=== PATIENT | female | born 1935 | race Caucasian/White ===

== ENCOUNTER → 2023-10-14 07:02 | Outpatient (REF) | payer MEDICARE, SELFPAY ==
[2023-10-14 07:36] LABS: % Basophils 1.1 % (0-2); % Eosinophils 3.2 % (0-6); % Immature Granulocytes 0.2 % (0-0.5); % Lymphocytes 24.6 % (20.5-51.1); % Monocytes 10.1 % (1.7-9.3); % Neutrophils 60.8 % (42.2-75.2); Absolute Basophils 0.1 10^3/uL (0-0.2); Absolute Eosinophils 0.2 10^3/uL (0-0.7); Absolute Lymphocytes 1.4 10^3/uL (1.2-3.4); Absolute Monocytes 0.6 10^3/uL (0.1-0.6); Absolute Neutrophils 3.4 10^3/uL (1.4-6.5); Hematocrit 35.2 % (37.0-47.0); Hemoglobin 11.2 g/dL (12.0-16.0); Mean Corp Hgb Conc. 31.8 g/dL (33.0-37.0); Mean Corpuscular Volume 97.5 fL (81.0-99.0); Mean Platelet Volume 10.6 fL (7.4-10.4); Nucleated Red Blood Cells % 0 %; Platelet Count 142 10^3/uL (130-400); Red Blood Cell Count 3.61 10^6/uL (4.20-5.40); Red Cell Dist. Width 13.6 % (11.5-14.5); White Blood Cell Count 5.6 10^3/uL (4.8-10.8)
[2023-10-14 08:47] LABS: ALT (SGPT) 17 U/L (0-35); AST (SGOT) 29 U/L (14-36); Albumin 3.7 g/dl (3.5-5.0); Alkaline Phosphatase 196 U/L (38-126); Blood Urea Nitrogen 24 mg/dl (7-17); Calcium 9.5 mg/dl (8.4-10.2); Carbon Dioxide 27 mmol/L (22-30); Chloride 101 mmol/L (98-107); Glucose 94 mg/dl (70-99); HDL Cholesterol 30 mg/dl; Iron 63 ug/dl (37-170); LDL Cholesterol, Calculated 56 mg/dl; Sodium 139 mmol/L (135-145); Total Bilirubin 0.8 mg/dl (0.2-1.3); Total Cholesterol 100 mg/dl (50-199); Total Protein 6.2 g/dl (6.3-8.2); Triglyceride 73 mg/dl (10-149); Very Low Density Lipoprotein 14 mg/dl (0-30); eGFR > 60.00
[2023-10-14 08:56] LABS: Percent Saturation 21 % (20-50); Total Iron Binding Capacity 297 ug/dl (265-497)
[2023-10-14 10:20] LABS: Glycohemoglobin (HgbA1c) 5.6 % (4.0-5.6)
== END ==
LOC: REG 07:02
PROVIDERS: ATTENDING PHYSICIAN Nurse Practitioner Adult Health; FAMILY PHYSICIAN Family Medicine; REFERRING PHYSICIAN Internal Medicine Cardiovascular Disease
DX: D50.8 Other iron deficiency anemias (principal); R73.02 Impaired glucose tolerance (oral); E78.5 Hyperlipidemia, unspecified; E61.1 Iron deficiency
CPT/HCPCS: 36415; 80053; 80061; 82728; 83036; 83540; 83550; 85025

== ENCOUNTER → 2023-10-21 11:06 | Outpatient (REF) | payer MEDICARE, SELFPAY ==
[2023-10-21 13:42] LABS: % Basophils 0.9 % (0-2); % Immature Granulocytes 0.3 % (0-0.5); % Monocytes 8.8 % (1.7-9.3); Absolute Basophils 0.1 10^3/uL (0-0.2); Absolute Eosinophils 0.1 10^3/uL (0-0.7); Absolute Lymphocytes 1.2 10^3/uL (1.2-3.4); Absolute Monocytes 0.6 10^3/uL (0.1-0.6); Absolute Neutrophils 4.4 10^3/uL (1.4-6.5); Hematocrit 36.9 % (37.0-47.0); Hemoglobin 12.1 g/dL (12.0-16.0); Mean Corp Hgb Conc. 32.8 g/dL (33.0-37.0); Mean Corpuscular Hgb 31.5 pg (27.0-31.0); Mean Corpuscular Volume 96.1 fL (81.0-99.0); Mean Platelet Volume 10.9 fL (7.4-10.4); Nucleated Red Blood Cells % 0 %; Platelet Count 177 10^3/uL (130-400); Red Blood Cell Count 3.84 10^6/uL (4.20-5.40); Red Cell Dist. Width 13.9 % (11.5-14.5); White Blood Cell Count 6.4 10^3/uL (4.8-10.8)
[2023-10-21 14:24] LABS: Glycohemoglobin (HgbA1c) 5.7 % (4.0-5.6)
[2023-10-21 20:40] LABS: ALT (SGPT) 15 U/L (0-35); AST (SGOT) 28 U/L (14-36); Alkaline Phosphatase 202 U/L (38-126); Blood Urea Nitrogen 23 mg/dl (7-17); Carbon Dioxide 31 mmol/L (22-30); Chloride 97 mmol/L (98-107); Glucose 93 mg/dl (70-99); HDL Cholesterol 33 mg/dl; Iron 75 ug/dl (37-170); LDL Cholesterol, Calculated 62 mg/dl; Potassium 4.3 mmol/L (3.5-5.1); Sodium 138 mmol/L (135-145); Total Bilirubin 0.9 mg/dl (0.2-1.3); Total Cholesterol 115 mg/dl (50-199); Total Protein 6.7 g/dl (6.3-8.2); Triglyceride 103 mg/dl (10-149); Very Low Density Lipoprotein 20 mg/dl (0-30); eGFR > 60.00
[2023-10-21 20:49] LABS: Percent Saturation 24 % (20-50); Total Iron Binding Capacity 310 ug/dl (265-497)
== END ==
LOC: REG 11:06
PROVIDERS: ATTENDING PHYSICIAN Internal Medicine Cardiovascular Disease; FAMILY PHYSICIAN Family Medicine
DX: R73.01 Impaired fasting glucose (principal); N18.30 Chronic kidney disease, stage 3 unspecified; E78.5 Hyperlipidemia, unspecified; D50.0 Iron deficiency anemia secondary to blood loss (chronic)
CPT/HCPCS: 36415; 80053; 80061; 82728; 83036; 83540; 83550; 85025

== ENCOUNTER → 2023-11-03 13:24 | Outpatient (REF) | payer MEDICARE, SELFPAY ==
[2023-11-03 14:30] LABS: NT-proBNP 3000 pg/ml
== END ==
LOC: REG 13:24
PROVIDERS: ATTENDING PHYSICIAN Internal Medicine Cardiovascular Disease; FAMILY PHYSICIAN Family Medicine
DX: I50.32 Chronic diastolic (congestive) heart failure (principal)
CPT/HCPCS: 36415; 83880

== ENCOUNTER → 2023-11-18 10:42 | Outpatient (REF) | payer MEDICARE, SELFPAY ==
[2023-11-18 12:34] LABS: Blood Urea Nitrogen 37 mg/dl (7-17); Calcium 9.5 mg/dl (8.4-10.2); Carbon Dioxide 29 mmol/L (22-30); Chloride 100 mmol/L (98-107); Glucose 95 mg/dl (70-99); Sodium 139 mmol/L (135-145); eGFR > 60.00
== END ==
LOC: REG 10:42
PROVIDERS: ATTENDING PHYSICIAN Internal Medicine Cardiovascular Disease; FAMILY PHYSICIAN Family Medicine
DX: I50.30 Unspecified diastolic (congestive) heart failure (principal); I10 Essential (primary) hypertension; I27.20 Pulmonary hypertension, unspecified
CPT/HCPCS: 36415; 80048

== ENCOUNTER → 2023-11-25 13:19 | Outpatient (REF) | payer MEDICARE, SELFPAY ==
[2023-11-25 14:32] LABS: NT-proBNP 3070 pg/ml
== END ==
LOC: REG 13:19
PROVIDERS: ATTENDING PHYSICIAN Internal Medicine Cardiovascular Disease; FAMILY PHYSICIAN Family Medicine
DX: I10 Essential (primary) hypertension (principal); I07.1 Rheumatic tricuspid insufficiency; I50.30 Unspecified diastolic (congestive) heart failure; I27.20 Pulmonary hypertension, unspecified
CPT/HCPCS: 36415; 83880

== ENCOUNTER → 2024-01-29 13:02 | Outpatient (REF) | payer MEDICARE, SELFPAY ==
[2024-01-29 14:09] LABS: % Basophils 0.8 % (0-2); % Eosinophils 2.3 % (0-6); % Immature Granulocytes 0.3 % (0-0.5); % Lymphocytes 17.6 % (20.5-51.1); % Monocytes 7.6 % (1.7-9.3); % Neutrophils 71.4 % (42.2-75.2); Absolute Basophils 0.1 10^3/uL (0-0.2); Absolute Eosinophils 0.1 10^3/uL (0-0.7); Absolute Lymphocytes 1.1 10^3/uL (1.2-3.4); Absolute Monocytes 0.5 10^3/uL (0.1-0.6); Absolute Neutrophils 4.3 10^3/uL (1.4-6.5); Hematocrit 34.1 % (37.0-47.0); Hemoglobin 11.1 g/dL (12.0-16.0); Mean Corp Hgb Conc. 32.6 g/dL (33.0-37.0); Mean Corpuscular Hgb 31.1 pg (27.0-31.0); Mean Corpuscular Volume 95.5 fL (81.0-99.0); Mean Platelet Volume 10.6 fL (7.4-10.4); Nucleated Red Blood Cells % 0 %; Platelet Count 162 10^3/uL (130-400); Red Blood Cell Count 3.57 10^6/uL (4.20-5.40); Red Cell Dist. Width 14.8 % (11.5-14.5)
[2024-01-29 15:27] LABS: Iron 76 ug/dl (37-170)
[2024-01-29 15:37] LABS: Percent Saturation 23 % (20-50); Total Iron Binding Capacity 323 ug/dl (265-497)
== END ==
LOC: REG 13:02
PROVIDERS: ATTENDING PHYSICIAN Nurse Practitioner Adult Health; FAMILY PHYSICIAN Family Medicine
DX: D50.8 Other iron deficiency anemias (principal)
CPT/HCPCS: 36415; 82728; 83540; 83550; 85025

== ENCOUNTER → 2024-03-31 14:54 | Outpatient (REF) | payer MEDICARE, SELFPAY | LOC: RCS 14:54 | PROVIDERS: ATTENDING PHYSICIAN Physician Assistant; FAMILY PHYSICIAN Family Medicine; REFERRING PHYSICIAN Internal Medicine Cardiovascular Disease | DX: I50.30 Unspecified diastolic (congestive) heart failure (principal); I27.20 Pulmonary hypertension, unspecified | CPT/HCPCS: 93306 ==

== ENCOUNTER → 2024-04-01 08:35 | Outpatient (REF) | payer MEDICARE, SELFPAY ==
[2024-04-01 10:35] LABS: % Basophils 1.2 % (0-2); % Eosinophils 3.6 % (0-6); % Immature Granulocytes 0.2 % (0-0.5); % Lymphocytes 20.7 % (20.5-51.1); % Monocytes 9.5 % (1.7-9.3); % Neutrophils 64.8 % (42.2-75.2); Absolute Basophils 0.1 10^3/uL (0-0.2); Absolute Eosinophils 0.2 10^3/uL (0-0.7); Absolute Monocytes 0.5 10^3/uL (0.1-0.6); Absolute Neutrophils 3.2 10^3/uL (1.4-6.5); Hematocrit 35.2 % (37.0-47.0); Hemoglobin 11.6 g/dL (12.0-16.0); Mean Corpuscular Volume 97.2 fL (81.0-99.0); Nucleated Red Blood Cells % 0 %; Platelet Count 188 10^3/uL (130-400); Red Blood Cell Count 3.62 10^6/uL (4.20-5.40); Red Cell Dist. Width 14.1 % (11.5-14.5)
[2024-04-01 11:17] LABS: ALT (SGPT) 15 U/L (0-35); AST (SGOT) 27 U/L (14-36); Albumin 4.4 g/dl (3.5-5.0); Alkaline Phosphatase 172 U/L (38-126); Blood Urea Nitrogen 33 mg/dl (7-17); Calcium 9.7 mg/dl (8.4-10.2); Carbon Dioxide 29 mmol/L (22-30); Chloride 102 mmol/L (98-107); Glucose 86 mg/dl (70-99); HDL Cholesterol 36 mg/dl; LDL Cholesterol, Calculated 65 mg/dl; Potassium 4.4 mmol/L (3.5-5.1); Sodium 142 mmol/L (135-145); Total Bilirubin 0.7 mg/dl (0.2-1.3); Total Cholesterol 117 mg/dl (50-199); Total Protein 6.9 g/dl (6.3-8.2); Triglyceride 83 mg/dl (10-149); Very Low Density Lipoprotein 16 mg/dl (0-30); eGFR 54.53
[2024-04-01 11:52] LABS: TSH Reflex To Free T4 3.12 uIU/ml (0.47-4.68)
== END ==
LOC: REG 08:35
PROVIDERS: ATTENDING PHYSICIAN Family Medicine; FAMILY PHYSICIAN Internal Medicine Cardiovascular Disease
DX: Z12.31 Encounter for screening mammogram for malignant neoplasm of breast (principal); E78.5 Hyperlipidemia, unspecified; I10 Essential (primary) hypertension; R73.01 Impaired fasting glucose; D50.0 Iron deficiency anemia secondary to blood loss (chronic); Z00.00 Encounter for general adult medical examination without abnormal findings; Z79.899 Other long term (current) drug therapy
CPT/HCPCS: 36415; 80053; 80061; 84443; 85025

== ENCOUNTER → 2024-07-13 10:56 | Outpatient (REF) | payer MEDICARE, SELFPAY | LOC: WDC 10:56 | PROVIDERS: ATTENDING PHYSICIAN Family Medicine | DX: Z12.31 Encounter for screening mammogram for malignant neoplasm of breast (principal) | CPT/HCPCS: 77063; 77067 ==

== ENCOUNTER → 2024-07-30 12:20 | Outpatient (REF) | payer MEDICARE, SELFPAY ==
[2024-07-30 13:54] LABS: % Basophils 0.8 % (0-2); % Eosinophils 3.2 % (0-6); % Immature Granulocytes 0.2 % (0-0.5); % Lymphocytes 18.8 % (20.5-51.1); % Monocytes 10.3 % (1.7-9.3); % Neutrophils 66.7 % (42.2-75.2); Absolute Eosinophils 0.2 10^3/uL (0-0.7); Absolute Monocytes 0.6 10^3/uL (0.1-0.6); Absolute Neutrophils 3.6 10^3/uL (1.4-6.5); Hematocrit 31.7 % (37.0-47.0); Hemoglobin 10.3 g/dL (12.0-16.0); Mean Corp Hgb Conc. 32.5 g/dL (33.0-37.0); Mean Corpuscular Hgb 30.9 pg (27.0-31.0); Mean Corpuscular Volume 95.2 fL (81.0-99.0); Mean Platelet Volume 10.5 fL (7.4-10.4); Nucleated Red Blood Cells % 0 %; Platelet Count 163 10^3/uL (130-400); Red Blood Cell Count 3.33 10^6/uL (4.20-5.40); Red Cell Dist. Width 15.2 % (11.5-14.5); White Blood Cell Count 5.3 10^3/uL (4.8-10.8)
[2024-07-30 15:12] LABS: ALT (SGPT) 16 U/L (0-35); AST (SGOT) 28 U/L (14-36); Albumin 4.2 g/dl (3.5-5.0); Alkaline Phosphatase 152 U/L (38-126); Blood Urea Nitrogen 35 mg/dl (7-17); Calcium 9.5 mg/dl (8.4-10.2); Carbon Dioxide 28 mmol/L (22-30); Chloride 99 mmol/L (98-107); Glucose 96 mg/dl (70-99); Iron 57 ug/dl (37-170); Sodium 142 mmol/L (135-145); Total Bilirubin 0.7 mg/dl (0.2-1.3); Total Protein 6.7 g/dl (6.3-8.2); eGFR 43.81
[2024-07-30 15:21] LABS: Percent Saturation 17 % (20-50); Total Iron Binding Capacity 326 ug/dl (265-497)
[2024-07-30 15:46] LABS: Ferritin 60.8 ng/ml (11.1-264.0)
== END ==
LOC: REG 12:20
PROVIDERS: ATTENDING PHYSICIAN Registered Nurse Ambulatory Care
DX: E61.1 Iron deficiency (principal); D50.0 Iron deficiency anemia secondary to blood loss (chronic)
CPT/HCPCS: 36415; 80053; 82728; 83540; 83550; 85025

== ENCOUNTER → 2024-09-30 07:06 | Outpatient (REF) | payer MEDICARE, SELFPAY ==
[2024-09-30 08:15] LABS: % Basophils 1.1 % (0-2); % Immature Granulocytes 0.5 % (0-0.5); % Lymphocytes 19.5 % (20.5-51.1); % Monocytes 10.1 % (1.7-9.3); % Neutrophils 65.8 % (42.2-75.2); Absolute Basophils 0.1 10^3/uL (0-0.2); Absolute Eosinophils 0.2 10^3/uL (0-0.7); Absolute Lymphocytes 1.2 10^3/uL (1.2-3.4); Absolute Monocytes 0.6 10^3/uL (0.1-0.6); Absolute Neutrophils 4.2 10^3/uL (1.4-6.5); Hematocrit 35.1 % (37.0-47.0); Hemoglobin 11.6 g/dL (12.0-16.0); Mean Corpuscular Hgb 30.7 pg (27.0-31.0); Mean Corpuscular Volume 92.9 fL (81.0-99.0); Mean Platelet Volume 10.2 fL (7.4-10.4); Nucleated Red Blood Cells % 0 %; Platelet Count 147 10^3/uL (130-400); Red Blood Cell Count 3.78 10^6/uL (4.20-5.40); Red Cell Dist. Width 15.1 % (11.5-14.5); White Blood Cell Count 6.4 10^3/uL (4.8-10.8)
[2024-09-30 08:28] LABS: NT-proBNP 2240 pg/ml
[2024-09-30 08:51] LABS: Glycohemoglobin (HgbA1c) 5.6 % (4.0-5.6)
[2024-09-30 09:19] LABS: ALT (SGPT) 17 U/L (0-35); AST (SGOT) 28 U/L (14-36); Albumin 4.3 g/dl (3.5-5.0); Alkaline Phosphatase 153 U/L (38-126); Blood Urea Nitrogen 20 mg/dl (7-17); Calcium 9.5 mg/dl (8.4-10.2); Carbon Dioxide 29 mmol/L (22-30); Chloride 100 mmol/L (98-107); Glucose 95 mg/dl (70-99); HDL Cholesterol 34 mg/dl; Iron 81 ug/dl (37-170); LDL Cholesterol, Calculated 59 mg/dl; Potassium 3.9 mmol/L (3.5-5.1); Sodium 142 mmol/L (135-145); Total Cholesterol 110 mg/dl (50-199); Total Protein 6.7 g/dl (6.3-8.2); Triglyceride 87 mg/dl (10-149); Very Low Density Lipoprotein 17 mg/dl (0-30); eGFR > 60.00
[2024-09-30 09:28] LABS: Percent Saturation 24 % (20-50); Total Iron Binding Capacity 325 ug/dl (265-497)
[2024-09-30 11:06] LABS: Ferritin 66.1 ng/ml (11.1-264.0)
== END ==
LOC: REG 07:06
PROVIDERS: ATTENDING PHYSICIAN Internal Medicine Cardiovascular Disease; FAMILY PHYSICIAN Family Medicine
DX: I50.30 Unspecified diastolic (congestive) heart failure (principal); R73.02 Impaired glucose tolerance (oral); E78.5 Hyperlipidemia, unspecified; E61.1 Iron deficiency
CPT/HCPCS: 36415; 80053; 80061; 82728; 83036; 83540; 83550; 83880; 85025

== ENCOUNTER 2025-03-19 20:42 | Inpatient (IN) | payer MEDICARE, SELFPAY ==
[2025-03-19] VITALS (7 sets, daily range): BP systolic 108–144; BP diastolic 48–74; BMI 27.0; BMI 27.1
[2025-03-19 17:02] LABS: Hematocrit 33.9 % (37.0-47.0); Hemoglobin 11.0 g/dL (12.0-16.0); Mean Corp Hgb Conc. 32.4 g/dL (33.0-37.0); Mean Corpuscular Volume 95.8 fL (81.0-99.0); Nucleated Red Blood Cells % 0 %; Platelet Count 120 10^3/uL (130-400); Red Cell Dist. Width 14.3 % (11.5-14.5)
--- NOTE | 2025-03-19 17:19 | ED.GENMED ---
History of Present Illness
General
Chief Complaint: Breathing Problem
Source: patient and family (Daughter)
Time Seen by Provider: 03/19/25 16:22
History of Present Illness
History of Present Illness:
89-year-old female complaining of increased shortness of breath over the last 3 to 4 days. Fever to 101. Some cough and congestion. No chest pain no pleuritic pain. Progressive symptoms over 3 to 4 days.
Past History
Past History
ED Past Medical History: Arrthythmia, CAD, CHF, Other (Pulmonary hypertension) and Other
ED Past Surgical History: Appendectomy, Cardiac, Orthopedic, Tonsilectomy and Other
Social History
Tobacco: Former smoker
Alcohol: None
Drug: None
Personal:
Living: alone
Employment: Retired
Family History
Family History: Other (Noncontributory)
Review of Systems
Review of Systems
All Other Systems: Not applicable
Constitutional: Reports fever
Respiratory: Reports cough; Denies hemoptysis
Cardiac: Denies chest pain or syncope
Phy Exam
Physical Exam
Physical Exam:
GENERAL: Alert and oriented in no apparent distress. Oxygen in place. Hypoxic on room air
EYE: Orbits normal.
NECK: Supple, no significant adenopathy.
ENT: Pharynx without erythema
CARDIAC: Minimally irregular. Rate normal. No significant murmur
LUNGS: Occasional coarse rhonchi with mild diffuse expiratory wheezing.
ABDOMEN: Soft, without focal tenderness or distention
NEUROLOGICAL: Alert and oriented , grossly non-focal
SKIN: Warm and dry, no rash or lesion, no discoloration, skin intact.
MUSCULOSKELETAL: No edema,no deformity.Good color
PSYCH: Normal and appropriate interaction.
Scores
Heart Failure Risk
Heart Failure Risk Score: Yes
History of Stroke or TIA: No
History of intubation for respiratory distress: No
Heart rate on ED arrival >/= 110: No
SaO2 <90% on arrival on room air: Yes
HR >/=110 during 3min walk test (or too ill to perform test): Yes
ECG has acute ischemic changes: No
Urea >/=12mmol/L (BUN 33.6mg/dL): Yes
Serum CO2>/=35mmol/L: No
Troponin I or T elevated to FL Level (0.4mg/dL): No
NT-proBNP >/=5,000ng/L (5,000pg/ml): Yes
HF Risk Score: 5
Admission Status: VERY HIGH RISK 39.8% Consider admission to hospital
Course
Orders/Labs/Results
Orders:
Orders
03/19/25 Breakfast
Cholesterol Lowering
Fluid Restriction: 1440 mL/day (48 oz)
Cholesterol Lowering: Sodium, 2 Gram
03/19/25 16:49
COVID-19 Antigen Urgent
Source: Nasal Swab
Complete Blood Count/With Diff Urgent
NT-proBNP Urgent
Comment: ADD ON
Troponin I Urgent
Influenza A+B Rapid Molecular Urgent
ELEONORA Source: Nasal Swab
Specimen Description:
03/19/25 17:02
Add On- LAB Urgent
Tests Added?: probnp
Ipratropium/Albuterol Sulfate [Duoneb] 3 ml INH R NOW ONE
03/19/25 17:03
CXR2 [CR Chest - 2 Views ] Urgent
Comment:
Reason For Exam: sob
03/19/25 17:39
EKG [Electrocardiogram (*1)] Urgent
Reason for Study: Shortness of Breath
EKG- Treatment ONCE
Comprehensive Metabolic Panel Urgent
Magnesium Urgent
03/19/25 18:58
Furosemide [Lasix] 40 mg IV NOW STA
03/19/25 19:34
Urinalysis Reflex To Culture Urgent
Date Specimen was Collected: 03/19/25
Time Specimen was Collected: 17:40
Urine Microscopic Reflex Cult Urgent
Urine Culture Urgent
ELEONORA Source: U
Specimen Description:
Date Specimen was Collected: 03/19/25
Time Specimen was Collected: 17:40
03/19/25 20:07
Apixaban [Eliquis] 5 mg PO NOW STA
Doxycycline [Vibramycin] 100 mg PO NOW STA
03/19/25 20:10
Procalcitonin Routine
If negative, will antibiotics be d/c'd or not started: Yes
Does the patient have renal or hepatic impairment?: No
Any recent (w/in 48 hrs) physiologic stress (CPR, rhabdo): No
03/19/25 20:15
Admit/Transfer Patient As Directed
Co-Sign Provider:
Level of Care: Inpatient admission
Assign to:: Telemetry
Physician / Group: Darya Hernandez
Diagnosis: acute heart failure
Reason for Telemetry: Pulmonary Edema
Date to Stop Telemetry: 03/22/25
Time to Stop Telemetry: 11:00
Reason for Hospitalization: acute heart failure
Expected length of stay greater than two midnights?: Yes
ELOS- Estimated Length of Stay in days: 3
I certify the patient meets the requirements for IP care: Yes
PRN Pain Medication Management As Directed
May give lesser potent ordered pain med per pt: Yes
preference::
Protocol:: Medication orders for pain may be administered in a
manner that supports deferring to patient preference
when the pt is:
- Requesting an ordered lesser potent pain medication.
Least to most potent pain medications are defined
as: acetaminophen < NSAID < tramadol < opioids
(morphine, oxycodone, hydromorphone).
- Requesting a lesser dose of the same medication IF
ORDERED.
- Requesting a less intrusive route of administration
if both routes are prescribed by the provider (PO <
IV).
03/19/25 20:16
Code Status As Directed
Resuscitation Status: Full Code
03/19/25 20:22
Add On- LAB Routine
Tests Added?: magnesium
03/19/25 21:44
Guaifenesin Solution [Robitussin] 100 mg PO Q4HPRN PRN
Guaifenesin Solution [Robitussin] 200 mg PO BID
Ipratropium/Albuterol Sulfate [Duoneb] 3 ml INH R Q4HPRN PRN
03/19/25 21:44
Echo 2D MMode Color/Doppler Routine
Reason for Study: acute heart failure
HF DIETARY CONSULT Routine
HF EDUCATOR CONSULT Routine
Comment:
Sputum Culture [Respiratory Culture/Gram Stain] Routine
ELEONORA Source: Sputum
Specimen Description:
Activity As Directed
Activity Level: As Tolerated
Intake/ Output As Directed
Frequency: Per unit guidelines
Patient Education As Directed
Type: CHF folder
Comment: give on admission. Document in Interdisciplinary Education record
Sleep Apnea Assessment by RN As Directed
Comment:
Physician Instructions:
Vital Signs As Directed
Frequency: Other
Additional Instructions:: Q12 or per unit guidelines if more frequent.
Weight As Directed
Frequency: Daily
Type of Scale: Standing Scale
Comment: Daily morning weight. If unable to stand, use balanced bed scale.
Acapella [Rx Pep / Acapela] [RESP] Routine
Pulse Ox/cont/shift [RESP] Routine
Quantity: 1
Special Instructions: Daily pulse oximetry at rest. If greater than 92% at rest also obtain pulse oximetry
while ambulating as tolerated.
03/19/25 22:00
Atenolol [Tenormin] 50 mg PO HS
Atorvastatin [Lipitor] 40 mg PO HS
Doxazosin Mesylate [Cardura] 4 mg PO HS
03/20/25 06:00
Basic Metabolic Panel IN AM
Complete Blood Count/No Diff IN AM
Magnesium IN AM
03/20/25 08:00
Apixaban [Eliquis] 5 mg PO BID
Aspirin Low Dose EC [Aspir Low (Enteric Coated)] 81 mg PO DAILY
Doxycycline [Vibramycin] 100 mg PO Q12
FOLic ACID [Folvite] 1 mg PO DAILY
Furosemide [Lasix] 40 mg IV BID AT 0800,1600
Ipratropium/Albuterol Sulfate [Duoneb] 3 ml INH R QID
Losartan [Cozaar] 100 mg PO DAILY
Potassium Chloride [KCl] 10 meq PO DAILY
03/21/25 06:00
Basic Metabolic Panel IN AM
03/22/25 06:00
Basic Metabolic Panel IN AM
03/22/25 11:00
DC Protocol for Telemetry ONCE
Abnormal Lab Results
03/19/25 03/19/25 03/19/25
16:49 17:39 19:34
WBC 11.4 H 10^3/uL
(4.8-10.8)
RBC 3.54 L 10^6/uL
(4.20-5.40)
Hgb 11.0 L g/dL
(12.0-16.0)
Hct 33.9 L %
(37.0-47.0)
MCH 31.1 H pg
(27.0-31.0)
MCHC 32.4 L g/dL
(33.0-37.0)
Plt Count 120 L 10^3/uL
(130-400)
MPV 10.8 H fL
(7.4-10.4)
Abs Immat Gran (auto) 0.1 H 10^3/uL
(0-0.05)
Absolute Neuts (auto) 9.4 H 10^3/uL
(1.4-6.5)
Absolute Lymphs (auto) 0.7 L 10^3/uL
(1.2-3.4)
Absolute Monos (auto) 1.1 H 10^3/uL
(0.1-0.6)
Immature Gran % 0.6 H %
(0-0.5)
Neutrophils % 83.0 H %
(42.2-75.2)
Lymphocytes % 6.3 L %
(20.5-51.1)
Monocytes % 9.6 H %
(1.7-9.3)
BUN 34 H mg/dl
(7-17)
Creatinine 1.1 H mg/dL
(0.6-1.0)
Glucose 106 H mg/dl
(70-99)
Total Bilirubin 1.4 H mg/dl
(0.2-1.3)
Alkaline Phosphatase 155 H U/L
(38-126)
Leukocyte Esterase Rfl 2+ A
(Negative)
Urine RBC 3-6 A /HPF
(0-2)
Urine WBC (Reflex) 16-20 A /HPF
(0-5)
Urine Bacteria (Reflex) Few A
(Negative)
Urine Albumin (Reflex) 2+ A
(Neg - Trace)
03/19/25 16:49
03/19/25 17:39
Vital Signs
Initial and Last Documented VS:
Initial Vital Signs
Temp Pulse Resp BP Pulse Ox
99.3 F 100 18 130/73 80
03/19/25 16:12 03/19/25 16:12 03/19/25 16:12 03/19/25 16:12 03/19/25 16:12
Last Documented Vital Signs
Temp Pulse Resp BP Pulse Ox
100.8 F H 98 18 138/74 94
03/19/25 22:08 03/19/25 22:08 03/19/25 22:08 03/19/25 22:08 03/19/25 22:08
MDM/Problems Addressed
Differential Diagnosis Includes:
Patient complaining of some respiratory symptoms hypoxia dyspnea dyspnea with exertion progressive over 3 to 4 days. Low-grade fever. Has expiratory wheezing I suspect this more pulmonary related than cardiac. However workup for both in progress
*Radiology
Radiology exam reviewed: preliminary read by ED provider (Mild cephalization) and radiology read reviewed (Mild cephalization)
*Pulse Oximetry
SaO2: 94
Oxygen Mode of Delivery: Midflow Nasal Cannula (Low-flow)
Patient hypoxic: yes
*EKG
Interpreted by ED Provider?: Yes
Interpretation: abnormal
Comparison EKG: no changes
Heart Rate: 92
Rate: normal
Rhythm: a-fib
[place]: normal axis
Interval: normal interval
QRS Pattern: normal QRS
Ischemia: no ischemia
*Screen Operator Interpretation
Rate: normal
Interpretation: abnormal
Heart Rate: 90
Rhythm: a-fib
*Critical Care Note
Total Time (30-74mins, 75-104mins- exclusive of procedures): Not Applicable
Data Reviewed
Review of Other/Old Records Reveals: Labs, Records, Radiology Studies and Testing
Update Note
Update Note:
proBNP elevated. Component of CHF with bronchitis. Hypoxic at home. Warrants inpatient management
ED Attending Note
-
Portions of this chart may have been created with voice recognition software.� Occasional wrong word or��sound alike� substitutions may have occurred due to the inherent limitations of voice recognition software.
Discharge Plan
Departure
Patient Disposition: Admit
Date of Disposition: 03/19/25
Time of Disposition: 18:59
Presentation/result/management discussed w/ accepting MD/DO: Hospitalist
Discharge Problem:
Hypoxia/CHF, Bronchitis/history of pulmonary hyperten
Interventions
Interventions:
*Risk Screen - Suicide Last Done: 03/19/25 16:12
*General Assessment Last Done: 03/19/25 16:12
*Neglect/Abuse Screening Last Done: 03/19/25 17:30
*ED- Fall Risk Assessment Last Done: 03/19/25 17:30
*ED COVID-19 Vaccine History Last Done: 03/19/25 17:30
*Nursing Disposition Last Done: 03/19/25 21:43
ED- Cardiac Assessment Last Done: 03/19/25 17:30
ED- Pulmonary Assessment Last Done: 03/19/25 17:30
Discharge Date and Time
Discharge Date/Time: 03/19/25 21:43
[2025-03-19 17:27] LABS: COVID-19 Antigen Negative (Negative)
[2025-03-19] MEDS: DUONEB 3 ML INH (17:28)
[2025-03-19 17:37] LABS: Troponin I 0.032 ng/ml
[2025-03-19 18:13] LABS: ALT (SGPT) 12 U/L (0-35); AST (SGOT) 23 U/L (14-36); Albumin 3.9 g/dl (3.5-5.0); Alkaline Phosphatase 155 U/L (38-126); Blood Urea Nitrogen 34 mg/dl (7-17); Calcium 9.3 mg/dl (8.4-10.2); Carbon Dioxide 27 mmol/L (22-30); Chloride 101 mmol/L (98-107); Estimated Creatinine Clearance 30 ml/min; Glucose 106 mg/dl (70-99); Potassium 4.2 mmol/L (3.5-5.1); Sodium 135 mmol/L (135-145); Total Protein 6.5 g/dl (6.3-8.2); eGFR 48.33
[2025-03-19] MEDS: LASIX 40 MG IV (19:14)
[2025-03-19 19:40] LABS: Urine Character Clear (Clear)
--- NOTE | 2025-03-19 19:44 | HPS.HSE ---
Family Physician
-
Family Physician: Ze Bhardwaj Jr.
Chief Complaint
-
shortness of breath
History of Present Illness
Ms. Nelsy Farr is a 89 yo woman with hx CAD, pulmonary HTN, HFpEF, HLD, permanent atrial fibrillation on Eliquis presents to the ER with fever up to 101 and increasing shortness of breath over past 3-4 days.
Patient states that is very congested. Congestion started upper respiratory, now feels in chest. She is asking for antibiotics. She cannot cough up mucus, feels nauseated when coughing. No vomiting. No headache. She had a fever to 101 a couple
of days ago. She is short of breath with exertion. Her pulse Ox was low at home < 85% and daughter brought patient to the ER.
She denies chest pain. No abdominal pain. She had diarrhea x 1. No LE swelling. She has not gained weight but has also been eating less per daughter. She saw her grandson on Friday who had a GI infection, not respiratory.
Medical History
Past Medical History
Past Medical History: Reports Other (CAD, pulmonary HTN, HFpEF, HLD, permanent atrial fibrillation on Eliquis )
Past Surgical History: Reports Other
Social History
Tobacco: Former Smoker
Alcohol: None
Drug: None
Family History
Family History: Not pertinent
Allergies / Home Medications
Allergies reflects when Allergies were last updated in [facility].
Home Medications with original date entered in [facility]
Allergy/Medication List:
Allergies
Allergy/AdvReac Type Severity Reaction Status Date / Time
No Known Allergies Allergy Verified 03/19/25 16:12
Home Medications
atorvastatin 40 mg tablet 40 mg PO HS High cholesterol 11/27/18
folic acid 1 mg tablet 1 mg PO DAILY Supplement 11/27/18
doxylamine succinate 25 mg tablet (Unisom (doxylamine)) 12.5 mg PO HS Sleep 09/19/20
atenolol 50 mg tablet 50 mg PO HS 02/01/21
losartan 100 mg tablet (Cozaar) 100 mg PO DAILY #30 tabs 02/01/21
apixaban 5 mg tablet (Eliquis) 5 mg PO BID Blood clot prevention/tx 03/12/21
acetaminophen 500 mg tablet (Tylenol Extra Strength) 1,000 mg PO HS Pain 11/27/22
aspirin 81 mg tablet,delayed release 81 mg PO DAILY Anti-inflammatory 11/27/22
cholecalciferol (vitamin D3) 25 mcg (1,000 unit) tablet (Vitamin D3) 25 mcg PO DAILY Supplement 11/27/22
cyanocobalamin (vitamin B-12) 1,000 mcg tablet 1,000 mcg PO DAILY Supplement 11/27/22
doxazosin 4 mg tablet 4 mg PO HS Urinary issue 11/27/22
niacin 400 mg (inositol niacinate 500 mg) capsule (Niacin Flush Free) 1 cap PO DAILY Supplement 11/27/22
potassium chloride 10 mEq tablet,extended release(part/cryst) 10 meq PO BID Electrolyte Repletion 11/27/22
therapeutic multivitamin 1 tab PO DAILY Supplement 11/27/22
zinc 100 mg tablet 100 mg PO DAILY Supplement 11/27/22
sodium chloride 0.65 % nasal spray aerosol (Saline Nasal) 2 spray intranasal QIDPRN #88 mL 12/01/22
furosemide 20 mg tablet 40 mg PO DAILY Heart Failure 03/19/25
Review of Systems
-
History Source: Patient
A 12 point ROS was completed and negative except as noted: Yes
Physical Exam
Vital Signs
Vital Signs
Temp Pulse Resp BP Pulse Ox
99.3 F 87 22 135/66 98
03/19/25 16:12 03/19/25 19:14 03/19/25 17:30 03/19/25 19:14 03/19/25 17:30
Physical Exam
General: No Apparent Distress
HEENT: PERRLA
Respiratory: Decreased Breath Sounds; No Wheezes
Cardiac: S1/S2, Regular Rhythm, Murmur and JVD
GI: Soft and Non Tender
Musculoskeletal: No Edema
Skin: Warm and Dry; No Rash
Neuro: AO x 3
Psych: Calm
Laboratory Results
-
03/19/25 16:49
03/19/25 17:39
Laboratory Results
Total Bilirubin 1.4 mg/dl (0.2-1.3) H 03/19/25 17:39
AST 23 U/L (14-36) 03/19/25 17:39
ALT 12 U/L (0-35) 03/19/25 17:39
Alkaline Phosphatase 155 U/L (38-126) H 03/19/25 17:39
Troponin I 0.032 ng/ml 03/19/25 16:49
Data Reviewed
-
Diagnostic Radiology: Report Reviewed by me
Lab Data: Labs Reviewed by me
Impression/Plan
-
Ms. Nelsy Farr is a 89 yo woman with hx CAD, pulmonary HTN, HFpEF, HLD, permanent atrial fibrillation on Eliquis presents to the ER with fever up to 101 and increasing shortness of breath over past 3-4 days.
Triage VS: T 99.3, P 100, RR 18, BP 130/73, SpO2 80%
LABS: WBC 11.4, Hg 11, PLT 120, Na 135, K+ 4.2, CO2 27, BUN 34, Cr 1.1, Glucose 106, T. Bili 1.4, AST 23, ALT 12, Alk Phos 155
Covid and Flu negative
CXR
IMPRESSION:
Small bilateral pleural effusions.
Significant cardiomegaly with cephalized vascular flow. No evidence for significant interstitial edema radiographically.
MAR: IV Lasix, Duonebs
Hypoxic Respiratory Insufficiency
Heart Failure preserved EF, Acute Exacerbation
-TTE 03/31/24 EF 62%, moderate TR
-exacerbation related to bronchitis
-admit to telemetry
-O2 support as needed
-continue IV Lasix 40mg IV BID
-daily weights, strict I/O
-monitor K/Mag (patient takes K 10mEq QD at home)
-repeat echo, (last one, one year ago)
Acute Bronchitis
-CXR without PNA
-I will start oral Doxycycline
-follow up procalcitonin, if elevated will add on IV Ceftriaxone
-standing duonebs
-Robitussin standing (prefers over oral) and PRN
-acapella
-sputum culture
Permanent Atrial Fibrillation
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
Esssential HTN
-[employer] [place] [employer] Doxazosin, Losartan, Metoprolol
Hyperlipidemia
-[employer] [place] [employer] Statin
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
DVT PPx - [employer]AL [place] [employer] Eliquis
FULL CODE
76 minutes spent on patient care
[2025-03-19 19:49] LABS: Urine Squamous Cell >30 /LPF (Few)
[2025-03-19 19:52] LABS: Urine White Cell 16-20 /HPF (0-5)
[2025-03-19] MEDS: VIBRAMYCIN 100 MG PO (20:24)
[2025-03-19] MEDS: ELIQUIS 5 MG PO (20:24)
[2025-03-19 21:09] LABS: Magnesium 2.2 mg/dl (1.6-2.3)
--- NOTE | 2025-03-19 22:30 | PTCARENOTE ---
Received patient from ED. Patient pivoted to the bedside with minimal assistance. Patient assessed. AAOx3, denies pain, on 4 Liters oxygen. Moist non productive occasional harsh cough. VSS. Afib on the monitor. Patient verbalized an understanding to
ring for all transfers. Patient aware a bed alarm was placed on bed for safety. Patient demonstrated how to use call bullock. Teaching provided for CHF, fluid restriction, sodium restriction. Patient oriented to the unit. All questions answered.
[2025-03-19] MEDS: ROBITUSSIN 200 MG PO (23:03)
[2025-03-19] MEDS: TENORMIN 50 MG PO (23:03)
[2025-03-19] MEDS: LIPITOR 40 MG PO (23:04)
[2025-03-19] MEDS: CARDURA 4 MG PO (23:04)
[2025-03-19] MEDS: TYLENOL 650 MG PO (23:05)
[2025-03-20 03:20] VITALS: BP 104/45
[2025-03-20 05:14] LABS: Hematocrit 33.0 % (37.0-47.0); Hemoglobin 10.5 g/dL (12.0-16.0); Mean Corp Hgb Conc. 31.8 g/dL (33.0-37.0); Mean Corpuscular Volume 96.8 fL (81.0-99.0); Platelet Count 115 10^3/uL (130-400); Red Cell Dist. Width 14.5 % (11.5-14.5)
[2025-03-20 05:35] LABS: Blood Urea Nitrogen 40 mg/dl (7-17); Calcium 8.8 mg/dl (8.4-10.2); Carbon Dioxide 30 mmol/L (22-30); Chloride 104 mmol/L (98-107); Estimated Creatinine Clearance 26 ml/min; Glucose 116 mg/dl (70-99); Magnesium 2.1 mg/dl (1.6-2.3); Potassium 4.4 mmol/L (3.5-5.1); Sodium 138 mmol/L (135-145); eGFR 39.55
[2025-03-20 05:37] VITALS: BMI 27.1
[2025-03-20 05:37] LABS: Procalcitonin 0.28 ng/ml (0.0-0.25)
[2025-03-20] MEDS: DUONEB 3 ML INH ×4 (07:02→20:52)
[2025-03-20 07:40] VITALS: BP 108/73
[2025-03-20] MEDS: VIBRAMYCIN 100 MG PO ×2 (08:41→20:26)
[2025-03-20] MEDS: ELIQUIS 5 MG PO ×2 (08:41→20:26)
[2025-03-20] MEDS: LASIX 40 MG IV (08:41)
[2025-03-20] MEDS: ROBITUSSIN 200 MG PO ×2 (08:41→20:26)
[2025-03-20] MEDS: FOLVITE 1 MG PO (08:41)
[2025-03-20] MEDS: KCL 10 MEQ PO (08:41)
[2025-03-20] MEDS: ASPIR LOW (ENTERIC COATED) 81 MG PO (08:41)
[2025-03-20] MEDS: COZAAR 100 MG PO (08:45)
--- NOTE | 2025-03-20 09:38 | W.PN.HOSP.TC ---
Today's Communication/Plan
-
continue doxy
add Rocephin for possible UTI
hold further IV Lasix - reassess in AM (Cr 1.3)
wean O2
PT/OT
d/w Daughter
Assessment / Plan
Assessment / Plan
Assessment:
Hypoxic Respiratory Insufficiency on 2L NC
Heart Failure preserved EF, Acute Exacerbation (mild)
-TTE 03/31/24 EF 62%, moderate TR
-exacerbation related to bronchitis
-monitor telemetry
-O2 support as needed; currently on 2L NC
-s/p IV Lasix - Cr increased to 1.3 - will hold Lasix and observe labs tomorrow
-daily weights, strict I/O
-monitor K/Mag (patient takes K 10mEq QD at home)
-repeat echo, (last one, one year ago)
Possible UTI
- start IV Rocephin pending culture
Acute Bronchitis
-CXR without PNA
-continue Doxycycline
-standing duonebs
-Robitussin standing (prefers over oral) and PRN
-acapella/IS
-sputum culture
Permanent Atrial Fibrillation
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
Essential HTN
-PEST CONTROL TECHNICIAN Doxazosin, Losartan, Metoprolol
Hyperlipidemia
-PEST CONTROL TECHNICIAN Statin
CAD - PEST CONTROL TECHNICIAN Aspirin, Statin
Mild thrombocytopenia
- monitor for bleeding
DVT PPx - PEST CONTROL TECHNICIAN Eliquis
FULL CODE
Anticipated Discharge: 24 - 48 hours
Subjective/Interval History
-
Date of Service: March 20, 2025
reports improving cough
less SOB
no cp
on 2L NC
Objective Data
-
Labs:
Laboratory Results
03/20/25
04:53
WBC 10.7
Hgb 10.5 L
Hct 33.0 L
Plt Count 115 L
Sodium 138
Potassium 4.4
Chloride 104
Carbon Dioxide 30
BUN 40 H
Creatinine 1.3 H
Glucose 116 H
Calcium 8.8
Vital Signs:
Vital Signs
Temp Pulse Resp BP Pulse Ox
98.4 F 80 20 108/73 94
03/20/25 07:40 03/20/25 07:40 03/20/25 07:40 03/20/25 07:40 03/20/25 07:51
I&O
03/19/25 03/20/25 03/21/25
06:59 06:59 06:59
Intake Total 480 / 480
Output Total 200 / 200
Balance 280 / 280
Physical Exam
-
General: No Apparent Distress
Respiratory: Decreased Breath Sounds; Negative Wheezes
Cardiac: Regular Rhythm and S1/S2
GI: Soft
Musculoskeletal: No Edema
Neuro: AO x 3
Psych: Calm
Data Reviewed
-
Total Time Spent with Patient (in minutes): 42
Labs: Labs Reviewed by me
--- NOTE | 2025-03-20 12:38 | CM ---
Reviewed the chart notes and spoke with the patient and her two daughters at the bedside. The patient resides alone in a two story home with two steps to enter. The patient reports on DME or SNF, but has had [facility] in the past. Patient confirmed
pharmacy of choice is [facility]. Patient currently on supplemental O2. CM continues to be available to patient/family and is monitoring medical plan for needs at discharge.
Plan: Discharge plans will depend on the patient's progress.
[2025-03-20 12:41] VITALS: BP 133/66; PULSE 95; O2SAT 90
[2025-03-20 15:57] VITALS: BP 96/71
[2025-03-20] MEDS: ROBITUSSIN 100 MG PO (17:31)
[2025-03-20 19:24] VITALS: BP 113/60
[2025-03-20] MEDS: LIPITOR 40 MG PO (22:30)
[2025-03-20] MEDS: CARDURA 4 MG PO (22:32)
[2025-03-20] MEDS: TENORMIN 50 MG PO (22:33)
[2025-03-20 23:21] VITALS: BP 106/54
[2025-03-21 04:00] VITALS: BP 109/40
[2025-03-21] MEDS: ROBITUSSIN 100 MG PO ×2 (04:55→18:38)
[2025-03-21 05:00] VITALS: BMI 27.4
[2025-03-21] MEDS: DUONEB 3 ML INH ×3 (07:10→19:21)
[2025-03-21 07:49] VITALS: BP 128/43
[2025-03-21 07:55] LABS: Hematocrit 30.6 % (37.0-47.0); Hemoglobin 9.7 g/dL (12.0-16.0); Mean Corp Hgb Conc. 31.7 g/dL (33.0-37.0); Mean Corpuscular Volume 95.9 fL (81.0-99.0); Platelet Count 124 10^3/uL (130-400); Red Cell Dist. Width 14.4 % (11.5-14.5)
[2025-03-21 08:33] LABS: Blood Urea Nitrogen 48 mg/dl (7-17); Calcium 9.0 mg/dl (8.4-10.2); Carbon Dioxide 27 mmol/L (22-30); Chloride 103 mmol/L (98-107); Estimated Creatinine Clearance 28 ml/min; Glucose 114 mg/dl (70-99); Magnesium 2.2 mg/dl (1.6-2.3); Potassium 4.0 mmol/L (3.5-5.1); Sodium 135 mmol/L (135-145); eGFR 43.54
[2025-03-21] MEDS: VIBRAMYCIN 100 MG PO ×2 (08:43→20:50)
[2025-03-21] MEDS: COZAAR 100 MG PO (08:43)
[2025-03-21] MEDS: ELIQUIS 5 MG PO ×2 (08:43→20:49)
[2025-03-21] MEDS: KCL 10 MEQ PO (08:44)
[2025-03-21] MEDS: ROBITUSSIN 200 MG PO ×2 (08:44→20:49)
[2025-03-21] MEDS: ASPIR LOW (ENTERIC COATED) 81 MG PO (08:44)
[2025-03-21] MEDS: FOLVITE 1 MG PO (08:44)
--- NOTE | 2025-03-21 09:33 | W.PN.HOSP.TC ---
Today's Communication/Plan
-
see AP
Assessment / Plan
Assessment / Plan
A/P:
# Acute Hypoxic Respiratory Insufficiency
# Heart Failure preserved EF, Acute Exacerbation (mild)
Placed on 2-3L NC, wean O2 as tolerated, pt not on home O2
TTE 03/31/24 EF 62%, moderate TR
Check follow up echo
CHF exacerbation related to bronchitis
monitor telemetry
s/p IV Lasix - Cr increased to 1.3, then down to 1.2 today, cont to hold Lasix and observe labs
daily weights, strict I/O
monitor K/Mag (patient takes K 10mEq QD at home)
# Possible UTI
Start IV Rocephin pending culture
# Acute Bronchitis
COVID/Flu negative
CXR: Small bilateral pleural effusions. Significant cardiomegaly with cephalized vascular flow. No evidence for significant interstitial edema radiographically.
Procal 0.28
continue Doxycycline, add ceftriaxone (also covers for UTI)
Duonebs ATC and PRN
Robitussin ATC and PRN
acapella/IS
Chest percussion
sputum culture
# Permanent Atrial Fibrillation
continue ARTIFICIAL TEETH INSPECTOR Eliquis, Metoprolol
# Essential HTN
ARTIFICIAL TEETH INSPECTOR Doxazosin, Losartan, Metoprolol
# Hyperlipidemia
ARTIFICIAL TEETH INSPECTOR Statin
# CAD - ARTIFICIAL TEETH INSPECTOR Aspirin, Statin
# Mild thrombocytopenia
monitor for bleeding
DVT PPx - ARTIFICIAL TEETH INSPECTOR Eliquis
FULL CODE
Dispo: HH vs no need
updated daughter Jojo Rodas'Brien on TT
Anticipated Discharge: 24 - 48 hours
Subjective/Interval History
-
Date of Service: March 21, 2025
Objective Data
-
Labs:
Laboratory Results
03/21/25
07:29
WBC 10.9 H
Hgb 9.7 L
Hct 30.6 L
Plt Count 124 L
Sodium 135
Potassium 4.0
Chloride 103
Carbon Dioxide 27
BUN 48 H
Creatinine 1.2 H
Glucose 114 H
Calcium 9.0
Vital Signs:
Vital Signs
Temp Pulse Resp BP Pulse Ox
37.3 C 88 18 128/43 94
03/21/25 07:49 03/21/25 07:49 03/21/25 07:49 03/21/25 07:49 03/21/25 07:49
I&O
03/20/25 03/21/25 03/22/25
06:59 06:59 06:59
Intake Total 480 / 480 1000 / 1000
Output Total 200 / 200 250 / 250
Balance 280 / 280 750 / 750
Review of Systems
-
Respiratory: Reports Cough
Physical Exam
-
General: Well Developed, Well Nourished, Comfortable, Respiratory Distress (mild) and Conversant
HEENT: Oxygen (2-3L NC )
Respiratory: Crackles (BL bases, mild) and Non Labored Respirations; Negative Wheezes or Accessory Resp Muscle Use
Cardiac: Regular Rhythm and S1/S2
GI: Soft, Nontender, Nondistended and Normal Bowel Sounds
Musculoskeletal: No Edema
Neuro: Awake, Alert, Oriented and AO x 3
Psych: Calm and Intact Judgement/Insight
Data Reviewed
-
Diagnostic Radiology: Report Reviewed by me
Labs: Labs Reviewed by me
[2025-03-21] MEDS: STERILE WATER FOR INJECTION 10 ML IV (10:06)
[2025-03-21] MEDS: ROCEPHIN 1000 MG IV (10:06)
[2025-03-21] MEDS: OCEAN, SALINE MIST 2 SPRAYS NASAL (10:40)
[2025-03-21] MEDS: DUONEB INH (11:43)
[2025-03-21 12:18] VITALS: BP 115/51
--- NOTE | 2025-03-21 12:32 | CON.CAR ---
Addendum entered and electronically signed by Figueroa Gardner MD 03/21/25 14:45:
I saw and examined the patient.
The TITLE SPECIALIST or PA's note was reviewed and I agree with the note.
Comment: General: Well developed, well nourished in NAD.
Neck: Supple, no JVD, HJR, carotids +2 B/L, no bruits bilaterally.
Heart: Non displaced PMI, RRR, no murmurs, No S3, S4, no rubs.
Lungs: Scattered rhonchi
Extremities: No clubbing, cyanosis or edema bilaterally.
Neuro: Grossly nonfocal, awake, alert and oriented x3.
Nelsy has a history of chronic diastolic CHF, pulm hypertension, permanent A-fib on chronic Eliquis, CAD with LAD PCI in 2003, hypertension, COPD, PAD with prior iliac stent. She presents with shortness of breath cough found to have acute
diastolic CHF. Creatinine increased to 1.3 and Lasix on hold. Consider resuming oral Lasix in a.m. She appears to be at dry weight at the current time and is not requiring oxygen.
Original Note:
Consultation
Consultation Request
Date/Time Consultation Requested: 03/21/2025
Date/Time Consultation Performed: 03/21/2025
Requesting Provider: Dr. Hackett
Performing Provider: Jeane Subramanian PA-C for Dr. Gardner
Reason for Consultation: CHF
Medical History
-
History of Present Illness:
HPI: Nelsy is an 89 year old female with PMH of chronic HFpEF, pulmonary hypertension, permanent atrial fibrillation on chronic Eliquis, CAD w/ prior LAD stent in 2003, HTN, HLD, COPD, and PAD. Presented to [facility] ER for evaluation of SOB,
congestion, and cough. She states about 1 week prior to arrival, she started with URI type symptoms after going to the [facility]. She was trying to manage supportively at home, but continued to have fatigue and SOB with fever. He was admitted with
bronchitis and acute heart failure exacerbation. She has been following her weights at home and denies any weight gain or LE edema. She notes symptoms feel different from prior heart failure exacerbations and she notes more of her symptoms are
related to nasal/chest congestion. While admitted she has been getting nebulizer treatments and antibiotics and breathing has been improving. She received brief course of IV lasix, but then this was held due to creat jumping to 1.3. She feels she is
close to her baseline currently, but remains on supplemental O2.
PMH:
Chronic HFpEF
Pulmonary HTN
Permanent atrial fibrillation
Chronic Eliquis AC
CAD
LAD PCI in 2003
HTN
HLD
COPD
PAD w/ prior iliac stent
h/o tobacco abuse
Past Medical History
Past Medical History: Other (In HPI)
Past Surgical History: Cardiac (LAD and diagonal PCI 2003) and Other (MARGARITA stent, Iliac stenting, hysterectomy, cataract surgery, ureter stenting, R TKA, R shoulder replacement)
Social History
Tobacco: Former Smoker
Alcohol: None
Drug: None
Personal:
Employment: Retired
Family History
Family History: CAD and Hypertension
Allergies / Home Medications
Allergy/AdvReac Type Severity Reaction Status Date / Time
No Known Allergies Allergy Verified 03/19/25 16:12
�Medication �Instructions �Recorded �Confirmed �Type
atorvastatin 40 mg tablet 40 mg PO HS High cholesterol 11/27/18 03/19/25 History
folic acid 1 mg tablet 1 mg PO DAILY Supplement 11/27/18 03/19/25 History
doxylamine succinate 25 mg tablet 12.5 mg PO HS PRN Sleep 09/19/20 03/21/25 History
(Unisom (doxylamine))
atenolol 50 mg tablet 50 mg PO HS 02/01/21 03/19/25 Rx
losartan 100 mg tablet (Cozaar) 100 mg PO DAILY #30 tabs 02/01/21 03/19/25 Rx
apixaban 5 mg tablet (Eliquis) 5 mg PO BID Blood clot 03/12/21 03/19/25 History
prevention/tx
acetaminophen 500 mg tablet 1,000 mg PO HS Pain 11/27/22 03/21/25 History
(Tylenol Extra Strength)
aspirin 81 mg tablet,delayed 81 mg PO DAILY Anti-inflammatory 11/27/22 03/19/25 History
release
cholecalciferol (vitamin D3) 25 25 mcg PO DAILY Supplement 11/27/22 03/21/25 History
mcg (1,000 unit) tablet (Vitamin
D3)
cyanocobalamin (vitamin B-12) 1,000 mcg PO DAILY Supplement 11/27/22 03/21/25 History
1,000 mcg tablet
doxazosin 4 mg tablet 4 mg PO HS Urinary issue 11/27/22 03/19/25 History
potassium chloride 10 mEq 10 meq PO BID Electrolyte Repletion 11/27/22 03/21/25 History
tablet,extended release(part/cryst)
therapeutic multivitamin 1 tab PO DAILY Supplement 11/27/22 03/21/25 History
furosemide 20 mg tablet 40 mg PO DAILY Heart Failure 03/19/25 03/19/25 History
sodium chloride 0.65 % nasal spray 2 spray intranasal QIDPRN 03/20/25 03/21/25 History
aerosol (Saline Nasal) Congestion
Review of Systems
-
History Source: Patient
All other systems: Negative unless noted
Physical Exam
Vital Signs
Temp Pulse Resp BP Pulse Ox
98.5 F 85 18 115/51 96
03/21/25 12:18 03/21/25 12:18 03/21/25 12:18 03/21/25 12:18 03/21/25 12:18
Lab Results
03/21/25 07:29
03/21/25 07:29
Troponin I 0.032 ng/ml 03/19/25 16:49
Vsn-[id number] Pept 8780 pg/ml 03/19/25 16:49
Physical Exam
General: Well Developed, Well Nourished and No Apparent Distress
HEENT: Normocephalic and Moist Mucous Membranes
Respiratory: Clear and Non Labored Respirations
Cardiac: S1/S2, Irregular Rhythm and Murmur
Musculoskeletal: No Clubbing, No Cyanosis and No Edema
Skin: Warm and Dry
Neuro: AO x 3 and Nonfocal/Grossly Intact
Psych: Calm
Impression / Plan
-
PCP: Dr. Peterson
Fruit Express Agent: Dr. Nandini Churchill
Impression:
Presented with congestion, SOB
Acute bronchitis
Acute on chronic HFpEF
Pulmonary HTN
Permanent atrial fibrillation
Chronic Eliquis AC
CAD
LAD PCI in 2003
HTN
HLD
COPD
PAD w/ prior iliac stent
h/o tobacco abuse
Echo 03/19/2023: EF 59%, mild MR, moderate to severe TR, estimated PAP 84 mmHg
Echo 03/31/2024: EF 62%, moderate TR, estimated PAP 51 mmHg, small pericardial effusion
Echo 03/21/2025: EF 55/60%, mild MR, severe TR, estimated PAP 83 mmHg consistent with severe pulmonary HTN
Plan:
-Presented with congestion, SOB. Admitted with bronchitis and acute heart failure exacerbation. ProBNP 8780. Chest xray with small b/l pleural effusions.
-Briefly diuresed with IV lasix, however now on hold as creat bumped to 1.3
-Weight is at baseline of 145 lbs. Creat improved overnight, down to 1.2.
-Would resume usual PO lasix 40mg AM, 20mg PM if creat stable in AM 8.
-Echo 03/21 with preserved EF and severe pulmonary HTN as noted above.
-EKG reviewed, rate controlled atrial fibrillation. No acute changes noted.
-Continue Eliquis 5mg BID, aspirin 81mg daily.
-Continue atenolol. HR stable.
-BP stable, continue losartan, Cardura.
-Continue abx and nebs per primary service.
-Still on supplemental O2, wean as able.
HPI: Nelsy is an 89 year old female with PMH of chronic HFpEF, pulmonary hypertension, permanent atrial fibrillation on chronic Eliquis, CAD w/ prior LAD stent in 2003, HTN, HLD, COPD, and PAD. Presented to [facility] ER for evaluation of SOB,
congestion, and cough. She states about 1 week prior to arrival, she started with URI type symptoms after going to the [facility]. She was trying to manage supportively at home, but continued to have fatigue and SOB with fever. He was admitted with
bronchitis and acute heart failure exacerbation. She has been following her weights at home and denies any weight gain or LE edema. She notes symptoms feel different from prior heart failure exacerbations and she notes more of her symptoms are
related to nasal/chest congestion. While admitted she has been getting nebulizer treatments and antibiotics and breathing has been improving. She received brief course of IV lasix, but then this was held due to creat jumping to 1.3. She feels she is
close to her baseline currently, but remains on supplemental O2.
Data Reviewed
-
EKG: Tracing Personally Visualized and interpreted
Radiology: Report Reviewed by me
Labs: Labs Reviewed by me
Old Records: Reviewed
[2025-03-21 15:14] LABS: Urine Character Clear (Clear)
[2025-03-21 15:20] LABS: Urine Squamous Cell 16-20 /LPF (Few)
[2025-03-21 15:21] LABS: Urine Red Blood Cell 0-2 /HPF (0-2); Urine White Cell 0-2 /HPF (0-5)
[2025-03-21 15:31] VITALS: BP 123/56
[2025-03-21 19:47] VITALS: BP 109/89
[2025-03-21] MEDS: CARDURA 4 MG PO (22:32)
[2025-03-21] MEDS: LIPITOR 40 MG PO (22:33)
[2025-03-21] MEDS: TENORMIN 50 MG PO (22:33)
[2025-03-21] MEDS: TYLENOL 650 MG PO (22:33)
[2025-03-21 23:05] VITALS: BP 117/59
[2025-03-22] VITALS (8 sets, daily range): BP systolic 88–152; BP diastolic 49–86; PULSE 93; O2SAT 87; BMI 27.5
[2025-03-22 06:38] LABS: Hematocrit 29.8 % (37.0-47.0); Hemoglobin 9.6 g/dL (12.0-16.0); Mean Corp Hgb Conc. 32.2 g/dL (33.0-37.0); Mean Corpuscular Volume 94.9 fL (81.0-99.0); Platelet Count 133 10^3/uL (130-400); Red Cell Dist. Width 14.6 % (11.5-14.5)
[2025-03-22 07:04] LABS: Blood Urea Nitrogen 54 mg/dl (7-17); Calcium 9.0 mg/dl (8.4-10.2); Carbon Dioxide 25 mmol/L (22-30); Chloride 103 mmol/L (98-107); Estimated Creatinine Clearance 26 ml/min; Glucose 120 mg/dl (70-99); Magnesium 2.4 mg/dl (1.6-2.3); Potassium 4.1 mmol/L (3.5-5.1); Sodium 135 mmol/L (135-145); eGFR 39.55
[2025-03-22] MEDS: DUONEB 3 ML INH ×4 (07:13→19:26)
[2025-03-22] MEDS: KCL 10 MEQ PO (09:23)
[2025-03-22] MEDS: ELIQUIS 5 MG PO ×2 (09:24→20:34)
[2025-03-22] MEDS: VIBRAMYCIN 100 MG PO ×2 (09:24→20:34)
[2025-03-22] MEDS: COZAAR 100 MG PO (09:24)
[2025-03-22] MEDS: FOLVITE 1 MG PO (09:24)
[2025-03-22] MEDS: ROBITUSSIN 200 MG PO ×2 (09:24→20:34)
[2025-03-22] MEDS: ASPIR LOW (ENTERIC COATED) 81 MG PO (09:24)
[2025-03-22] MEDS: ROCEPHIN 1000 MG IV (09:25)
[2025-03-22] MEDS: STERILE WATER FOR INJECTION 10 ML IV (09:25)
--- NOTE | 2025-03-22 10:13 | W.PN.CARDCBS ---
Addendum entered and electronically signed by Figueroa Gardner MD 03/22/25 10:44:
I saw and examined the patient.
The OPERATORS TEACHER or PA's note was reviewed and I agree with the note.
Comment: General: Well developed, well nourished in NAD.
Neck: Supple, no JVD, HJR, carotids +2 B/L, no bruits bilaterally.
Heart: Non displaced PMI, RRR, no murmurs, No S3, S4, no rubs.
Lungs: Scattered rhonchi and wheezes throughout
Extremities: No clubbing, cyanosis or edema bilaterally.
Neuro: Grossly nonfocal, awake, alert and oriented x3.
She is currently on 4 L. She is coughing and wheezing. Discussed with patient's daughter Jojo. Would like to get a dose of IV Lasix and assess response based on elevated proBNP and CHF on chest x-ray on admission. Will follow renal function
closely. Continue treatment of bronchitis per primary service. Consider pulmonary evaluation. Will treat worsening TR and pulmonary hypertension with diuretics. Discussed with primary service and nursing
Original Note:
Today's Communication / Plan
-
IV lasix 40mg today
wean supp O2
treatment of bronchitis per primary service
Impression / Plan
-
PCP: Dr. Peterson
Construction Technician: Dr. Nandini Churchill
Impression:
Presented with congestion, SOB
Acute bronchitis
Acute on chronic HFpEF
Pulmonary HTN, severe by echo 03/21/25
Permanent atrial fibrillation
Chronic Eliquis AC
CAD
LAD PCI in 2003
HTN
HLD
COPD
PAD w/ prior iliac stent
h/o tobacco abuse
Echo 03/19/2023: EF 59%, mild MR, moderate to severe TR, estimated PAP 84 mmHg
Echo 03/31/2024: EF 62%, moderate TR, estimated PAP 51 mmHg, small pericardial effusion
Echo 03/21/2025: EF 55-60%, mild MR, severe TR, estimated PAP 83 mmHg consistent with severe pulmonary HTN
Plan:
-presented with cough/congestion/SOB
-likely multifactorial due to bronchitis and CHF exacerbation. procal was elevated at 0.28.
-ProBNP 8780. Chest xray with small b/l pleural effusions. Patient takes p.o. Lasix 40 mg QAM and 20mg QPM as outpatient. She received dose of IV Lasix and creatinine bumped slightly to 1.3, stable today. She is presently on 4 L nasal cannula,
normally does not require supplemental oxygen at home, wean as able. Would give dose of IV Lasix 40 mg again today and assess response and wean oxygen as able
-Echo 03/21 with preserved EF and severe pulmonary HTN as noted above.
-Remains in rate controlled atrial fibrillation on review of telemetry overnight. Continue atenolol, Eliquis
-continue asa, lipitor, losartan, cardura.
-Continue abx and nebs per primary service
-PT/OT
HPI: Nelsy is an 89 year old female with PMH of chronic HFpEF, pulmonary hypertension, permanent atrial fibrillation on chronic Eliquis, CAD w/ prior LAD stent in 2003, HTN, HLD, COPD, and PAD. Presented to [facility] ER for evaluation of SOB,
congestion, and cough. She states about 1 week prior to arrival, she started with URI type symptoms after going to the [facility]. She was trying to manage supportively at home, but continued to have fatigue and SOB with fever. He was admitted with
bronchitis and acute heart failure exacerbation. She has been following her weights at home and denies any weight gain or LE edema. She notes symptoms feel different from prior heart failure exacerbations and she notes more of her symptoms are
related to nasal/chest congestion. While admitted she has been getting nebulizer treatments and antibiotics and breathing has been improving. She received brief course of IV lasix, but then this was held due to creat jumping to 1.3. She feels she is
close to her baseline currently, but remains on supplemental O2.
Progress Note - Construction Technician
Subjective
Date of Service: March 22, 2025
reports cough and low grade temps
Objective
Labs:
03/22/25 06:23
03/22/25 06:23
Labs
Hgb 9.6 g/dL (12.0-16.0) L 03/22/25 06:23
Hct 29.8 % (37.0-47.0) L 03/22/25 06:23
Plt Count 133 10^3/uL (130-400) 03/22/25 06:23
Sodium 135 mmol/L (135-145) 03/22/25 06:23
Potassium 4.1 mmol/L (3.5-5.1) 03/22/25 06:23
BUN 54 mg/dl (7-17) H 03/22/25 06:23
Creatinine 1.3 mg/dL (0.6-1.0) H 03/22/25 06:23
Glucose 120 mg/dl (70-99) H 03/22/25 06:23
Troponins
03/19/25
16:49
Troponin I 0.032
Vital Signs and I&O:
Vital Signs
Temp Pulse Resp BP Pulse Ox
98.1 F 84 18 117/52 97
03/22/25 07:55 03/22/25 09:24 03/22/25 07:55 03/22/25 09:24 03/22/25 07:55
Vital Signs
Temp Pulse Resp BP Pulse Ox
98.1 F 84 18 117/52 97
03/22/25 07:55 03/22/25 09:24 03/22/25 07:55 03/22/25 09:24 03/22/25 07:55
Intake & Output
03/20/25 03/21/25 03/22/25 03/23/25
07:59 07:59 07:59 07:59
Intake Total 480 / 480 1000 / 1000 900 / 900
Output Total 200 / 200 250 / 250 850 / 850
Balance 280 / 280 750 / 750 50 / 50
Physical Exam
Physical Exam
GEN: No distress, awake, alert, oriented x3. on supp O2
HEENT: supple, anicteric, mmm, eomi
LUNGS: Crackles B/L bases, mild exp wheezes
CV: Irreg, S1/S2, 1/6 murmur
ABD: soft, BS+, NT/ND
EXT: No cyanosis, clubbing, edema
NEURO: Gross non-focal
SKIN: Warm, pink, dry. No rash
[2025-03-22] MEDS: LASIX 40 MG IV (10:33)
--- NOTE | 2025-03-22 10:57 | W.PN.HOSP.TC ---
Addendum entered and electronically signed by Comfort Hackett MD 03/22/25 14:32:
# Confirmed Acute hypoxic respiratory insufficiency
Addendum entered and electronically signed by Comfort Hackett MD 03/22/25 14:31:
# NOEMY
Original Note:
Today's Communication/Plan
-
see A/P
Assessment / Plan
Assessment / Plan
A/P:
# Acute Hypoxic Respiratory Insufficiency
# Heart Failure preserved EF, Acute Exacerbation (mild)
Now on 4L NC, wean O2 as tolerated, pt not on home O2
TTE 03/31/24 EF 62%, moderate TR
Follow up echo this admission: EF 55-60%. Indeterminate diastolic function. Mild mitral regurgitation. When compared to echo from 03/31/2024, the estimated pulmonary artery systolic pressures have increased from 51 to 83 mmHg and the severity of
tricuspid regurgitation is increased from moderate to severe.
Card on board, IV Lasix 40 mg x1 ordered
daily weights, strict I/O
monitor K/Mag (patient takes K 10mEq QD at home)
# UTI ruled out
pt denies to urinary symptoms
urine culture 40,000 CFU/ML Mixed luz present: Probable contamination
# Acute Bronchitis, possible CAP
COVID/Flu negative
CXR: Small bilateral pleural effusions. Significant cardiomegaly with cephalized vascular flow. No evidence for significant interstitial edema radiographically.
Procal 0.28
continue Doxycycline, ceftriaxone
Start Decadron 4 mg BID for wheezing
DuoNeb ATC and PRN , Robitussin ATC and PRN, acapella/IS, Chest percussion
sputum culture if able to obtain
Pulm CS per daughter request
# Permanent Atrial Fibrillation
continue REHAB DEPARTMENT MANAGER Eliquis, Metoprolol
# Essential HTN
REHAB DEPARTMENT MANAGER Doxazosin, Losartan, Metoprolol
# Hyperlipidemia
REHAB DEPARTMENT MANAGER Statin
# CAD - REHAB DEPARTMENT MANAGER Aspirin, Statin
# Mild thrombocytopenia
monitor for bleeding
DVT PPx - REHAB DEPARTMENT MANAGER Eliquis
FULL CODE
Dispo: HH vs no need
DW Card
updated daughter on the phone
total time spent 51 min
Anticipated Discharge: > 48 hours
Subjective/Interval History
-
Date of Service: March 22, 2025
Objective Data
-
Labs:
Laboratory Results
03/22/25
06:23
WBC 10.8
Hgb 9.6 L
Hct 29.8 L
Plt Count 133
Sodium 135
Potassium 4.1
Chloride 103
Carbon Dioxide 25
BUN 54 H
Creatinine 1.3 H
Glucose 120 H
Calcium 9.0
Vital Signs:
Vital Signs
Temp Pulse Resp BP Pulse Ox
36.8 C 75 16 114/57 95
03/22/25 10:50 03/22/25 10:50 03/22/25 10:50 03/22/25 10:50 03/22/25 10:50
I&O
03/21/25 03/22/25 03/23/25
06:59 06:59 06:59
Intake Total 1000 / 1000 900 / 900
Output Total 250 / 250 850 / 850
Balance 750 / 750 50 / 50
Review of Systems
-
Respiratory: Reports Cough and Wheezing
Physical Exam
-
General: Well Developed, Well Nourished, Comfortable, Respiratory Distress (mild) and Conversant
HEENT: Oxygen (4L NC )
Respiratory: Wheezes, Crackles (BL bases, mild) and Non Labored Respirations; Negative Accessory Resp Muscle Use
Cardiac: Regular Rhythm and S1/S2
GI: Soft, Nontender, Nondistended and Normal Bowel Sounds
Musculoskeletal: No Edema
Neuro: Awake, Alert, Oriented and AO x 3
Psych: Calm and Intact Judgement/Insight
Data Reviewed
-
Diagnostic Radiology: Report Reviewed by me
Labs: Labs Reviewed by me
[2025-03-22] MEDS: DECADRON 4 MG IV ×2 (11:31→23:35)
--- NOTE | 2025-03-22 12:27 | CON.PUL ---
Consultation
Consultation Request
Date/Time Consultation Requested: 03/22/2025 - 1107
Date/Time Consultation Performed: 03/22/2025 - 1209
Requesting Provider: Dr. Hackett
Performing Provider: Dr. Kirk
Reason for Consultation: SOB/hypoxia
Medical History
-
Chief Complaint: SOB
History of Present Illness:
89-year-old female for tobacco smoker with a past medical history of pulmonary hypertension, severe TR, COPD, permanent A-fib on Eliquis, interstitial lung abnormalities, bronchiectasis, CAD s/p LEELEE to LAD + diagonal branch, carotid artery stenosis
s/p BMS to right ICA, PVD s/p iliac stent, hypertension, hyperlipidemia, history of pericardial effusion s/p pericardiocentesis requiring colchicine, kidney stones, diverticulitis, chronic HFpEF, history of sinusitis and history of COVID-19
(07/2022) who presents with SOB. She started to have a sore throat on Friday which worsened to runny nose with postnasal drip and sore throat on Friday/Friday last week. Her grandson had diarrhea and the patient developed diarrhea on Friday.
As the week went on, patient developed increasing weakness and she developed a fever with cold chills on /Friday. Her lips then became blue and she became increasingly weak until she came to the ER. She was found to have a low pulse ox at
85% at home. Initially in the ER she was afebrile to 99.3 �F, pulse rate 100, respiratory rate 18, BP 130/73, and she was saturating 80% on room air which improved to 95% on mid flow nasal cannula at 4 L/min. Initial labs pertinent for mild
leukocytosis to 11.4, Hb 11, platelet count 120, creatinine 1.1, glucose 106, T. bili 1.4, troponin negative at 0.032, proBNP elevated at 8720, urinalysis showed +2 leukocyte esterase with 16�20 urine WBC, and COVID-19 antigen negative. Flu swab is
negative. Urine culture collected. CXR showed small bilateral pleural effusions. In the ER she was given doxycycline, DuoNebs + Lasix and admitted to the hospitalist service. She has continued to require supplemental oxygen and now Pulmonary
service consulted for additional management/recommendations.
When I saw the patient today, she was resting in bed in no acute distress. Currently on 3 L. Nasal cannula and breathing comfortably. She denies SOB. Still coughing up phlegm. She feels much better overall. Currently denies chest pain, PARR,
nausea, fevers or chills.
PMHx: Pulmonary hypertension, severe TR, A-fib on Eliquis, former tobacco smoker, bronchiectasis, interstitial lung abnormalities seen on imaging, family history of lung cancer, CAD s/p LEELEE to LAD + diagonal, carotid artery stenosis s/p bare-metal
stent to right ICA, PAD s/p iliac stent, hyperlipidemia, hypertension, history of pericardial effusion s/p pericardiocentesis requiring colchicine, history of kidney stones, history of diverticulitis (12/2019), left hip OA s/p steroid injection,
COPD, chronic HFpEF, history of COVID-19 (07/2022), history of sinusitis
PSHx: Hysterectomy, nasal polyp removal, cataract surgery, ureteral stent, right TKA, right shoulder replacement
Past Medical History
Past Medical History: Other (Above as per HPI)
Past Surgical History: Other (Above as per HPI)
Social History
Tobacco: Former Smoker (Former tobacco smoker with 90-aada-bnmb history, quit smoking in her late 40s)
Alcohol: None
Drug: None
Family History
Family History: CAD (Paternal grandfather + maternal grandfather; mother from heart attack at age 53), Cancer (Brother: Lung cancer), Hypertension (Mother) and Other (Father: Stroke, from heart failure at age 73; mother: Cardiac embolus)
Allergies / Home Medications
Allergies
Allergy/AdvReac Type Severity Reaction Status Date / Time
No Known Allergies Allergy Verified 03/19/25 16:12
Home Medications
�Medication �Instructions �Recorded �Confirmed �Last Taken �Type
atorvastatin 40 mg tablet 40 mg PO HS High cholesterol 11/27/18 03/19/2523 22:00 History
folic acid 1 mg tablet 1 mg PO DAILY Supplement 11/27/18 03/19/25 04/13/23 History
doxylamine succinate 25 mg tablet 12.5 mg PO HS PRN Sleep 09/19/20 03/21/25 11/26/22 History
(Unisom (doxylamine))
atenolol 50 mg tablet 50 mg PO HS 02/01/21 03/19/25 04/13/23 22:00 Rx
losartan 100 mg tablet (Cozaar) 100 mg PO DAILY #30 tabs 02/01/21 03/19/25 04/14/23 07:00 Rx
apixaban 5 mg tablet (Eliquis) 5 mg PO BID Blood clot 03/12/21 03/19/25 04/11/23 22:00 History
prevention/tx
acetaminophen 500 mg tablet 1,000 mg PO HS Pain 11/27/22 03/21/25 11/26/22 History
(Tylenol Extra Strength)
aspirin 81 mg tablet,delayed 81 mg PO DAILY Anti-inflammatory 11/27/22 03/19/25 04/14/23 07:00 History
release
cholecalciferol (vitamin D3) 25 25 mcg PO DAILY Supplement 11/27/22 03/21/25 04/13/23 History
mcg (1,000 unit) tablet (Vitamin
D3)
cyanocobalamin (vitamin B-12) 1,000 mcg PO DAILY Supplement 11/27/22 03/21/25 04/13/23 History
1,000 mcg tablet
doxazosin 4 mg tablet 4 mg PO HS Urinary issue 11/27/22 03/19/25 04/13/23 22:00 History
potassium chloride 10 mEq 10 meq PO BID Electrolyte Repletion 11/27/22 03/21/25 04/13/23 14:30 History
tablet,extended release(part/cryst)
therapeutic multivitamin 1 tab PO DAILY Supplement 11/27/22 03/21/25 04/13/23 History
furosemide 20 mg tablet 40 mg PO DAILY Heart Failure 03/19/25 03/19/25 Unknown History
sodium chloride 0.65 % nasal spray 2 spray intranasal QIDPRN 03/20/25 03/21/25 Unknown History
aerosol (Saline Nasal) Congestion
Review of Systems
-
History Source: Patient
All other systems: Negative unless noted
Vitals / Labs / Diagnostic Testing
Vital Signs
Temp Pulse Resp BP Pulse Ox
98.2 F 75 16 114/57 98
03/22/25 10:50 03/22/25 11:00 03/22/25 11:00 03/22/25 10:50 03/22/25 11:00
Lab Data
03/22/25 06:23
03/22/25 06:23
Microbiology
03/19/25 19:34 Urine Urine Culture - Final
03/19/25 16:49 Nasal Swab Influenza Types A & B (PEACE) - Final
Negative for Influenza A & B, NAAT
Negative results must be combined with clinical observations
and patient history.
Nucleic Acid Amplification test (NAAT)performed on the
[employer] platform.
Diagnostic Testing:
Physical Exam
-
HEENT: Normocephalic and Anicteric
Cardiovascular: Irregular Rhythm and Peripheral Edema (Trace left lower extremity edema)
Respiratory: Wheeze (negative), Rales (Bilateral), Rhonchi (negative) and Non-Labored Respirations
GI: Soft, Non Distended, Non Tender and Normal Bowel Sounds
Neurology: AO x 3 and Tremors (negative)
Skin: Warm and Dry
General: Respiratory Distress (negative), Comfortable, Fever (negative) and Chills (negative)
Assessment
-
Assessment: 89-year-old female for tobacco smoker with a past medical history of pulmonary hypertension, severe TR, COPD, permanent A-fib on Eliquis, interstitial lung abnormalities, bronchiectasis, CAD s/p LEELEE to LAD + diagonal branch, carotid
artery stenosis s/p BMS to right ICA, PVD s/p iliac stent, hypertension, hyperlipidemia, history of pericardial effusion s/p pericardiocentesis requiring colchicine, kidney stones, diverticulitis, chronic HFpEF, history of sinusitis and history of
COVID-19 (07/2022) who presents with SOB. She started to have a sore throat on Friday which worsened to runny nose with postnasal drip and sore throat on Friday/Friday last week. Her grandson had diarrhea and the patient developed diarrhea on
Friday. As the week went on, patient developed increasing weakness and she developed a fever with cold chills on /Friday. Her lips then became blue and she became increasingly weak until she came to the ER. She was found to have a low
pulse ox at 85% at home. Initially in the ER she was afebrile to 99.3 �F, pulse rate 100, respiratory rate 18, BP 130/73, and she was saturating 80% on room air which improved to 95% on mid flow nasal cannula at 4 L/min. Initial labs pertinent for
mild leukocytosis to 11.4, Hb 11, platelet count 120, creatinine 1.1, glucose 106, T. bili 1.4, troponin negative at 0.032, proBNP elevated at 8720, urinalysis showed +2 leukocyte esterase with 16�20 urine WBC, and COVID-19 antigen negative. Flu
swab is negative. Urine culture collected. CXR showed small bilateral pleural effusions. In the ER she was given doxycycline, DuoNebs + Lasix and admitted to the hospitalist service. She has continued to require supplemental oxygen and now
Pulmonary service consulted for additional management/recommendations.
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
stenosis s/p bare-metal stent to right ICA, PAD s/p iliac stent, hyperlipidemia, hypertension, history of pericardial effusion s/p pericardiocentesis requiring colchicine, history of kidney stones, history of diverticulitis (12/2019), left hip OA s/p
steroid injection, COPD, chronic HFpEF, history of COVID-19 (07/2022), history of sinusitis
Impression:
#Acute COPD exacerbation (spirometry from 01/02/2023 showed moderate persistent obstructive lung defect with post-BD FEV1: 1.1 L / 70% predicted with a borderline significant bronchodilator response, although postbronchodilator spirometry efforts
were not repeatable)
#Acute respiratory failure with hypoxia due to above
#NOEMY (baseline creatinine 0.9)
#Acute on chronic HFpEF with elevated proBNP on admission with small bilateral pleural effusions
#Chronic anemia
#Thrombocytopenia with history of low platelet count with viridiana 97k on 11/28/2022
#Recent diarrhea
#Centrilobular emphysema
#Pulmonary hypertension (prior RHC on 04/15/2023 showed PAP: 62/27 with PCWP 30 and TP with PVR 3.3 Dumont units, consistent with left-sided heart failure)
#Valvular heart disease with severe TR
#Interstitial lung abnormalities seen on imaging/bronchiectasis
Plan:
- Patient started to have URI symptoms earlier in the week which then increasingly worsened, leading to severe generalized weakness with hypoxia, productive cough and fevers
- Admission CXR showed no evidence of pneumonia although there were small bilateral pleural effusions with mild interstitial edema, and she was treated with 40 mg IV Lasix in the ER --> suspect she had a mild component of acute decompensated heart
failure initially
- Procalcitonin checked on 03/20/2025 was 0.28, although patient has an NOEMY hence unable to truly rely on this value
- Given her productive cough, agree with empiric treatment with antibiotics, and would change rocephin to Unasyn given she initially had URI/sinus infection symptoms; would continue Doxy for atypical coverage given her Hx of COPD
- Continue with supplemental oxygen to maintain SpO2 88-95% (of note, patient is not on oxygen therapy as per last pulmonary office note with Dr. Haines on 02/01/2025)
- She will need a home O2 assessment prior to discharge
- Recommend obtaining full PFTs as an outpatient
- She has Class II COPD with most recent spirometry performed on 01/06/2023 showing post-BD FEV1 1.1L / 70% predicted with a borderline BD response with her FVC.
- She is not on maintenance inhalers, however now with her current flare, it would not be unreasonable to start a LAMA/LABA given her current exacerbation. No ICS indicated given her eosinophils have been <300, per most recent GOLD guidelines
- Continue scheduled DuoNebs for now, and would DC home on stiolto vs Anoro
- prn nebulized bronchodilators - not currently bronchospastic
- She has significant pulmonary HTN with most recent echo from 03/21/2025 showing PASP 83 mmHg, which is worsened from 51 mmHg from on prior echo on 03/31/2024
- Given that she is clinically improving, believe that we can repeat echo as an outpatient to assess for improvement in PA pressures as opposed to doing an inpatient workup
- Would recommend repeating echo in 4-6 weeks to assess for improvement in her PASP, otherwise would strongly consider repeating RHC to obtain accurate assessment of her PH
- If her PH has worsened, then would recommend obtaining VQ scan to evaluate for CTEPH, and consider pulmonary vasodilators depending on predominant PH etiology
- Incentive spirometer encouraged q1hr while awake
- Replete electrolytes with K>4, Mg>2
- Trend H/H and transfuse if needed to keep Hb>7g/dL; keep plt>20k, unless there is concern for bleeding then keep plt>50k
- Maintain euglycemia with goal BG >100 and <180
- DVT ppx: Eliquis
Pulmonary service will continue to follow along. Recommend close outpatient pulmonary office follow-up with Dr. Haines -last visit 02/01/2025
Data:
CXR 03/19/2025:
Small bilateral pleural effusions.
Significant cardiomegaly with cephalized vascular flow. No evidence for significant interstitial edema radiographically.
Transthoracic echocardiogram 03/21/2025:
1. Left ventricle: Normal size and function with an estimated ejection
fraction of 55-60% by visual estimation. Indeterminate diastolic function.
2. Right ventricle: Normal
3. Atria: Severe left atrial dilation and severe right atrial dilation
4. Mitral valve: Mildly thickened with mild mitral regurgitation
5. Aortic valve: Trileaflet. No aortic stenosis or aortic insufficiency
6. Tricuspid valve: Severe tricuspid regurgitation with estimated pulmonary
artery systolic pressures of 83 mmHg consistent with severe pulmonary
hypertension
7. When compared to the most recent echocardiogram from 03/31/2024, the
estimated pulmonary artery systolic pressures have increased from 51 to 83 mmHg
and the severity of tricuspid regurgitation is increased from moderate to
severe.
Total time spent today was 58 minutes for this encounter. Time includes reviewing laboratory test/imaging results, reviewing pertinent medical records, obtaining and reviewing medical history, performing an appropriate exam, ordering medications,
tests and procedures. Time also includes documentation of this encounter, coordinating patient care and communicating with other healthcare professionals. Total time does not include separately billed tests performed on this date of service.
Patient was seen and evaluated on 03/22/2025
--- NOTE | 2025-03-22 14:01 | CM ---
Reviewed the chart notes and spoke with the patient at the bedside. CM continues to be available to patient/family and is monitoring medical plan for needs at discharge.
Plan: Discharge plans will depend on the patient's progress.
--- NOTE | 2025-03-22 14:20 | PN.CDI ---
CDI
- -
CDI:
Physician Documentation Request
Admit Date: 03/19/25 20:42
Dear Doctor Lew,
Please review the following and provide your response in the progress notes.
Clinical Indicators:
- Patient admit for acute CHF
- per H&P, no history of renal disease
- 03/21 PN 's/p IV Lasix - Cr increased to 1.3, then down to 1.2 today, cont to hold Lasix and observe labs'
- IV Lasix given x 3
- Labs as follows:
Laboratory Tests
03/19/25 03/21/25 03/22/25
17:39 07:29 06:23
Creatinine 1.1 H 1.2 H 1.3 H
eGFR 48.33 43.54 39.55
Please clarify which of the following accurately represents the patient's renal status:
NOEYM
CKD 3
Other (please specify)
Criteria for NOEMY*
1 Increase in serum creatinine by > or = to 0.3 mg/dL (> or = to 26.5 micromol/L) within 48 hours, OR
2 Increase in serum creatinine to > or = to 1.5 times baseline, which is known or presumed to have occurred within 7 days, OR
3 Urine volume < 0.5 nL/kg/hour for six hours
Stages of Chronic Kidney Disease*
Level Description GFR
G1 Normal or High >90
G2 Mildly decreased 60-89
G3a Mildly to moderately decreased 45-59
G3b Moderately to severely decreased 30-44
G4 Severely decreased 15-29
G5 Kidney failure <15
Use of terms such as suspected, likely, concern for, or probable (associated with a specific diagnosis that is being evaluated, monitored, or treated as if it exists) are acceptable and can be coded in the inpatient setting, when documented at the
time of discharge.
Thank you,
Toño Sweeney RN
CDI Specialist
Please use your independent medical judgment in providing your response.
*Source: Kidney Disease: Improving Global Outcomes (KDIGO) 2012
--- NOTE | 2025-03-22 14:27 | PN.CDI ---
CDI
- -
CDI:
Physician Documentation Request
Admit Date: 03/19/25 20:42
Dear Doctor Lew,
Please review the following and provide your response in the progress notes.
Clinical Indicators:
- 03/19 ER Physician 'increased shortness of breath over the last 3 to 4 days'
- On admission - SpO2 80% on room air, placed on 4L O2, SpO2 94-98%
- 03/22 PN 'Acute Hypoxic Respiratory Insufficiency'
- 'Now on 4L NC, wean O2 as tolerated'
Please clarify which of the following accurately represents the patient's respiratory status:
Acute hypoxic respiratory failure
Hypoxia
Other (please specify)
Additional information for Respiratory Failure:
Recognized criteria for Respiratory Failure (Source: Ginette Henderson 2019 August 04.
Documentation tips: Acute Respiratory Failure, The Hospitalist.)
ABGs: (1 or more) Symptoms Please indicate type if known
1. p)2 <60 or RA SPO2 <91% on RA 1. Tachypnea, SOB, dyspnea Hypoxic
2. pCO2 >45 and pH <7.35 2. Use of accessory muscles Hypercapnic
3. pO2 decrease of pCO2 increase by 3. Pallor or cyanosis Hypoxic and Hypercapnic
10 mmHg from baseline if known 4. Anxiety or restlessness Unable to determine
4. P/F Ratio (pO2/FiO2)nless than 300 5. Unable to speak in full sentences
Use of terms such as suspected, likely, concern for, or probable (associated with a specific diagnosis that is being evaluated, monitored, or treated as if it exists) are acceptable and can be coded in the inpatient setting, when documented at the
time of discharge.
Thank you,
Toño Sweeney RN
CDI Specialist
Please use your independent medical judgment in providing your response.
[2025-03-22] MEDS: UNASYN IV (18:01)
[2025-03-22] MEDS: ROBITUSSIN 100 MG PO ×2 (18:23→23:39)
[2025-03-22] MEDS: TENORMIN 50 MG PO (21:23)
[2025-03-22] MEDS: CARDURA 4 MG PO (21:23)
[2025-03-22] MEDS: LIPITOR 40 MG PO (21:23)
[2025-03-22] MEDS: TYLENOL 1000 MG PO (23:35)
[2025-03-23] VITALS (9 sets, daily range): BP systolic 125–172; BP diastolic 58–92; BMI 27.4
[2025-03-23] MEDS: UNASYN IV ×2 (05:24→17:15)
[2025-03-23 06:54] LABS: Hematocrit 30.9 % (37.0-47.0); Hemoglobin 9.9 g/dL (12.0-16.0); Mean Corp Hgb Conc. 32.0 g/dL (33.0-37.0); Mean Corpuscular Volume 94.2 fL (81.0-99.0); Platelet Count 153 10^3/uL (130-400); Red Cell Dist. Width 14.2 % (11.5-14.5)
[2025-03-23 07:33] LABS: Blood Urea Nitrogen 54 mg/dl (7-17); Calcium 9.4 mg/dl (8.4-10.2); Carbon Dioxide 26 mmol/L (22-30); Chloride 104 mmol/L (98-107); Estimated Creatinine Clearance 31 ml/min; Glucose 142 mg/dl (70-99); Potassium 4.5 mmol/L (3.5-5.1); Sodium 138 mmol/L (135-145); eGFR 48.33
[2025-03-23] MEDS: DUONEB 3 ML INH ×4 (07:34→20:34)
[2025-03-23] MEDS: ELIQUIS 5 MG PO ×2 (08:05→20:35)
[2025-03-23] MEDS: ROBITUSSIN 200 MG PO ×2 (08:05→20:35)
[2025-03-23] MEDS: COZAAR 100 MG PO (08:05)
[2025-03-23] MEDS: VIBRAMYCIN 100 MG PO ×2 (08:05→20:35)
[2025-03-23] MEDS: ASPIR LOW (ENTERIC COATED) 81 MG PO (08:05)
[2025-03-23] MEDS: KCL 10 MEQ PO (08:05)
[2025-03-23] MEDS: FOLVITE 1 MG PO (08:05)
--- NOTE | 2025-03-23 08:45 | W.PN.HOSP.TC ---
Today's Communication/Plan
-
see A/P
Assessment / Plan
Assessment / Plan
A/P:
# Acute Hypoxic Respiratory Insufficiency
# Heart Failure preserved EF, Acute Exacerbation (mild)
on 4L NC, wean O2 as tolerated, pt not on home O2
TTE 03/31/24 EF 62%, moderate TR
Follow up echo this admission: EF 55-60%. Indeterminate diastolic function. Mild mitral regurgitation. When compared to echo from 03/31/2024, the estimated pulmonary artery systolic pressures have increased from 51 to 83 mmHg and the severity of
tricuspid regurgitation is increased from moderate to severe.
Card on board, s/p IV Lasix 40 mg
daily weights, strict I/O
monitor K/Mag (patient takes K 10mEq QD at home- hold further starting 03/23)
# UTI ruled out
pt denies to urinary symptoms
urine culture 40,000 CFU/ML Mixed luz present: Probable contamination
# Acute Bronchitis, possible CAP
COVID/Flu negative
CXR: Small bilateral pleural effusions. Significant cardiomegaly with cephalized vascular flow. No evidence for significant interstitial edema radiographically.
Procal 0.28
continue Doxycycline,
ceftriaxone changed to Unasyn
decrease Decadron to 2 mg BID as wheezing has improved
DuoNeb ATC and PRN , Robitussin ATC and PRN, acapella/IS, Chest percussion
Follow sputum culture
Pulm on board
# Permanent Atrial Fibrillation
continue DIE BAKER Eliquis, Atenolol
# Essential HTN
DIE BAKER Doxazosin, Losartan, Atenolol
IV hydralazine PRN
# Hyperlipidemia
DIE BAKER Statin
# CAD - DIE BAKER Aspirin, Statin
# Mild thrombocytopenia
monitor for bleeding
DVT PPx - DIE BAKER Eliquis
FULL CODE
Dispo: HH vs no need
updated daughter on TT
Anticipated Discharge: > 48 hours
Subjective/Interval History
-
Date of Service: March 23, 2025
Objective Data
-
Labs:
Laboratory Results
03/23/25
06:32
WBC 8.8
Hgb 9.9 L
Hct 30.9 L
Plt Count 153
Sodium 138
Potassium 4.5
Chloride 104
Carbon Dioxide 26
BUN 54 H
Creatinine 1.1 H
Glucose 142 H
Calcium 9.4
Vital Signs:
Vital Signs
Temp Pulse Resp BP Pulse Ox
36.8 C 76 18 164/77 94
03/23/25 08:09 03/23/25 08:09 03/23/25 08:09 03/23/25 08:09 03/23/25 08:09
I&O
03/22/25 03/23/25 03/24/25
06:59 06:59 06:59
Intake Total 900 / 900 940 / 940
Output Total 850 / 850 1450 / 1450
Balance 50 / 50 -510 / -510
Review of Systems
-
Respiratory: Reports Cough (improved ); Denies Wheezing (resolved )
Physical Exam
-
General: Well Developed, Well Nourished, Comfortable, Respiratory Distress (mild) and Conversant
HEENT: Oxygen (4L NC )
Respiratory: Crackles (BL bases, mild) and Non Labored Respirations; Negative Wheezes or Accessory Resp Muscle Use
Cardiac: Regular Rhythm and S1/S2
GI: Soft, Nontender, Nondistended and Normal Bowel Sounds
Musculoskeletal: No Edema
Neuro: Awake, Alert, Oriented and AO x 3
Psych: Calm and Intact Judgement/Insight
Data Reviewed
-
Diagnostic Radiology: Report Reviewed by me
Labs: Labs Reviewed by me
[2025-03-23] MEDS: DECADRON 2 MG IV ×2 (10:54→20:36)
--- NOTE | 2025-03-23 10:55 | W.PN.PUL3 ---
Today's Communication / Plan
-
Continue systemic steroids, currently on Decadron 2 mg IV q12hr
Up OOB as tolerated
PT/OT
Aspiration precautions
Antibiotics with Unasyn + doxycycline, and will complete a 7-day course assuming she continues to clinically improve and remains afebrile for the 48 hours prior to stopping antibiotic
Continue scheduled DuoNebs
With discharge home on Stiolto versus Anoro, holding off on an inhaled corticosteroid as her eosinophils are <300
Outpatient pulmonary office follow-up be arranged
Pulmonary service will continue to follow along
Assessment
-
Assessment: 89-year-old female for tobacco smoker with a past medical history of pulmonary hypertension, severe TR, COPD, permanent A-fib on Eliquis, interstitial lung abnormalities, bronchiectasis, CAD s/p LEELEE to LAD + diagonal branch, carotid
artery stenosis s/p BMS to right ICA, PVD s/p iliac stent, hypertension, hyperlipidemia, history of pericardial effusion s/p pericardiocentesis requiring colchicine, kidney stones, diverticulitis, chronic HFpEF, history of sinusitis and history of
COVID-19 (07/2022) who presents with SOB. She started to have a sore throat on Friday which worsened to runny nose with postnasal drip and sore throat on Friday/Friday last week. Her grandson had diarrhea and the patient developed diarrhea on
Friday. As the week went on, patient developed increasing weakness and she developed a fever with cold chills on /Friday. Her lips then became blue and she became increasingly weak until she came to the ER. She was found to have a low
pulse ox at 85% at home. Initially in the ER she was afebrile to 99.3 �F, pulse rate 100, respiratory rate 18, BP 130/73, and she was saturating 80% on room air which improved to 95% on mid flow nasal cannula at 4 L/min. Initial labs pertinent for
mild leukocytosis to 11.4, Hb 11, platelet count 120, creatinine 1.1, glucose 106, T. bili 1.4, troponin negative at 0.032, proBNP elevated at 8720, urinalysis showed +2 leukocyte esterase with 16�20 urine WBC, and COVID-19 antigen negative. Flu
swab is negative. Urine culture collected. CXR showed small bilateral pleural effusions. In the ER she was given doxycycline, DuoNebs + Lasix and admitted to the hospitalist service. She has continued to require supplemental oxygen and now
Pulmonary service consulted for additional management/recommendations.
Chronic conditions BILLING SPEC: Pulmonary hypertension, severe TR, A-fib on Eliquis, former tobacco smoker, bronchiectasis, interstitial lung abnormalities seen on imaging, family history of lung cancer, CAD s/p LEELEE to LAD + diagonal, carotid artery
stenosis s/p bare-metal stent to right ICA, PAD s/p iliac stent, hyperlipidemia, hypertension, history of pericardial effusion s/p pericardiocentesis requiring colchicine, history of kidney stones, history of diverticulitis (12/2019), left hip OA s/p
steroid injection, COPD, chronic HFpEF, history of COVID-19 (07/2022), history of sinusitis
Impression:
#Acute COPD exacerbation (spirometry from 01/02/2023 showed moderate persistent obstructive lung defect with post-BD FEV1: 1.1 L / 70% predicted with a borderline significant bronchodilator response, although postbronchodilator spirometry efforts
were not repeatable)
#Acute respiratory failure with hypoxia due to above
#NOEMY (baseline creatinine 0.9)
#Acute on chronic HFpEF with elevated proBNP on admission with small bilateral pleural effusions
#Chronic anemia
#Thrombocytopenia with history of low platelet count with viridiana 97k on 11/28/2022
#Recent diarrhea
#Centrilobular emphysema
#Pulmonary hypertension (prior RHC on 04/15/2023 showed PAP: 62/27 with PCWP 30 and TP with PVR 3.3 Dumont units, consistent with left-sided heart failure)
#Valvular heart disease with severe TR
#Interstitial lung abnormalities seen on imaging/bronchiectasis
Plan:
- Patient started to have URI symptoms earlier in the week which then increasingly worsened, leading to severe generalized weakness with hypoxia, productive cough and fevers
- Admission CXR showed no evidence of pneumonia although there were small bilateral pleural effusions with mild interstitial edema, and she was treated with 40 mg IV Lasix in the ER --> suspect she had a mild component of acute decompensated heart
failure initially
- Procalcitonin checked on 03/20/2025 was 0.28, although patient has an NOEMY hence unable to truly rely on this value
- Given her productive cough, agree with empiric treatment with antibiotics, and would change rocephin to Unasyn given she initially had URI/sinus infection symptoms; would continue Doxy for atypical coverage given her Hx of COPD
- Continue with supplemental oxygen to maintain SpO2 88-95% (of note, patient is not on oxygen therapy as per last pulmonary office note with Dr. Haines on 02/01/2025)
- She will need a home O2 assessment prior to discharge
- Recommend obtaining full PFTs as an outpatient
- She has Class II COPD with most recent spirometry performed on 01/06/2023 showing post-BD FEV1 1.1L / 70% predicted with a borderline BD response with her FVC.
- She is not on maintenance inhalers, however now with her current flare, it would not be unreasonable to start a LAMA/LABA given her current exacerbation. No ICS indicated given her eosinophils have been <300, per most recent GOLD guidelines
- Continue with systemic steroids, weaning down as she clinically improves to currently on Decadron 2 mg IV q12hr
- Continue scheduled DuoNebs for now, and would DC home on stiolto vs Anoro
- prn nebulized bronchodilators - not currently bronchospastic
- She has significant pulmonary HTN with most recent echo from 03/21/2025 showing PASP 83 mmHg, which is worsened from 51 mmHg from on prior echo on 03/31/2024
- Given that she is clinically improving, believe that we can repeat echo as an outpatient to assess for improvement in PA pressures as opposed to doing an inpatient workup
- Would recommend repeating echo in 4-6 weeks to assess for improvement in her PASP, otherwise would strongly consider repeating RHC to obtain accurate assessment of her PH
- If her PH has worsened, then would recommend obtaining VQ scan to evaluate for CTEPH, and consider pulmonary vasodilators depending on predominant PH etiology
- Incentive spirometer encouraged q1hr while awake
- Replete electrolytes with K>4, Mg>2
- Trend H/H and transfuse if needed to keep Hb>7g/dL; keep plt>20k, unless there is concern for bleeding then keep plt>50k
- Maintain euglycemia with goal BG >100 and <180
- DVT ppx: Eliquis
Pulmonary service will continue to follow along. Recommend close outpatient pulmonary office follow-up with Dr. Haines -last visit 02/01/2025
Data:
CXR 03/19/2025:
Small bilateral pleural effusions.
Significant cardiomegaly with cephalized vascular flow. No evidence for significant interstitial edema radiographically.
Transthoracic echocardiogram 03/21/2025:
1. Left ventricle: Normal size and function with an estimated ejection
fraction of 55-60% by visual estimation. Indeterminate diastolic function.
2. Right ventricle: Normal
3. Atria: Severe left atrial dilation and severe right atrial dilation
4. Mitral valve: Mildly thickened with mild mitral regurgitation
5. Aortic valve: Trileaflet. No aortic stenosis or aortic insufficiency
6. Tricuspid valve: Severe tricuspid regurgitation with estimated pulmonary
artery systolic pressures of 83 mmHg consistent with severe pulmonary
hypertension
7. When compared to the most recent echocardiogram from 03/31/2024, the
estimated pulmonary artery systolic pressures have increased from 51 to 83 mmHg
and the severity of tricuspid regurgitation is increased from moderate to
severe.
Total time spent today was 38 minutes for this encounter. Time includes reviewing laboratory test/imaging results, reviewing pertinent medical records, obtaining and reviewing medical history, performing an appropriate exam, ordering medications,
tests and procedures. Time also includes documentation of this encounter, coordinating patient care and communicating with other healthcare professionals. Total time does not include separately billed tests performed on this date of service.
Subjective Data
-
Date of Service:
Date of Service: March 23, 2025
Chief Complaint: Pulmonary Follow Up
Subjective:
Patient was seen and evaluated this morning. Currently on 3 L/min nasal cannula. She feels well, denying chest pain, abdominal pain, nausea, fevers chills. She would like to get off the oxygen completely before going home.
Review of Systems
General: Other (Negative unless mentioned above)
Objective Data
Data Reviewed
Vital Signs / I&O / Oxygen:
Vital Signs
Temp Pulse Resp BP Pulse Ox
98.2 F 76 18 164/77 94
03/23/25 08:09 03/23/25 08:09 03/23/25 08:09 03/23/25 08:09 03/23/25 08:09
Intake and Output
03/22/25 03/23/25 03/24/25
06:59 06:59 06:59
Intake Total 900 / 900 940 / 940
Output Total 850 / 850 1450 / 1450
Balance 50 / 50 -510 / -510
SaO2 94
Nasal Cannula flow liters per 4
minute
Physical Exam
General: Respiratory Distress (negative), Comfortable, Chills (negative) and Sweats (negative)
HEENT: Normocephalic and Anicteric
Cardiovascular: S1-S2, Rub (negative) and Peripheral Edema (Trace left lower extremity edema)
Respiratory: Wheeze (negative), Crackles (Bilateral), Rhonchi (negative) and Non-Labored Respirations
GI: Soft, Non Distended, Non Tender and Normal Bowel Sounds
Neurology: Awake, Alert and Tremors (negative)
Skin: Warm, Dry, Cyanosis (negative) and Jaundice (negative)
Labs/Micro/Reports
Lab Data
03/23/25 06:32
03/23/25 06:32
Microbiology
03/22/25 12:02 Sputum Gram Stain - Preliminary
03/19/25 19:34 Urine Urine Culture - Final
[2025-03-23] MEDS: LASIX 40 MG IV (11:14)
--- NOTE | 2025-03-23 14:22 | W.PN.CARDCBS ---
Addendum entered and electronically signed by Figueroa Gardner MD 03/23/25 14:34:
I saw and examined the patient.
The PLAYER DEVELOPMENT MANAGER or PA's note was reviewed and I agree with the note.
Comment: General: Well developed, well nourished in NAD.
Neck: Supple, no JVD, HJR, carotids +2 B/L, no bruits bilaterally.
Heart: Non displaced PMI, RRR, no murmurs, No S3, S4, no rubs.
Lungs: Scattered rhonchi at the bases
Extremities: No clubbing, cyanosis or edema bilaterally.
Neuro: Grossly nonfocal, awake, alert and oriented x3.
She remains hypoxic requiring 4 L of oxygen. Will continue IV Lasix. Renal function improved with creatinine of 1.1. Continue treatment of bronchitis as well. Updated patient's daughter Jojo Rodas'Brien in infection control.
Original Note:
Today's Communication / Plan
-
IV Lasix
Wean supplemental O2
Treatment of bronchitis per primary service
Impression / Plan
-
PCP: Dr. Peterson
[employer] Certified Internetwork Expert: Dr. Nandini Churchill
Impression:
Presented with congestion, SOB
Acute bronchitis
Acute on chronic HFpEF
Pulmonary HTN, severe by echo 03/21/25
Permanent atrial fibrillation
Chronic Eliquis AC
CAD
LAD PCI in 2003
HTN
HLD
COPD
PAD w/ prior iliac stent
h/o tobacco abuse
Echo 03/19/2023: EF 59%, mild MR, moderate to severe TR, estimated PAP 84 mmHg
Echo 03/31/2024: EF 62%, moderate TR, estimated PAP 51 mmHg, small pericardial effusion
Echo 03/21/2025: EF 55-60%, mild MR, severe TR, estimated PAP 83 mmHg consistent with severe pulmonary HTN
Plan:
-presented with cough/congestion/SOB
-likely multifactorial due to bronchitis and CHF exacerbation.
-Breathing appears significantly improved today. She has been weaned down to 2 L, continue to wean off as able. Was not on supplemental O2 prior to admission
- She reports good urine output with IV Lasix overnight. Creatinine improved today to 1.1. For additional dose of IV Lasix today. Prior to admission was on p.o. Lasix 40 mg every morning and 20 mg every afternoon
-Echo 03/21 with preserved EF and severe pulmonary HTN as noted above.
-Remains in rate controlled atrial fibrillation on review of telemetry overnight. Continue atenolol, Eliquis
-continue asa, lipitor, losartan, cardura.
-could consider addition of SGLT2 inhibitor
-Continue abx and nebs per primary service
-PT/OT
-OP cardiac follow up arranged. she is hopeful for DC in AM
HPI: Nelsy is an 89 year old female with PMH of chronic HFpEF, pulmonary hypertension, permanent atrial fibrillation on chronic Eliquis, CAD w/ prior LAD stent in 2003, HTN, HLD, COPD, and PAD. Presented to [facility] ER for evaluation of SOB,
congestion, and cough. She states about 1 week prior to arrival, she started with URI type symptoms [facility]. She was trying to manage supportively at home, but continued to have fatigue and SOB with fever. He was admitted with
bronchitis and acute heart failure exacerbation. She has been following her weights at home and denies any weight gain or LE edema. She notes symptoms feel different from prior heart failure exacerbations and she notes more of her symptoms are
related to nasal/chest congestion. While admitted she has been getting nebulizer treatments and antibiotics and breathing has been improving. She received brief course of IV lasix, but then this was held due to creat jumping to 1.3. She feels she is
close to her baseline currently, but remains on supplemental O2.
Progress Note - [employer] Certified Internetwork Expert
Subjective
Date of Service: March 23, 2025
Reports breathing is better today
Objective
Labs:
03/23/25 06:32
03/23/25 06:32
Labs
Hgb 9.9 g/dL (12.0-16.0) L 03/23/25 06:32
Hct 30.9 % (37.0-47.0) L 03/23/25 06:32
Plt Count 153 10^3/uL (130-400) 03/23/25 06:32
Sodium 138 mmol/L (135-145) 03/23/25 06:32
Potassium 4.5 mmol/L (3.5-5.1) 03/23/25 06:32
BUN 54 mg/dl (7-17) H 03/23/25 06:32
Creatinine 1.1 mg/dL (0.6-1.0) H 03/23/25 06:32
Glucose 142 mg/dl (70-99) H 03/23/25 06:32
Vital Signs and I&O:
Vital Signs
Temp Pulse Resp BP Pulse Ox
98.2 F 82 16 156/87 94
03/23/25 10:59 03/23/25 11:23 03/23/25 11:23 03/23/25 11:14 03/23/25 10:59
Vital Signs
Temp Pulse Resp BP Pulse Ox
98.2 F 82 16 156/87 94
03/23/25 10:59 03/23/25 11:23 03/23/25 11:23 03/23/25 11:14 03/23/25 10:59
Intake & Output
03/21/25 03/22/25 03/23/25 03/24/25
07:59 07:59 07:59 07:59
Intake Total 1000 / 1000 900 / 900 940 / 940 480 / 480
Output Total 250 / 250 850 / 850 1450 / 1450 250 / 250
Balance 750 / 750 50 / 50 -510 / -510 230 / 230
Physical Exam
Physical Exam
GEN: No distress, awake, alert, oriented x3. on supp O2. sitting in chair
HEENT: supple, anicteric, mmm, eomi
LUNGS: Few scattered crackles at bases, no wheezes
CV: Irreg, S1/S2, 1/6 murmur
ABD: soft, BS+, NT/ND
EXT: No cyanosis, clubbing, edema
NEURO: Gross non-focal
SKIN: Warm, pink, dry. No rash
[2025-03-23] MEDS: APRESOLINE 10 MG IV (14:53)
--- NOTE | 2025-03-23 15:35 | CM ---
Reviewed the chart notes and spoke with the patient's daughter at the bedside. Patient using O2 @ 2.5L/min. CM continues to be available to patient/family and is monitoring medical plan for needs at discharge.
Plan: Discharge plans will depend on progress. If unable to wean then would need home O2.
--- NOTE | 2025-03-23 16:19 | W.PN.UPDATE ---
Update Note
Progress Note Update
CTSP due to chest pressure which started approx 30 minutes after receiving dose of IV hydralazine for 172/80. repeat BP at time of discomfort was 125/58. review of tele without changes. chest pressure resolved on its own after several minutes. she
has asked for tums, ordered. will follow. d/w nursing
--- NOTE | 2025-03-23 16:29 | PTCARENOTE ---
Patient administered PRN 10mg IV hydralazine for BP of 172/80 LUE HR 82 taken by this RN, patient ringing approx 30 minutes after administration stating she feels chest pressure, states unsure if it is 'indigestion' after eating grilled cheese for
lunch, states feeling of needing to pass gas. Vitals taken by this RN 125/58 BP LUE HR 93, POX 90% on 2.5L, patient c/o mild SOB after ambulating in room, O2 increased to 3L. Patient assisted into laying position in bed, says feeling already started
to subside but is requesting a MD Jada and cardio aware, cardio at bedside, Tums ordered per cardio. Patient states feeling of pressure in chest has completely subsided by time of cardio assessment at bedside.
[2025-03-23] MEDS: TUMS EX (EXTRA STRENGTH) CHEWABLE TABLET 600 MG PO (16:37)
[2025-03-23] MEDS: TENORMIN 50 MG PO (22:54)
[2025-03-23] MEDS: CARDURA 4 MG PO (22:55)
[2025-03-23] MEDS: LIPITOR 40 MG PO (22:55)
[2025-03-24] MEDS: ROBITUSSIN 100 MG PO ×2 (03:26→13:44)
[2025-03-24 03:35] VITALS: BP 152/81
[2025-03-24 05:47] VITALS: BMI 27.2
[2025-03-24] MEDS: UNASYN IV ×2 (06:28→17:48)
[2025-03-24] MEDS: DUONEB 3 ML INH ×3 (07:19→21:43)
[2025-03-24 07:59] LABS: Hematocrit 31.3 % (37.0-47.0); Hemoglobin 10.3 g/dL (12.0-16.0); Mean Corp Hgb Conc. 32.9 g/dL (33.0-37.0); Mean Corpuscular Volume 92.3 fL (81.0-99.0); Platelet Count 195 10^3/uL (130-400); Red Cell Dist. Width 14.4 % (11.5-14.5)
[2025-03-24] MEDS: ASPIR LOW (ENTERIC COATED) 81 MG PO (08:12)
[2025-03-24] MEDS: COZAAR 100 MG PO (08:12)
[2025-03-24] MEDS: VIBRAMYCIN 100 MG PO ×2 (08:13→20:52)
[2025-03-24] MEDS: ELIQUIS 5 MG PO ×2 (08:13→20:46)
[2025-03-24] MEDS: FOLVITE 1 MG PO (08:13)
[2025-03-24] MEDS: ROBITUSSIN 200 MG PO ×2 (08:13→20:55)
[2025-03-24] MEDS: DECADRON 2 MG IV (08:13)
[2025-03-24 08:16] LABS: Blood Urea Nitrogen 51 mg/dl (7-17); Calcium 10.0 mg/dl (8.4-10.2); Carbon Dioxide 30 mmol/L (22-30); Chloride 104 mmol/L (98-107); Estimated Creatinine Clearance 42 ml/min; Glucose 123 mg/dl (70-99); Potassium 4.6 mmol/L (3.5-5.1); Sodium 140 mmol/L (135-145); eGFR > 60.00
[2025-03-24 08:47] VITALS: BP 137/66
--- NOTE | 2025-03-24 09:23 | W.PN.PUL3 ---
Today's Communication / Plan
-
Check home O2 assessment tomorrow
Continue systemic steroids, currently on Decadron 2 mg IV q12hr --> transition to prednisone 40 mg daily, reducing by 10 mg every fifth day until off
Up OOB as tolerated
PT/OT - OT rec'd home health
Aspiration precautions
Antibiotics with Unasyn + doxycycline, and will complete a 5-7-day course assuming she continues to clinically improve and remains afebrile for the 48 hours prior to stopping antibiotics
Considering she is close to discharge, I will start her on Spiriva + Striverdi, and she should be discharged home on Anoro vs Stiolto
Change scheduled DuoNebs to prn nebulized albuterol
No indication for discharging home on an inhaled corticosteroid as her eosinophils are <300
Recommend close outpatient pulmonary office follow-up with Dr. Haines - last visit 02/01/2025
Pulmonary service will continue to follow along - believe she will be ready for discharge by tomorrow
Assessment
-
Assessment: 89-year-old female for tobacco smoker with a past medical history of pulmonary hypertension, severe TR, COPD, permanent A-fib on Eliquis, interstitial lung abnormalities, bronchiectasis, CAD s/p LEELEE to LAD + diagonal branch, carotid
artery stenosis s/p BMS to right ICA, PVD s/p iliac stent, hypertension, hyperlipidemia, history of pericardial effusion s/p pericardiocentesis requiring colchicine, kidney stones, diverticulitis, chronic HFpEF, history of sinusitis and history of
COVID-19 (07/2022) who presents with SOB. She started to have a sore throat on Friday which worsened to runny nose with postnasal drip and sore throat on Friday/Friday last week. Her grandson had diarrhea and the patient developed diarrhea on
Friday. As the week went on, patient developed increasing weakness and she developed a fever with cold chills on /Friday. Her lips then became blue and she became increasingly weak until she came to the ER. She was found to have a low
pulse ox at 85% at home. Initially in the ER she was afebrile to 99.3 �F, pulse rate 100, respiratory rate 18, BP 130/73, and she was saturating 80% on room air which improved to 95% on mid flow nasal cannula at 4 L/min. Initial labs pertinent for
mild leukocytosis to 11.4, Hb 11, platelet count 120, creatinine 1.1, glucose 106, T. bili 1.4, troponin negative at 0.032, proBNP elevated at 8720, urinalysis showed +2 leukocyte esterase with 16�20 urine WBC, and COVID-19 antigen negative. Flu
swab is negative. Urine culture collected. CXR showed small bilateral pleural effusions. In the ER she was given doxycycline, DuoNebs + Lasix and admitted to the hospitalist service. She has continued to require supplemental oxygen and now
Pulmonary service consulted for additional management/recommendations.
Chronic conditions WRAPPER SELECTOR: Pulmonary hypertension, severe TR, A-fib on Eliquis, former tobacco smoker, bronchiectasis, interstitial lung abnormalities seen on imaging, family history of lung cancer, CAD s/p LEELEE to LAD + diagonal, carotid artery
stenosis s/p bare-metal stent to right ICA, PAD s/p iliac stent, hyperlipidemia, hypertension, history of pericardial effusion s/p pericardiocentesis requiring colchicine, history of kidney stones, history of diverticulitis (12/2019), left hip OA s/p
steroid injection, COPD, chronic HFpEF, history of COVID-19 (07/2022), history of sinusitis
Impression:
#Acute COPD exacerbation (spirometry from 01/02/2023 showed moderate persistent obstructive lung defect with post-BD FEV1: 1.1 L / 70% predicted with a borderline significant bronchodilator response, although postbronchodilator spirometry efforts
were not repeatable)
#Acute respiratory failure with hypoxia due to above
#NOEMY (baseline creatinine 0.9) - Cr back to baseline as of 03/24
#Acute on chronic HFpEF with elevated proBNP on admission with small bilateral pleural effusions
#Chronic anemia
#Thrombocytopenia with history of low platelet count with viridiana 97k on 11/28/2022
#Recent diarrhea
#Centrilobular emphysema
#Pulmonary hypertension (prior RHC on 04/15/2023 showed PAP: 62/27 with PCWP 30 and TP with PVR 3.3 Dumont units, consistent with left-sided heart failure)
#Valvular heart disease with severe TR
#Interstitial lung abnormalities seen on imaging/bronchiectasis
Plan:
- Patient started to have URI symptoms earlier in the week WRAPPER SELECTOR which increasingly worsened, leading to severe generalized weakness with hypoxia, central cyanosis, productive cough and fevers
- Admission CXR showed no evidence of pneumonia although there were small bilateral pleural effusions with mild interstitial edema, and she was treated with 40 mg IV Lasix in the ER --> suspect she had a mild component of acute decompensated heart
failure initially
- Procalcitonin checked on 03/20/2025 was 0.28, although patient has an NOEMY hence unable to truly rely on this value
- Given her productive cough, agree with empiric treatment with antibiotics - changed rocephin to Unasyn given she initially had URI/sinus infection symptoms; would continue Doxy for atypical coverage given her Hx of COPD
- Would complete a 5 to 7-day course of antibiotics assuming she continues to clinically improve and remains afebrile x 48 hrs prior to stopping antibiotics
- Continue with supplemental oxygen to maintain SpO2 88-95% (of note, patient is not on oxygen therapy as per last pulmonary office note with Dr. Haines on 02/01/2025)
- Check home O2 assessment prior to discharge
- Recommend obtaining full PFTs as an outpatient
- She has Class II COPD with most recent spirometry performed on 01/06/2023 showing post-BD FEV1 1.1L / 70% predicted with a borderline BD response with her FVC.
- She is not on maintenance inhalers, however now with her current flare, it would not be unreasonable to start a LAMA/LABA given her current exacerbation. No ICS indicated given her eosinophils have been <300, per most recent GOLD guidelines
- Considering she is close to discharge, I will start her on Spiriva + Striverdi, and she should be discharged home on Anoro vs Stiolto
- Continue with systemic steroids, weaning down as she clinically improves - currently on Decadron 2 mg IV q12hr --> ok to transition to prednisone 40mg daily with taper
- Would reduce by 10mg every 5th day until off
- Change scheduled DuoNebs to prn nebulized albuterol - not currently bronchospastic
- She has significant pulmonary HTN with most recent echo from 03/21/2025 showing PASP 83 mmHg, which is worsened from 51 mmHg from on prior echo on 03/31/2024
- Given that she is clinically improving, believe that we can repeat echo as an outpatient to assess for improvement in PA pressures as opposed to doing an inpatient workup
- Would recommend repeating echo in 4-6 weeks to assess for improvement in her PASP, otherwise would strongly consider repeating RHC to obtain accurate assessment of her PH
- If her PH has worsened, then would recommend obtaining VQ scan to evaluate for CTEPH, and consider pulmonary vasodilators depending on predominant PH etiology
- Regarding her heart failure, cardiology following, and her usual Lasix regimen has been restarted
- Recommend continued outpatient cardiology follow-up
- Incentive spirometer encouraged q1hr while awake
- Replete electrolytes with K>4, Mg>2
- Trend H/H and transfuse if needed to keep Hb>7g/dL; keep plt>20k, unless there is concern for bleeding then keep plt>50k
- Maintain euglycemia with goal BG >100 and <180
- DVT ppx: Eliquis
Pulmonary service will continue to follow along - believe she will be ready for discharge by tomorrow. Recommend close outpatient pulmonary office follow-up with Dr. Haines - last visit 02/01/2025
Data:
CXR 03/19/2025:
Small bilateral pleural effusions.
Significant cardiomegaly with cephalized vascular flow. No evidence for significant interstitial edema radiographically.
Transthoracic echocardiogram 03/21/2025:
1. Left ventricle: Normal size and function with an estimated ejection
fraction of 55-60% by visual estimation. Indeterminate diastolic function.
2. Right ventricle: Normal
3. Atria: Severe left atrial dilation and severe right atrial dilation
4. Mitral valve: Mildly thickened with mild mitral regurgitation
5. Aortic valve: Trileaflet. No aortic stenosis or aortic insufficiency
6. Tricuspid valve: Severe tricuspid regurgitation with estimated pulmonary
artery systolic pressures of 83 mmHg consistent with severe pulmonary
hypertension
7. When compared to the most recent echocardiogram from 03/31/2024, the
estimated pulmonary artery systolic pressures have increased from 51 to 83 mmHg
and the severity of tricuspid regurgitation is increased from moderate to
severe.
Total time spent today was 42 minutes for this encounter. Time includes reviewing laboratory test/imaging results, reviewing pertinent medical records, obtaining and reviewing medical history, performing an appropriate exam, ordering medications,
tests and procedures. Time also includes documentation of this encounter, coordinating patient care and communicating with other healthcare professionals. Total time does not include separately billed tests performed on this date of service.
Subjective Data
-
Date of Service:
Date of Service: March 24, 2025
Chief Complaint: Pulmonary Follow Up
Subjective:
Patient seen today, resting in bed no acute distress on 1 L/min nasal cannula breathing comfortably. SpO2 96%. Afebrile overnight. Currently denies chest pain, PARR, nausea, fevers or chills.
Review of Systems
General: Other (Negative unless mentioned above)
Objective Data
Data Reviewed
Vital Signs / I&O / Oxygen:
Vital Signs
Temp Pulse Resp BP Pulse Ox
98.3 F 88 16 137/66 93
03/24/25 08:47 03/24/25 08:47 03/24/25 08:47 03/24/25 08:47 03/24/25 08:47
Intake and Output
03/23/25 03/24/25 03/25/25
06:59 06:59 06:59
Intake Total 940 / 940 960 / 960
Output Total 1450 / 1450 1175 / 1175
Balance -510 / -510 -215 / -215
SaO2 93
Nasal Cannula flow liters per 3
minute
Physical Exam
General: Respiratory Distress (negative), Comfortable, Chills (negative) and Sweats (negative)
HEENT: Normocephalic and Anicteric
Cardiovascular: S1-S2, Rub (negative) and Peripheral Edema (Trace left lower extremity edema)
Respiratory: Wheeze (negative), Crackles (Bilateral), Rhonchi (negative) and Non-Labored Respirations
GI: Soft, Non Distended, Non Tender and Normal Bowel Sounds
Neurology: Awake, Alert and Tremors (negative)
Skin: Warm, Dry, Cyanosis (negative) and Jaundice (negative)
Labs/Micro/Reports
Lab Data
03/24/25 06:36
03/24/25 06:36
Microbiology
03/22/25 12:02 Sputum Respiratory Culture - Preliminary
Usual Respiratory Riana
03/22/25 12:02 Sputum Gram Stain - Preliminary
03/19/25 19:34 Urine Urine Culture - Final
--- NOTE | 2025-03-24 11:34 | W.PN.CARDCBS ---
Addendum entered and electronically signed by Carlos Perez MD 03/24/25 12:31:
82-year-old woman with HFpEF, pulmonary hypertension, pulmonary atrial fibrillation, LAD stent remotely admitted with shortness of breath cough and congestion
PMH/PSH: As above, plus PAD/iliac stents, carotid stents, orthopedic right knee and right shoulder replacements history of smoking, COPD, hypertension, hyperlipidemia
Current medications: Doxycycline, DuoNebs, apixaban 5 twice daily, aspirin 81 mg a day, atenolol 50 mg at bedtime, atorvastatin 40 mg daily, doxazosin 4 mg at bedtime, folic acid, losartan 100 mg a day, Unasyn, dexamethasone
137/66, pulse 88, respirate 16, afebrile, weight is 65.2 kg, essentially unchanged from admission, got furosemide 40 mg IV x 1 today she appears stable, diminished breath sounds, no obvious rales JVD okay, furosemide currently on hold, abdomen
benign, not much edema
Hemoglobin 10.3, BUN/creatinine 51 and 0.8, potassium 4.6 proBNP was 8780 on March 19, in September 2239 right heart cath 2022 with wedge of 30, PA pressure of 62/27
Echo 03/21/2025: EF 55-60%, normal RV, biatrial dilatation, mild MR, aortic valve okay, pulmonary artery systolic pressure 83 mmHg, severe TR
Impression: See below
Plan:
As per Ronit Mercedes. Reviewed in detail and agree unless otherwise specified.
From a cardiac standpoint, her heart failure seems reasonably controlled. Will resume her normal furosemide dosing which is 40 mg a.m. and 20 mg p.m. in the morning.
With a diagnosis of HFpEF she could be considered for SGLT2 antagonist and spironolactone, will defer to her outpatient local [place] truck [place] Dr. Churchill.
Management of COPD/bronchitis etc. per primary team
Presumably her severe pulmonary hypertension is not Group 1, so therefore not a candidate for standard pulmonary hypertension therapies.
Original Note:
Today's Communication / Plan
-
IV lasix today with likely transition to po in AM
wean supp O2
consider stopping asa to reduce bleeding risk
Impression / Plan
-
PCP: Dr. Peterson
Dental Hygiene Administrative Assistant: Dr. Nandini Churchill
Impression:
Presented with congestion, SOB
Acute bronchitis
Acute on chronic HFpEF
Pulmonary HTN, severe by echo 03/21/25
Permanent atrial fibrillation
Chronic Eliquis AC
CAD
LAD PCI in 2003
HTN
HLD
COPD
PAD w/ prior L iliac stent 2004
Carotid stenosis s/p MARGARITA BMS 2004
h/o tobacco abuse
Echo 03/19/2023: EF 59%, mild MR, moderate to severe TR, estimated PAP 84 mmHg
Echo 03/31/2024: EF 62%, moderate TR, estimated PAP 51 mmHg, small pericardial effusion
Echo 03/21/2025: EF 55-60%, mild MR, severe TR, estimated PAP 83 mmHg consistent with severe pulmonary HTN
Plan:
-presented with cough/congestion/SOB
-likely multifactorial due to bronchitis and CHF exacerbation.
-Reports breathing continues to improve. Continue to wean supplemental oxygen, was not requiring prior to admission. Continue abx/steroids per pulm
-Creatinine continues to improve with diuresis, 0.8 and weight trending down. Will give IV Lasix 40 mg again today. Prior to admission was on p.o. Lasix 40 mg every morning and 20 mg every afternoon
-will need BMP and proBNP in 1 week upon DC
-Echo 03/21 with preserved EF and severe pulmonary HTN as noted above.
-Remains in rate controlled atrial fibrillation on review of telemetry overnight. Continue atenolol, Eliquis
-would consider stopping asa to reduce bleeding risk as all prior stents were remote
-continue losartan, cardura.
-could consider addition of SGLT2 inhibitor
-Continue abx and nebs per primary service
-PT/OT
-OP cardiac follow up arranged.
-d/w patient's daughter, Jojo at bedside
HPI: Nelsy is an 89 year old female with PMH of chronic HFpEF, pulmonary hypertension, permanent atrial fibrillation on chronic Eliquis, CAD w/ prior LAD stent in 2003, HTN, HLD, COPD, and PAD. Presented to [facility] ER for evaluation of SOB,
congestion, and cough. She states about 1 week prior to arrival, she started with URI type symptoms after going to the [facility]. She was trying to manage supportively at home, but continued to have fatigue and SOB with fever. He was admitted with
bronchitis and acute heart failure exacerbation. She has been following her weights at home and denies any weight gain or LE edema. She notes symptoms feel different from prior heart failure exacerbations and she notes more of her symptoms are
related to nasal/chest congestion. While admitted she has been getting nebulizer treatments and antibiotics and breathing has been improving. She received brief course of IV lasix, but then this was held due to creat jumping to 1.3. She feels she is
close to her baseline currently, but remains on supplemental O2.
Progress Note - Dental Hygiene Administrative Assistant
Subjective
Date of Service: March 24, 2025
reports breathing improving
Objective
Labs:
03/24/25 06:36
03/24/25 06:36
Labs
Hgb 10.3 g/dL (12.0-16.0) L 03/24/25 06:36
Hct 31.3 % (37.0-47.0) L 03/24/25 06:36
Plt Count 195 10^3/uL (130-400) D 03/24/25 06:36
Sodium 140 mmol/L (135-145) 03/24/25 06:36
Potassium 4.6 mmol/L (3.5-5.1) 03/24/25 06:36
BUN 51 mg/dl (7-17) H 03/24/25 06:36
Creatinine 0.8 mg/dL (0.6-1.0) 03/24/25 06:36
Glucose 123 mg/dl (70-99) H 03/24/25 06:36
Vital Signs and I&O:
Vital Signs
Temp Pulse Resp BP Pulse Ox
98.3 F 88 16 137/66 96
03/24/25 08:47 03/24/25 08:47 03/24/25 11:29 03/24/25 08:47 03/24/25 11:29
Vital Signs
Temp Pulse Resp BP Pulse Ox
98.3 F 88 16 137/66 96
03/24/25 08:47 03/24/25 08:47 03/24/25 11:29 03/24/25 08:47 03/24/25 11:29
Intake & Output
03/22/25 03/23/25 03/24/25 03/25/25
07:59 07:59 07:59 07:59
Intake Total 900 / 900 940 / 940 960 / 960
Output Total 850 / 850 1450 / 1450 1175 / 1175
Balance 50 / 50 -510 / -510 -215 / -215
Physical Exam
Physical Exam
GEN: No distress, awake, alert, oriented x3. on supp O2.
HEENT: supple, anicteric, mmm, eomi
LUNGS: Few scattered crackles at L base, no wheezes
CV: Irreg, S1/S2, 1/6 murmur
ABD: soft, BS+, NT/ND
EXT: No cyanosis, clubbing, edema
NEURO: Gross non-focal
SKIN: Warm, pink, dry. No rash
[2025-03-24 12:19] VITALS: PULSE 85; O2SAT 91
[2025-03-24] MEDS: LASIX 40 MG IV (12:25)
--- NOTE | 2025-03-24 12:30 | W.PN.HOSP.TC ---
Today's Communication/Plan
-
see A/P
Assessment / Plan
Assessment / Plan
A/P:
# Acute Hypoxic Respiratory Insufficiency
# Heart Failure preserved EF, Acute Exacerbation (mild)
on 4L NC, wean O2 as tolerated, pt not on home O2
TTE 03/31/24 EF 62%, moderate TR
Follow up echo this admission: EF 55-60%. Indeterminate diastolic function. Mild mitral regurgitation. When compared to echo from 03/31/2024, the estimated pulmonary artery systolic pressures have increased from 51 to 83 mmHg and the severity of
tricuspid regurgitation is increased from moderate to severe.
Card on board, started pt on standing dose lasix 40 mg daily and 20 mg pm
restart Potassium 10 mg mEq BID 03/25
daily weights, strict I/O
# UTI ruled out
pt denies to urinary symptoms
urine culture 40,000 CFU/ML Mixed luz present: Probable contamination
# Acute Bronchitis, possible CAP
COVID/Flu negative
CXR: Small bilateral pleural effusions. Significant cardiomegaly with cephalized vascular flow. No evidence for significant interstitial edema radiographically.
Procal 0.28
continue Doxycycline,
ceftriaxone changed to Unasyn, cont
Change Decadron 2 mg BID to Prednisone 40 mg x5 days
DuoNeb ATC and PRN , Robitussin ATC and PRN, acapella/IS, Chest percussion
Sputum culture showed usual Respiratory Luz
Pulm on board
# Permanent Atrial Fibrillation
continue RED HAT ENGINEER Eliquis, Atenolol
# Essential HTN
RED HAT ENGINEER Doxazosin, Losartan, Atenolol
IV hydralazine PRN
# Hyperlipidemia
RED HAT ENGINEER Statin
# CAD - RED HAT ENGINEER Aspirin, Statin
# Mild thrombocytopenia
monitor for bleeding
DVT PPx - RED HAT ENGINEER Eliquis
FULL CODE
Dispo: HH vs no need
Updated daughter on the phone
Anticipated Discharge: Within 24 hours
Subjective/Interval History
-
Date of Service: March 24, 2025
Objective Data
-
Labs:
Laboratory Results
03/24/25
06:36
WBC 11.6 H
Hgb 10.3 L
Hct 31.3 L
Plt Count 195 D
Sodium 140
Potassium 4.6
Chloride 104
Carbon Dioxide 30
BUN 51 H
Creatinine 0.8
Glucose 123 H
Calcium 10.0
Vital Signs:
Vital Signs
Temp Pulse Resp BP Pulse Ox
36.8 C 88 16 137/66 96
03/24/25 08:47 03/24/25 08:47 03/24/25 11:29 03/24/25 08:47 03/24/25 11:29
I&O
03/23/25 03/24/25 03/25/25
06:59 06:59 06:59
Intake Total 940 / 940 960 / 960
Output Total 1450 / 1450 1175 / 1175
Balance -510 / -510 -215 / -215
Review of Systems
-
Respiratory: Denies Cough or Wheezing (resolved )
Physical Exam
-
General: Well Developed, Well Nourished, Comfortable, Respiratory Distress (mild) and Conversant
HEENT: Oxygen (1L NC )
Respiratory: Crackles (BL bases, mild) and Non Labored Respirations; Negative Wheezes or Accessory Resp Muscle Use
Cardiac: Regular Rhythm and S1/S2
GI: Soft, Nontender, Nondistended and Normal Bowel Sounds
Musculoskeletal: No Edema
Neuro: Awake, Alert, Oriented and AO x 3
Psych: Calm and Intact Judgement/Insight
Data Reviewed
-
Diagnostic Radiology: Report Reviewed by me
Labs: Labs Reviewed by me
[2025-03-24] MEDS: DUONEB INH (15:38)
[2025-03-24 15:50] VITALS: BP 156/72
--- NOTE | 2025-03-24 16:20 | CM ---
Reviewed the chart notes and spoke with the patient at the bedside. IMM reviewed. Patient continues on supplemental O2. CM continues to be available to patient/family and is monitoring medical plan for needs at discharge.
Plan: Discharge plans will depend on the patient's progress. If unable to wean from O2 would need home O2 evaluation at discharge.
[2025-03-24] MEDS: LASIX 20 MG PO (17:48)
[2025-03-24] MEDS: LIPITOR 40 MG PO (20:52)
[2025-03-24] MEDS: TENORMIN 50 MG PO (20:52)
[2025-03-24] MEDS: CARDURA 4 MG PO (20:52)
[2025-03-25] MEDS: UNASYN IV ×3 (05:57→18:26)
[2025-03-25] MEDS: FLUSH (NSS) 3 FLUSH IV (05:58)
[2025-03-25 06:00] VITALS: BMI 27.1
[2025-03-25 06:44] LABS: Hematocrit 30.5 % (37.0-47.0); Hemoglobin 10.1 g/dL (12.0-16.0); Mean Corp Hgb Conc. 33.1 g/dL (33.0-37.0); Mean Corpuscular Volume 92.4 fL (81.0-99.0); Platelet Count 192 10^3/uL (130-400); Red Cell Dist. Width 14.2 % (11.5-14.5)
[2025-03-25 07:09] LABS: Blood Urea Nitrogen 49 mg/dl (7-17); Calcium 9.5 mg/dl (8.4-10.2); Carbon Dioxide 34 mmol/L (22-30); Chloride 100 mmol/L (98-107); Estimated Creatinine Clearance 42 ml/min; Glucose 92 mg/dl (70-99); Potassium 3.9 mmol/L (3.5-5.1); Sodium 139 mmol/L (135-145); eGFR > 60.00
[2025-03-25 07:40] VITALS: BP 146/78
[2025-03-25] MEDS: ROBITUSSIN 200 MG PO ×2 (08:12→20:38)
[2025-03-25] MEDS: VIBRAMYCIN 100 MG PO ×2 (08:12→20:38)
[2025-03-25] MEDS: ASPIR LOW (ENTERIC COATED) 81 MG PO (08:12)
[2025-03-25] MEDS: KCL 10 MEQ PO ×2 (08:12→20:38)
[2025-03-25] MEDS: FOLVITE 1 MG PO (08:12)
[2025-03-25] MEDS: ELIQUIS 5 MG PO ×2 (08:13→20:38)
[2025-03-25] MEDS: LASIX 40 MG PO (08:13)
[2025-03-25] MEDS: DELTASONE 40 MG PO (08:13)
[2025-03-25] MEDS: COZAAR 100 MG PO (08:13)
[2025-03-25] MEDS: STRIVERDI RESPIMAT 2 PUFF INH (08:36)
[2025-03-25] MEDS: SPIRIVA RESPIMAT 2.5 MCG 2 PUFF INH (08:36)
--- NOTE | 2025-03-25 09:15 | W.PN.PUL3 ---
Today's Communication / Plan
-
Considering proBNP remains elevated, give another dose of IV Lasix this evening
Re-check home O2 assessment tomorrow
Continue steroids - transitioned to prednisone 40 mg daily, reducing by 10 mg every fifth day until off
Up OOB as tolerated
PT/OT - OT rec'd home health
Aspiration precautions
Antibiotics with Unasyn + doxycycline; rec'd 7-10 day course
Considering she is close to discharge, I started Spiriva + Striverdi, and she should be discharged home on Anoro vs Stiolto
prn nebulized albuterol
No indication for discharging home on an inhaled corticosteroid as her eosinophils are <300
Recommend close outpatient pulmonary office follow-up with Dr. Haines - last visit 02/01/2025
Repeat CXR tomorrow
Consider giving another IV lasix dose tomorrow AM before checking home O2 assessment
If O2 requirements continue to be elevated despite diuresis, consider checking inpatient echo to assess re-severity of PH; she has clinically improved, hence believe echo can be done as outpatient
Pulmonary service will continue to follow along - believe she will be ready for discharge by tomorrow
Assessment
-
Assessment: 89-year-old female for tobacco smoker with a past medical history of pulmonary hypertension, severe TR, COPD, permanent A-fib on Eliquis, interstitial lung abnormalities, bronchiectasis, CAD s/p LEELEE to LAD + diagonal branch, carotid
artery stenosis s/p BMS to right ICA, PVD s/p iliac stent, hypertension, hyperlipidemia, history of pericardial effusion s/p pericardiocentesis requiring colchicine, kidney stones, diverticulitis, chronic HFpEF, history of sinusitis and history of
COVID-19 (07/2022) who presents with SOB. She started to have a sore throat on Friday which worsened to runny nose with postnasal drip and sore throat on Friday/Friday last week. Her grandson had diarrhea and the patient developed diarrhea on
Friday. As the week went on, patient developed increasing weakness and she developed a fever with cold chills on /Friday. Her lips then became blue and she became increasingly weak until she came to the ER. She was found to have a low
pulse ox at 85% at home. Initially in the ER she was afebrile to 99.3 �F, pulse rate 100, respiratory rate 18, BP 130/73, and she was saturating 80% on room air which improved to 95% on mid flow nasal cannula at 4 L/min. Initial labs pertinent for
mild leukocytosis to 11.4, Hb 11, platelet count 120, creatinine 1.1, glucose 106, T. bili 1.4, troponin negative at 0.032, proBNP elevated at 8720, urinalysis showed +2 leukocyte esterase with 16�20 urine WBC, and COVID-19 antigen negative. Flu
swab is negative. Urine culture collected. CXR showed small bilateral pleural effusions. In the ER she was given doxycycline, DuoNebs + Lasix and admitted to the hospitalist service. She has continued to require supplemental oxygen and now
Pulmonary service consulted for additional management/recommendations.
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
stenosis s/p bare-metal stent to right ICA, PAD s/p iliac stent, hyperlipidemia, hypertension, history of pericardial effusion s/p pericardiocentesis requiring colchicine, history of kidney stones, history of diverticulitis (12/2019), left hip OA s/p
steroid injection, COPD, chronic HFpEF, history of COVID-19 (07/2022), history of sinusitis
Impression:
#Acute COPD exacerbation (spirometry from 01/02/2023 showed moderate persistent obstructive lung defect with post-BD FEV1: 1.1 L / 70% predicted with a borderline significant bronchodilator response, although postbronchodilator spirometry efforts
were not repeatable)
#Suspected recent URI/acute bacterial rhinosinusitis
#Acute respiratory failure with hypoxia due to above
#NOEMY (baseline creatinine 0.9) - Cr back to baseline as of 7/10
#Acute on chronic HFpEF with elevated proBNP on admission with small bilateral pleural effusions
#Chronic anemia
#Thrombocytopenia with history of low platelet count with viridiana 97k on 11/28/2022
#Recent diarrhea
#Centrilobular emphysema
#Pulmonary hypertension (prior RHC on 04/15/2023 showed PAP: 62/27 with PCWP 30 and TP with PVR 3.3 Dumont units, consistent with left-sided heart failure)
#Valvular heart disease with severe TR
#Interstitial lung abnormalities seen on imaging/bronchiectasis
Plan:
- Patient started to have URI symptoms earlier in the week COSMETIC MAKER which increasingly worsened, leading to severe generalized weakness with hypoxia, central cyanosis, productive cough and fevers
- Admission CXR showed no evidence of pneumonia although there were small bilateral pleural effusions with mild interstitial edema, and she was treated with 40 mg IV Lasix in the ER --> believe she has a component of acute decompensated heart
failure causing her hypoxia
- Procalcitonin checked on 03/20/2025 was 0.28, although patient has an NOEMY hence unable to truly rely on this value
- Given her productive cough, agree with empiric treatment with antibiotics - changed rocephin to Unasyn given she initially had URI/sinus infection symptoms; would continue Doxy for atypical coverage given her Hx of COPD
- Would complete a 7-10 day course of antibiotics assuming she continues to clinically improve and remains afebrile x 48 hrs prior to stopping antibiotics
- Maintain SpO2 88-95% (of note, patient is not on oxygen therapy as per last pulmonary office note with Dr. Haines on 02/01/2025)
- Home O2 assessment performed today, showing she needs 2 L/min with activity. She is currently declining oxygen therapy. I strongly encouraged her to abide by our instructions and use oxygen if that is what is needed
- Will give another dose if IV lasix now considering her proBNP today was 8640, which is only minimally improved compared to admission value which was 8780 on 03/19/2025
- Repeat CXR tomorrow as well
- Consider repeating home O2 assessment tomorrow; if AM CXR still shows concern for interstitial edema, would give another IV dose tomorrow AM before checking home O2 assessment
- Recommend obtaining full PFTs as an outpatient
- She has Class II COPD with most recent spirometry performed on 01/06/2023 showing post-BD FEV1 1.1L / 70% predicted with a borderline BD response with her FVC.
- She is not on maintenance inhalers, however now with her current flare, it would not be unreasonable to start a LAMA/LABA given her current exacerbation. No ICS indicated given her eosinophils have been <300, per most recent GOLD guidelines
- Considering she is close to discharge, I started her on Spiriva + Striverdi, and she should be discharged home on Anoro vs Stiolto
- Continue with systemic steroids, weaning down as she clinically improves - currently on Decadron 2 mg IV q12hr --> ok to transition to prednisone 40mg daily with taper
- Would reduce by 10mg every 5th day until off
- Changed scheduled DuoNebs to prn nebulized albuterol - not currently bronchospastic
- She has significant pulmonary HTN with most recent echo from 03/21/2025 showing PASP 83 mmHg, which is worsened from 51 mmHg from on prior echo on 03/31/2024
- Given that she is clinically improving, believe that we can repeat echo as an outpatient to assess for improvement in PA pressures as opposed to doing an inpatient workup
- Would recommend repeating echo in 4-6 weeks to assess for improvement in her PASP, otherwise would strongly consider repeating RHC to obtain accurate assessment of her PH
- If her PH has worsened, then would recommend obtaining VQ scan to evaluate for CTEPH, and consider pulmonary vasodilators depending on predominant PH etiology
- Regarding her heart failure, cardiology following - recs appreciated
- Recommend continued outpatient cardiology follow-up
- If patient continues to be hypoxic despite diuresis, then would consider checking echo during hospitalization to assess for worsening of her pulmonary hypertension
- Incentive spirometer encouraged q1hr while awake
- Replete electrolytes with K>4, Mg>2
- Trend H/H and transfuse if needed to keep Hb>7g/dL; keep plt>20k, unless there is concern for bleeding then keep plt>50k
- Maintain euglycemia with goal BG >100 and <180
- DVT ppx: Eliquis
I spoke to the patient's daughter, Jojo, in person and answered all of her questions.
Pulmonary service will continue to follow along. Recommend close outpatient pulmonary office follow-up with Dr. Haines - last visit 02/01/2025
Data:
CXR 03/19/2025:
Small bilateral pleural effusions.
Significant cardiomegaly with cephalized vascular flow. No evidence for significant interstitial edema radiographically.
Transthoracic echocardiogram 03/21/2025:
1. Left ventricle: Normal size and function with an estimated ejection
fraction of 55-60% by visual estimation. Indeterminate diastolic function.
2. Right ventricle: Normal
3. Atria: Severe left atrial dilation and severe right atrial dilation
4. Mitral valve: Mildly thickened with mild mitral regurgitation
5. Aortic valve: Trileaflet. No aortic stenosis or aortic insufficiency
6. Tricuspid valve: Severe tricuspid regurgitation with estimated pulmonary
artery systolic pressures of 83 mmHg consistent with severe pulmonary
hypertension
7. When compared to the most recent echocardiogram from 03/31/2024, the
estimated pulmonary artery systolic pressures have increased from 51 to 83 mmHg
and the severity of tricuspid regurgitation is increased from moderate to
severe.
Total time spent today was 47 minutes for this encounter. Time includes reviewing laboratory test/imaging results, reviewing pertinent medical records, obtaining and reviewing medical history, performing an appropriate exam, ordering medications,
tests and procedures. Time also includes documentation of this encounter, coordinating patient care and communicating with other healthcare professionals. Total time does not include separately billed tests performed on this date of service.
Subjective Data
-
Date of Service:
Date of Service: March 25, 2025
Chief Complaint: Pulmonary Follow Up
Subjective:
Patient was seen and evaluated this morning. She feels well. Currently on room air, saturating 88%. Afebrile overnight. Still has a mild cough sometimes productive. Denies chest pain, PARR, nausea, fevers or chills.
Review of Systems
General: Other (Negative unless mentioned above)
Objective Data
Data Reviewed
Vital Signs / I&O / Oxygen:
Vital Signs
Temp Pulse Resp BP Pulse Ox
97.7 F 82 16 146/78 95
03/24/25 15:50 03/25/25 08:37 03/25/25 08:37 03/25/25 08:13 03/25/25 00:52
Intake and Output
03/24/25 03/25/25 03/26/25
06:59 06:59 06:59
Intake Total 960 / 960 1340 / 1340
Output Total 1175 / 1175 1850 / 1850
Balance -215 / -215 -510 / -510
SaO2 95
Nasal Cannula flow liters per 1
minute
Physical Exam
General: Respiratory Distress (negative), Comfortable, Chills (negative) and Sweats (negative)
HEENT: Normocephalic and Anicteric
Cardiovascular: S1-S2, Rub (negative) and Peripheral Edema (negative)
Respiratory: Wheeze (negative), Crackles (Bilateral (faint during inspiration)), Rhonchi (negative) and Non-Labored Respirations
GI: Soft, Non Distended, Non Tender and Normal Bowel Sounds
Neurology: Awake, Alert, Oriented and Tremors (negative)
Skin: Warm, Dry, Cyanosis (negative) and Jaundice (negative)
Labs/Micro/Reports
Lab Data
03/25/25 06:22
03/25/25 06:22
Microbiology
03/22/25 12:02 Sputum Respiratory Culture - Final
Usual Respiratory Riana
03/22/25 12:02 Sputum Gram Stain - Final
--- NOTE | 2025-03-25 11:05 | W.PN.CARDCBS ---
Addendum entered and electronically signed by Carlos Perez MD 03/25/25 15:25:
82-year-old woman with HFpEF, pulmonary hypertension, pulmonary atrial fibrillation, LAD stent remotely admitted with shortness of breath cough and congestion
PMH/PSH: As above, plus PAD/iliac stents, carotid stents, orthopedic right knee and right shoulder replacements history of smoking, COPD, hypertension, hyperlipidemia
Wants to go home, but sats with ambulation dropped to 85%. She is resistant to concept of home oxygen.
146/78, pulse 82, resp rate 16, head neck exam unremarkable, diminished breath sounds, no rales JVD okay, irregular rate and rhythm, abdomen benign extremities without substantial edema.
weight is 65 kg, down 0.2 kg
Hemoglobin is 10.1, BUN/creatinine are 49 and 0.8, BUN has been 51, potassium is 3.9
Plan:
From cardiac standpoint, she is stable and okay to proceed with discharge planning.
Unclear at this point whether she is willing to accept home oxygen.
Upon discharge: Recommended cardiac meds
Apixaban 5 mg twice daily
Aspirin 81 mg daily
Atenolol 50 mg at bedtime
Atorvastatin 40 mg daily
Doxazosin 4 mg at bedtime
Losartan 1 g daily furosemide 40 mg a.m. and 20 mg p.m.
Potassium 10 mill equivalents twice daily
To consider SGLT2 antagonist, spironolactone as outpatient
Please check BMP, proBNP in 1 week
Cardiology follow-up arranged
Original Note:
Today's Communication / Plan
-
po lasix 40mg QAM and 20mg QPM
BMP/proBNP in 1 week
consider stopping asa as also on eliquis, stents remote
OP cardiac follow up arranged
Impression / Plan
-
PCP: Dr. Peterson
Sonoscope Operator: Dr. Nandini Churchill
Impression:
Presented with congestion, SOB
Acute bronchitis
Acute on chronic HFpEF
Pulmonary HTN, severe by echo 03/21/25
Permanent atrial fibrillation
Chronic Eliquis AC
CAD
LAD PCI in 2003
HTN
HLD
COPD
PAD w/ prior L iliac stent 2004
Carotid stenosis s/p MARGARITA BMS 2004
h/o tobacco abuse
Echo 03/19/2023: EF 59%, mild MR, moderate to severe TR, estimated PAP 84 mmHg
Echo 03/31/2024: EF 62%, moderate TR, estimated PAP 51 mmHg, small pericardial effusion
Echo 03/21/2025: EF 55-60%, mild MR, severe TR, estimated PAP 83 mmHg consistent with severe pulmonary HTN
Plan:
-presented with cough/congestion/SOB, multifactorial due to bronchitis and CHF exacerbation.
-breathing continues to improve. weaned off supp O2.
-back on po lasix 40mg QAM and 20mg QPM. she knows to follow daily weights and salt intake at home.
-BMP/proBNP in 1 week
-Echo 03/21 with preserved EF and severe pulmonary HTN as noted above.
-Continue atenolol, Eliquis
-would consider stopping asa to reduce bleeding risk as all prior stents were remote
-continue losartan, cardura.
-could consider addition of SGLT2 inhibitor
-Continue steroids, abx, and nebs per primary service
-OP cardiac follow up arranged.
-likely for DC today
HPI: Nelsy is an 89 year old female with PMH of chronic HFpEF, pulmonary hypertension, permanent atrial fibrillation on chronic Eliquis, CAD w/ prior LAD stent in 2003, HTN, HLD, COPD, and PAD. Presented to [facility] ER for evaluation of SOB,
congestion, and cough. She states about 1 week prior to arrival, she started with URI type symptoms [facility]. She was trying to manage supportively at home, but continued to have fatigue and SOB with fever. He was admitted with
bronchitis and acute heart failure exacerbation. She has been following her weights at home and denies any weight gain or LE edema. She notes symptoms feel different from prior heart failure exacerbations and she notes more of her symptoms are
related to nasal/chest congestion. While admitted she has been getting nebulizer treatments and antibiotics and breathing has been improving. She received brief course of IV lasix, but then this was held due to creat jumping to 1.3. She feels she is
close to her baseline currently, but remains on supplemental O2.
Progress Note - Sonoscope Operator
Subjective
Date of Service: March 25, 2025
Reports breathing continues to improve
Objective
Labs:
03/25/25 06:22
03/25/25 06:22
Labs
Hgb 10.1 g/dL (12.0-16.0) L 03/25/25 06:22
Hct 30.5 % (37.0-47.0) L 03/25/25 06:22
Plt Count 192 10^3/uL (130-400) 03/25/25 06:22
Sodium 139 mmol/L (135-145) 03/25/25 06:22
Potassium 3.9 mmol/L (3.5-5.1) 03/25/25 06:22
BUN 49 mg/dl (7-17) H 03/25/25 06:22
Creatinine 0.8 mg/dL (0.6-1.0) 03/25/25 06:22
Glucose 92 mg/dl (70-99) 03/25/25 06:22
Vital Signs and I&O:
Vital Signs
Temp Pulse Resp BP Pulse Ox
97.9 F 82 16 146/78 89
03/25/25 07:40 03/25/25 08:37 03/25/25 08:37 03/25/25 08:13 03/25/25 07:40
Vital Signs
Temp Pulse Resp BP Pulse Ox
97.9 F 82 16 146/78 89
03/25/25 07:40 03/25/25 08:37 03/25/25 08:37 03/25/25 08:13 03/25/25 07:40
Intake & Output
03/23/25 03/24/25 03/25/25 03/26/25
07:59 07:59 07:59 07:59
Intake Total 940 / 940 960 / 960 1340 / 1340
Output Total 1450 / 1450 1175 / 1175 1850 / 1850
Balance -510 / -510 -215 / -215 -510 / -510
Physical Exam
Physical Exam
GEN: No distress, awake, alert, oriented x3.
HEENT: supple, anicteric, mmm, eomi
LUNGS: CTA B/L, no wheezes
CV: Irreg, S1/S2, 1/6 murmur
ABD: soft, BS+, NT/ND
EXT: No cyanosis, clubbing, edema
NEURO: Gross non-focal
SKIN: Warm, pink, dry. No rash
--- NOTE | 2025-03-25 11:15 | W.PN.HOSP.TC ---
Today's Communication/Plan
-
weaned off O2 support, check walking pulse ox, pt not on home O2
Assessment / Plan
Assessment / Plan
A/P:
# Acute Hypoxic Respiratory Insufficiency
# Heart Failure preserved EF, Acute Exacerbation (mild)
weaned off O2 support, check walking pulse ox, pt not on home O2
TTE 03/31/24 EF 62%, moderate TR
Follow up echo this admission: EF 55-60%. Indeterminate diastolic function. Mild mitral regurgitation. When compared to echo from 03/31/2024, the estimated pulmonary artery systolic pressures have increased from 51 to 83 mmHg and the severity of
tricuspid regurgitation is increased from moderate to severe.
Card on board, started pt on standing dose lasix 40 mg daily and 20 mg pm
restart BUSINESS MANAGEMENT PROFESSOR Potassium 10 mg mEq BID 03/25
daily weights, strict I/O
# UTI ruled out
pt denies to urinary symptoms
urine culture 40,000 CFU/ML Mixed luz present: Probable contamination
# Acute Bronchitis, possible CAP
COVID/Flu negative
CXR: Small bilateral pleural effusions. Significant cardiomegaly with cephalized vascular flow. No evidence for significant interstitial edema radiographically.
Procal 0.28
continue Doxycycline,
ceftriaxone changed to Unasyn, cont
Decadron 2 mg BID to Prednisone 40 mg x5 days
DuoNeb ATC and PRN , Robitussin ATC and PRN, acapella/IS, Chest percussion
Sputum culture showed usual Respiratory Luz
Pulm on board
# Permanent Atrial Fibrillation
continue BUSINESS MANAGEMENT PROFESSOR Eliquis, Atenolol
# Essential HTN
BUSINESS MANAGEMENT PROFESSOR Doxazosin, Losartan, Atenolol
IV hydralazine PRN
# Hyperlipidemia
BUSINESS MANAGEMENT PROFESSOR Statin
# CAD - BUSINESS MANAGEMENT PROFESSOR Aspirin, Statin
# Mild thrombocytopenia
monitor for bleeding
DVT PPx - BUSINESS MANAGEMENT PROFESSOR Eliquis
FULL CODE
Dispo: HH vs no need
DW RN
Updated daughter in person
Anticipated Discharge: Within 24 hours
Subjective/Interval History
-
Date of Service: March 25, 2025
Objective Data
-
Labs:
Laboratory Results
03/25/25
06:22
WBC 11.0 H
Hgb 10.1 L
Hct 30.5 L
Plt Count 192
Sodium 139
Potassium 3.9
Chloride 100
Carbon Dioxide 34 H
BUN 49 H
Creatinine 0.8
Glucose 92
Calcium 9.5
Vital Signs:
Vital Signs
Temp Pulse Resp BP Pulse Ox
36.6 C 82 16 146/78 89
03/25/25 07:40 03/25/25 08:37 03/25/25 08:37 03/25/25 08:13 03/25/25 07:40
I&O
03/24/25 03/25/25 03/26/25
06:59 06:59 06:59
Intake Total 960 / 960 1340 / 1340
Output Total 1175 / 1175 1850 / 1850
Balance -215 / -215 -510 / -510
Review of Systems
-
Respiratory: Denies Cough or Wheezing (resolved )
Physical Exam
-
General: Well Developed, Well Nourished, No Apparent Distress, Comfortable and Conversant
HEENT: Negative Oxygen
Respiratory: Non Labored Respirations; Negative Wheezes or Accessory Resp Muscle Use
Cardiac: Regular Rhythm and S1/S2
GI: Soft, Nontender, Nondistended and Normal Bowel Sounds
Musculoskeletal: No Edema
Neuro: Awake, Alert, Oriented and AO x 3
Psych: Calm and Intact Judgement/Insight
Data Reviewed
-
Diagnostic Radiology: Report Reviewed by me
Labs: Labs Reviewed by me
--- NOTE | 2025-03-25 15:16 | CM ---
Reviewed the chart notes and spoke with RT Rob. Per Rob, patient dropped to 83% with ambulation on RA. CM spoke with the patient regarding home O2. She is adamant that she will not need it at home. Per patient, 'she will take it easy'. Patient
stated 'I will order it if I need it'. Explained it does not work that way and that a home O2 evaluation would be needed for order home O2. She stated 'I will follow-up with my doctors after discharge if I feel I need it. ' Pulmonary attending TT
regarding the above. Patient directed CM not to discuss O2 with her daughters. VN offered and declined. CM continues to be available to patient/family and is monitoring medical plan for needs at discharge.
Plan: Discharge to home when medically stable.
[2025-03-25 15:35] VITALS: BP 156/80
[2025-03-25] MEDS: LASIX 40 MG IV (16:41)
[2025-03-25] MEDS: ROBITUSSIN 100 MG PO (16:50)
[2025-03-25] MEDS: LASIX PO (17:07)
[2025-03-25 19:13] LABS: Blood Urea Nitrogen 49 mg/dl (7-17); Calcium 9.4 mg/dl (8.4-10.2); Carbon Dioxide 35 mmol/L (22-30); Chloride 97 mmol/L (98-107); Estimated Creatinine Clearance 42 ml/min; Glucose 212 mg/dl (70-99); Magnesium 1.9 mg/dl (1.6-2.3); Potassium 4.1 mmol/L (3.5-5.1); Sodium 138 mmol/L (135-145); eGFR > 60.00
[2025-03-25] MEDS: TYLENOL 650 MG PO (20:55)
[2025-03-25] MEDS: LIPITOR 40 MG PO (20:56)
[2025-03-25] MEDS: TENORMIN 50 MG PO (20:56)
[2025-03-25] MEDS: CARDURA 4 MG PO (20:57)
[2025-03-25 23:35] VITALS: BP 160/77
[2025-03-26] MEDS: UNASYN IV ×3 (00:03→11:03)
[2025-03-26] MEDS: ROBITUSSIN 100 MG PO ×2 (00:03→05:02)
[2025-03-26] MEDS: FLUSH (NSS) 2 FLUSH IV ×2 (00:04→05:03)
[2025-03-26 06:00] VITALS: BMI 26.9
[2025-03-26 07:01] LABS: Hematocrit 31.8 % (37.0-47.0); Hemoglobin 10.5 g/dL (12.0-16.0); Mean Corp Hgb Conc. 33.0 g/dL (33.0-37.0); Mean Corpuscular Volume 91.4 fL (81.0-99.0); Platelet Count 209 10^3/uL (130-400); Red Cell Dist. Width 14.3 % (11.5-14.5)
[2025-03-26 07:27] LABS: Blood Urea Nitrogen 46 mg/dl (7-17); Calcium 9.0 mg/dl (8.4-10.2); Carbon Dioxide 35 mmol/L (22-30); Chloride 101 mmol/L (98-107); Estimated Creatinine Clearance 48 ml/min; Glucose 103 mg/dl (70-99); Potassium 3.6 mmol/L (3.5-5.1); Sodium 140 mmol/L (135-145); eGFR > 60.00
[2025-03-26 07:30] VITALS: BP 182/68
[2025-03-26] MEDS: DELTASONE 40 MG PO (07:47)
[2025-03-26] MEDS: ROBITUSSIN 200 MG PO (07:47)
[2025-03-26] MEDS: ASPIR LOW (ENTERIC COATED) 81 MG PO (07:48)
[2025-03-26] MEDS: ELIQUIS 5 MG PO (07:48)
[2025-03-26] MEDS: KCL 10 MEQ PO (07:48)
[2025-03-26] MEDS: VIBRAMYCIN 100 MG PO (07:48)
[2025-03-26] MEDS: COZAAR 100 MG PO (07:48)
[2025-03-26] MEDS: LASIX 40 MG PO (07:48)
[2025-03-26] MEDS: FOLVITE 1 MG PO (07:48)
[2025-03-26 07:56] VITALS: BP 177/91
[2025-03-26] MEDS: STRIVERDI RESPIMAT 2 PUFF INH (08:19)
[2025-03-26] MEDS: SPIRIVA RESPIMAT 2.5 MCG 2 PUFF INH (08:19)
[2025-03-26 09:54] VITALS: BP 162/74
--- NOTE | 2025-03-26 10:40 | W.PN.PUL3 ---
Today's Communication / Plan
-
Assess for home oxygen
Wean prednisone as below
Consider discharge on Augmentin, additional 3 days
Recommend follow-up with ENT, sinus issues likely contributing
Consider discharge on Anoro or Stiolto
Follow-up information left in chart from pulmonary standpoint
Disposition efforts
Assessment
-
Assessment: 89-year-old female for tobacco smoker with a past medical history of pulmonary hypertension, severe TR, COPD, permanent A-fib on Eliquis, interstitial lung abnormalities, bronchiectasis, CAD s/p LEELEE to LAD + diagonal branch, carotid
artery stenosis s/p BMS to right ICA, PVD s/p iliac stent, hypertension, hyperlipidemia, history of pericardial effusion s/p pericardiocentesis requiring colchicine, kidney stones, diverticulitis, chronic HFpEF, history of sinusitis and history of
COVID-19 (07/2022) who presents with SOB. She started to have a sore throat on Friday which worsened to runny nose with postnasal drip and sore throat on Friday/Friday last week. Her grandson had diarrhea and the patient developed diarrhea on
Friday. As the week went on, patient developed increasing weakness and she developed a fever with cold chills on /Friday. Her lips then became blue and she became increasingly weak until she came to the ER. She was found to have a low
pulse ox at 85% at home. Initially in the ER she was afebrile to 99.3 �F, pulse rate 100, respiratory rate 18, BP 130/73, and she was saturating 80% on room air which improved to 95% on mid flow nasal cannula at 4 L/min. Initial labs pertinent for
mild leukocytosis to 11.4, Hb 11, platelet count 120, creatinine 1.1, glucose 106, T. bili 1.4, troponin negative at 0.032, proBNP elevated at 8720, urinalysis showed +2 leukocyte esterase with 16�20 urine WBC, and COVID-19 antigen negative. Flu
swab is negative. Urine culture collected. CXR showed small bilateral pleural effusions. In the ER she was given doxycycline, DuoNebs + Lasix and admitted to the hospitalist service. She has continued to require supplemental oxygen and now
Pulmonary service consulted for additional management/recommendations.
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
stenosis s/p bare-metal stent to right ICA, PAD s/p iliac stent, hyperlipidemia, hypertension, history of pericardial effusion s/p pericardiocentesis requiring colchicine, history of kidney stones, history of diverticulitis (12/2019), left hip OA s/p
steroid injection, COPD, chronic HFpEF, history of COVID-19 (07/2022), history of sinusitis
Impression:
#Acute COPD exacerbation (spirometry from 01/02/2023 showed moderate persistent obstructive lung defect with post-BD FEV1: 1.1 L / 70% predicted with a borderline significant bronchodilator response, although postbronchodilator spirometry efforts
were not repeatable)
#Suspected recent URI/acute bacterial rhinosinusitis
#Acute respiratory failure with hypoxia due to above
#NOEMY (baseline creatinine 0.9) - Cr back to baseline as of 03/24
#Acute on chronic HFpEF with elevated proBNP on admission with small bilateral pleural effusions
#Chronic anemia
#Thrombocytopenia with history of low platelet count with viridiana 97k on 11/28/2022
#Recent diarrhea
#Centrilobular emphysema
#Pulmonary hypertension (prior RHC on 04/15/2023 showed PAP: 62/27 with PCWP 30 and TP with PVR 3.3 Dumont units, consistent with left-sided heart failure)
#Valvular heart disease with severe TR
#Interstitial lung abnormalities seen on imaging/bronchiectasis
Plan/recommendations
At this time, patient appears to be comfortable
She feels much improved since admission, feels antibiotics have helped her
She also is currently on prednisone
Ambulating in the room without difficulty. She states her saturation does not go lower than 90%
Walk test yesterday noted 83%, required 2 L
Moving forward
Continue with current treatment regimen
Plan to taper prednisone as below
Consider additional 3 days of antibiotic therapy. Currently on doxycycline, Unasyn, consider discharge on Augmentin for additional 3 days
Patient also received Lasix therapy. Wondering if this may have helped her symptoms
She is not convinced. Follow-up with cardiology as outpatient in the next week. Significant pulm hypertension noted
Chest x-ray reviewed today. No acute findings per my review
Check ambulatory saturation
Would not be surprised if patient refuses oxygen. This can be readdressed as an outpatient
Ongoing discussion given pulmonary hypertension
She is not on maintenance inhaler therapy. Presently on Spiriva, Striverdi
Consider discharge on Anoro
Patient has been hesitant to use inhalers in the past
Wean prednisone 40 mg, decrease by 10 mg every 5 days until off
Will follow-up as outpatient
Of note, recent echocardiogram 03/21/2025 shows PA systolic pressure 83
Follow-up with cardiology ([facility])
Patient has appointment next week
Ongoing disposition efforts
Instructed patient to contact our office on Friday morning after 9 AM to make appointment to follow-up with POSTAL INSPECTOR in the next few weeks
Reviewed with primary service
Data:
CXR 03/19/2025:
Small bilateral pleural effusions.
Significant cardiomegaly with cephalized vascular flow. No evidence for significant interstitial edema radiographically.
Transthoracic echocardiogram 03/21/2025:
1. Left ventricle: Normal size and function with an estimated ejection
fraction of 55-60% by visual estimation. Indeterminate diastolic function.
2. Right ventricle: Normal
3. Atria: Severe left atrial dilation and severe right atrial dilation
4. Mitral valve: Mildly thickened with mild mitral regurgitation
5. Aortic valve: Trileaflet. No aortic stenosis or aortic insufficiency
6. Tricuspid valve: Severe tricuspid regurgitation with estimated pulmonary
artery systolic pressures of 83 mmHg consistent with severe pulmonary
hypertension
7. When compared to the most recent echocardiogram from 03/31/2024, the
estimated pulmonary artery systolic pressures have increased from 51 to 83 mmHg
and the severity of tricuspid regurgitation is increased from moderate to
severe.
Total time spent today was 47 minutes for this encounter. Time includes reviewing laboratory test/imaging results, reviewing pertinent medical records, obtaining and reviewing medical history, performing an appropriate exam, ordering medications,
tests and procedures. Time also includes documentation of this encounter, coordinating patient care and communicating with other healthcare professionals. Total time does not include separately billed tests performed on this date of service.
Subjective Data
-
Date of Service:
Date of Service: March 26, 2025
Chief Complaint: Pulmonary Follow Up
Subjective:
Patient observed ambulating to the bathroom, feeling well. She feels she is ready to go home. She denies chest pain. She has mild cough, sinus congestion but this is improved. She denies nausea, emesis, diarrhea. Remains on room air
Objective Data
Data Reviewed
Vital Signs / I&O / Oxygen:
Vital Signs
Temp Pulse Resp BP Pulse Ox
98.1 F 66 16 162/74 90
03/26/25 07:30 03/26/25 09:54 03/26/25 08:20 03/26/25 09:54 03/26/25 08:20
Intake and Output
03/25/25 03/26/25 03/27/25
06:59 06:59 06:59
Intake Total 1340 / 1340 1680 / 1680
Output Total 1850 / 1850 1075 / 1075
Balance -510 / -510 605 / 605
SaO2 90
Nasal Cannula flow liters per 1
minute
Physical Exam
General: Comfortable
HEENT: Normocephalic and Anicteric
Cardiovascular: S1-S2, Regular Rhythm, Murmur (n), Rub (negative) and Peripheral Edema (negative)
Respiratory: Wheeze (negative), Crackles (Minimal bibasilar), Rhonchi (negative), Non-Labored Respirations and Stridor (n)
GI: Soft, Non Distended, Non Tender and Normal Bowel Sounds
Neurology: Awake, Alert and No Motor Deficits (Ambulating without difficulty)
Skin: Warm, Dry, Cyanosis (negative) and Jaundice (negative)
Labs/Micro/Reports
Lab Data
03/26/25 06:48
03/26/25 06:48
Microbiology
03/22/25 12:02 Sputum Respiratory Culture - Final
Usual Respiratory Riana
03/22/25 12:02 Sputum Gram Stain - Final
[2025-03-26 10:45] VITALS: BP 168/70
[2025-03-26] MEDS: APRESOLINE 10 MG IV (11:04)
--- NOTE | 2025-03-26 11:47 | W.PN.HOSP.TC ---
Today's Communication/Plan
-
Being discharged home
Assessment / Plan
Assessment / Plan
89-year-old woman with past medical history of:
Diagnosis present before admission:
tobacco smoker
pulmonary hypertension,
severe TR,
COPD,
permanent A-fib on Eliquis,
interstitial lung abnormalities,
bronchiectasis,
CAD s/p LEELEE to LAD + diagonal branch,
carotid artery stenosis s/p BMS to right ICA,
PVD s/p iliac stent,
hypertension,
hyperlipidemia,
history of pericardial effusion s/p pericardiocentesis requiring colchicine,
kidney stones,
diverticulitis,
chronic HFpEF,
history of sinusitis
history of COVID-19 (07/2022)
presents with SOB. She had a sore throat which worsened to runny nose with postnasal drip and then worsening sore throat on Friday/Friday last week. She developed diarrhea on Friday. As the week went on, she developed increasing weakness, a
fever with cold chills on /Friday. Her lips became blue and she became increasingly weak, and then came to the ER. At home, she had a low pulse ox at 85%. In ER she was saturating 80% on room air which improved to 95% on mid flow nasal
cannula at 4 L/min. COVID-19 antigen negative. Flu swab is negative. Urine culture collected. CXR showed small bilateral pleural effusions.
Diagnosis on admission:
Acute COPD exacerbation (spirometry from 01/02/2023 showed moderate persistent obstructive lung defect with post-BD FEV1: 1.1 L / 70% predicted with a borderline significant bronchodilator response, although postbronchodilator spirometry efforts
were not repeatable)
Suspected recent URI/acute bacterial rhinosinusitis
Acute respiratory failure with hypoxia due to above
NOEMY (baseline creatinine 0.9) - Cr back to baseline as of 03/24
Acute on chronic HFpEF with elevated proBNP on admission with small bilateral pleural effusions
Chronic anemia
Thrombocytopenia with history of low platelet count with viridiana 97k on 11/28/2022
Recent diarrhea
Centrilobular emphysema
Pulmonary hypertension (prior RHC on 04/15/2023 showed PAP: 62/27 with PCWP 30 and TP with PVR 3.3 Dumont units, consistent with left-sided heart failure)
Valvular heart disease with severe TR
Interstitial lung abnormalities seen on imaging/bronchiectasis
Hospital course by problem:
1. Acute Hypoxic Respiratory Insufficiency
Complicated by Heart Failure with preserved EF, with Acute Exacerbation (mild)
She was weaned off O2 support, checked walking pulse ox, pt not on home O2
TTE 03/31/24 EF 62%, moderate TR
Follow up echo this admission:
EF 55-60%.
Indeterminate diastolic function.
Mild mitral regurgitation.
When compared to echo from 03/31/2024,
the estimated pulmonary artery systolic pressures have increased from 51 to 83 mmHg and the severity of tricuspid regurgitation is increased from moderate to severe.
Cardiology consulted: patient has been placed on standing dose lasix 40 mg daily and 20 mg pm
restarted SALES TRAINEE Potassium 10 mg mEq BID 03/25
daily weights, with strict I/O recommended
Cardiology reviewed meds for discharge
2. UTI - has been ruled out
pt denies to urinary symptoms
urine culture had 40,000 CFU/ML Mixed luz present: which is a probable contamination
3. Acute Bronchitis, possible CAP
COVID/Flu negative
CXR:
Small bilateral pleural effusions.
Significant cardiomegaly with cephalized vascular flow.
No evidence for significant interstitial edema radiographically.
Procal 0.28
continue Doxycycline upon discharge for 5 more days
ceftriaxone changed to Unasyn, now changed to Augmentin for 5 more days
Decadron 2 mg BID changed to Prednisone 40 mg x 5 more days
DuoNeb ATC and PRN , Robitussin ATC and PRN, acapella/IS, Chest percussion
Sputum culture showed usual Respiratory Luz
Case discussed with pulmonary image consultant prior to discharge
4. Permanent Atrial Fibrillation - continues
Continue SALES TRAINEE Eliquis, Atenolol
5. Essential HTN - continues
Continue SALES TRAINEE Doxazosin, Losartan, Atenolol
Stop IV hydralazine PRN
6. Hyperlipidemia - continues
Continue SALES TRAINEE Statin
7. CAD - continue SALES TRAINEE Aspirin, Statin
8. Mild thrombocytopenia - chronic issue
monitor for bleeding as outpatient
Check CBC as outpatient
DVT PPx while hospitalized was SALES TRAINEE Eliquis
She stated that her desire was to be FULL CODE during her hospitalization
Dispo: being discharge home according to her wishes. She has capacity for this choice.
Anticipated Discharge: Today
Subjective/Interval History
-
Date of Service: March 26, 2025
Feels well and want to go home.
Objective Data
-
Labs:
Laboratory Results
03/26/25
06:48
WBC 11.5 H
Hgb 10.5 L
Hct 31.8 L
Plt Count 209
Sodium 140
Potassium 3.6
Chloride 101
Carbon Dioxide 35 H
BUN 46 H
Creatinine 0.7
Glucose 103 H
Calcium 9.0
Vital Signs:
Vital Signs
Temp Pulse Resp BP Pulse Ox
98.1 F 66 16 168/70 90
03/26/25 07:30 03/26/25 09:54 03/26/25 08:20 03/26/25 11:04 03/26/25 10:50
I&O
03/25/25 03/26/25 03/27/25
06:59 06:59 06:59
Intake Total 1340 / 1340 1680 / 1680
Output Total 1850 / 1850 1075 / 1075
Balance -510 / -510 605 / 605
Review of Systems
-
History Source: Patient
All other systems: Reviewed and negative
Physical Exam
-
General: Well Developed, Well Nourished, No Apparent Distress and Comfortable
HEENT: Normocephalic, Atraumatic, Moist Mucous Membranes, Nose Appears Normal and Ears Appear Normal
Respiratory: Clear to Auscultation
Cardiac: Regular Rhythm and S1/S2
GI: Soft, Nontender and Nondistended
Musculoskeletal: No Clubbing, No Cyanosis and No Edema
Skin: Warm and Dry
Neuro: Awake, Alert, Oriented and AO x 3
Psych: Calm
Data Reviewed
-
Labs: Labs Reviewed by me
--- NOTE | 2025-03-26 12:06 | W.DCSUMMARY ---
Discharge Summary
Discharge Data
Date of Admission: 03/19/25
Date of Discharge: 03/26/25
Total time spent discharging patient (in min): 55
-
Pending Results: No
Hospital Course
89-year-old woman with past medical history of:
Diagnosis present before admission:
tobacco smoker
pulmonary hypertension,
severe TR,
COPD,
permanent A-fib on Eliquis,
interstitial lung abnormalities,
bronchiectasis,
CAD s/p LEELEE to LAD + diagonal branch,
carotid artery stenosis s/p BMS to right ICA,
PVD s/p iliac stent,
hypertension,
hyperlipidemia,
history of pericardial effusion s/p pericardiocentesis requiring colchicine,
kidney stones,
diverticulitis,
chronic HFpEF,
history of sinusitis
history of COVID-19 (07/2022)
presents with SOB. She had a sore throat which worsened to runny nose with postnasal drip and then worsening sore throat on Friday/Friday last week. She developed diarrhea on Friday. As the week went on, she developed increasing weakness, a
fever with cold chills on /Friday. Her lips became blue and she became increasingly weak, and then came to the ER. At home, she had a low pulse ox at 85%. In ER she was saturating 80% on room air which improved to 95% on mid flow nasal
cannula at 4 L/min. COVID-19 antigen negative. Flu swab is negative. Urine culture collected. CXR showed small bilateral pleural effusions.
Diagnosis on admission:
Acute COPD exacerbation (spirometry from 01/02/2023 showed moderate persistent obstructive lung defect with post-BD FEV1: 1.1 L / 70% predicted with a borderline significant bronchodilator response, although postbronchodilator spirometry efforts
were not repeatable)
Suspected recent URI/acute bacterial rhinosinusitis
Acute respiratory failure with hypoxia due to above
NOEMY (baseline creatinine 0.9) - Cr back to baseline as of 03/24
Acute on chronic HFpEF with elevated proBNP on admission with small bilateral pleural effusions
Chronic anemia
Thrombocytopenia with history of low platelet count with viridiana 97k on 11/28/2022
Recent diarrhea
Centrilobular emphysema
Pulmonary hypertension (prior RHC on 04/15/2023 showed PAP: 62/27 with PCWP 30 and TP with PVR 3.3 Dumont units, consistent with left-sided heart failure)
Valvular heart disease with severe TR
Interstitial lung abnormalities seen on imaging/bronchiectasis
Hospital course by problem:
1. Acute Hypoxic Respiratory Insufficiency
Complicated by Heart Failure with preserved EF, with Acute Exacerbation (mild)
She was weaned off O2 support, checked walking pulse ox, pt not on home O2
TTE 03/31/24 EF 62%, moderate TR
Follow up echo this admission:
EF 55-60%.
Indeterminate diastolic function.
Mild mitral regurgitation.
When compared to echo from 03/31/2024,
the estimated pulmonary artery systolic pressures have increased from 51 to 83 mmHg and the severity of tricuspid regurgitation is increased from moderate to severe.
Cardiology consulted: patient has been placed on standing dose lasix 40 mg daily and 20 mg pm
restarted BUSINESS ASSOCIATE Potassium 10 mg mEq BID 03/25
daily weights, with strict I/O recommended
Cardiology reviewed meds for discharge
2. UTI - has been ruled out
pt denies to urinary symptoms
urine culture had 40,000 CFU/ML Mixed luz present: which is a probable contamination
3. Acute Bronchitis, possible CAP
COVID/Flu negative
CXR:
Small bilateral pleural effusions.
Significant cardiomegaly with cephalized vascular flow.
No evidence for significant interstitial edema radiographically.
Procal 0.28
continue Doxycycline upon discharge for 5 more days
ceftriaxone changed to Unasyn, now changed to Augmentin for 5 more days
Decadron 2 mg BID changed to Prednisone 40 mg x 5 more days
DuoNeb ATC and PRN , Robitussin ATC and PRN, acapella/IS, Chest percussion
Sputum culture showed usual Respiratory Luz
Case discussed with pulmonary senior consumer insights consultant prior to discharge
4. Permanent Atrial Fibrillation - continues
Continue BUSINESS ASSOCIATE Eliquis, Atenolol
5. Essential HTN - continues
Continue BUSINESS ASSOCIATE Doxazosin, Losartan, Atenolol
Stop IV hydralazine PRN
6. Hyperlipidemia - continues
Continue BUSINESS ASSOCIATE Statin
7. CAD - continue BUSINESS ASSOCIATE Aspirin, Statin
8. Mild thrombocytopenia - chronic issue
monitor for bleeding as outpatient
Check CBC as outpatient
DVT PPx while hospitalized was BUSINESS ASSOCIATE Eliquis
She stated that her desire was to be FULL CODE during her hospitalization
Dispo: being discharge home according to her wishes. She has capacity for this choice.
Discharge Plan
-
Patient Disposition: Home with Home Care
Discharge Diagnosis/Procedures: # Acute Hypoxic Respiratory Insufficiency;
# Heart Failure preserved EF, Acute Exacerbation (mild);
# Acute Bronchitis, possible community acquired pneumonia
Condition: Good
Diet: As tolerated, 2 Gram Sodium and Restrict fluids to 64 oz
Activity: As tolerated
Driving Restrictions: As prior to admission
Blood Work: BMP/proBNP in 1 week
Specialty Instructions: Weigh Daily- Call MD for wt gain/loss 3 lbs overnight/5 lbs in 1 week
Instructions: *[facility] Heart Failure Instructions
Referrals:
Solomon Haines MD [Active, Pulmonary Medicine] - in two to three weeks
Referral Note: see [facility] in 2-3 weeks, then [facility] in June
Ze Bhardwaj Jr., DO [Family Provider, Internal Medicine]
Nandini Churchill MD [Active, Cardiology] - 03/30/25 1:40 pm
Referral Note: You have a cardiology follow-up appointment at the [place] office. Please call with questions
Additional Discharge Medication Instructions: Continue Lasix 40 mg daily and 20 mg pm
Continue prednisone 40 mg for 3 more days
Prescriptions:
New
prednisone 20 mg Tablet
40 mg PO DAILY Qty: 10 0RF
guaifenesin 100 mg/5 mL Liquid
200 mg PO BID Qty: 500 0RF
furosemide 20 mg Tablet
20 mg PO DAILY@1600 Qty: 30 0RF
potassium chloride 10 mEq Tablet,Er Particles/Crystals
10 meq PO BID Qty: 30 0RF
guaifenesin 100 mg/5 mL Liquid
100 mg PO Q4HPRN PRN (Reason: cough) Qty: 500 0RF
doxycycline hyclate 100 mg Capsule
100 mg PO Q12 Qty: 10 0RF
Calcium Antacid 300 mg (750 mg) Tablet,Chewable
2 tab PO Q4HPRN PRN (Reason: indigestion) Qty: 30 0RF
Spiriva Respimat 2.5 mcg/actuation Mist
2 puff inhalation R DAILY Qty: 1 0RF
Striverdi Respimat 2.5 mcg/actuation Mist
2 puff inhalation R DAILY Qty: 1 0RF
amoxicillin-pot clavulanate [Augmentin] 500-125 mg tablet
1 tab PO Q12H Qty: 10 0RF
Continued
atorvastatin 40 MG tablet
40 mg PO HS
folic acid 1 MG tablet
1 mg PO DAILY
Unisom (doxylamine) 25 MG tablet
12.5 mg PO HS PRN (Reason: Sleep)
Patient Comments:
Pt states 'half tablet' unknown dose
atenolol 50 MG tablet
50 mg PO HS 0RF
losartan [Cozaar] 100 MG tablet
100 mg PO DAILY Qty: 30 5RF
Eliquis 5 MG tablet
5 mg PO BID
cyanocobalamin (vitamin B-12) 1,000 mcg Tablet
1,000 mcg PO DAILY
therapeutic multivitamin Tablet
1 tab PO DAILY
aspirin 81 mg Tablet,Delayed Release (Dr/Ec)
81 mg PO DAILY
acetaminophen [Tylenol Extra Strength] 500 mg Tablet
1,000 mg PO HS
doxazosin 4 mg Tablet
4 mg PO HS
potassium chloride 10 mEq tablet,ER particles/crystals
10 meq PO BID
cholecalciferol (vitamin D3) [Vitamin D3] 25 mcg (1,000 unit) Tablet
25 mcg PO DAILY
furosemide 20 mg tablet
40 mg PO DAILY
Rx Instructions:
Please note increased dose
Saline Nasal 0.65 % aerosol,spray
2 spray intranasal QIDPRN
Discharge Orders:
Discharge Patient (As Directed); Ordered 03/26/25
Ordered By: Quique Maddox
Discharge Date and Time
Print Language: SAMI
[2025-03-26 13:29] VITALS: BP 127/52
--- NOTE | 2025-03-26 14:08 | PTCARENOTE ---
Addendum entered by Sirisha Ross RN 03/26/25 14:09:
Patient stated to this RN she is refusing home O2. aware.
Original Note:
Patient discharged home, transported by daughter. IV removed and vitals taken by Naveed ANSARI, discharge instructions reviewed with patient and patient's daughter at bedside, both verbalized understanding. Patient dressed and gathered belongings in room,
taken down to daughter's car via staff escort and wheelchair.
== END 2025-03-26 13:57 | disposition home or self-care (01) | DRG 291 ==
LOC: 2 NORTH 20:42
PROVIDERS: Emergency Medicine; Internal Medicine; Internal Medicine Cardiovascular Disease; ADMITTING PHYSICIAN Student in an Organized Health Care Education/Training Program; ATTENDING PHYSICIAN Internal Medicine; CONSULT PHYSICIAN Internal Medicine Cardiovascular Disease; CONSULT PHYSICIAN Internal Medicine Critical Care Medicine; EMERGENCY PHYSICIAN Emergency Medicine; FAMILY PHYSICIAN Family Medicine
DX: I11.0 Hypertensive heart disease with heart failure (principal); I50.33 Acute on chronic diastolic (congestive) heart failure; J18.9 Pneumonia, unspecified organism; I48.21 Permanent atrial fibrillation; N17.9 Acute kidney failure, unspecified; J47.0 Bronchiectasis with acute lower respiratory infection; I25.10 Atherosclerotic heart disease of native coronary artery without angina pectoris; I27.20 Pulmonary hypertension, unspecified; E78.00 Pure hypercholesterolemia, unspecified; J20.9 Acute bronchitis, unspecified; I73.9 Peripheral vascular disease, unspecified; R09.02 Hypoxemia; R06.89 Other abnormalities of breathing; D69.6 Thrombocytopenia, unspecified; Z96.651 Presence of right artificial knee joint; I07.1 Rheumatic tricuspid insufficiency; J43.2 Centrilobular emphysema; Z96.611 Presence of right artificial shoulder joint; Z79.01 Long term (current) use of anticoagulants; Z95.820 Peripheral vascular angioplasty status with implants and grafts; Z95.5 Presence of coronary angioplasty implant and graft; Z90.710 Acquired absence of both cervix and uterus; Z82.49 Family history of ischemic heart disease and other diseases of the circulatory system; Z86.16 Personal history of COVID-19; Z87.891 Personal history of nicotine dependence; Z79.82 Long term (current) use of aspirin; Z87.442 Personal history of urinary calculi; Z11.52 Encounter for screening for COVID-19; Z80.1 Family history of malignant neoplasm of trachea, bronchus and lung
CPT/HCPCS: 71046; 80048; 80053; 81003; 81015; 83735; 83880; 84100; 84145; 84484; 85025; 85027; 87070; 87086; 87205; 87502; 87811; 93005; 93306; 94640; 94667; 94668; 96374; 97163; 97166; 97530; 99285

== ENCOUNTER → 2025-04-04 06:43 | Outpatient (REF) | payer MEDICARE, SELFPAY ==
[2025-04-04 07:27] LABS: Hematocrit 33.5 % (37.0-47.0); Hemoglobin 11.1 g/dL (12.0-16.0); Mean Corp Hgb Conc. 33.1 g/dL (33.0-37.0); Mean Corpuscular Volume 91.5 fL (81.0-99.0); Nucleated Red Blood Cells % 0 %; Platelet Count 285 10^3/uL (130-400); Red Cell Dist. Width 15.3 % (11.5-14.5)
[2025-04-04 08:02] LABS: ALT (SGPT) 37 U/L (0-35); AST (SGOT) 26 U/L (14-36); Albumin 3.6 g/dl (3.5-5.0); Alkaline Phosphatase 121 U/L (38-126); Blood Urea Nitrogen 25 mg/dl (7-17); Calcium 9.3 mg/dl (8.4-10.2); Carbon Dioxide 33 mmol/L (22-30); Chloride 100 mmol/L (98-107); Glucose 138 mg/dl (70-99); HDL Cholesterol 43 mg/dl; Iron 84 ug/dl (37-170); LDL Cholesterol, Calculated 63 mg/dl; Potassium 4.7 mmol/L (3.5-5.1); Sodium 135 mmol/L (135-145); Total Protein 6.0 g/dl (6.3-8.2); Very Low Density Lipoprotein 12 mg/dl (0-30); eGFR > 60.00
[2025-04-04 08:12] LABS: Total Iron Binding Capacity 256 ug/dl (265-497)
[2025-04-04 08:20] LABS: Glycohemoglobin (HgbA1c) 6.2 % (4.0-5.6)
[2025-04-04 08:44] LABS: Ferritin 167.0 ng/ml (11.1-264.0)
== END ==
LOC: REG 06:43
PROVIDERS: ATTENDING PHYSICIAN Internal Medicine Cardiovascular Disease; FAMILY PHYSICIAN Family Medicine; OTHER PHYSICIAN Internal Medicine Critical Care Medicine; REFERRING PHYSICIAN Otolaryngology
DX: I50.32 Chronic diastolic (congestive) heart failure (principal); R73.02 Impaired glucose tolerance (oral); E78.5 Hyperlipidemia, unspecified; E61.1 Iron deficiency
CPT/HCPCS: 36415; 80053; 80061; 82728; 83036; 83540; 83550; 83880; 85025

== ENCOUNTER → 2025-06-01 11:24 | Outpatient (REF) | payer MEDICARE, SELFPAY | LOC: RCS 11:24 | PROVIDERS: ATTENDING PHYSICIAN Internal Medicine Cardiovascular Disease; FAMILY PHYSICIAN Family Medicine | DX: I50.30 Unspecified diastolic (congestive) heart failure (principal); I27.20 Pulmonary hypertension, unspecified | CPT/HCPCS: 93306 ==

== ENCOUNTER → 2025-06-02 11:49 | Outpatient (REF) | payer MEDICARE, SELFPAY | LOC: RAD 11:49 | PROVIDERS: ATTENDING PHYSICIAN Otolaryngology; FAMILY PHYSICIAN Family Medicine | DX: J32.0 Chronic maxillary sinusitis (principal) | CPT/HCPCS: 70486 ==

== ENCOUNTER 2025-06-08 14:58 | Inpatient (IN) | payer MEDICARE, SELFPAY ==
[2025-06-08] VITALS (13 sets, daily range): BP systolic 120–175; BP diastolic 46–124; BMI 27.5; BMI 26.6
--- NOTE | 2025-06-08 11:23 | ED.GENMED ---
History of Present Illness
General
Chief Complaint: Breathing Problem
Source: patient
Exam Limitations: none
Time Seen by Provider: 06/08/25 11:05
Nursing documentation reviewed up to this point in time: agreed with
History of Present Illness
History of Present Illness:
89-year-old female with past medical history of hypertension, CHF, CAD status post stents, atrial fibrillation on Eliquis who presents to the emergency department sent in by cardiology due to worsening shortness of breath. Patient reportedly had an
outpatient echocardiogram last week and says that she was told by activities specialist that there was a pericardial effusion. She says over the past week she has had progressive shortness of breath particular with exertion. She says symptoms seem to be
worse in the morning when she wakes up. She says that she has had occasional chest discomfort although again this seems to be mostly in the morning. She has had mild cough. She says she has some mild swelling in the legs but that this is not
unusual for her particularly in the left leg. She says that she has gained about 3 pounds over the past few weeks but she attributes this to poor diet ('I have been eating a lot of cookies'). She discussed symptoms with cardiology who referred to
the ER for assessment. Her primary activities specialist is Dr. Churchill. Patient does have history of pericardial effusion in the past requiring pericardiocentesis.
Past History
Past History
ED Past Medical History: Arrthythmia, CAD, CHF, Other (Pulmonary hypertension) and Other
ED Past Surgical History: Appendectomy, Cardiac, Orthopedic, Tonsilectomy and Other
Social History
Tobacco: Former smoker
Alcohol: None
Drug: None
Personal:
Living: alone
Employment: Retired
Family History
Family History: Other (Noncontributory)
Review of Systems
Review of Systems
All Other Systems: ROS reviewed and negative except as documented in HPI and ROS
Constitutional: Reports weight gain and fatigue; Denies fever
Respiratory: Reports cough and trouble breathing
Cardiac: Reports chest pain; Denies palpitations
ABD/GI: Denies abdominal pain or nausea
Musculoskeletal: Reports edema; Denies neck pain or back pain
Neurological: Denies dizzy or headache
Phy Exam
Physical Exam
Physical Exam:
General: Awake, alert, oriented x3; no acute distress
Head: Normocephalic, atraumatic
Eyes: Conjunctiva normal, sclera anicteric
Throat: Airway intact, handling secretions
Neck: Trachea midline, no JVD noted
Lungs: Clear to auscultation bilaterally, no wheezing, rales, rhonchi
Heart: Regular rate and rhythm, no murmurs, gallops, or rubs
Abd: Soft, non distended, nontender
Neuro: Grossly intact
Skin: Warm and dry
Extremities: Trace edema in the legs left slightly greater than right mostly around the ankles; good pulses throughout
Scores
Heart Failure Risk
Heart Failure Risk Score: Not Applicable
Heart Score for Chest Pain Patients
STEMI patient?: Not applicable
Withdrawal Assessment of Alcohol
Withdrawal Assessment Completed?: Not applicable
Course
Orders/Labs/Results
Orders:
Orders
06/08/25 10:38
Electrocardiogram (*1) Urgent
Reason for Study: Shortness of Breath
EKG- Treatment ONCE
06/08/25 10:57
Complete Blood Count/With Diff Urgent
Pro-BNP [NT-proBNP] Urgent
Troponin I Urgent
06/08/25 11:14
Echo 2D MMode Color/Doppler Urgent
Reason for Study: shortness of breath
CARDIOLOGY CONSULT Urgent
Consulting Provider: Jose Murray
Was physician already notified: Yes
06/08/25 11:17
ROSANGELA, IgG Reflex to HEp-2 [S] Urgent
CRP [C-Reactive Protein] Urgent
Comprehensive Metabolic Panel Urgent
LDH Urgent
Rheumatoid Factor [Rheumatoid Agglutinin] Urgent
TSH Reflex To Free T4 Urgent
Vital Signs
Initial and Last Documented VS:
Initial Vital Signs
Temp Pulse Resp BP Pulse Ox
36.6 C 74 16 144/68 87
06/08/25 10:48 06/08/25 10:48 06/08/25 10:48 06/08/25 10:48 06/08/25 10:48
Last Documented Vital Signs
Temp Pulse Resp BP Pulse Ox
36.6 C 74 16 144/68 93
06/08/25 10:48 06/08/25 10:48 06/08/25 10:48 06/08/25 10:48 06/08/25 11:23
MDM/Problems Addressed
Differential Diagnosis Includes:
CHF, tamponade/effusion, symptomatic A-fib, anemia, pneumonia
MDM/Problems Addressed:
89-year-old female presents to the ER for worsening shortness of breath particular with exertion over the past week or so. She did have a recent echocardiogram which showed severe tricuspid regurgitation and large pericardial effusion which had
increased in size from March. Referred to the ER for assessment. Vitals and exam as above. Will place an IV check labs including a CBC and a CMP, proBNP and troponin. Check EKG and chest x-ray. Case discussed with cardiology plan for additional
labs, echocardiogram and recommending admission to the hospitalist service. Will discuss with hospitalist pending initial assessment.
Chronic conditions affecting care:
CAD, hypertension, CHF
*Pulse Oximetry
SaO2: 93
Nasal Cannula flow liters per minute: 2
Oxygen Mode of Delivery: Room air
Patient hypoxic: yes (87%)
*EKG
Interpreted by ED Provider?: Yes
Heart Rate: 78
Rate: normal
Rhythm: a-fib
[place]: normal axis
Interval: normal interval
QRS Pattern: low voltage
Ischemia: no ischemia
*Critical Care Note
Total Time (30-74mins, 75-104mins- exclusive of procedures): Not Applicable
Data Reviewed
Review of Other/Old Records Reveals: Labs, Records and Testing
Source: patient, records and family
Patient Management
Discussion with other providers: Hospitalist (Discussed with hospitalist) and Chief Bank Examiner (Discussed with activities specialist)
Escalation/DeEscalation of care consider admission/obs:
Admission indicated
ED Attending Note
-
Portions of this chart may have been created with voice recognition software.� Occasional wrong word or��sound alike� substitutions may have occurred due to the inherent limitations of voice recognition software.
Discharge Plan
Departure
Prescriptions:
No Action
atorvastatin 40 MG tablet
40 mg PO HS
folic acid 1 MG tablet
1 mg PO DAILY
Unisom (doxylamine) 25 MG tablet
12.5 mg PO HS PRN (Reason: Sleep)
Patient Comments:
Pt states 'half tablet' unknown dose
atenolol 50 MG tablet
50 mg PO HS 0RF
losartan [Cozaar] 100 MG tablet
100 mg PO DAILY Qty: 30 5RF
Eliquis 5 MG tablet
5 mg PO BID
cyanocobalamin (vitamin B-12) 1,000 mcg Tablet
1,000 mcg PO DAILY
therapeutic multivitamin Tablet
1 tab PO DAILY
aspirin 81 mg Tablet,Delayed Release (Dr/Ec)
81 mg PO DAILY
acetaminophen [Tylenol Extra Strength] 500 mg Tablet
1,000 mg PO HS
doxazosin 4 mg Tablet
4 mg PO HS
potassium chloride 10 mEq tablet,ER particles/crystals
10 meq PO BID
cholecalciferol (vitamin D3) [Vitamin D3] 25 mcg (1,000 unit) Tablet
25 mcg PO DAILY
furosemide 20 mg tablet
40 mg PO DAILY
Rx Instructions:
Please note increased dose
Saline Nasal 0.65 % aerosol,spray
2 spray intranasal QIDPRN
prednisone 20 mg Tablet
40 mg PO DAILY Qty: 10 0RF
guaifenesin 100 mg/5 mL Liquid
200 mg PO BID Qty: 500 0RF
furosemide 20 mg Tablet
20 mg PO DAILY@1600 Qty: 30 0RF
potassium chloride 10 mEq Tablet,Er Particles/Crystals
10 meq PO BID Qty: 30 0RF
guaifenesin 100 mg/5 mL Liquid
100 mg PO Q4HPRN PRN (Reason: cough) Qty: 500 0RF
doxycycline hyclate 100 mg Capsule
100 mg PO Q12 Qty: 10 0RF
Calcium Antacid 300 mg (750 mg) Tablet,Chewable
2 tab PO Q4HPRN PRN (Reason: indigestion) Qty: 30 0RF
Spiriva Respimat 2.5 mcg/actuation Mist
2 puff inhalation R DAILY Qty: 1 0RF
Striverdi Respimat 2.5 mcg/actuation Mist
2 puff inhalation R DAILY Qty: 1 0RF
amoxicillin-pot clavulanate [Augmentin] 500-125 mg tablet
1 tab PO Q12H Qty: 10 0RF
Interventions
Interventions:
*Risk Screen - Suicide Last Done: 06/08/25 10:52
*General Assessment Last Done: 06/08/25 10:52
*Neglect/Abuse Screening Last Done: 06/08/25 10:52
Discharge Date and Time
Print Language: GREEK
[2025-06-08 11:56] LABS: Hematocrit 34.9 % (37.0-47.0); Hemoglobin 10.7 g/dL (12.0-16.0); Mean Corp Hgb Conc. 30.7 g/dL (33.0-37.0); Mean Corpuscular Volume 96.7 fL (81.0-99.0); Nucleated Red Blood Cells % 0 %; Platelet Count 160 10^3/uL (130-400); Red Cell Dist. Width 15.8 % (11.5-14.5)
[2025-06-08 12:14] LABS: ALT (SGPT) 12 U/L (0-35); AST (SGOT) 22 U/L (14-36); Albumin 3.9 g/dl (3.5-5.0); Alkaline Phosphatase 157 U/L (38-126); Blood Urea Nitrogen 21 mg/dl (7-17); Calcium 9.6 mg/dl (8.4-10.2); Carbon Dioxide 33 mmol/L (22-30); Chloride 101 mmol/L (98-107); Estimated Creatinine Clearance 39 ml/min; Glucose 96 mg/dl (70-99); LDH 192 U/L (120-246); Potassium 4.2 mmol/L (3.5-5.1); Sodium 141 mmol/L (135-145); Total Protein 6.4 g/dl (6.3-8.2); eGFR > 60.00
[2025-06-08 12:16] LABS: C-Reactive Protein 11.20 mg/L (0.0-10.00)
[2025-06-08 12:24] LABS: Troponin I < 0.012 ng/ml
--- NOTE | 2025-06-08 14:32 | HPS.HSE ---
Addendum entered and electronically signed by Candelario Biggs MD 06/08/25 16:34:
Seen and examined the patient independently. Agree with plan set forth by the resident discussed together. See changes in my documentation.
89 y/o female with SOB, progressive over the past week. Patient had an echo as outpatient a week ago which showed pericardial effusion also had mild edema in the legs and some weight gain.
EKG-atrial fibrillation rate [address]-T changes anterolateral leads
ECHO-LV size and systolic function without regional wall motion abnormalities. EF 55 to 60%. RV mildly dilated. Severe biatrial enlargement. Severe TR with severe pulmonary hypertension. PA pressure of 63 mmHg. Moderate to large pericardial
effusion. No change compared to June 01, 2025
Cardiovascular system S1-S2 regular, systolic murmur at right heart border
Chest bilateral rales
Abdomen soft and nontender
Mild/trace pedal edema
# Shortness of breath
Weight gain
Acute hypoxic respiratory insufficiency
Check chest x-ray to rule out CHF
No increasing effusion or tamponade on echo
# Pericardial effusion-repeat echo noted
# Chronic HfPEF-possible acute exacerbation-May need Lasix if chest x-ray supportive. BNP 2410
# Coronary disease with history of stents in 2003 and 2020
# Paroxysmal atrial fibrillation-continue atenolol, Eliquis
# Valvular heart disease with severe TR
# Hypertension-continue atenolol,Losartan, Doxazosin
# Hyperlipidemia-atorvastatin
# Pulmonary hypertension
# COPD/centrilobular emphysema
# Peripheral artery disease with history of right iliac stent 2004/Right carotid artery stenting 2004
# History of nephrolithiasis
# Diverticulosis
# Anemia
# DVT Prophylaxis- Eliquis
# CODE Status -Full
Discussed with cardiology
Discussed with daughter Jojo at bedside
Part of this note was created using voice recognition system. Occasional wrong word or��sound alike� substitutions may have inadvertently occurred due to the inherent limitations of voice recognition software. If noted kindly bring it to my
attention for correction.
Original Note:
Family Physician
-
Family Physician: Ze Bhardwaj Jr.
Chief Complaint
-
Shortness of breath
History of Present Illness
Patient accompanied by her daughter Nory Uribe (registered nurse)
89-year-old female with known history of hypertension, congestive heart failure, coronary artery disease s/p stents, A-fib managed with Eliquis 5 mg twice daily, presents with progressively worsening dyspnea on exertion for . She previously
underwent regular echo for her chronic dyspnea, but over the past weeks her symptoms have increased from mild to moderate severity. Recently she noted that her oxygen saturation levels at home dropped around 87-93. 2 days ago, Dr. Thomas,
contacted after the regular echo results and discussed regards if she develops any symptoms requested to immediately admit to ER.
Her dyspnea episodes are associated with a wet cough which she tries to expectorate, and a characteristic pinching chest pain in the morning. These episodes of shortness of breath aggravated while on climbing the stairs for 4 steps, typically
resolves with rest. Recently she noted some weight gain which she attributes to an increased appetite recently.
Dyspnea is associated with intermittent palpitation, she used albuterol inhaler before a couple of days because of cough which was not relieved her symptoms, chronic joint pain.
She denies nausea, vomiting, fever, chills, dizziness, dysuria, GERD, syncope, headache,
Her last food intake was today morning and consumed orange juice without issue.
Medical History
Past Medical History
Past Medical History: Reports COPD and HTN
Additional Past Medical History:
HFpEF, pulmonary hypertension, A-fib, LAD stent s/p, PAD/iliac stents, carotid stent on right side, hyperlipidemia.
Past Surgical History: Reports Other
Additional Past Surgical History:
PAD/iliac stents, carotid stents, right and left knee replacement, right shoulder replacement, nasal polyp removal, hysterectomy.
Social History
Tobacco: Former Smoker
Alcohol: None
Drug: None
Personal:
Living: Alone
Employment: Retired
Family History
Family History: Other
Allergies / Home Medications
Allergies
Allergy/AdvReac Type Severity Reaction Status Date / Time
No Known Allergies Allergy Verified 06/08/25 10:48
Home Medications
atorvastatin 40 mg tablet 40 mg PO HS High cholesterol 11/27/18
folic acid 1 mg tablet 1 mg PO DAILY Supplement 11/27/18
doxylamine succinate 25 mg tablet (Unisom (doxylamine)) 12.5 mg PO HS PRN Sleep 09/19/20
atenolol 50 mg tablet 50 mg PO HS 02/01/21
losartan 100 mg tablet (Cozaar) 100 mg PO DAILY #30 tabs 02/01/21
apixaban 5 mg tablet (Eliquis) 5 mg PO BID Blood clot prevention/tx 03/12/21
acetaminophen 500 mg tablet (Tylenol Extra Strength) 1,000 mg PO HS Pain 11/27/22
aspirin 81 mg tablet,delayed release 81 mg PO DAILY Anti-inflammatory 11/27/22
cholecalciferol (vitamin D3) 25 mcg (1,000 unit) tablet (Vitamin D3) 25 mcg PO DAILY Supplement 11/27/22
cyanocobalamin (vitamin B-12) 1,000 mcg tablet 1,000 mcg PO DAILY Supplement 11/27/22
doxazosin 4 mg tablet 4 mg PO HS Urinary issue 11/27/22
therapeutic multivitamin 1 tab PO DAILY Supplement 11/27/22
furosemide 20 mg tablet 40 mg PO DAILY Heart Failure 03/19/25
sodium chloride 0.65 % nasal spray aerosol (Saline Nasal) 2 spray intranasal QIDPRN Congestion 03/20/25
furosemide 20 mg tablet 20 mg PO DAILY@1600 #30 tabs 03/26/25
albuterol sulfate 90 mcg/actuation aerosol inhaler 2 puff inhalation Q6H PRN shortness of breath 06/08/25
potassium chloride 10 mEq tablet,extended release(part/cryst) 10 meq PO BID@0800,1600 06/08/25
Allergies reflects when Allergies were last updated in [employer].
Home Medications with original date entered in [employer]
Allergy/Medication List:
None.
Review of Systems
-
History Source: Patient
A 12 point ROS was completed and negative except as noted: Yes
Constitutional: Reports Weight Gain and Sleep Disturbance
Respiratory: Reports See HPI, Cough and Trouble Breathing
Cardiac: Reports See HPI and Chest Pain (intermittent)
Abdomen/GI: Reports No Symptoms
: Reports No Symptoms
Musculoskeletal: Reports No Symptoms and Edema
Endocrine: Reports No Symptoms
Hematologic/Lymphatic: Reports No Symptoms
Psych: Reports Calm
Physical Exam
Vital Signs
Vital Signs
Temp Pulse Resp BP Pulse Ox
98 F 67 15 154/68 96
06/08/25 14:00 06/08/25 14:00 06/08/25 14:00 06/08/25 14:00 06/08/25 14:00
Physical Exam
General: Well Developed, Well Nourished, No Apparent Distress and Other (2 l oxygen)
HEENT: Moist mucous membranes and PERRLA
Respiratory: Crackles (Bilateral crackles. ( Lower lobes more comparing with upper lobes.))
Cardiac: S1/S2, Regular Rhythm, Murmur (systolic murmur), Peripheral Edema (non pitting - left ankle ) and Other (pulmonary area-diminished S1, S2.)
GI: Soft, Non Tender, Non Distended and Normal Bowel Sounds
Musculoskeletal: No Cyanosis and No Edema
Skin: Warm
Neuro: AO x 3
Hematologic/Lymphatic: No Lymphadenopathy
Psych: Calm
Laboratory Results
-
06/08/25 11:17
06/08/25 11:17
Laboratory Results
Total Bilirubin 1.0 mg/dl (0.2-1.3) 06/08/25 11:17
AST 22 U/L (14-36) 06/08/25 11:17
ALT 12 U/L (0-35) 06/08/25 11:17
Alkaline Phosphatase 157 U/L (38-126) H 06/08/25 11:17
Troponin I < 0.012 ng/ml 06/08/25 11:17
Impression/Plan
-
IMPRESSION and PLAN: :
89-yr female with K/H/O hypertension, congestive heart failure, coronary artery disease s/p stents, A-fib on Eliquis 5 mg, PAD presented with dyspnea.
# Dyspnea:
-Hb 10.7(l), CRP 11.2(h), ALP 157(h), TSH - 2.3 (n)
-RF, ROSANGELA IgG screen pending
-PT 17.9 (h) due to Eliquis 5 mg.
-Currently on 2 L nasal oxygen.
-On 06/08/2025 EKG impression:
Heart rate 72 bpm, irregular rhythm, normal axis, comparing with previous EKG on March 2025.
-Monitor CBC, CMP, BNP, ESR.
-Record daily weight.
-Consulted disassembler for the pericardial effusion and future evaluation.
-hold lasix until the chest x ray impression (pending status)
-N.p.o. until the disassembler clearance for the thoracocentesis.
- Maintenance IV fluids depends on ventricular function.
# Echo 06/08/2025:
1. Normal left ventricular size and systolic function without regional wall motion abnormalities. Estimated left ventricular ejection fraction is 55 to 60% by visual assessment.
2. Right ventricle is mildly dilated with normal RV systolic function.
3. Severe biatrial enlargement.
4. Severe tricuspid regurgitation with severe pulmonary hypertension. Estimated pulmonary artery systolic pressure of 63 mmHg, assuming a right atrial pressure of 15 mmHg.
5. Moderate to large sized pericardial effusion without obvious evidence of pericardial tamponade in the setting of pulmonary hypertension.
6. Compared to prior echocardiogram dated June 01, 2025 which was directly reviewed, no significant changes.
# Echo 03/21/2025: EF 55-60%, mild MR, severe TR, estimated PAP 83 mmHg consistent with severe pulmonary HTN
Differential diagnosis includes HFpEF, pericardial effusion, RVF secondary to severe TR.
# Permanent atrial fibrillation:
Continue Eliquis 5 mg twice daily for prevention of coagulation.
Continue atenolol
# Essential hypertension:
Continue doxazosin, losartan, atenolol.
# CAD:
Continue aspirin, atorvastatin.
# Monitor for bleeding
# COPD:
Continue albuterol inhaler as needed.
DVT prophylaxis-Eliquis 5 mg
Full code
Dispo: pending
--- NOTE | 2025-06-08 14:46 | CON.CAR ---
Addendum entered and electronically signed by Nereyda Benoit MD 06/08/25 17:22:
I saw and examined the patient.
The Outbound Sales Representative's note was reviewed and I agree with the note.
Comment: Briefly, Nelsy is a 89-year-old female with significant past medical problems including hypertension, hyperlipidemia, COPD, peripheral artery disease with prior left iliac stent in 2004, carotid stenosis status post R ICA with bare-metal
stent in 2004, prior tobacco abuse, permanent atrial fibrillation on chronic Eliquis, last dose this morning on June 08, 2025, coronary artery disease status post LAD PCI in 2003, severe pulmonary hypertension noted since echocardiograms in
March 2025, prior history of pericardial effusion with pericardiocentesis in 2018 with successful removal of 560 cc of blood-tinged fluid, etiology unclear and treated as pericarditis with regimen of NSAIDs and colchicine, chronic heart failure with
preserved ejection fraction with recent admission in March for this who presents with progressively worsening dyspnea on exertion with some orthopnea and PND found to have a moderate to large pericardial effusion and on exam presents in acute
decompensated heart failure.
Blood pressure is 150s to 170s systolic over 80s, heart rate is normal in the 60s to 70s, not tachycardic. On exam patient is in no acute distress, awake, alert and oriented x 3, daughter at bedside, regular rate, normal S1 and S2, no murmurs, rubs
or gallops, no carotid bruit, normal carotid upstrokes, JVP is elevated at about 10 cmH2O, bibasilar Rales, abdomen is obese, soft, nontender, not distended, warm extremities with trace lower extremity edema
Recommendations:
1. For her acute decompensated heart failure in the setting of heart failure with preserved ejection fraction: We will work on IV diuresis. Will trial 40 mg of IV Lasix x 1 to see her response by checking daily upright weights and strict ins and
outs and assess what to reduce with in the morning. Monitor renal function and electrolytes closely.
2. I reviewed her repeat limited echocardiogram today and compared it personally with the echocardiogram from June 01 as well as March. Compared to the March echocardiogram the pericardial effusion is larger and moderate to large but no
different than echocardiogram from June 01. There is no obvious evidence of cardiac tamponade, albeit in the setting of pulmonary hypertension. For now we will hold Eliquis and we did discuss with patient in detail at bedside that there is a
good likelihood that we may have to perform pericardiocentesis when she has been off Eliquis for about 48 hours unless there is a acute clinical decompensation. Currently there is no evidence of clinical tamponade by exam and her vital signs and
bedside pulsus.
3. Based on her response to diuretics, I will consider repeat limited echocardiogram on Friday morning before making a final decision in regards to need/role for pericardiocentesis.
Nereyda Benoit MD, [facility], [facility]
([id number])
Original Note:
Consultation
Consultation Request
Date/Time Consultation Requested: 06/08/2025
Date/Time Consultation Performed: 06/08/2025
Requesting Provider: Dr. Biggs
Performing Provider: Dr. Benoit
Reason for Consultation: Pericardial effusion, acute HF
Medical History
-
History of Present Illness:
Patient came to the emergency room today with increased SOB and an abnormal echocardiogram that showed recurrent pericardial effusion, cardiology is now consulted. Patient was just admitted with AECOPD and acute on chronic HFpEF from 03/19/2025 until
03/26/2025. Patient had echocardiogram on 03/21/2025 that showed a small to moderate pericardial effusion and then had a repeat echo on 06/01/2025 that showed the effusion to be larger in size compared to previous. When the cardiology office called
the patient she reported increased BERUMEN and was referred to the ER. Patient has chronic LE edema with a left worse than right and increased BERUMEN, but denies orthopnea or bloating. Patient was hypoxic upon arrival to the ER and was placed on oxygen
via NC and has symptomatically improved. Patient took her usual dose of Lasix 40 mg a.m. and 20 mg p.m. PO daily at home this morning. Patient also had a pulling sensation in her chest this morning that was worse when laying down and then seem to
be better when she stood up and has not recurred during the day.
PMH:
Recent admission for acute HF and AECOPD 03/19/2025 until 03/26/2025
Chronic HFpEF
h/o pericardial effusion with pericardiocentesis 2018
s/p successful pericardiocentesis with 560 mL of blood-tinged fluid removed 11/27/2018
Managed as pericarditis with a regimen of ibuprofen
Pulmonary HTN, severe by echo 03/21/25
Permanent atrial fibrillation
Chronic Eliquis AC
CAD
LAD PCI in 2003
HTN
HLD
COPD
PAD w/ prior L iliac stent 2004
Carotid stenosis s/p MARGARITA BMS 2004
h/o tobacco abuse
Past Medical History
Past Medical History: Other (In HPI)
Past Surgical History: Cardiac (LAD and diagonal PCI 2003) and Other (MARGARITA stent, Iliac stenting, hysterectomy, cataract surgery, ureter stenting, R TKA, R shoulder replacement)
Social History
Tobacco: Former Smoker
Alcohol: None
Drug: None
Personal:
Employment: Retired
Family History
Family History: CAD and Hypertension
Allergies / Home Medications
Allergy/AdvReac Type Severity Reaction Status Date / Time
No Known Allergies Allergy Verified 06/08/25 10:48
�Medication �Instructions �Recorded �Confirmed �Type
atorvastatin 40 mg tablet 40 mg PO HS High cholesterol 11/27/18 06/08/25 History
folic acid 1 mg tablet 1 mg PO DAILY Supplement 11/27/18 06/08/25 History
doxylamine succinate 25 mg tablet 12.5 mg PO HS PRN Sleep 09/19/20 06/08/25 History
(Unisom (doxylamine))
atenolol 50 mg tablet 50 mg PO HS 02/01/21 06/08/25 Rx
losartan 100 mg tablet (Cozaar) 100 mg PO DAILY #30 tabs 02/01/21 06/08/25 Rx
apixaban 5 mg tablet (Eliquis) 5 mg PO BID Blood clot 03/12/21 06/08/25 History
prevention/tx
acetaminophen 500 mg tablet 1,000 mg PO HS Pain 11/27/22 06/08/25 History
(Tylenol Extra Strength)
aspirin 81 mg tablet,delayed 81 mg PO DAILY Anti-inflammatory 11/27/22 06/08/25 History
release
cholecalciferol (vitamin D3) 25 25 mcg PO DAILY Supplement 11/27/22 06/08/25 History
mcg (1,000 unit) tablet (Vitamin
D3)
cyanocobalamin (vitamin B-12) 1,000 mcg PO DAILY Supplement 11/27/22 06/08/25 History
1,000 mcg tablet
doxazosin 4 mg tablet 4 mg PO HS Urinary issue 11/27/22 06/08/25 History
therapeutic multivitamin 1 tab PO DAILY Supplement 11/27/22 06/08/25 History
furosemide 20 mg tablet 40 mg PO DAILY Heart Failure 03/19/25 06/08/25 History
sodium chloride 0.65 % nasal spray 2 spray intranasal QIDPRN 03/20/25 06/08/25 History
aerosol (Saline Nasal) Congestion
furosemide 20 mg tablet 20 mg PO DAILY@1600 #30 tabs 03/26/25 06/08/25 Rx
albuterol sulfate 90 mcg/actuation 2 puff inhalation Q6H PRN 06/08/25 06/08/25 History
aerosol inhaler shortness of breath
potassium chloride 10 mEq 10 meq PO BID@0800,1600 06/08/25 06/08/25 History
tablet,extended release(part/cryst)
Review of Systems
-
History Source: Patient and Family (HPI aided by daughter at bedside)
All other systems: Negative unless noted
Physical Exam
Vital Signs
Temp Pulse Resp BP Pulse Ox
98 F 67 15 154/68 96
06/08/25 14:00 06/08/25 14:00 06/08/25 14:00 06/08/25 14:00 06/08/25 14:00
GEN: NAD. AAO x 3
HEENT: EOMI, MMM
LUNGS: 2 L NC. Bibasilar rales without wheeze
CV: A-fib on telemetry. Irreg, S1/S2, 1/6 murmur
ABD: soft, BS+, NT, ND
EXT: +1 B/L left worse than right malleolar edema
NEURO: Gross non-focal
SKIN: Warm, pink, dry. No rash
Lab Results
06/08/25 11:17
06/08/25 11:17
Troponin I < 0.012 ng/ml 06/08/25 11:17
Htq-T-Ynbetxlbopl Pept 2410 pg/ml 06/08/25 11:17
Impression / Plan
-
PCP: Dr. Peterson
Electronics Production Supervisor: Dr. Nandini Churchill
Impression:
Presented with SOB and recurrent pericardial effusion 06/08/2025
Recent admission for acute HF and AECOPD 03/19/2025 until 03/26/2025
Acute on chronic HFpEF
Recurrent moderate to large pericardial effusion
h/o pericardial effusion with pericardiocentesis 2018
s/p successful pericardiocentesis with 560 mL of blood-tinged fluid removed 11/27/2018
Managed as pericarditis with a regimen of ibuprofen
Pulmonary HTN, severe by echo 03/21/25
Permanent atrial fibrillation
Chronic Eliquis AC
CAD
LAD PCI in 2003
HTN
HLD
COPD
PAD w/ prior L iliac stent 2004
Carotid stenosis s/p MARGARITA BMS 2004
h/o tobacco abuse
Echo 03/19/2023: EF 59%, mild MR, moderate to severe TR, estimated PAP 84 mmHg
Echo 03/31/2024: EF 62%, moderate TR, estimated PAP 51 mmHg, small pericardial effusion
Echo 03/21/2025: EF 55-60%, mild MR, severe TR, estimated PAP 83 mmHg consistent with severe pulmonary HTN, small to moderate pericardial effusion
Echo 06/01/2025: Normal LV size and function, RV size and function within normal limits, severe TR with PAP 80 mmHg, moderate to large pericardial effusion without evidence of tamponade compared to echo 03/21/2025 the effusion then was small to
moderate and is now larger in size
Echo 06/08/2025: Normal LV size and function at 55 to 60%, RV mildly dilated with normal RV systolic function, severe TR with PAP 63 mmHg, moderate to large pericardial effusion without evidence of tamponade in the setting of PHTN, compared to echo
06/01/2025 there is no significant change
Plan:
-Patient came to the emergency room today with increased SOB and an abnormal echocardiogram that showed recurrent pericardial effusion, cardiology is now consulted. Patient was just admitted with AECOPD and acute on chronic HFpEF from 03/19/2025
until 03/26/2025. Patient had echocardiogram on 03/21/2025 that showed a small to moderate pericardial effusion and then had a repeat echo on 06/01/2025 that showed the effusion to be larger in size compared to previous. When the cardiology office
called the patient she reported increased BERUMEN and was referred to the ER. Patient has chronic LE edema with a left worse than right and increased BERUMEN, but denies orthopnea or bloating. Patient was hypoxic upon arrival to the ER and was placed on
oxygen via NC and has symptomatically improved. Patient took her usual dose of Lasix 40 mg a.m. and 20 mg p.m. PO daily at home this morning. Patient also had a pulling sensation in her chest this morning that was worse when laying down and then
seem to be better when she stood up and has not recurred during the day.
-ECG reviewed by me is A-fib with QTc 310 ms.
-Patient with now a moderate to large pericardial effusion, but no evidence of tamponade and BP is 157/80. Patient examines in acute HF and we will make an attempt to diurese with Lasix 40 mg IV x 1 now. Pending hemodynamic response to diuresis
can continue to diurese
-No evidence of tamponade physiology on current echo
-Patient took her usual dose of Eliquis 5 mg BID (age 89, Cre 0.9, wt 68 kg) this morning, but will now hold Eliquis in anticipation of possible pericardiocentesis.
-Patient was treated as pericarditis with a regimen of ibuprofen following her pericardiocentesis back in 2019. CRP today is 11.2, it was 12.9 back in 2019. LDH is normal at 192 and TSH is normal. Labs ordered and reviewed by me.
-EF was preserved at 55 to 60% by echo today
-Outpatient dose of atenolol 50 mg daily has been continued
-Outpatient dose of losartan 100 mg daily has been continued
-Outpatient dose of Cardura 4 mg daily has been continued
[2025-06-08] MEDS: LASIX 40 MG IV (17:58)
[2025-06-08] MEDS: LOW STRENGTH ASPIRIN PO (17:59)
[2025-06-08] MEDS: KCL 10 MEQ PO (17:59)
--- NOTE | 2025-06-08 19:40 | PTCARENOTE ---
Received pt from ER into [id number]. Pt AAOx3 A fib on the monitor vss. 3 LPM NC Sats 93% + BERUMEN. Pt received 40 mg Lasix IVP Purewick in place as per family request. POC discussed with pt. Call bullock within reach.
[2025-06-08] MEDS: CARDURA 4 MG PO (22:04)
[2025-06-08] MEDS: LIPITOR 40 MG PO (22:05)
[2025-06-08] MEDS: TENORMIN 50 MG PO (22:05)
[2025-06-08] MEDS: ROCEPHIN 1000 MG IV (23:55)
[2025-06-08] MEDS: STERILE WATER FOR INJECTION 10 ML IV (23:56)
[2025-06-09] VITALS (8 sets, daily range): BP systolic 101–132; BP diastolic 51–67; BMI 26.4
[2025-06-09 00:04] LABS: COVID-19 Antigen Negative (Negative)
[2025-06-09] MEDS: ZITHROMAX INFUSION 250 IV ×2 (00:06→23:21)
[2025-06-09] MEDS: TYLENOL 500 MG PO ×2 (00:09→23:27)
--- NOTE | 2025-06-09 00:49 | PTCARENOTE ---
Pt. AAOx3, VSS, A-fib 50's-70's on the monitor. Faint crackles heard right lung base, some dyspnea assessed with ambulation; maintained on 3L O2 with pulse ox 96%. No complaints of chest pain/discomfort. Pt. OOB to use bathroom with minimal
assist. COVID swabbed as per order with negative results. Pt. currently resting quietly.
[2025-06-09 04:19] LABS: Hematocrit 31.7 % (37.0-47.0); Hemoglobin 9.8 g/dL (12.0-16.0); Mean Corp Hgb Conc. 30.9 g/dL (33.0-37.0); Mean Corpuscular Volume 97.2 fL (81.0-99.0); Platelet Count 139 10^3/uL (130-400); Red Cell Dist. Width 15.6 % (11.5-14.5)
[2025-06-09 04:35] LABS: Blood Urea Nitrogen 21 mg/dl (7-17); Calcium 9.3 mg/dl (8.4-10.2); Carbon Dioxide 34 mmol/L (22-30); Chloride 101 mmol/L (98-107); Estimated Creatinine Clearance 39 ml/min; Glucose 87 mg/dl (70-99); INR 1.20; PT 15.8 Sec (11.4-14.6); Potassium 4.3 mmol/L (3.5-5.1); Sodium 140 mmol/L (135-145); eGFR > 60.00
--- NOTE | 2025-06-09 08:00 | PTCARENOTE ---
report received from previous RN at change of shift. pt sleeping prior to assessment. pt denies pain. pt AAOX3, ambulating in room without difficulty. A fib on telemetry heart rate 60-70s. pulses palpable. +1 edema in lower extremities. pt on 2L
nasal cannula, sat 93%. lung sounds diminished in bases. active bowel sounds. voiding in bathroom. pt updated on plan of care. see worklist for full nursing assessment
--- NOTE | 2025-06-09 08:28 | PTCARENOTE ---
weight from 06/08 documented as written on white board from admission
[2025-06-09] MEDS: THERAGRAN 1 TABLET PO (08:30)
[2025-06-09] MEDS: COZAAR 100 MG PO (08:30)
[2025-06-09] MEDS: VITAMIN D3 (cholecalciferol) 25 MCG PO (08:30)
[2025-06-09] MEDS: VITAMIN B-12 1000 MCG PO (08:30)
[2025-06-09] MEDS: FOLVITE 1 MG PO (08:30)
[2025-06-09] MEDS: LOW STRENGTH ASPIRIN 81 MG PO (08:30)
--- NOTE | 2025-06-09 09:00 | W.PN.CARDCBS ---
Addendum entered and electronically signed by Nereyda Benoit MD 06/10/25 00:04:
I saw and examined the patient.
The Hand Packer's note was reviewed and I agree with the note.
Comment: Overnight pt is stable. improved breathing, increased wheezing. Ongoing cough.
On exam patient is in no acute distress, awake, alert and oriented x 3, daughter at bedside, regular rate, normal S1 and S2, no murmurs, rubs or gallops, no carotid bruit, normal carotid upstrokes, JVP is elevated at about 9 cmH2O, bibasilar Rales,
worse on right base, abdomen is obese, soft, nontender, not distended, warm extremities with trace lower extremity edema
Recommendations:
1. For her acute decompensated heart failure in the setting of heart failure with preserved ejection fraction: Continue with IV diuresis with daily upright weights and strict ins and outs. Monitor renal function and electrolytes closely.
2. WE have discussed multiple times now that unfortunately pericardial effusion in setting of Pulm HTN portends a poor prognosis. For now we will hold Eliquis and we did discuss with patient in detail at bedside that there is a possibility that we
may have to perform pericardiocentesis tomorrow AM. Currently there is no evidence of clinical tamponade by exam and her vital signs and bedside pulsus. Plan is to reassess tomorrow AM degree of residual pericardial effusion post IV diuresis. If
effusion improving consider ongoing close monitoring given poor prognosis generally associated in outcomes with pericardiocentesis in pts with severe pulm HTN.
Discussed with Dr. White who will make final call based on repeat limited echo and clinical status regarding need/role for pericardiocentesis and timing.
Nereyda Benoit MD, [facility], [facility]
Original Note:
Today's Communication / Plan
-
Lasix 40 mg IV x 1 now
Recheck echo tomorrow morning for consideration of pericardiocentesis
Last dose of Eliquis was Friday
Impression / Plan
-
PCP: Dr. Peterson
Yard Associate: Dr. Nandini Churchill
Impression:
Presented with SOB and recurrent pericardial effusion 06/08/2025
Recent admission for acute HF and AECOPD 03/19/2025 until 03/26/2025
Acute on chronic HFpEF
Recurrent moderate to large pericardial effusion
h/o pericardial effusion with pericardiocentesis 2018
s/p successful pericardiocentesis with 560 mL of blood-tinged fluid removed 11/27/2018
Managed as pericarditis with a regimen of ibuprofen
Pulmonary HTN, severe by echo 03/21/25
Permanent atrial fibrillation
Chronic Eliquis AC
CAD
LAD PCI in 2003
HTN
HLD
COPD
PAD w/ prior L iliac stent 2004
Carotid stenosis s/p MARGARITA BMS 2004
h/o tobacco abuse
Echo 03/19/2023: EF 59%, mild MR, moderate to severe TR, estimated PAP 84 mmHg
Echo 03/31/2024: EF 62%, moderate TR, estimated PAP 51 mmHg, small pericardial effusion
Echo 03/21/2025: EF 55-60%, mild MR, severe TR, estimated PAP 83 mmHg consistent with severe pulmonary HTN, small to moderate pericardial effusion
Echo 06/01/2025: Normal LV size and function, RV size and function within normal limits, severe TR with PAP 80 mmHg, moderate to large pericardial effusion without evidence of tamponade compared to echo 03/21/2025 the effusion then was small to
moderate and is now larger in size
Echo 06/08/2025: Normal LV size and function at 55 to 60%, RV mildly dilated with normal RV systolic function, severe TR with PAP 63 mmHg, moderate to large pericardial effusion without evidence of tamponade in the setting of PHTN, compared to echo
06/01/2025 there is no significant change
Plan:
-Weight is down about 1 lb overnight, but patient has had mild symptomatic improvement with decreased cough. Continues on supplemental oxygen and is down to 2 L NC on 06/09/2025, VS reviewed by me.
-Previous dry weight at last HF discharge on 03/26/2025 was 142 lbs and patient weighs 144 lbs 06/09/2025.
-Lasix 40 mg IV x 1 now ordered by me 06/09/2025. Patient was taking Lasix 40 mg a.m. and 20 mg p.m. PO daily prior to admission.
-EF preserved to 55 to 60% by echo 06/08/2025
-Outpatient dose of atenolol 50 mg daily has been continued
-Outpatient dose of losartan 100 mg daily has been continued
-Outpatient dose of Cardura 4 mg daily has been continued
-Hospitalist is also treating for PNA and plan is to repeat CXR and possibly discontinue antibiotics if patient is improving with diuresis.
-There was evidence of moderate to large pericardial effusion on echo from 06/01/2025, this was an increase compared to echo 03/21/2025. Patient previously had pericardial effusion that was treated with pericardiocentesis in 2019 and echo had been
stable with small or small to moderate effusion since then. Echo was repeated on admission 06/08/2025 and remains moderate to large without evidence of tamponade. Current plan is to check follow-up echo study on 06/10/2025 AM and pending results
consider pericardiocentesis.
-Previous episode of pericardial effusion in 2019 was managed as pericarditis and patient completed a regimen of ibuprofen at that time.
-Outpatient dose of Eliquis 5 mg BID (age 89, Cre 0.9, wt 68 kg) is on hold, last dose was 06/08/2025 AM.
-Patient with known permanent A-fib and HR overall controlled with outpatient dose of atenolol 50 mg daily
-Reviewed with patient's daughter who is sitting bedside on 06/09/2025 AM and we discussed the plan for principal systems engineer echo on 06/10/2025 and consideration for pericardiocentesis pending those results. Also reviewed with hospitalist attending.
HPI: Patient came to the emergency room today with increased SOB and an abnormal echocardiogram that showed recurrent pericardial effusion, cardiology is now consulted. Patient was just admitted with AECOPD and acute on chronic HFpEF from 03/19/2025
until 03/26/2025. Patient had echocardiogram on 03/21/2025 that showed a small to moderate pericardial effusion and then had a repeat echo on 06/01/2025 that showed the effusion to be larger in size compared to previous. When the cardiology office
called the patient she reported increased BERUMEN and was referred to the ER. Patient has chronic LE edema with a left worse than right and increased BERUMEN, but denies orthopnea or bloating. Patient was hypoxic upon arrival to the ER and was placed on
oxygen via NC and has symptomatically improved. Patient took her usual dose of Lasix 40 mg a.m. and 20 mg p.m. PO daily at home this morning. Patient also had a pulling sensation in her chest this morning that was worse when laying down and then
seem to be better when she stood up and has not recurred during the day.
Progress Note - Yard Associate
Subjective
Date of Service: June 09, 2025
Less coughing
Objective
Labs:
06/09/25 03:36
06/09/25 03:36
Labs
Hgb 9.8 g/dL (12.0-16.0) L 06/09/25 03:36
Hct 31.7 % (37.0-47.0) L 06/09/25 03:36
Plt Count 139 10^3/uL (130-400) 06/09/25 03:36
PT 15.8 Sec (11.4-14.6) H 06/09/25 03:36
INR 1.20 06/09/25 03:36
Sodium 140 mmol/L (135-145) 06/09/25 03:36
Potassium 4.3 mmol/L (3.5-5.1) 06/09/25 03:36
BUN 21 mg/dl (7-17) H 06/09/25 03:36
Creatinine 0.9 mg/dL (0.6-1.0) 06/09/25 03:36
Glucose 87 mg/dl (70-99) 06/09/25 03:36
Troponins
06/08/25
11:17
Troponin I < 0.012
Vital Signs and I&O:
Vital Signs
Temp Pulse Resp BP Pulse Ox
98.1 F 66 18 114/51 93
06/09/25 08:19 06/09/25 08:30 06/09/25 08:19 06/09/25 08:30 06/09/25 08:19
Vital Signs
Temp Pulse Resp BP Pulse Ox
98.1 F 66 18 114/51 93
06/09/25 08:19 06/09/25 08:30 06/09/25 08:19 06/09/25 08:30 06/09/25 08:19
Intake & Output
06/07/25 06/08/25 06/09/25 06/10/25
06:59 06:59 06:59 06:59
Intake Total 480 / 480
Output Total 250 / 250
Balance 230 / 230
Physical Exam
Physical Exam
GEN: NAD. AAO x 3
LUNGS: 2 L NC. Decreased bibasilar rales without wheeze
CV: A-fib on telemetry. Irreg, 09/20 murmur
[2025-06-09] MEDS: LASIX 40 MG IV (10:24)
[2025-06-09] MEDS: KCL 10 MEQ PO (10:24)
--- NOTE | 2025-06-09 10:48 | W.PN.HOSP.TC ---
Addendum entered and electronically signed by Candelario Biggs MD 06/09/25 13:17:
Patient has permanent A-fib per cardiology documentation
Original Note:
Today's Communication/Plan
-
Continue antibiotics
Dose of Lasix today
Repeat chest x-ray tomorrow
Holding Eliquis for pericardiocentesis tomorrow
Assessment / Plan
Assessment / Plan
Seen and examined the patient independently. Agree with plan set forth by the resident discussed together. See changes in my documentation.
89 y/o female with SOB, progressive over the past week. Patient had an echo as outpatient a week ago which showed pericardial effusion also had mild edema in the legs and some weight gain.
EKG-atrial fibrillation rate [address]-T changes anterolateral leads
ECHO-LV size and systolic function without regional wall motion abnormalities. EF 55 to 60%. RV mildly dilated. Severe biatrial enlargement. Severe TR with severe pulmonary hypertension. PA pressure of 63 mmHg. Moderate to large pericardial
effusion. No change compared to June 01, 2025
Chest x-ray-mild right lower lobe pneumonia. Tiny bilateral pleural effusions. Severe cardiomegaly
Cardiovascular system S1-S2 regular, systolic murmur at right heart border
Chest bilateral rales right more than left
Abdomen soft and nontender
No edema
# Shortness of breath
Weight gain
Acute hypoxic respiratory insufficiency
No increasing effusion or tamponade on echo
Treat as community-acquired pneumonia with ceftriaxone Zithromax
Also treat as acute HFpEF with Lasix
Repeat chest x-ray tomorrow if looks better will discontinue antibiotics as then they will be unlikely pneumonia
# Pericardial effusion-repeat echo noted
Holding Eliquis for pericardiocentesis tomorrow
# Acute on chronic HfPEF-possible acute exacerbation-May need Lasix if chest x-ray supportive. BNP 2410
# Coronary disease with history of stents in 2003 and 2020
# Paroxysmal atrial fibrillation-continue atenolol, hold Eliquis
# Valvular heart disease with severe TR
# Hypertension-continue atenolol,Losartan, Doxazosin
# Hyperlipidemia-atorvastatin
# Pulmonary hypertension
# COPD/centrilobular emphysema
# Peripheral artery disease with history of right iliac stent 2004
Right carotid artery stenting 2004
# History of nephrolithiasis
# Diverticulosis
# Anemia
# DVT Prophylaxis- Hold Eliquis. SCDs
# CODE Status -Full
Discussed with cardiology at bedside
Discussed with nursing
Discussed with daughter Jojo at bedside
Part of this note was created using voice recognition system. Occasional wrong word or��sound alike� substitutions may have inadvertently occurred due to the inherent limitations of voice recognition software. If noted kindly bring it to my
attention for correction.
Anticipated Discharge: > 48 hours
Subjective/Interval History
-
Date of Service: June 09, 2025
Objective Data
-
Labs:
Laboratory Results
06/09/25
03:36
WBC 5.8
Hgb 9.8 L
Hct 31.7 L
Plt Count 139
PT 15.8 H
INR 1.20
Sodium 140
Potassium 4.3
Chloride 101
Carbon Dioxide 34 H
BUN 21 H
Creatinine 0.9
Glucose 87
Calcium 9.3
Vital Signs:
Vital Signs
Temp Pulse Resp BP Pulse Ox
98.1 F 62 18 116/62 93
06/09/25 08:19 06/09/25 10:24 06/09/25 08:19 06/09/25 10:24 06/09/25 08:19
I&O
06/08/25 06/09/25 06/10/25
06:59 06:59 06:59
Intake Total 480 / 480
Output Total 250 / 250
Balance 230 / 230
--- NOTE | 2025-06-09 11:17 | CM ---
Chart reviewed. Patient is independent of ADLS, lives alone in a 2 STH, 3 FARTUN, 0 DME. Patient's daughter, Jojo Chery is the jewelry sales coordinator here in our hospital. Plan is for the patient to return home. CM to follow
--- NOTE | 2025-06-09 12:42 | PN.CDI ---
CDI
- -
CDI:
Physician Documentation Request
Admit Date: 06/08/25 14:58
Dear Doctor Dian,
Please review the following and provide your response in the progress notes.
Clinical Indicators:
- 06/08 Cardiology 'Patient with known permanent A-fib'
- 06/09 PN 'Paroxysmal atrial fibrillation'
If possible, please provide further specificity regarding atrial fibrillation, such as:
Paroxysmal atrial fibrillation - terminates spontaneously or with intervention within 7 days of onset
Permanent atrial fibrillation - when a decision has been made to accept the presence of AF and there is no further attempt to restore or maintain sinus rhythm
Other - please specify
Use of terms such as suspected, likely, concern for, or probable (associated with a specific diagnosis that is being evaluated, monitored, or treated as if it exists) are acceptable and can be coded in the inpatient setting, when documented at the
time of discharge.
Thank you,
Toño Sweeney RN
CDI Specialist
Please use your independent medical judgment in providing your response.
[2025-06-09 15:10] LABS: Rheumatoid Agglutinin Less Than 10 IU (<10 IU)
[2025-06-09] MEDS: LIPITOR 40 MG PO (21:09)
[2025-06-09] MEDS: TENORMIN 50 MG PO (21:09)
[2025-06-09] MEDS: CARDURA 4 MG PO (21:09)
--- NOTE | 2025-06-09 22:22 | PTCARENOTE ---
Patient received at change of shift resting in the bed. Reports no complaints at this time. Denies chest pain or pressure. Endorses mild dyspnea on exertion at times. Afib on the monitor. Oxygen saturation initially 90-91% on 2L NC, supplemental
oxygen increased to 3L NC with SaO2 up to 93%. Plan of care discussed. Call bullock within reach. Care ongoing.
[2025-06-09] MEDS: ROCEPHIN 1000 MG IV (23:21)
[2025-06-09] MEDS: STERILE WATER FOR INJECTION 10 ML IV (23:21)
[2025-06-10] VITALS (7 sets, daily range): BP systolic 107–149; BP diastolic 60–77; BMI 26.8
[2025-06-10 04:44] LABS: Hematocrit 31.3 % (37.0-47.0); Hemoglobin 9.8 g/dL (12.0-16.0); Mean Corp Hgb Conc. 31.3 g/dL (33.0-37.0); Mean Corpuscular Volume 97.5 fL (81.0-99.0); Platelet Count 125 10^3/uL (130-400); Red Cell Dist. Width 15.3 % (11.5-14.5)
[2025-06-10 05:08] LABS: Blood Urea Nitrogen 27 mg/dl (7-17); Calcium 8.9 mg/dl (8.4-10.2); Carbon Dioxide 32 mmol/L (22-30); Chloride 101 mmol/L (98-107); Estimated Creatinine Clearance 43 ml/min; Glucose 95 mg/dl (70-99); Potassium 4.3 mmol/L (3.5-5.1); Sodium 138 mmol/L (135-145); eGFR > 60.00
[2025-06-10] MEDS: COZAAR 100 MG PO (09:20)
[2025-06-10] MEDS: LOW STRENGTH ASPIRIN 81 MG PO (09:21)
[2025-06-10] MEDS: KCL PO (09:21)
[2025-06-10] MEDS: THERAGRAN 1 TABLET PO (09:21)
[2025-06-10] MEDS: FOLVITE 1 MG PO (09:21)
[2025-06-10] MEDS: VITAMIN D3 (cholecalciferol) 25 MCG PO (09:22)
[2025-06-10] MEDS: VITAMIN B-12 1000 MCG PO (09:22)
--- NOTE | 2025-06-10 09:40 | W.PN.CARDCBS ---
Addendum entered and electronically signed by Chapin Ellington MD 06/10/25 14:24:
I saw and examined the patient.
The Agent Ticketing Gate's note was reviewed and I agree with the note.
Comment: Briefly, 89-year-old woman past medical history of heart failure with preserved ejection fraction, CAD status post PCI, pulmonary hypertension, pericardial effusion with prior pericardiocentesis in 2019 who presents for evaluation of
worsening dyspnea.
Elevated proBNP and chest x-ray suggestive of pulmonary edema consistent with acute heart failure.
Known recurrence of pericardial effusion based on outpatient echo
Repeat echo today shows stable moderate to large pericardial effusion without evidence of tamponade physiology
Ongoing discussions regarding pericardiocentesis with primary hand touch up painter and interventional cardiology. For now we will manage conservatively.
Will attempt IV diuresis to see if this improves her symptoms�plan for 40 mg IV Lasix twice daily
Wean oxygen as able
If patient does not improve clinically we can arrange for pericardiocentesis at that time
Rest per Ronit Mercedes
Original Note:
Today's Communication / Plan
-
cxr with evidence of CHF
await follow up echo, may require pericardiocentesis
eliquis on hold
would plan for IV diuresis if no evidence of tamponade by echo
Impression / Plan
-
PCP: Dr. Peterson
Photogrammetric Engineer: Dr. Nandini Churchill
Impression:
Presented with SOB and recurrent pericardial effusion 06/08/2025
Recent admission for acute HF and AECOPD 03/19/2025 until 03/26/2025
Acute on chronic HFpEF
Recurrent moderate to large pericardial effusion
h/o pericardial effusion with pericardiocentesis 2018
s/p successful pericardiocentesis with 560 mL of blood-tinged fluid removed 11/27/2018
Managed as pericarditis with a regimen of ibuprofen
Pulmonary HTN, severe by echo 03/21/25
Permanent atrial fibrillation
Chronic Eliquis AC
CAD
LAD PCI in 2003
HTN
HLD
COPD
PAD w/ prior L iliac stent 2004
Carotid stenosis s/p MARGARITA BMS 2004
h/o tobacco abuse
Echo 03/19/2023: EF 59%, mild MR, moderate to severe TR, estimated PAP 84 mmHg
Echo 03/31/2024: EF 62%, moderate TR, estimated PAP 51 mmHg, small pericardial effusion
Echo 03/21/2025: EF 55-60%, mild MR, severe TR, estimated PAP 83 mmHg consistent with severe pulmonary HTN, small to moderate pericardial effusion
Echo 06/01/2025: Normal LV size and function, RV size and function within normal limits, severe TR with PAP 80 mmHg, moderate to large pericardial effusion without evidence of tamponade compared to echo 03/21/2025 the effusion then was small to
moderate and is now larger in size
Echo 06/08/2025: Normal LV size and function at 55 to 60%, RV mildly dilated with normal RV systolic function, severe TR with PAP 63 mmHg, moderate to large pericardial effusion without evidence of tamponade in the setting of PHTN, compared to echo
06/01/2025 there is no significant change
Plan:
-Patient presented with shortness of breath and recurrent pericardial effusion on echo, felt to be moderate to large with preserved EF on 06/01/2025
-She has history of pericardiocentesis in 2019 and was treated as pericarditis with course of NSAIDs
-For repeat echocardiogram this morning, and based on this we will determine if pericardiocentesis is required
-Outpatient dose of Eliquis 5 mg BID (age 89, Cre 0.9, wt 68 kg) is on hold, last dose was 06/08/2025 AM.
-proBNP on admission 2410. Received 40 mg IV Lasix on 06/08 and 06/09. CXR this AM remains with evidence of acute CHF. remains on supp O2. await results of echo, however would plan to provide additional IV diuresis if no evidence of tamponade by
repeat echo today. dry weight last admission felt to be 142 pounds. Patient was taking Lasix 40 mg a.m. and 20 mg p.m. PO daily prior to admission. patient also being treated for possible PNA, but suspect this is more likely CHF
-continue OP atenolol, losartan, cardura
-She has known permanent atrial fibrillation, and on review of telemetry heart rates remain controlled overnight
-d/w nursing
HPI: Patient came to the emergency room today with increased SOB and an abnormal echocardiogram that showed recurrent pericardial effusion, cardiology is now consulted. Patient was just admitted with AECOPD and acute on chronic HFpEF from 03/19/2025
until 03/26/2025. Patient had echocardiogram on 03/21/2025 that showed a small to moderate pericardial effusion and then had a repeat echo on 06/01/2025 that showed the effusion to be larger in size compared to previous. When the cardiology office
called the patient she reported increased BERUMEN and was referred to the ER. Patient has chronic LE edema with a left worse than right and increased BERUMEN, but denies orthopnea or bloating. Patient was hypoxic upon arrival to the ER and was placed on
oxygen via NC and has symptomatically improved. Patient took her usual dose of Lasix 40 mg a.m. and 20 mg p.m. PO daily at home this morning. Patient also had a pulling sensation in her chest this morning that was worse when laying down and then
seem to be better when she stood up and has not recurred during the day.
Progress Note - Photogrammetric Engineer
Subjective
Date of Service: June 10, 2025
denies CP, SOB. feeling well
Objective
Labs:
06/10/25 04:19
06/10/25 04:19
Labs
Hgb 9.8 g/dL (12.0-16.0) L 06/10/25 04:19
Hct 31.3 % (37.0-47.0) L 06/10/25 04:19
Plt Count 125 10^3/uL (130-400) L 06/10/25 04:19
PT 15.8 Sec (11.4-14.6) H 06/09/25 03:36
INR 1.20 06/09/25 03:36
Sodium 138 mmol/L (135-145) 06/10/25 04:19
Potassium 4.3 mmol/L (3.5-5.1) 06/10/25 04:19
BUN 27 mg/dl (7-17) H 06/10/25 04:19
Creatinine 0.8 mg/dL (0.6-1.0) 06/10/25 04:19
Glucose 95 mg/dl (70-99) 06/10/25 04:19
Troponins
06/08/25
11:17
Troponin I < 0.012
Vital Signs and I&O:
Vital Signs
Temp Pulse Resp BP Pulse Ox
98.8 F 50 25 109/60 99
06/10/25 07:43 06/10/25 06:00 06/10/25 07:43 06/10/25 04:13 06/10/25 07:43
Vital Signs
Temp Pulse Resp BP Pulse Ox
98.8 F 50 25 109/60 99
06/10/25 07:43 06/10/25 06:00 06/10/25 07:43 06/10/25 04:13 06/10/25 07:43
Intake & Output
06/08/25 06/09/25 06/10/25 06/11/25
07:59 07:59 07:59 07:59
Intake Total 480 / 480
Output Total 1025 / 1025
Balance -545 / -545
Physical Exam
Physical Exam
GEN: No distress, awake, alert, oriented x3
HEENT: supple, anicteric, mmm, eomi
LUNGS: Few crackles at RLB, no wheezes
CV: Irreg, S1/S2, no murmur
ABD: soft, BS+, NT/ND
EXT: No cyanosis, clubbing, edema
NEURO: Gross non-focal
SKIN: warm, pink, dry. No rash
--- NOTE | 2025-06-10 10:18 | W.PN.HOSP.TC ---
Today's Communication/Plan
-
ECHO
Stop AB
Lasix
Possible pericardiocentesis today
Assessment / Plan
Assessment / Plan
Seen and examined the patient independently. Agree with plan set forth by the resident discussed together. See changes in my documentation.
89 y/o female with SOB, progressive over the past week. Patient had an echo as outpatient a week ago which showed pericardial effusion also had mild edema in the legs and some weight gain.
EKG-atrial fibrillation rate [address]-T changes anterolateral leads
ECHO-LV size and systolic function without regional wall motion abnormalities. EF 55 to 60%. RV mildly dilated. Severe biatrial enlargement. Severe TR with severe pulmonary hypertension. PA pressure of 63 mmHg. Moderate to large pericardial
effusion. No change compared to June 01, 2025
Chest [id number] consistent with CHF
Cardiovascular system S1-S2 regular, systolic murmur at right heart border
Chest bilateral rales right more than left
Abdomen soft and nontender
No edema
# Shortness of breath
Weight gain
Acute hypoxic respiratory insufficiency
No increasing effusion or tamponade on echo
Stop antibiotics as this looks more like CHF
Also treat as acute HFpEF with Lasix
Provide Lasix
# Pericardial effusion-repeat echo noted
Holding Eliquis for pericardiocentesis 06/10/2025 after echo
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
# Mild thrombocytopenia
# Acute on chronic HfPEF-possible acute exacerbation-May need Lasix if chest x-ray supportive. BNP 2410
# Coronary disease with history of stents in 2003 and 2020
# Paroxysmal atrial fibrillation-continue atenolol, Hold Eliquis
# Valvular heart disease with severe TR
# Hypertension-continue atenolol,Losartan, Doxazosin
# Hyperlipidemia-atorvastatin
# Pulmonary hypertension
# COPD/centrilobular emphysema
# Peripheral artery disease with history of right iliac stent 2004
Right carotid artery stenting 2004
# History of nephrolithiasis
# Diverticulosis
# DVT Prophylaxis- Hold Amy. SCDs
# CODE Status -Full
Discussed with nursing
Part of this note was created using voice recognition system. Occasional wrong word or��sound alike� substitutions may have inadvertently occurred due to the inherent limitations of voice recognition software. If noted kindly bring it to my
attention for correction.
Anticipated Discharge: 24 - 48 hours
Subjective/Interval History
-
Date of Service: June 10, 2025
Objective Data
-
Labs:
Laboratory Results
06/10/25
04:19
WBC 5.5
Hgb 9.8 L
Hct 31.3 L
Plt Count 125 L
Sodium 138
Potassium 4.3
Chloride 101
Carbon Dioxide 32 H
BUN 27 H
Creatinine 0.8
Glucose 95
Calcium 8.9
Vital Signs:
Vital Signs
Temp Pulse Resp BP Pulse Ox
98.8 F 56 25 116/71 99
06/10/25 07:43 06/10/25 10:00 06/10/25 07:43 06/10/25 07:45 06/10/25 08:00
I&O
06/09/25 06/10/25 06/11/25
06:59 06:59 06:59
Intake Total 480 / 480
Output Total 1025 / 1025
Balance -545 / -545
[2025-06-10] MEDS: LASIX 20 MG IV (10:32)
[2025-06-10 10:49] LABS: Iron 34 ug/dl (37-170)
[2025-06-10 10:59] LABS: Total Iron Binding Capacity 281 ug/dl (265-497)
--- NOTE | 2025-06-10 11:41 | CM ---
Chart reviewed. Patient is waiting to go for a pericardiocentesis. Patient's daughter, Jojo at bedside. Patient is independent of ADLS, lives alone in a 2 STH, 3 FARTUN, 0 DME. Patient's daughter would like patient to receive VN. Referral sent
to [facility]. Plan is for the patient to return home with [facility]. CM to follow
[2025-06-10 12:07] LABS: Ferritin 77.4 ng/ml (11.1-264.0)
[2025-06-10 12:21] LABS: Vitamin B12 843 pg/ml (239-931)
--- NOTE | 2025-06-10 13:27 | W.PN.UPDATE ---
Update Note
Progress Note Update
went back to discuss results of repeat echocardiogram with patient and daughter, Jojo at bedside. Echo 06/10 showed preserved EF, severe TR with PAP 57 mmHg and moderate to large circumferential pericardial effusion with no evidence of cardiac
tamponade, no significant change compared to prior. Patient's daughter relays that her symptoms of shortness of breath did appear several days prior to them getting initial echo showing recurrent enlargement of pericardial effusion on 06/01/2025.
She is without hypotension, tachycardia, and stable O2 sats. We discussed the elevated risks of pericardiocentesis in patient with pulmonary hypertension. We also discussed that her chest x-ray this morning continues to show evidence of heart
failure. After discussing options, we will plan for chest CT today to evaluate for underlying inflammatory processes and to rule out malignancy. She relates she does have a history of pulmonary nodule. We will diurese patient with IV Lasix 40 mg
twice daily for next 24 to 48 hours. If remains with symptoms despite diuresis, we could reeval for pericardiocentesis early next week. For now we will place on IV heparin (on Eliquis as outpatient) as hemoglobin is downtrending since March and
possibility of bloody pericardial effusion. We did discuss that generally a pericardial effusion in the setting of pulmonary hypertension is a poor prognostic sign. Daughter asks that we keep her updated from a prognostic standpoint. She reports
her stamina is significantly limited at present, and if not improved prior to DC, then arrangements will need to be made at home to accomodate patient's needs. d/w nursing
[2025-06-10] MEDS: HEPARIN 25000 UNITS/250 ML IV (15:03)
[2025-06-10 15:49] LABS: APTT 27.6 Sec (23.4-35.0)
[2025-06-10] MEDS: LASIX 40 MG IV (15:55)
--- NOTE | 2025-06-10 20:30 | PTCARENOTE ---
Report received from ELAN Schrader. Pt awake, alert, oriented x 4. Speech clear. Helped to BR via PCT. Walking back independently. +BERUMEN. 3L/NC on pt. Sats 97%. BBS present. Decreased to B bases. Posterior bases with fine rales. Audible heart tones. Pt
in AF, rate 60's. BP normotensive, Heparin gtt at 800 units/hr. Next PTT due ~ 2100. Trace edema BLE. Palpable +2 DP and Radial pulses, bilaterally. Scheduled meds given. Belly soft, nontender. Reports passing flatus. Hypoactive bs x 4. Urine clear,
yellow. Ongoing plan of care.
[2025-06-10 21:02] LABS: ANA, IgG Reflex to HEp-2 None Detected (None Detected)
[2025-06-10 21:48] LABS: APTT 54.0 Sec (23.4-35.0)
[2025-06-10] MEDS: CARDURA 4 MG PO (22:39)
[2025-06-10] MEDS: LIPITOR 40 MG PO (22:40)
[2025-06-10] MEDS: TYLENOL 500 MG PO (22:41)
[2025-06-10] MEDS: TENORMIN 25 MG PO (22:42)
--- NOTE | 2025-06-10 23:00 | PTCARENOTE ---
Heparin increased to 1000 units/hr per protocol. See flowsheet. Next PTT ~ 0430. Tylenol 500 mg po at 2241. Pt going to sleep. Remains in AF. On 3L/NC. Sats 96-97%. Requests Purewick overnight due to respiratory instability with walking to BR.
(increased BERUMEN).
[2025-06-11 04:04] VITALS: BP 137/68
--- NOTE | 2025-06-11 04:30 | PTCARENOTE ---
VS done. Labs drawn and sent. Pt remains in AF, rate 50-60's. BP 137/68. Sats 97% on 3L/NC/O2. No dyspnea at rest. Heparin at 1000 units/hr. PTT drawn and pending. No c/o pain.
[2025-06-11 04:48] LABS: Hematocrit 33.4 % (37.0-47.0); Hemoglobin 10.3 g/dL (12.0-16.0); Mean Corp Hgb Conc. 30.8 g/dL (33.0-37.0); Mean Corpuscular Volume 98.2 fL (81.0-99.0); Platelet Count 132 10^3/uL (130-400); Red Cell Dist. Width 15.2 % (11.5-14.5)
[2025-06-11 05:05] LABS: APTT 126.2 Sec (23.4-35.0)
[2025-06-11 05:36] LABS: Blood Urea Nitrogen 27 mg/dl (7-17); Calcium 9.3 mg/dl (8.4-10.2); Carbon Dioxide 36 mmol/L (22-30); Chloride 100 mmol/L (98-107); Estimated Creatinine Clearance 43 ml/min; Glucose 97 mg/dl (70-99); Potassium 3.7 mmol/L (3.5-5.1); Sodium 140 mmol/L (135-145); eGFR > 60.00
[2025-06-11 07:32] VITALS: BP 143/66
[2025-06-11 07:33] VITALS: BMI 26.5
--- NOTE | 2025-06-11 07:41 | W.PN.HOSP.TC ---
Today's Communication/Plan
-
replete K
IV Lasix
Appreciate Cardiology
Assessment / Plan
Assessment / Plan
89 y/o female with hx HFpEF, CAD s/p PCI, pericardial effusion s/p pericardiocentesis 2019 presents to the ER with progressive shortness of breath. Patient had an echo as outpatient a week ago which showed pericardial effusion also had mild edema
in the legs and some weight gain.
EKG-atrial fibrillation rate [address]-T changes anterolateral leads
ECHO-LV size and systolic function without regional wall motion abnormalities. EF 55 to 60%. RV mildly dilated. Severe biatrial enlargement. Severe TR with severe pulmonary hypertension. PA pressure of 63 mmHg. Moderate to large pericardial
effusion. No change compared to June 01, 2025
Chest [id number] consistent with CHF
CT Chest 06/10/25
IMPRESSION:
Large pericardial effusion, increased.
Small bilateral pleural effusions, right greater than left, new.
No evidence of pneumonia. Emphysematous lung changes.
Chronic parenchymal scarring with traction bronchiectasis in the right middle lobe.
Stable mediastinal adenopathy.
Possible elevated right-sided heart pressure versus tricuspid insufficiency/regurgitation.
Heart Failure Preserved EF, Acute exacerbation
Moderate to Large Pericardial Effusion
Acute hypoxic respiratory insufficiency
-patient presented with shortness of breath and weight gain
-No increasing effusion or tamponade on echo
-appreciate Cardiology
-continue IV Lasix 40 BID
-Stop antibiotics as this looks more like CHF
-plan is to see if symptoms improve with diuresis, if remains symptomatic plan is for pericardiocentesis early next week
-Eliquis on hold, IV Heparin gtt started
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
# Mild thrombocytopenia
# Coronary disease with history of stents in 2003 and 2020
# Paroxysmal atrial fibrillation-continue atenolol, Hold Eliquis; IV Heparin gtt
# Valvular heart disease with severe TR
# Hypertension-continue atenolol,Losartan, Doxazosin
# Hyperlipidemia-atorvastatin
# Pulmonary hypertension
# COPD/centrilobular emphysema
# Peripheral artery disease with history of right iliac stent 2004
Right carotid artery stenting 2004
# History of nephrolithiasis
# Diverticulosis
# DVT Prophylaxis- IV Heparin gtt
# CODE Status -Full
Discussed with nursing
Anticipated Discharge: > 48 hours
Subjective/Interval History
-
Date of Service: June 11, 2025
she is urinating a lot
no chest pain
breathing feels stable
Objective Data
-
Labs:
Laboratory Results
06/10/25 06/11/25 06/11/25
21:21 04:37 11:30
WBC 5.1
Hgb 10.3 L
Hct 33.4 L
Plt Count 132
APTT 54.0 H 126.2 H Pending
Sodium 140
Potassium 3.7
Chloride 100
Carbon Dioxide 36 H
BUN 27 H
Creatinine 0.8
Glucose 97
Calcium 9.3
Vital Signs:
Vital Signs
Temp Pulse Resp BP Pulse Ox
98.8 F 71 18 137/68 95
06/11/25 07:33 06/11/25 07:33 06/11/25 07:33 06/11/25 04:04 06/11/25 07:33
I&O
06/10/25 06/11/25 06/12/25
06:59 06:59 06:59
Intake Total 480 / 480 194 / 194
Output Total 1025 / 1025 500 / 500
Balance -545 / -545 -306 / -306
Review of Systems
-
History Source: Patient
All other systems: Reviewed and negative
Physical Exam
-
General: Well Developed, Well Nourished, No Apparent Distress and Comfortable
HEENT: Normocephalic, Atraumatic, Moist Mucous Membranes, Nose Appears Normal and Ears Appear Normal
Respiratory: Decreased Breath Sounds
Cardiac: Regular Rhythm, S1/S2 and JVD
GI: Soft, Nontender and Nondistended
Musculoskeletal: Other (trace edema )
Skin: Warm and Dry
Neuro: Awake, Alert, Oriented and AO x 3
Psych: Calm
Data Reviewed
-
Diagnostic Radiology: Report Reviewed by me
Labs: Labs Reviewed by me
--- NOTE | 2025-06-11 08:00 | PTCARENOTE ---
pt recieved at change of shift. AAOx3. ambulating to bathroom with standby assist. SOB noted with exertion. A fib on telemetry heart rate 60-70s. pulses palpable. +1 lower extremity edema. pt on 3L nasal cannula, sat 97%. lung sounds diminished,
fine crackles in bases. active bowel sounds. voiding in bathroom or via purewick per patiet request. pt updated on plan of care. see worklist for full nursing assessment.
[2025-06-11] MEDS: THERAGRAN 1 TABLET PO (08:17)
[2025-06-11] MEDS: FOLVITE 1 MG PO (08:18)
[2025-06-11] MEDS: VITAMIN B-12 1000 MCG PO (08:18)
[2025-06-11] MEDS: KCL 40 MEQ PO (08:18)
[2025-06-11] MEDS: COZAAR 50 MG PO (08:18)
[2025-06-11] MEDS: VITAMIN D3 (cholecalciferol) 25 MCG PO (08:18)
[2025-06-11] MEDS: LOW STRENGTH ASPIRIN 81 MG PO (08:18)
[2025-06-11] MEDS: ALDACTONE 12.5 MG PO (08:18)
[2025-06-11] MEDS: LASIX 40 MG IV ×2 (08:19→15:59)
[2025-06-11 12:17] VITALS: BP 142/96
[2025-06-11 12:47] LABS: APTT 106.7 Sec (23.4-35.0)
--- NOTE | 2025-06-11 13:24 | W.PN.CARDCBS ---
Today's Communication / Plan
-
Continue IV Lasix
Increase Aldactone
Impression / Plan
-
PCP: Dr. Peterson
Fire Engine Pump Operator: Dr. Nandini Churchill
Impression:
Presented with SOB and recurrent pericardial effusion 06/08/2025
Recent admission for acute HF and AECOPD 03/19/2025 until 03/26/2025
Acute on chronic HFpEF
Recurrent moderate to large pericardial effusion
h/o pericardial effusion with pericardiocentesis 2018
s/p successful pericardiocentesis with 560 mL of blood-tinged fluid removed 11/27/2018
Managed as pericarditis with a regimen of ibuprofen
Pulmonary HTN, severe by echo 03/21/25
Permanent atrial fibrillation
Chronic Eliquis AC
CAD
LAD PCI in 2003
HTN
HLD
COPD
PAD w/ prior L iliac stent 2004
Carotid stenosis s/p MARGARITA BMS 2004
h/o tobacco abuse
Echo 03/19/2023: EF 59%, mild MR, moderate to severe TR, estimated PAP 84 mmHg
Echo 03/31/2024: EF 62%, moderate TR, estimated PAP 51 mmHg, small pericardial effusion
Echo 03/21/2025: EF 55-60%, mild MR, severe TR, estimated PAP 83 mmHg consistent with severe pulmonary HTN, small to moderate pericardial effusion
Echo 06/01/2025: Normal LV size and function, RV size and function within normal limits, severe TR with PAP 80 mmHg, moderate to large pericardial effusion without evidence of tamponade compared to echo 03/21/2025 the effusion then was small to
moderate and is now larger in size
Echo 06/08/2025: Normal LV size and function at 55 to 60%, RV mildly dilated with normal RV systolic function, severe TR with PAP 63 mmHg, moderate to large pericardial effusion without evidence of tamponade in the setting of PHTN, compared to echo
06/01/2025 there is no significant change
Plan:
-Patient presented with shortness of breath and recurrent pericardial effusion on echo - moderate to large effusion without evidence of tamponade and preserved EF
-She has history of pericardial effusion s/p pericardiocentesis in 2019 and was treated as pericarditis with course of NSAIDs
-Following discussion with photographic editor plan is to hold off on pericardiocentesis at this time, but can revisit if patient does not clinically improve
-Symptoms seem most consistent with acute heart failure. Plan is to continue IV Lasix.
-New to spironolactone which may be of benefit given known diagnosis of heart failure with preserved ejection fraction and hypokalemia
-Atrial fibrillation is permanent
-Has been relatively bradycardic here, would stop atenolol and monitor heart rate
-Outpatient dose of Eliquis 5 mg BID (age 89, Cre 0.9, wt 68 kg) is on hold, continue heparin drip
-d/w nursing
HPI: Patient came to the emergency room today with increased SOB and an abnormal echocardiogram that showed recurrent pericardial effusion, cardiology is now consulted. Patient was just admitted with AECOPD and acute on chronic HFpEF from 03/19/2025
until 03/26/2025. Patient had echocardiogram on 03/21/2025 that showed a small to moderate pericardial effusion and then had a repeat echo on 06/01/2025 that showed the effusion to be larger in size compared to previous. When the cardiology office
called the patient she reported increased BERUMEN and was referred to the ER. Patient has chronic LE edema with a left worse than right and increased BERUMEN, but denies orthopnea or bloating. Patient was hypoxic upon arrival to the ER and was placed on
oxygen via NC and has symptomatically improved. Patient took her usual dose of Lasix 40 mg a.m. and 20 mg p.m. PO daily at home this morning. Patient also had a pulling sensation in her chest this morning that was worse when laying down and then
seem to be better when she stood up and has not recurred during the day.
Progress Note - Fire Engine Pump Operator
Subjective
Date of Service: June 11, 2025
No acute overnight events. Resting comfortably in the IVU. No cardiac complaints
Objective
Labs:
06/11/25 04:37
06/11/25 04:37
Labs
Hgb 10.3 g/dL (12.0-16.0) L 06/11/25 04:37
Hct 33.4 % (37.0-47.0) L 06/11/25 04:37
Plt Count 132 10^3/uL (130-400) 06/11/25 04:37
PT 15.8 Sec (11.4-14.6) H 06/09/25 03:36
INR 1.20 06/09/25 03:36
APTT 106.7 Sec (23.4-35.0) H 06/11/25 12:15
Sodium 140 mmol/L (135-145) 06/11/25 04:37
Potassium 3.7 mmol/L (3.5-5.1) 06/11/25 04:37
BUN 27 mg/dl (7-17) H 06/11/25 04:37
Creatinine 0.8 mg/dL (0.6-1.0) 06/11/25 04:37
Glucose 97 mg/dl (70-99) 06/11/25 04:37
Vital Signs and I&O:
Vital Signs
Temp Pulse Resp BP Pulse Ox
98.8 F 62 18 142/96 95
06/11/25 12:20 06/11/25 12:17 06/11/25 12:20 06/11/25 12:17 06/11/25 12:20
Vital Signs
Temp Pulse Resp BP Pulse Ox
98.8 F 62 18 142/96 95
06/11/25 12:20 06/11/25 12:17 06/11/25 12:20 06/11/25 12:17 06/11/25 12:20
Intake & Output
06/09/25 06/10/25 06/11/25 06/12/25
06:59 06:59 06:59 06:59
Intake Total 480 / 480 194 / 194
Output Total 1025 / 1025 500 / 500 250 / 250
Balance -545 / -545 -306 / -306 -250 / -250
Physical Exam
Physical Exam
Gen: NAD, AAOx3
HEENT: NC/AT, sclera anicteric
Neck: No JVD
CV: Irregular, NL s1/s2
Lungs: No increased work of breathing on 2 L nasal cannula
Abd: S/ND
Ext: No LE edema
Skin: Warm, dry
Neuro: Non-focal
[2025-06-11 16:00] VITALS: BP 135/62
[2025-06-11] MEDS: HEPARIN 25000 UNITS/250 ML IV (18:25)
[2025-06-11 18:46] LABS: APTT 85.0 Sec (23.4-35.0)
[2025-06-11 19:40] VITALS: BP 167/55
[2025-06-11] MEDS: CARDURA 4 MG PO (20:09)
[2025-06-11] MEDS: LIPITOR 40 MG PO (20:09)
[2025-06-11] MEDS: ROBITUSSIN 100 MG PO (21:16)
[2025-06-11 22:15] VITALS: BP 140/69
[2025-06-12] VITALS (8 sets, daily range): BP systolic 116–154; BP diastolic 50–76; BMI 26.3
--- NOTE | 2025-06-12 00:59 | PTCARENOTE ---
Pt. in A-fib on the monitor, rate 60's-80's, vitals stable. 3L O2 NC maintained, some BERUMEN assessed, crackles present bibasilarly - pt. complaining of non productive cough, requesting Robitussin. Order obtained and given. Pt. requesting to sleep
tonight as much as possible, prefers Purewick due to urinary urgency post Lasix and SOB with activity. Purewick in place, draining clear yellow urine. Pt. resting quietly.
[2025-06-12 04:09] LABS: Hematocrit 32.3 % (37.0-47.0); Hemoglobin 10.0 g/dL (12.0-16.0); Mean Corp Hgb Conc. 31.0 g/dL (33.0-37.0); Mean Corpuscular Volume 97.0 fL (81.0-99.0); Platelet Count 129 10^3/uL (130-400); Red Cell Dist. Width 15.2 % (11.5-14.5)
[2025-06-12 04:29] LABS: APTT 118.7 Sec (23.4-35.0)
[2025-06-12 05:09] LABS: Blood Urea Nitrogen 23 mg/dl (7-17); Calcium 9.4 mg/dl (8.4-10.2); Carbon Dioxide 35 mmol/L (22-30); Chloride 100 mmol/L (98-107); Estimated Creatinine Clearance 49 ml/min; Glucose 94 mg/dl (70-99); Potassium 3.6 mmol/L (3.5-5.1); Sodium 141 mmol/L (135-145); eGFR > 60.00
--- NOTE | 2025-06-12 07:36 | W.PN.HOSP.TC ---
Today's Communication/Plan
-
diuresis
appreciate Cardiology
possible pericardiocentesis this week
Assessment / Plan
Assessment / Plan
89 y/o female with hx HFpEF, CAD s/p PCI, pericardial effusion s/p pericardiocentesis 2019 presents to the ER with progressive shortness of breath, weight gain and swelling. Patient had an echo as outpatient a week ago which showed pericardial
effusion.
EKG-atrial fibrillation rate [address]-T changes anterolateral leads
ECHO-LV size and systolic function without regional wall motion abnormalities. EF 55 to 60%. RV mildly dilated. Severe biatrial enlargement. Severe TR with severe pulmonary hypertension. PA pressure of 63 mmHg. Moderate to large pericardial
effusion. No change compared to June 01, 2025
Chest [id number] consistent with CHF
CT Chest 06/10/25
IMPRESSION:
Large pericardial effusion, increased.
Small bilateral pleural effusions, right greater than left, new.
No evidence of pneumonia. Emphysematous lung changes.
Chronic parenchymal scarring with traction bronchiectasis in the right middle lobe.
Stable mediastinal adenopathy.
Possible elevated right-sided heart pressure versus tricuspid insufficiency/regurgitation.
Heart Failure Preserved EF, Acute exacerbation
Moderate to Large Pericardial Effusion
Acute hypoxic respiratory insufficiency
-patient presented with shortness of breath and weight gain
-No increasing effusion or tamponade on echo compared to 06/01/25
-appreciate Cardiology
-continue IV Lasix 40 BID
-Stop antibiotics as this looks more like CHF
-plan is to see if symptoms improve with diuresis, if remains symptomatic plan is for pericardiocentesis early next week
-Eliquis on hold, IV Heparin gtt started
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
# Mild thrombocytopenia
# Coronary disease with history of stents in 2003 and 2020
# Paroxysmal atrial fibrillation-continue atenolol, Hold Eliquis; IV Heparin gtt
# Valvular heart disease with severe TR
# Hypertension-continue atenolol,Losartan, Doxazosin
# Hyperlipidemia-atorvastatin
# Pulmonary hypertension
# COPD/centrilobular emphysema
# Peripheral artery disease with history of right iliac stent 2004
Right carotid artery stenting 2004
# History of nephrolithiasis
# Diverticulosis
# DVT Prophylaxis- IV Heparin gtt
# CODE Status -Full
Discussed with nursing
Anticipated Discharge: > 48 hours
Subjective/Interval History
-
Date of Service: June 12, 2025
feeling okay, urinating a lot
still feels some shortness of breath
Objective Data
-
Labs:
Laboratory Results
06/12/25 06/12/25
03:36 11:10
WBC 5.7
Hgb 10.0 L
Hct 32.3 L
Plt Count 129 L
APTT 118.7 H Pending
Sodium 141
Potassium 3.6
Chloride 100
Carbon Dioxide 35 H
BUN 23 H
Creatinine 0.7
Glucose 94
Calcium 9.4
Vital Signs:
Vital Signs
Temp Pulse Resp BP Pulse Ox
98.4 F 70 18 144/72 95
06/12/25 03:23 06/12/25 04:00 06/12/25 03:24 06/12/25 03:06 06/12/25 03:24
I&O
06/11/25 06/12/25 06/13/25
06:59 06:59 06:59
Intake Total 194 / 194 588 / 588
Output Total 500 / 500 1300 / 1300
Balance -306 / -306 -712 / -712
Review of Systems
-
History Source: Patient
All other systems: Reviewed and negative
Physical Exam
-
General: Well Developed, Well Nourished, No Apparent Distress and Comfortable
HEENT: Normocephalic, Atraumatic, Moist Mucous Membranes, Nose Appears Normal and Ears Appear Normal
Respiratory: Decreased Breath Sounds
Cardiac: Regular Rhythm, S1/S2 and JVD
GI: Soft, Nontender and Nondistended
Musculoskeletal: Other (trace edema )
Skin: Warm and Dry
Neuro: Awake, Alert, Oriented and AO x 3
Psych: Calm
Data Reviewed
-
Diagnostic Radiology: Report Reviewed by me
Labs: Labs Reviewed by me
[2025-06-12] MEDS: ALDACTONE 25 MG PO (08:07)
[2025-06-12] MEDS: VITAMIN B-12 1000 MCG PO (08:09)
[2025-06-12] MEDS: COZAAR 50 MG PO (08:09)
[2025-06-12] MEDS: THERAGRAN 1 TABLET PO (08:09)
[2025-06-12] MEDS: VITAMIN D3 (cholecalciferol) 25 MCG PO (08:10)
[2025-06-12] MEDS: FOLVITE 1 MG PO (08:10)
[2025-06-12] MEDS: LOW STRENGTH ASPIRIN 81 MG PO (08:10)
[2025-06-12] MEDS: LASIX 40 MG IV ×2 (08:10→17:22)
[2025-06-12] MEDS: KCL 40 MEQ PO (08:10)
[2025-06-12 11:36] LABS: APTT 93.6 Sec (23.4-35.0)
--- NOTE | 2025-06-12 16:59 | W.PN.CARDCBS ---
Today's Communication / Plan
-
Continue IV Lasix
Wean oxygen as able, may need to accept lower O2 sat goal (90-92%) with history of COPD
Impression / Plan
-
PCP: Dr. Peterson
Rolled Glass Crosscutter: Dr. Nandini Churchill
Impression:
Presented with SOB and recurrent pericardial effusion 06/08/2025
Recent admission for acute HF and AECOPD 03/19/2025 until 03/26/2025
Acute on chronic HFpEF
Recurrent moderate to large pericardial effusion
h/o pericardial effusion with pericardiocentesis 2018
s/p successful pericardiocentesis with 560 mL of blood-tinged fluid removed 11/27/2018
Managed as pericarditis with a regimen of ibuprofen
Pulmonary HTN, severe by echo 03/21/25
Permanent atrial fibrillation
Chronic Eliquis AC
CAD
LAD PCI in 2003
HTN
HLD
COPD
PAD w/ prior L iliac stent 2004
Carotid stenosis s/p MARGARITA BMS 2004
h/o tobacco abuse
Echo 03/19/2023: EF 59%, mild MR, moderate to severe TR, estimated PAP 84 mmHg
Echo 03/31/2024: EF 62%, moderate TR, estimated PAP 51 mmHg, small pericardial effusion
Echo 03/21/2025: EF 55-60%, mild MR, severe TR, estimated PAP 83 mmHg consistent with severe pulmonary HTN, small to moderate pericardial effusion
Echo 06/01/2025: Normal LV size and function, RV size and function within normal limits, severe TR with PAP 80 mmHg, moderate to large pericardial effusion without evidence of tamponade compared to echo 03/21/2025 the effusion then was small to
moderate and is now larger in size
Echo 06/08/2025: Normal LV size and function at 55 to 60%, RV mildly dilated with normal RV systolic function, severe TR with PAP 63 mmHg, moderate to large pericardial effusion without evidence of tamponade in the setting of PHTN, compared to echo
06/01/2025 there is no significant change
Plan:
-Patient presented with shortness of breath and recurrent pericardial effusion on echo - moderate to large effusion without evidence of tamponade and preserved EF
-She has history of pericardial effusion s/p pericardiocentesis in 2019 and was treated as pericarditis with course of NSAIDs
-Following discussion with cyanide case hardener plan is to hold off on pericardiocentesis at this time, but can revisit if patient does not clinically improve
-Symptoms seem most consistent with acute heart failure. Plan is to continue IV Lasix.
-New to spironolactone which may be of benefit given diagnosis of heart failure with preserved ejection fraction and hypokalemia
-Atrial fibrillation is permanent
-Has been relatively bradycardic here, would stop atenolol and monitor heart rate
-Outpatient dose of Eliquis 5 mg BID (age 89, Cre 0.9, wt 68 kg) is on hold, continue heparin drip
-d/w with patient's daughter Jojo at length by phone
HPI: Patient came to the emergency room today with increased SOB and an abnormal echocardiogram that showed recurrent pericardial effusion, cardiology is now consulted. Patient was just admitted with AECOPD and acute on chronic HFpEF from 03/19/2025
until 03/26/2025. Patient had echocardiogram on 03/21/2025 that showed a small to moderate pericardial effusion and then had a repeat echo on 06/01/2025 that showed the effusion to be larger in size compared to previous. When the cardiology office
called the patient she reported increased BERUMEN and was referred to the ER. Patient has chronic LE edema with a left worse than right and increased BERUMEN, but denies orthopnea or bloating. Patient was hypoxic upon arrival to the ER and was placed on
oxygen via NC and has symptomatically improved. Patient took her usual dose of Lasix 40 mg a.m. and 20 mg p.m. PO daily at home this morning. Patient also had a pulling sensation in her chest this morning that was worse when laying down and then
seem to be better when she stood up and has not recurred during the day.
Progress Note - Rolled Glass Crosscutter
Subjective
Date of Service: June 12, 2025
No acute overnight events. Patient is resting comfortably in bed at the time my evaluation. No lightheadedness or dizziness. Not subjectively short of breath but still requiring 2 L supplemental oxygen.
Objective
Labs:
06/12/25 03:36
06/12/25 03:36
Labs
Hgb 10.0 g/dL (12.0-16.0) L 06/12/25 03:36
Hct 32.3 % (37.0-47.0) L 06/12/25 03:36
Plt Count 129 10^3/uL (130-400) L 06/12/25 03:36
PT 15.8 Sec (11.4-14.6) H 06/09/25 03:36
INR 1.20 06/09/25 03:36
APTT 93.6 Sec (23.4-35.0) H 06/12/25 11:16
Sodium 141 mmol/L (135-145) 06/12/25 03:36
Potassium 3.6 mmol/L (3.5-5.1) 06/12/25 03:36
BUN 23 mg/dl (7-17) H 06/12/25 03:36
Creatinine 0.7 mg/dL (0.6-1.0) 06/12/25 03:36
Glucose 94 mg/dl (70-99) 06/12/25 03:36
Vital Signs and I&O:
Vital Signs
Temp Pulse Resp BP Pulse Ox
97.9 F 82 20 137/57 93
06/12/25 15:28 06/12/25 14:38 06/12/25 15:06/12/25 12:00 06/12/25 15:28
Vital Signs
Temp Pulse Resp BP Pulse Ox
97.9 F 82 20 137/57 93
06/12/25 15:28 06/12/25 14:38 06/12/25 15:28 06/12/25 12:00 06/12/25 15:28
Intake & Output
06/10/25 06/11/25 06/12/25 06/13/25
06:59 06:59 06:59 06:59
Intake Total 480 / 480 194 / 194 588 / 588
Output Total 1025 / 1025 500 / 500 1300 / 1300 200 / 200
Balance -545 / -545 -306 / -306 -712 / -712 -200 / -200
Physical Exam
Physical Exam
Gen: NAD, AA
HEENT: NC/AT, sclera anicteric
CV: Irregularly irregular, NL s1/s2
Lungs: No increase WOB on 2L NC
Abd: S/ND
Ext: No LE edema
Skin: Warm, dry
Neuro: Non-focal
[2025-06-12 17:45] LABS: APTT 52.5 Sec (23.4-35.0)
--- NOTE | 2025-06-12 19:03 | PTCARENOTE ---
~4246-1519: Handoff report received from nightshift RN. Pt AOx4, Afib 70s on tele, SBP 140s, 3L NC satting 92% lungs diminished with crackles in bases. Pt denies pain at this time. K+ repleation given per order. Heparin gtt infusing @ 800 units/hr.
Purewick in place. Pt Ax1 OOB. All needs met at thsi time, call bullock within reach.
~[id number]: PTT drawn and sent to lab. Resulted therapeutic at this time, additional PTT ordered per protocol. All neeeds met at this time, family at bedside, call bullock within reach.
~[id number]: Family at bedside. Ax1 to bathroom.PRN albuterol neb given by respiratory per pt request.
~[id number]: Purewick back in place, Scheduled IV lasix given. PTT drawn and sent to lab, result subtherapeutic, Heparin gtt titrated per protocol. Next PTT ordered. Skin tear noted on lower abdomen, site cleansed and dressed with adaptic and foam
dressing. All needs met at this time, call bullock within reach. Handoff report given to bessiehift RN.
[2025-06-12] MEDS: CARDURA 4 MG PO (21:00)
[2025-06-12] MEDS: LIPITOR 40 MG PO (21:00)
--- NOTE | 2025-06-12 21:48 | PTCARENOTE ---
Pt took O2 NC off, when checked on RA pulse ox was 77%. Pt showed no s/sx of distress. Placed back on 2L NC, pulse ox improved to mid 80s. O2 increased to 4L with pulse ox now 93%.
[2025-06-13] VITALS (11 sets, daily range): BP systolic 96–156; BP diastolic 44–72; PULSE 82–96; O2SAT 97; BMI 26.2
[2025-06-13 00:44] LABS: APTT 124.1 Sec (23.4-35.0)
[2025-06-13] MEDS: HEPARIN 25000 UNITS/250 ML IV (01:38)
[2025-06-13 06:30] LABS: APTT 99.3 Sec (23.4-35.0)
[2025-06-13 06:31] LABS: Hematocrit 33.3 % (37.0-47.0); Hemoglobin 10.5 g/dL (12.0-16.0); Mean Corp Hgb Conc. 31.5 g/dL (33.0-37.0); Mean Corpuscular Volume 97.1 fL (81.0-99.0); Platelet Count 127 10^3/uL (130-400); Red Cell Dist. Width 15.3 % (11.5-14.5)
[2025-06-13 07:41] LABS: Blood Urea Nitrogen 22 mg/dl (7-17); Calcium 9.7 mg/dl (8.4-10.2); Carbon Dioxide 37 mmol/L (22-30); Chloride 97 mmol/L (98-107); Estimated Creatinine Clearance 51 ml/min; Glucose 99 mg/dl (70-99); Magnesium 2.0 mg/dl (1.6-2.3); Potassium 4.0 mmol/L (3.5-5.1); Sodium 140 mmol/L (135-145); eGFR > 60.00
--- NOTE | 2025-06-13 08:13 | W.PN.HOSP.TC ---
Today's Communication/Plan
-
diuresis
appreciate Cardiology
Assessment / Plan
Assessment / Plan
89 y/o female with hx HFpEF, CAD s/p PCI, pericardial effusion s/p pericardiocentesis 2019 presents to the ER with progressive shortness of breath, weight gain and swelling. Patient had an echo as outpatient a week ago which showed pericardial
effusion.
EKG-atrial fibrillation rate [address]-T changes anterolateral leads
ECHO-LV size and systolic function without regional wall motion abnormalities. EF 55 to 60%. RV mildly dilated. Severe biatrial enlargement. Severe TR with severe pulmonary hypertension. PA pressure of 63 mmHg. Moderate to large pericardial
effusion. No change compared to June 01, 2025
Chest [id number] consistent with CHF
CT Chest 06/10/25
IMPRESSION:
Large pericardial effusion, increased.
Small bilateral pleural effusions, right greater than left, new.
No evidence of pneumonia. Emphysematous lung changes.
Chronic parenchymal scarring with traction bronchiectasis in the right middle lobe.
Stable mediastinal adenopathy.
Possible elevated right-sided heart pressure versus tricuspid insufficiency/regurgitation.
Heart Failure Preserved EF, Acute exacerbation
Moderate to Large Pericardial Effusion
Acute hypoxic respiratory insufficiency
-patient presented with shortness of breath and weight gain
-No tamponade, effustion stable compared to echo06/01/25 (moderate to large)
-appreciate Cardiology
-continue IV Lasix 40 BID
-new start Spironolactone
-Stop antibiotics as this looks more like CHF
-plan is to see if symptoms improve with diuresis, if remains symptomatic plan is for pericardiocentesis
-Eliquis on hold, IV Heparin gtt started
# Hypertension-new start Spironolactone, continue Losartan, Doxazosin
-DOCUMENT PROCESSOR Atenolol on hold for bradycardia
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
# Mild thrombocytopenia
# Coronary disease with history of stents in 2003 and 2020
# Paroxysmal atrial fibrillation-continue atenolol, Hold Eliquis; IV Heparin gtt
# Valvular heart disease with severe TR
# Hyperlipidemia-atorvastatin
# Pulmonary hypertension
# COPD/centrilobular emphysema
# Peripheral artery disease with history of right iliac stent 2004
Right carotid artery stenting 2004
# History of nephrolithiasis
# Diverticulosis
# DVT Prophylaxis- IV Heparin gtt
# CODE Status -Full
Discussed with nursing
Anticipated Discharge: > 48 hours
Subjective/Interval History
-
Date of Service: June 13, 2025
urinating a lot
O2 came off overnight and SpO2 dropped to 70's
Objective Data
-
Labs:
Laboratory Results
06/13/25 06/13/25 06/13/25
00:23 05:55 12:00
WBC 5.8
Hgb 10.5 L
Hct 33.3 L
Plt Count 127 L
APTT 124.1 H 99.3 H Pending
Sodium 140
Potassium 4.0
Chloride 97 L
Carbon Dioxide 37 H
BUN 22 H
Creatinine 0.6
Glucose 99
Calcium 9.7
Vital Signs:
Vital Signs
Temp Pulse Resp BP Pulse Ox
97.9 F 87 18 156/72 96
06/13/25 07:33 06/13/25 08:00 06/13/25 07:33 06/13/25 07:35 06/13/25 07:35
I&O
06/12/25 06/13/25 06/14/25
06:59 06:59 06:59
Intake Total 588 / 588
Output Total 1300 / 1300 200 / 200 750 / 750
Balance -712 / -712 -200 / -200 -750 / -750
Review of Systems
-
History Source: Patient
All other systems: Reviewed and negative
Physical Exam
-
General: Well Developed, Well Nourished, No Apparent Distress and Comfortable
HEENT: Normocephalic, Atraumatic, Moist Mucous Membranes, Nose Appears Normal and Ears Appear Normal
Respiratory: Decreased Breath Sounds
Cardiac: Regular Rhythm, S1/S2 and JVD
GI: Soft, Nontender and Nondistended
Musculoskeletal: Other (trace edema )
Skin: Warm and Dry
Neuro: Awake, Alert, Oriented and AO x 3
Psych: Calm
Data Reviewed
-
Diagnostic Radiology: Report Reviewed by me
Labs: Labs Reviewed by me
[2025-06-13] MEDS: VITAMIN B-12 1000 MCG PO (09:25)
[2025-06-13] MEDS: FOLVITE 1 MG PO (09:26)
[2025-06-13] MEDS: LOW STRENGTH ASPIRIN 81 MG PO (09:26)
[2025-06-13] MEDS: COZAAR 50 MG PO (09:26)
[2025-06-13] MEDS: VITAMIN D3 (cholecalciferol) 25 MCG PO (09:26)
[2025-06-13] MEDS: THERAGRAN 1 TABLET PO (09:26)
[2025-06-13] MEDS: LASIX 40 MG IV ×2 (09:28→16:08)
[2025-06-13] MEDS: ALDACTONE 25 MG PO (09:30)
[2025-06-13] MEDS: FLUSH (NSS) 1 FLUSH IV (09:33)
[2025-06-13 12:34] LABS: APTT 87.6 Sec (23.4-35.0)
--- NOTE | 2025-06-13 13:08 | W.PN.CARDCBS ---
Today's Communication / Plan
-
Continue IV Lasix
Impression / Plan
-
PCP: Dr. Peterson
Supervisor Plate Forming: Dr. Nandini Churchill
Impression:
Presented with SOB and recurrent pericardial effusion 06/08/2025
Recent admission for acute HF and AECOPD 03/19/2025 until 03/26/2025
Acute on chronic HFpEF
Recurrent moderate to large pericardial effusion
h/o pericardial effusion with pericardiocentesis 2018
s/p successful pericardiocentesis with 560 mL of blood-tinged fluid removed 11/27/2018
Managed as pericarditis with a regimen of ibuprofen
Pulmonary HTN, severe by echo 03/21/25
Permanent atrial fibrillation
Chronic Eliquis AC
CAD
LAD PCI in 2003
HTN
HLD
COPD
PAD w/ prior L iliac stent 2004
Carotid stenosis s/p MARGARITA BMS 2004
h/o tobacco abuse
Echo 03/19/2023: EF 59%, mild MR, moderate to severe TR, estimated PAP 84 mmHg
Echo 03/31/2024: EF 62%, moderate TR, estimated PAP 51 mmHg, small pericardial effusion
Echo 03/21/2025: EF 55-60%, mild MR, severe TR, estimated PAP 83 mmHg consistent with severe pulmonary HTN, small to moderate pericardial effusion
Echo 06/01/2025: Normal LV size and function, RV size and function within normal limits, severe TR with PAP 80 mmHg, moderate to large pericardial effusion without evidence of tamponade compared to echo 03/21/2025 the effusion then was small to
moderate and is now larger in size
Echo 06/08/2025: Normal LV size and function at 55 to 60%, RV mildly dilated with normal RV systolic function, severe TR with PAP 63 mmHg, moderate to large pericardial effusion without evidence of tamponade in the setting of PHTN, compared to echo
06/01/2025 there is no significant change
Plan:
Overall, she is improved from a cardiac standpoint/volume standpoint but still likely above dry weight. Neck veins are not markedly distended, indirectly suggesting that tamponade is not an issue.
She still has some breathlessness, would continue IV furosemide for at least 24 hours.
Continue furosemide until we are certain that she does not require pericardiocentesis.
She is currently not on an SGLT2 antagonist, suspect that this has already been considered and will discuss with primary spray technician. She is on spironolactone.
Atenolol has been stopped and heart rate is still controlled.
HPI: Patient came to the emergency room today with increased SOB and an abnormal echocardiogram that showed recurrent pericardial effusion, cardiology is now consulted. Patient was just admitted with AECOPD and acute on chronic HFpEF from 03/19/2025
until 03/26/2025. Patient had echocardiogram on 03/21/2025 that showed a small to moderate pericardial effusion and then had a repeat echo on 06/01/2025 that showed the effusion to be larger in size compared to previous. When the cardiology office
called the patient she reported increased BERUMEN and was referred to the ER. Patient has chronic LE edema with a left worse than right and increased BERUMEN, but denies orthopnea or bloating. Patient was hypoxic upon arrival to the ER and was placed on
oxygen via NC and has symptomatically improved. Patient took her usual dose of Lasix 40 mg a.m. and 20 mg p.m. PO daily at home this morning. Patient also had a pulling sensation in her chest this morning that was worse when laying down and then
seem to be better when she stood up and has not recurred during the day.
Progress Note - Supervisor Plate Forming
Subjective
Date of Service: June 13, 2025:
89-year-old woman with pericardial effusion, recent acute HFpEF and COPD admission, readmitted with acute on chronic HFpEF. Prior pericardiocentesis 2018.
Considered for pericardiocentesis but plan at present is IV diuresis and follow-up
PMH: Pericardial effusion, permanent atrial fibrillation, HFpEF, pulmonary hypertension, LAD P CI 2004, hypertension, hyperlipidemia, COPD, PAD with left iliac stent, right carotid artery stent, history of tobacco use
Current meds: IV heparin, atorvastatin, B12, multivitamins, folate, aspirin 81 mg a day, vitamin D3, doxazosin, furosemide 40 mg IV twice daily, losartan 50 mg a day, spironolactone 25 mg a day
156/72, pulse 71, respiratory rate 20, afebrile, weight is 64.8 kg, down 0.4 kg, admission weight was 68.1 kg, lungs are relatively clear, JVD is probably 8-10, irregular rate and rhythm,No obvious murmurs, trace to 1+ edema, abdomen benign
Hemoglobin is 10.5, BUN and creatinine are 22 and 0.6 with a potassium of 4
ECG: Low voltage, A-fib, possible septal infarct, nonspecific ST and T wave changes
Objective
Labs:
06/13/25 05:55
06/13/25 05:55
Labs
Hgb 10.5 g/dL (12.0-16.0) L 06/13/25 05:55
Hct 33.3 % (37.0-47.0) L 06/13/25 05:55
Plt Count 127 10^3/uL (130-400) L 06/13/25 05:55
PT 15.8 Sec (11.4-14.6) H 06/09/25 03:36
INR 1.20 06/09/25 03:36
APTT 87.6 Sec (23.4-35.0) H 06/13/25 12:03
Sodium 140 mmol/L (135-145) 06/13/25 05:55
Potassium 4.0 mmol/L (3.5-5.1) 06/13/25 05:55
BUN 22 mg/dl (7-17) H 06/13/25 05:55
Creatinine 0.6 mg/dL (0.6-1.0) 06/13/25 05:55
Glucose 99 mg/dl (70-99) 06/13/25 05:55
Vital Signs and I&O:
Vital Signs
Temp Pulse Resp BP Pulse Ox
36.8 C 71 20 156/72 96
06/13/25 11:42 06/13/25 10:00 06/13/25 11:42 06/13/25 09:30 06/13/25 11:42
Vital Signs
Temp Pulse Resp BP Pulse Ox
36.8 C 71 20 156/72 96
06/13/25 11:42 06/13/25 10:00 06/13/25 11:42 06/13/25 09:30 06/13/25 11:42
Intake & Output
06/11/25 06/12/25 06/13/25 06/14/25
07:59 07:59 07:59 07:59
Intake Total 194 / 194 588 / 588 240 / 240
Output Total 500 / 500 1300 / 1300 950 / 950 200 / 200
Balance -306 / -306 -712 / -712 -950 / -950 40 / 40
Physical Exam
Physical Exam
See above
--- NOTE | 2025-06-13 16:26 | CM ---
spoke with daughter, she req information on companions/private duty- list given. and we also discussed [facility] living facilities and what that included. plan is for pt to go home after dc, family to assist if needed.
--- NOTE | 2025-06-13 17:10 | PTCARENOTE ---
pt oob for most of the day. tolerated well. afib on the monitor, hr in the 70s, vss. pt offers no complaints at this time. pt educated on plan of care. pt weaned down to 3LO2 NC. Pt tolerating well. pt educated on plan of care and verbalized
understanding. call bullock within reach.
[2025-06-13] MEDS: DESENEX/MITRAZOL/ZEASORB 1 APPLIC TOPICAL (21:02)
[2025-06-13] MEDS: LIPITOR 40 MG PO (21:03)
[2025-06-13] MEDS: CARDURA 4 MG PO (21:03)
--- NOTE | 2025-06-13 22:57 | PTCARENOTE ---
Patient received at change of shift resting in the bed. Denies pain at this time, offers no complaints. Heparin gtt infusing at 900units/hr via RFA PIV. Oxygen saturation 95-96% on 3L NC. Afib on telemetry. The patient reported feeling as though she
was voiding less than usual despite IV lasix administration, bladder scan revealed 181cc of urine present. Active toileting encouraged. Plan of care discussed. Call bullock within reach. Care ongoing.
[2025-06-14] VITALS (7 sets, daily range): BP systolic 101–151; BP diastolic 46–71; BMI 26.1
[2025-06-14] MEDS: HEPARIN 25000 UNITS/250 ML IV (03:16)
[2025-06-14 03:39] LABS: Hematocrit 30.4 % (37.0-47.0); Hemoglobin 9.6 g/dL (12.0-16.0); Mean Corp Hgb Conc. 31.6 g/dL (33.0-37.0); Mean Corpuscular Volume 95.9 fL (81.0-99.0); Platelet Count 127 10^3/uL (130-400); Red Cell Dist. Width 15.0 % (11.5-14.5)
[2025-06-14 03:45] LABS: APTT 94.0 Sec (23.4-35.0)
[2025-06-14 04:15] LABS: Blood Urea Nitrogen 28 mg/dl (7-17); Calcium 9.1 mg/dl (8.4-10.2); Carbon Dioxide 35 mmol/L (22-30); Chloride 98 mmol/L (98-107); Estimated Creatinine Clearance 38 ml/min; Glucose 108 mg/dl (70-99); Potassium 3.8 mmol/L (3.5-5.1); Sodium 137 mmol/L (135-145); eGFR > 60.00
--- NOTE | 2025-06-14 08:02 | W.PN.HOSP.TC ---
Addendum entered and electronically signed by Darya Hernandez MD 06/14/25 15:37:
patient continues to require supplemental O2. O2 off in sleep 2 nights ago with SpO2 in 70's. Titrate to keep SpO2 > 92%
Original Note:
Today's Communication/Plan
-
diuresis
wean O2 as able
appreciate Cardiology
Assessment / Plan
Assessment / Plan
89 y/o female with hx HFpEF, CAD s/p PCI, pericardial effusion s/p pericardiocentesis 2018 presents to the ER with progressive shortness of breath, weight gain and swelling. Patient had an echo as outpatient a week ago which showed pericardial
effusion.
EKG-atrial fibrillation rate [address]-T changes anterolateral leads
ECHO-LV size and systolic function without regional wall motion abnormalities. EF 55 to 60%. RV mildly dilated. Severe biatrial enlargement. Severe TR with severe pulmonary hypertension. PA pressure of 63 mmHg. Moderate to large pericardial
effusion. No change compared to June 01, 2025
Chest n-[id number] consistent with CHF
CT Chest 06/10/25
IMPRESSION:
Large pericardial effusion, increased.
Small bilateral pleural effusions, right greater than left, new.
No evidence of pneumonia. Emphysematous lung changes.
Chronic parenchymal scarring with traction bronchiectasis in the right middle lobe.
Stable mediastinal adenopathy.
Possible elevated right-sided heart pressure versus tricuspid insufficiency/regurgitation.
Heart Failure Preserved EF, Acute exacerbation
Moderate to Large Pericardial Effusion
Acute hypoxic respiratory insufficiency
-patient presented with shortness of breath and weight gain
-No tamponade, effustion stable compared to echo06/01/25 (moderate to large)
-appreciate Cardiology
-continue IV Lasix 40 BID
-new start Spironolactone
-Stop antibiotics as this looks more like CHF
-plan is to see if symptoms improve with diuresis, if remains symptomatic plan is for pericardiocentesis
-Eliquis on hold, IV Heparin gtt started
# Hypertension-new start Spironolactone, continue Losartan, Doxazosin
-CRIMINOLOGY PROFESSOR Atenolol on hold for bradycardia
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
# Mild thrombocytopenia
# Coronary disease with history of stents in 2003 and 2020
# Paroxysmal atrial fibrillation-continue atenolol, Hold Eliquis; IV Heparin gtt
# Valvular heart disease with severe TR
# Hyperlipidemia-atorvastatin
# Pulmonary hypertension
# COPD/centrilobular emphysema
# Peripheral artery disease with history of right iliac stent 2004
Right carotid artery stenting 2004
# History of nephrolithiasis
# Diverticulosis
# DVT Prophylaxis- IV Heparin gtt
# CODE Status -Full
Discussed with nursing
Anticipated Discharge: 24 - 48 hours
Subjective/Interval History
-
Date of Service: June 14, 2025
breathing felt better this morning
no wheezing
Objective Data
-
Labs:
Laboratory Results
06/14/25
03:13
WBC 6.0
Hgb 9.6 L
Hct 30.4 L
Plt Count 127 L
APTT 94.0 H
Sodium 137
Potassium 3.8
Chloride 98
Carbon Dioxide 35 H
BUN 28 H
Creatinine 0.8
Glucose 108 H
Calcium 9.1
Vital Signs:
Vital Signs
Temp Pulse Resp BP Pulse Ox
98.5 F 76 18 101/46 100
06/14/25 07:47 06/14/25 07:47 06/14/25 07:47 06/14/25 03:08 06/14/25 07:47
I&O
06/13/25 06/14/25 06/15/25
06:59 06:59 06:59
Intake Total 348 / 348
Output Total 200 / 200 1650 / 1650
Balance -200 / -200 -1302 / -1302
Review of Systems
-
History Source: Patient
All other systems: Reviewed and negative
Physical Exam
-
General: No Apparent Distress and Conversant
HEENT: PERRLA
Respiratory: Clear to Auscultation; Negative Wheezes
Cardiac: S1/S2 and JVD
GI: Soft and Nontender
Musculoskeletal: No Edema
Skin: Warm and Dry; Negative Rash
Neuro: AO x 3
Psych: Calm
Data Reviewed
-
Diagnostic Radiology: Report Reviewed by me
Labs: Labs Reviewed by me
[2025-06-14] MEDS: COZAAR 50 MG PO (08:03)
[2025-06-14] MEDS: FOLVITE 1 MG PO (08:03)
[2025-06-14] MEDS: LASIX 40 MG IV ×2 (08:03→16:01)
[2025-06-14] MEDS: VITAMIN B-12 1000 MCG PO (08:03)
[2025-06-14] MEDS: ALDACTONE 25 MG PO (08:03)
[2025-06-14] MEDS: DESENEX/MITRAZOL/ZEASORB 1 APPLIC TOPICAL ×2 (08:04→20:54)
[2025-06-14] MEDS: VITAMIN D3 (cholecalciferol) 25 MCG PO (08:04)
[2025-06-14] MEDS: THERAGRAN 1 TABLET PO (08:04)
[2025-06-14] MEDS: KCL 40 MEQ PO (08:14)
--- NOTE | 2025-06-14 09:43 | W.PN.CARDCBS ---
Addendum entered and electronically signed by Derik Porras MD 06/14/25 12:31:
I saw and examined the patient.
The Investor Relations Specialist's note was reviewed and I agree with the note.
Comment:
GEN: No distress, awake, Ox3
HEENT: supple, anicteric, mmm
LUNGS: scatt rhonchi
CV: Reg, S1/S2, 1/6 syst LSB, S4+
ABD: soft, BS+, NT/ND
EXT: No edema
NEURO: Gross non-focal
SKIN: No rash
Plan:
Clinically she is improving. Will continue IV Lasix for another 24 hours.
We will repeat echo in a.m. to reevaluate her pericardial effusion and will discuss case with interventional cardiology.
Continue IV heparin for now until decision made regarding effusion.
Wean oxygen and increase activity.
Continue Cozaar and spironolactone.
Original Note:
Today's Communication / Plan
-
continue IV lasix
wean supp O2 as able. assess for home O2 prior to DC
consider transition IV heparin back to eliquis
discuss timing of repeat echo to reassess pericardial effusion
ambulate/PT
cost assess SGLT2 antagonist
Impression / Plan
-
PCP: Dr. Peterson
Sales And Business Development Manager: Dr. Nandini Churchill
Impression:
Presented with SOB and recurrent pericardial effusion 06/08/2025
Recent admission for acute HF and AECOPD 03/19/2025 until 03/26/2025
Acute on chronic HFpEF
Recurrent moderate to large pericardial effusion
h/o pericardial effusion with pericardiocentesis 2018
s/p successful pericardiocentesis with 560 mL of blood-tinged fluid removed 11/27/2018
Managed as pericarditis with a regimen of ibuprofen
Pulmonary HTN, severe by echo 03/21/25
Permanent atrial fibrillation
Chronic Eliquis AC
CAD
LAD PCI in 2003
HTN
HLD
COPD
PAD w/ prior L iliac stent 2004
Carotid stenosis s/p MARGARITA BMS 2004
h/o tobacco abuse
Echo 03/19/2023: EF 59%, mild MR, moderate to severe TR, estimated PAP 84 mmHg
Echo 03/31/2024: EF 62%, moderate TR, estimated PAP 51 mmHg, small pericardial effusion
Echo 03/21/2025: EF 55-60%, mild MR, severe TR, estimated PAP 83 mmHg consistent with severe pulmonary HTN, small to moderate pericardial effusion
Echo 06/01/2025: Normal LV size and function, RV size and function within normal limits, severe TR with PAP 80 mmHg, moderate to large pericardial effusion without evidence of tamponade compared to echo 03/21/2025 the effusion then was small to
moderate and is now larger in size
Echo 06/08/2025: Normal LV size and function at 55 to 60%, RV mildly dilated with normal RV systolic function, severe TR with PAP 63 mmHg, moderate to large pericardial effusion without evidence of tamponade in the setting of PHTN, compared to echo
06/01/2025 there is no significant change
Plan:
- She reports her breathing is improving and weight is down 4 pounds if accurate. She believes she is back to her dry weight. Creatinine stable. Continue IV Lasix
- Wean supplemental oxygen as able
- Will discuss timing of repeat echo to reassess pericardial effusion. Given her severe pulmonary hypertension, continuing to attempt to avoid intervention if possible as felt to be high risk for pericardiocentesis
- Currently remains on IV heparin, consider transitioning back to Eliquis as no plan for procedures at this time
- will discuss timing of repeat echo and arrange prior to DC
- Atenolol stopped this admission due to bradycardia. She has permanent atrial fibrillation. Heart rates remain controlled off beta-meghann on review of telemetry overnight
- Continue Cozaar, Aldactone, Cardura
- Consideration for SGLT2 antagonist, will have CM assess cost to patient
- PT eval. home O2 eval prior to DC
HPI: Patient came to the emergency room today with increased SOB and an abnormal echocardiogram that showed recurrent pericardial effusion, cardiology is now consulted. Patient was just admitted with AECOPD and acute on chronic HFpEF from 03/19/2025
until 03/26/2025. Patient had echocardiogram on 03/21/2025 that showed a small to moderate pericardial effusion and then had a repeat echo on 06/01/2025 that showed the effusion to be larger in size compared to previous. When the cardiology office
called the patient she reported increased BERUMEN and was referred to the ER. Patient has chronic LE edema with a left worse than right and increased BERUMEN, but denies orthopnea or bloating. Patient was hypoxic upon arrival to the ER and was placed on
oxygen via NC and has symptomatically improved. Patient took her usual dose of Lasix 40 mg a.m. and 20 mg p.m. PO daily at home this morning. Patient also had a pulling sensation in her chest this morning that was worse when laying down and then
seem to be better when she stood up and has not recurred during the day.
Progress Note - Sales And Business Development Manager
Subjective
Date of Service: June 14, 2025
no CP. reports breathing improving. states urination beginning to slow down
Objective
Labs:
06/14/25 03:13
06/14/25 03:13
Labs
Hgb 9.6 g/dL (12.0-16.0) L 06/14/25 03:13
Hct 30.4 % (37.0-47.0) L 06/14/25 03:13
Plt Count 127 10^3/uL (130-400) L 06/14/25 03:13
PT 15.8 Sec (11.4-14.6) H 06/09/25 03:36
INR 1.20 06/09/25 03:36
APTT 94.0 Sec (23.4-35.0) H 06/14/25 03:13
Sodium 137 mmol/L (135-145) 06/14/25 03:13
Potassium 3.8 mmol/L (3.5-5.1) 06/14/25 03:13
BUN 28 mg/dl (7-17) H 06/14/25 03:13
Creatinine 0.8 mg/dL (0.6-1.0) 06/14/25 03:13
Glucose 108 mg/dl (70-99) H 06/14/25 03:13
Vital Signs and I&O:
Vital Signs
Temp Pulse Resp BP Pulse Ox
98.5 F 81 18 137/71 100
06/14/25 07:47 06/14/25 08:03 06/14/25 07:47 06/14/25 08:03 06/14/25 07:47
Vital Signs
Temp Pulse Resp BP Pulse Ox
98.5 F 81 18 137/71 100
06/14/25 07:47 06/14/25 08:03 06/14/25 07:47 06/14/25 08:03 06/14/25 07:47
Intake & Output
06/12/25 06/13/25 06/14/25 06/15/25
07:59 07:59 07:59 07:59
Intake Total 588 / 588 348 / 348
Output Total 1300 / 1300 950 / 950 900 / 900
Balance -712 / -712 -950 / -950 -552 / -552
Physical Exam
Physical Exam
GEN: No distress, awake, alert, oriented x3. on supp O2
HEENT: supple, anicteric, mmm, eomi
LUNGS: CTA B/L, no wheezes/rales
CV: Irreg, S1/S2, no murmur
ABD: soft, BS+, NT/ND
EXT: No cyanosis, clubbing, edema
NEURO: Gross non-focal
SKIN: Warm, pink, dry. No rash
--- NOTE | 2025-06-14 15:00 | CM ---
priced maria guadalupe with pts [facility]- her copay is $47/month
--- NOTE | 2025-06-14 16:00 | CON.PUL ---
Consultation
Consultation Request
Date/Time Consultation Requested: 06/14/2025
Date/Time Consultation Performed: 06/14/2024
Requesting Provider: Dr. Hernandez
Performing Provider: Dr. López Warren
Reason for Consultation: Pulmonary hypertension/COPD
Medical History
-
Chief Complaint: SOB
History of Present Illness:
89-year-old female for tobacco smoker with a past medical history of pulmonary hypertension, severe TR, COPD, permanent A-fib on Eliquis, interstitial lung abnormalities, bronchiectasis, CAD s/p LEELEE to LAD + diagonal branch, carotid artery stenosis
s/p BMS to right ICA, PVD s/p iliac stent, hypertension, hyperlipidemia, history of pericardial effusion s/p pericardiocentesis requiring colchicine, kidney stones, diverticulitis, chronic HFpEF, history of sinusitis and history of COVID-19
(07/2022). In early March admitted to the hospital with acute exacerbation of COPD and heart failure exacerbation.
After last admission started on dual bronchodilator therapy-she did not restarted/continue due to cost.
Readmitted 06/08/2025 complaining of shortness of breath.
-
Apparently she was short of breath over 1 week prior to admission.
Previous to admission had echocardiogram that showed pericardial effusion stable comparing to June 01, 2025.
Cardiology seen the patient and diagnosed with acute on chronic heart failure with preserved ejection fraction.
Diuretics started.
PMHx: Pulmonary hypertension, severe TR, A-fib on Eliquis, former tobacco smoker, bronchiectasis, interstitial lung abnormalities seen on imaging, family history of lung cancer, CAD s/p LEELEE to LAD + diagonal, carotid artery stenosis s/p bare-metal
stent to right ICA, PAD s/p iliac stent, hyperlipidemia, hypertension, history of pericardial effusion s/p pericardiocentesis requiring colchicine, history of kidney stones, history of diverticulitis (12/2019), left hip OA s/p steroid injection,
COPD, chronic HFpEF, history of COVID-19 (07/2022), history of sinusitis
PSHx: Hysterectomy, nasal polyp removal, cataract surgery, ureteral stent, right TKA, right shoulder replacement
Past Medical History
Past Medical History: Other (Above as per HPI)
Past Surgical History: Other (Above as per HPI)
Social History
Tobacco: Former Smoker (Former tobacco smoker with 64-ypsb-pfcm history, quit smoking in her late 40s)
Alcohol: None
Drug: None
Family History
Family History: CAD (Paternal grandfather + maternal grandfather; mother from heart attack at age 53), Cancer (Brother: Lung cancer), Hypertension (Mother) and Other (Father: Stroke, from heart failure at age 73; mother: Cardiac embolus)
Allergies / Home Medications
Allergies
Allergy/AdvReac Type Severity Reaction Status Date / Time
No Known Allergies Allergy Verified 06/08/25 10:48
Home Medications
�Medication �Instructions �Recorded �Confirmed �Last Taken �Type
atorvastatin 40 mg tablet 40 mg PO HS High cholesterol 11/27/18 06/08/25 04/13/23 22:00 History
folic acid 1 mg tablet 1 mg PO DAILY Supplement 11/27/18 06/08/25 04/13/23 History
doxylamine succinate 25 mg tablet 12.5 mg PO HS PRN Sleep 09/19/20 06/08/25 11/26/22 History
(Unisom (doxylamine))
apixaban 5 mg tablet (Eliquis) 5 mg PO BID Blood clot 03/12/21 06/08/25 06/07/25 07:00 History
prevention/tx
acetaminophen 500 mg tablet 1,000 mg PO HS Pain 11/27/22 06/08/25 11/26/22 History
(Tylenol Extra Strength)
aspirin 81 mg tablet,delayed 81 mg PO DAILY Anti-inflammatory 11/27/22 06/08/25 04/14/23 07:00 History
release
cholecalciferol (vitamin D3) 25 25 mcg PO DAILY Supplement 11/27/22 06/08/25 04/13/23 History
mcg (1,000 unit) tablet (Vitamin
D3)
cyanocobalamin (vitamin B-12) 1,000 mcg PO DAILY Supplement 11/27/22 06/08/25 04/13/23 History
1,000 mcg tablet
doxazosin 4 mg tablet 4 mg PO HS Urinary issue 11/27/22 06/08/25 04/13/23 22:00 History
therapeutic multivitamin 1 tab PO DAILY Supplement 11/27/22 06/08/25 04/13/23 History
furosemide 20 mg tablet 40 mg PO DAILY Heart Failure 03/19/25 06/08/25 Unknown History
sodium chloride 0.65 % nasal spray 2 spray intranasal QIDPRN 03/20/25 06/08/25 Unknown History
aerosol (Saline Nasal) Congestion
albuterol sulfate 90 mcg/actuation 2 puff inhalation Q6H PRN 06/08/25 06/08/25 Unknown History
aerosol inhaler shortness of breath
potassium chloride 10 mEq 10 meq PO BID@0800,1600 Supplement 06/08/25 06/08/25 Unknown History
tablet,extended release(part/cryst)
atenolol 50 mg tablet 50 mg PO HS AFIB 06/09/25 06/08/25 Unknown History
furosemide 20 mg tablet 20 mg PO DAILY@1600 Heart Failure 06/09/25 06/08/25 Unknown History
losartan 100 mg tablet (Cozaar) 100 mg PO DAILY Heart 06/09/25 06/08/25 Unknown History
Disease/Condition
Review of Systems
Vitals / Labs / Diagnostic Testing
Vital Signs
Temp Pulse Resp BP Pulse Ox
97.9 F 79 15 145/67 98
06/14/25 15:03 06/14/25 15:03 06/14/25 15:03 06/14/25 11:07 06/14/25 15:03
Lab Data
06/14/25 03:13
06/14/25 03:13
Laboratory Results
06/14/25
03:13
APTT 94.0 H
Diagnostic Testing:
Assessment
-
Assessment: 89-year-old female for tobacco smoker with a past medical history of pulmonary hypertension, severe TR, COPD, permanent A-fib on Eliquis, interstitial lung abnormalities, bronchiectasis, CAD s/p LEELEE to LAD + diagonal branch, carotid
artery stenosis s/p BMS to right ICA, PVD s/p iliac stent, hypertension, hyperlipidemia, history of pericardial effusion s/p pericardiocentesis requiring colchicine, kidney stones, diverticulitis, chronic HFpEF, history of sinusitis and history of
COVID-19 (07/2022) who presents with SOB. Patient found to be on heart failure, persistent moderate to large pericardial effusion. Severe pulmonary hypertension which is not new likely related to cardiac issues based on previous right heart
catheterization.
We were consulted 06/14/2025 comment on COPD management.
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
stenosis s/p bare-metal stent to right ICA, PAD s/p iliac stent, hyperlipidemia, hypertension, history of pericardial effusion s/p pericardiocentesis requiring colchicine 2018, history of kidney stones, history of diverticulitis (12/2019), left hip
OA s/p steroid injection, COPD, chronic HFpEF, history of COVID-19 (07/2022), history of sinusitis
Patient follows up In our office with Dr. Haines- Last time seen 04/2025 - COPD/Chronic bronchitis--back then without SOB.
Spirometry 04/20/2025: FEV1 1.14 L - 78%-FEV1/ FVC ratio 64%.
Quit smoking 40+ years ago. 91-tawq-mtog history.
Impression:
# Exertional dyspnea
# Hypoxemic respiratory insufficiency-in the setting of acute on chronic heart failure with preserved ejection fraction/pulmonary hypertension/persistent pericardial effusion.
proBNP in the 1999'
CT chest 06/10/2025: Moderate to large pericardial effusion. Bilateral pleural effusion.
Chronic right middle lobe traction bronchiectasis with likely postinflammatory scarring.
# COPD/mild emphysema-moderate airflow obstruction-nonacute exacerbation-not on maintenance inhalers.
-
#Pulmonary hypertension (prior RHC on 04/15/2023 showed PAP: 62/27 with PCWP 30 and TP with PVR 3.3 Dumont units, consistent with left-sided heart failure)
#Valvular heart disease with severe TR
#Interstitial lung abnormalities seen on imaging/bronchiectasis-postinflammatory scarring stable.
Plan/recommendations
-
Shortness of breath explained by pericardial effusion and acute on chronic heart failure with preserved ejection fraction based on clinical presentation, chemical biomarkers and imaging.
-
Cardiology correspondence reviewed.
For now holding on pericardiocentesis-persistent moderate to large pericardial effusion noted on imaging and repeating echocardiogram without evidence of tamponade.
Anticoagulation on hold
On heparin drip will continue
IV diuretics
Cardiac management
-
From the COPD perspective: No evidence for acute exacerbation.
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 Will optimize management.
Latest pulmonary function testing demonstrated moderate airflow obstruction-up until recently she has not been on maintenance inhalers.
She was recommended during last admission in March where she was admitted for exacerbation to start dual bronchodilator therapy but they were too costly and never continued.
-
Start dual bronchodilator therapy: Spiriva and Striverdi while in the hospital-upon discharge can be transition to ANORO.
Will try to limit rapid acting beta agonist.
No indication for systemic corticosteroids
-
Continue oxygen supplementation at 2 L and at bedtime. Avoid hypoxemia in the setting of pulmonary hypertension.
Home oxygen assessment prior to discharge.
Previously not on oxygen therapy.
-
Dr. Warren updated daughter at the bedside.
-
Patient will need short-term follow-up in our office after discharge - with .
Data:
-
CT Chest 06/10/25
IMPRESSION:
Large pericardial effusion, increased.
Small bilateral pleural effusions, right greater than left, new.
No evidence of pneumonia. Emphysematous lung changes.
Chronic parenchymal scarring with traction bronchiectasis in the right middle lobe.
Stable mediastinal adenopathy.
Possible elevated right-sided heart pressure versus tricuspid insufficiency/regurgitation.
-
CXR 03/19/2025:
Small bilateral pleural effusions.
Significant cardiomegaly with cephalized vascular flow. No evidence for significant interstitial edema radiographically.
Transthoracic echocardiogram 03/21/2025:
1. Left ventricle: Normal size and function with an estimated ejection
fraction of 55-60% by visual estimation. Indeterminate diastolic function.
2. Right ventricle: Normal
3. Atria: Severe left atrial dilation and severe right atrial dilation
4. Mitral valve: Mildly thickened with mild mitral regurgitation
5. Aortic valve: Trileaflet. No aortic stenosis or aortic insufficiency
6. Tricuspid valve: Severe tricuspid regurgitation with estimated pulmonary
artery systolic pressures of 83 mmHg consistent with severe pulmonary
hypertension
7. When compared to the most recent echocardiogram from 03/31/2024, the
estimated pulmonary artery systolic pressures have increased from 51 to 83 mmHg
and the severity of tricuspid regurgitation is increased from moderate to
severe.
--- NOTE | 2025-06-14 16:44 | CM ---
roxy Lee pt has [facility]- her copay is $15/month- she is agreeable.
[2025-06-14] MEDS: STRIVERDI RESPIMAT INH (17:23)
[2025-06-14] MEDS: SPIRIVA RESPIMAT 2.5 MCG INH (17:23)
--- NOTE | 2025-06-14 19:26 | PTCARENOTE ---
~[id number]: Handoff report received from ned RN. Pt AOx4, Afib on tele 80s, SBP 130s, 3L NC satting 96%, O2 weaned to 2L NC at this time. Pt denies pain. Ax1 to bathroom. Encouragement provided to ambulate to bathroom instead of using
purewick for hygiene and ambulation purposes. Education provided for IS, patient demonstrated appropriately and gets up to about 500 on IS. All needs met at this time, call bullock within reach.
~[id number]: Patient resting in room. Ax1 to bathroom/ OOB. I/Os chared. Pt denies pain at this time. Patient tolerateing 2L NC satting 93%. All needs met at this time, call bullock within reach.
~[id number]: Patient in room, Ax1 to bathroom. Heparin gtt infusing at 900. Pt denies pain at this time. Patient was seen by pulmonology and he spoke to family as well. All needs met at this time, call bullock within reach. Handoff report given to
ned ANSARI.
[2025-06-14] MEDS: CARDURA PO (22:35)
[2025-06-14] MEDS: LIPITOR PO (22:35)
[2025-06-14] MEDS: CARDURA 4 MG PO (22:44)
[2025-06-14] MEDS: LIPITOR 40 MG PO (22:44)
--- NOTE | 2025-06-14 23:44 | PTCARENOTE ---
Rec'd pt at change of shift. Pt AAO*3, VSS w/ 2L o2 applied, and Afib on TELE monitor 70-80's HR. Pt denies any pain or discomfort. PT provided education on medications administered and intended purpose. Heparin infusing as ordered. Pt now
resting with call bullock in reach. See MAR and flowchart for full pt care and assessment.
[2025-06-15] VITALS (7 sets, daily range): BP systolic 126–136; BP diastolic 57–78; BMI 26.1
[2025-06-15] MEDS: HEPARIN 25000 UNITS/250 ML IV (04:50)
[2025-06-15 05:36] LABS: Hematocrit 33.5 % (37.0-47.0); Hemoglobin 10.3 g/dL (12.0-16.0); Mean Corp Hgb Conc. 30.7 g/dL (33.0-37.0); Mean Corpuscular Volume 95.4 fL (81.0-99.0); Platelet Count 130 10^3/uL (130-400); Red Cell Dist. Width 15.3 % (11.5-14.5)
[2025-06-15 05:44] LABS: APTT 52.3 Sec (23.4-35.0)
[2025-06-15 05:53] LABS: Blood Urea Nitrogen 33 mg/dl (7-17); Calcium 9.9 mg/dl (8.4-10.2); Carbon Dioxide 36 mmol/L (22-30); Chloride 97 mmol/L (98-107); Estimated Creatinine Clearance 44 ml/min; Glucose 98 mg/dl (70-99); Potassium 4.3 mmol/L (3.5-5.1); Sodium 138 mmol/L (135-145); eGFR > 60.00
[2025-06-15] MEDS: SPIRIVA RESPIMAT 2.5 MCG 2 PUFF INH (07:17)
[2025-06-15] MEDS: STRIVERDI RESPIMAT 2 PUFF INH (07:18)
--- NOTE | 2025-06-15 08:04 | W.PN.HOSP.TC ---
Today's Communication/Plan
-
repeat echo today
appreciate consultants
Assessment / Plan
Assessment / Plan
89 y/o female with hx HFpEF, CAD s/p PCI, pericardial effusion s/p pericardiocentesis 2019 presents to the ER with progressive shortness of breath, weight gain and swelling. Patient had an echo as outpatient a week ago which showed pericardial
effusion.
EKG-atrial fibrillation rate [address]-T changes anterolateral leads
ECHO-LV size and systolic function without regional wall motion abnormalities. EF 55 to 60%. RV mildly dilated. Severe biatrial enlargement. Severe TR with severe pulmonary hypertension. PA pressure of 63 mmHg. Moderate to large pericardial
effusion. No change compared to June 01, 2025
Chest [id number] consistent with CHF
CT Chest 06/10/25
IMPRESSION:
Large pericardial effusion, increased.
Small bilateral pleural effusions, right greater than left, new.
No evidence of pneumonia. Emphysematous lung changes.
Chronic parenchymal scarring with traction bronchiectasis in the right middle lobe.
Stable mediastinal adenopathy.
Possible elevated right-sided heart pressure versus tricuspid insufficiency/regurgitation.
Heart Failure Preserved EF, Acute exacerbation
Moderate to Large Pericardial Effusion
Acute hypoxic respiratory insufficiency
-patient presented with shortness of breath and weight gain
-No tamponade, effustion stable compared to echo 06/01/25 (moderate to large)
-appreciate Cardiology
-continue IV Lasix 40 BID
-new start Spironolactone
-plan is to see if symptoms improve with diuresis, if remains symptomatic plan is for pericardiocentesis. *repeat echo today to assess effusion
-Eliquis on hold, IV Heparin gtt started
# Hypertension-new start Spironolactone, continue Losartan, Doxazosin
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
# Mild thrombocytopenia
# Coronary disease with history of stents in 2003 and 2020
# Paroxysmal atrial fibrillation-continue atenolol, Hold Eliquis; IV Heparin gtt
# Valvular heart disease with severe TR
# Hyperlipidemia-atorvastatin
# Pulmonary hypertension
# COPD/centrilobular emphysema
-appreciate Pulmonary consult - will re-prescribe Anoro on DC
# Peripheral artery disease with history of right iliac stent 2004
Right carotid artery stenting 2004
# History of nephrolithiasis
# Diverticulosis
# DVT Prophylaxis- IV Heparin gtt
# CODE Status -Full
Discussed with nursing
Anticipated Discharge: 24 - 48 hours
Subjective/Interval History
-
Date of Service: June 15, 2025
feeling okay this morning, awaiting echo
Objective Data
-
Labs:
Laboratory Results
06/15/25 06/15/25 06/15/25
05:06 05:07 12:00
WBC 6.6
Hgb 10.3 L
Hct 33.5 L
Plt Count 130
APTT 52.3 H Pending
Sodium 138
Potassium 4.3
Chloride 97 L
Carbon Dioxide 36 H
BUN 33 H
Creatinine 0.7
Glucose 98
Calcium 9.9
Vital Signs:
Vital Signs
Temp Pulse Resp BP Pulse Ox
98.9 F 75 14 126/57 90
06/15/25 04:45 06/15/25 07:24 06/15/25 07:24 06/15/25 04:45 06/15/25 07:24
I&O
06/14/25 06/15/25 06/16/25
06:59 06:59 06:59
Intake Total 348 / 348 236 / 236
Output Total 1650 / 1650 1050 / 1050
Balance -1302 / -1302 -814 / -814
Review of Systems
-
History Source: Patient
All other systems: Reviewed and negative
Physical Exam
-
General: No Apparent Distress
HEENT: PERRLA
Respiratory: Clear to Auscultation; Negative Wheezes
Cardiac: Regular Rhythm and S1/S2
GI: Soft and Nontender
Musculoskeletal: No Edema
Skin: Warm and Dry; Negative Rash
Neuro: AO x 3
Psych: Calm
Data Reviewed
-
Diagnostic Radiology: Report Reviewed by me
Labs: Labs Reviewed by me
[2025-06-15] MEDS: THERAGRAN 1 TABLET PO (08:17)
[2025-06-15] MEDS: LASIX 40 MG IV (08:18)
[2025-06-15] MEDS: VITAMIN D3 (cholecalciferol) 25 MCG PO (08:18)
[2025-06-15] MEDS: FOLVITE 1 MG PO (08:18)
[2025-06-15] MEDS: COZAAR 50 MG PO (08:18)
[2025-06-15] MEDS: VITAMIN B-12 1000 MCG PO (08:18)
--- NOTE | 2025-06-15 09:22 | CM ---
Pricing on Anoro Inhaler through the patient's [facility] is $47. Anoro is not covered under pace but her prescription plan.
[2025-06-15] MEDS: DESENEX/MITRAZOL/ZEASORB 1 APPLIC TOPICAL ×2 (09:28→20:11)
[2025-06-15] MEDS: ALDACTONE 25 MG PO (09:28)
--- NOTE | 2025-06-15 11:34 | W.PN.CARDCBS ---
Addendum entered and electronically signed by Derik Porras MD 06/15/25 18:14:
I saw and examined the patient.
The Bookbinder Chief's note was reviewed and I agree with the note.
Comment:
GEN: No distress, awake, Ox3
HEENT: supple, anicteric, mmm
LUNGS: scatt rhonchi
CV: Irreg, S1/S2, 1/6 syst LSB, no gallop
ABD: soft, BS+, NT/ND
EXT: No edema
NEURO: Gross non-focal
SKIN: No rash
Plan:
Repeat echocardiogram today still with large pericardial effusion. Plan will be for increasing Lasix to 60 mg IV twice daily.
Continue IV heparin. Will attempt to unload ventricle further.
Will discuss case with interventional cardiology and primary passementerie worker to make final decision regarding pericardiocentesis or not.
Hemoglobin stable at 10.3 and platelet count stable at 130,000.
Creat 0.7
Original Note:
Today's Communication / Plan
-
Continue IV Lasix, consider increasing dose to 60 p.o. twice daily
Continue IV heparin
As remains with significant pericardial effusion by echo this morning, tentatively planning for pericardiocentesis on Friday
Impression / Plan
-
PCP: Dr. Peterson
Etiquette Teacher: Dr. Nandini Churchill
Impression:
Presented with SOB and recurrent pericardial effusion 06/08/2025
Recent admission for acute HF and AECOPD 03/19/2025 until 03/26/2025
Acute on chronic HFpEF
Recurrent moderate to large pericardial effusion
h/o pericardial effusion with pericardiocentesis 2018
s/p successful pericardiocentesis with 560 mL of blood-tinged fluid removed 11/27/2018
Managed as pericarditis with a regimen of ibuprofen
Pulmonary HTN, severe by echo 03/21/25
Permanent atrial fibrillation
Chronic Eliquis AC
CAD
LAD PCI in 2003
HTN
HLD
COPD
PAD w/ prior L iliac stent 2004
Carotid stenosis s/p MARGARITA BMS 2004
h/o tobacco abuse
Echo 03/19/2023: EF 59%, mild MR, moderate to severe TR, estimated PAP 84 mmHg
Echo 03/31/2024: EF 62%, moderate TR, estimated PAP 51 mmHg, small pericardial effusion
Echo 03/21/2025: EF 55-60%, mild MR, severe TR, estimated PAP 83 mmHg consistent with severe pulmonary HTN, small to moderate pericardial effusion
Echo 06/01/2025: Normal LV size and function, RV size and function within normal limits, severe TR with PAP 80 mmHg, moderate to large pericardial effusion without evidence of tamponade compared to echo 03/21/2025 the effusion then was small to
moderate and is now larger in size
Echo 06/08/2025: Normal LV size and function at 55 to 60%, RV mildly dilated with normal RV systolic function, severe TR with PAP 63 mmHg, moderate to large pericardial effusion without evidence of tamponade in the setting of PHTN, compared to echo
06/01/2025 there is no significant change
Plan:
- Patient reports breathing is stable. Weight stable if accurate overnight. She remains with crackles on examination, would consider increasing IV Lasix dose to 60 mg twice daily. Creatinine stable
- Wean supplemental O2 as able. Appreciate pulmonary input
- Difficult situation as remains with large pericardial effusion without clear evidence of tamponade by echo 06/15, and also with severe pulmonary hypertension who class II/III
- Multiple interdisciplinary discussions ongoing regarding treatment. Concern if patient is not tapped that fluid will continue to accumulate and patient will be high risk for recurrent admission. Will discuss with interventional cardiology,
however tentatively planned for Friday pericardiocentesis. May attempt to drain small amount of fluid rather than whole effusion in setting of severe pulmonary hypertension
- Continue IV heparin at present. On Eliquis as outpatient
- Remains in rate controlled A-fib (permanent) on review of telemetry. Outpatient atenolol on hold at present due to bradycardia
- Continue Cozaar, Aldactone, Cardura
- Consideration for SGLT2 antagonist, will have CM assess cost to patient
- d/w patient and family at bedside. all questions answered
HPI: Patient came to the emergency room today with increased SOB and an abnormal echocardiogram that showed recurrent pericardial effusion, cardiology is now consulted. Patient was just admitted with AECOPD and acute on chronic HFpEF from 03/19/2025
until 03/26/2025. Patient had echocardiogram on 03/21/2025 that showed a small to moderate pericardial effusion and then had a repeat echo on 06/01/2025 that showed the effusion to be larger in size compared to previous. When the cardiology office
called the patient she reported increased BERUMEN and was referred to the ER. Patient has chronic LE edema with a left worse than right and increased BERUMEN, but denies orthopnea or bloating. Patient was hypoxic upon arrival to the ER and was placed on
oxygen via NC and has symptomatically improved. Patient took her usual dose of Lasix 40 mg a.m. and 20 mg p.m. PO daily at home this morning. Patient also had a pulling sensation in her chest this morning that was worse when laying down and then
seem to be better when she stood up and has not recurred during the day.
Progress Note - Etiquette Teacher
Subjective
Date of Service: June 15, 2025
Denies chest pain. Denies worsening of shortness of breath. Reports good output with diuresis
Objective
Labs:
06/15/25 05:06
06/15/25 05:06
Labs
Hgb 10.3 g/dL (12.0-16.0) L 06/15/25 05:06
Hct 33.5 % (37.0-47.0) L 06/15/25 05:06
Plt Count 130 10^3/uL (130-400) 06/15/25 05:06
PT 15.8 Sec (11.4-14.6) H 06/09/25 03:36
INR 1.20 06/09/25 03:36
APTT 52.3 Sec (23.4-35.0) H 06/15/25 05:07
Sodium 138 mmol/L (135-145) 06/15/25 05:06
Potassium 4.3 mmol/L (3.5-5.1) 06/15/25 05:06
BUN 33 mg/dl (7-17) H 06/15/25 05:06
Creatinine 0.7 mg/dL (0.6-1.0) 06/15/25 05:06
Glucose 98 mg/dl (70-99) 06/15/25 05:06
Vital Signs and I&O:
Vital Signs
Temp Pulse Resp BP Pulse Ox
97.9 F 88 15 132/60 87
06/15/25 08:08 06/15/25 08:09 06/15/25 08:08 06/15/25 08:09 06/15/25 08:09
Vital Signs
Temp Pulse Resp BP Pulse Ox
97.9 F 88 15 132/60 87
06/15/25 08:08 06/15/25 08:09 06/15/25 08:08 06/15/25 08:09 06/15/25 08:09
Intake & Output
06/13/25 06/14/25 06/15/25 06/16/25
07:59 07:59 07:59 07:59
Intake Total 348 / 348 236 / 236
Output Total 950 / 950 900 / 900 1050 / 1050
Balance -950 / -950 -552 / -552 -814 / -814
Physical Exam
Physical Exam
GEN: No distress, awake, alert, oriented x3. on supp O2
HEENT: supple, anicteric, mmm, eomi
LUNGS: Crackles at B/L bases, no wheezes/rales
CV: Irreg, S1/S2, no murmur
ABD: soft, BS+, NT/ND
EXT: No cyanosis, clubbing, edema
NEURO: Gross non-focal
SKIN: Warm, pink, dry. No rash
--- NOTE | 2025-06-15 11:54 | CM ---
Chart reviewed. Patient is independent of ADLS, lives alone in a 2 S[address], 3 FARTUN, 0 DME. Patient currently on O2 2l. Patient will need oxygen trial for Home O2 if we think she will need O2 at discharge. Plan is for the patient to return home. CM
to follow
--- NOTE | 2025-06-15 12:05 | PTCARENOTE ---
Assumed care of the pt @ 0700. Pt is AAOx3 A fib on the monitor Heparin gtt infusing @ 1100 units/HR. on 2 lpm NC sats 90%. Pt is standby assist to bathroom. POC discussed with pt. Call bullock within reach.
[2025-06-15 12:52] LABS: APTT 93.8 Sec (23.4-35.0)
--- NOTE | 2025-06-15 13:06 | W.PN.PUL3 ---
Today's Communication / Plan
-
continue inhalers
IV diuretics
Home oxygen assessment closer to discharge
Tentatively pericardiocentesis Friday
Assessment
-
Assessment: 89-year-old female for tobacco smoker with a past medical history of pulmonary hypertension, severe TR, COPD, permanent A-fib on Eliquis, interstitial lung abnormalities, bronchiectasis, CAD s/p LEELEE to LAD + diagonal branch, carotid
artery stenosis s/p BMS to right ICA, PVD s/p iliac stent, hypertension, hyperlipidemia, history of pericardial effusion s/p pericardiocentesis requiring colchicine, kidney stones, diverticulitis, chronic HFpEF, history of sinusitis and history of
COVID-19 (07/2022) who presents with SOB. Patient found to be on heart failure, persistent moderate to large pericardial effusion. Severe pulmonary hypertension which is not new likely related to cardiac issues based on previous right heart
catheterization.
We were consulted 06/14/2025 comment on COPD management.
Chronic conditions LOOM BLOWER: Pulmonary hypertension, severe TR, A-fib on Eliquis, former tobacco smoker, bronchiectasis, interstitial lung abnormalities seen on imaging, family history of lung cancer, CAD s/p LEELEE to LAD + diagonal, carotid artery
stenosis s/p bare-metal stent to right ICA, PAD s/p iliac stent, hyperlipidemia, hypertension, history of pericardial effusion s/p pericardiocentesis requiring colchicine 2018, history of kidney stones, history of diverticulitis (12/2019), left hip
OA s/p steroid injection, COPD, chronic HFpEF, history of COVID-19 (07/2022), history of sinusitis
Patient follows up In our office with Dr. Haines- Last time seen 04/2025 - COPD/Chronic bronchitis--back then without SOB.
Spirometry 04/20/2025: FEV1 1.14 L - 78%-FEV1/ FVC ratio 64%.
Quit smoking 40+ years ago. 10-plkc-fdbn history.
Impression:
# Exertional dyspnea
# Hypoxemic respiratory insufficiency-in the setting of acute on chronic heart failure with preserved ejection fraction/pulmonary hypertension/persistent pericardial effusion.
proBNP in the [address] chest 06/10/2025: Moderate to large pericardial effusion. Bilateral pleural effusion.
Chronic right middle lobe traction bronchiectasis with likely postinflammatory scarring.
# COPD/mild emphysema-moderate airflow obstruction-nonacute exacerbation-not on maintenance inhalers.
-
#Pulmonary hypertension (prior RHC on 04/15/2023 showed PAP: 62/27 with PCWP 30 and TP with PVR 3.3 Dumont units, consistent with left-sided heart failure)
#Valvular heart disease with severe TR
#Interstitial lung abnormalities seen on imaging/bronchiectasis-postinflammatory scarring stable.
Plan/recommendations
-
Shortness of breath explained by pericardial effusion and acute on chronic heart failure with preserved ejection fraction based on clinical presentation, chemical biomarkers and imaging.
-
Cardiology correspondence reviewed.
For now holding on pericardiocentesis-persistent moderate to large pericardial effusion noted on imaging and repeating echocardiogram without evidence of tamponade.
Anticoagulation on hold
On heparin drip will continue
IV diuretics
Echocardiogram with persistent significant pericardial effusion 06/15/2025.
Plan is for possible pericardiocentesis on Friday.
Cardiac management
-
From the COPD perspective: No evidence for acute exacerbation.
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 Started on dual bronchodilator therapy 06/14/2025.
Latest pulmonary function testing demonstrated moderate airflow obstruction-up until recently she has not been on maintenance inhalers.
She was recommended during last admission in March where she was admitted for exacerbation to start dual bronchodilator therapy but they were too costly and never continued.
-
Continue Spiriva and Striverdi while in the hospital-upon discharge can be transition to ANORO.
Will try to limit rapid acting beta agonist.
No indication for systemic corticosteroids
-
Continue oxygen supplementation at 2 L and at bedtime. Avoid hypoxemia in the setting of pulmonary hypertension.
Home oxygen assessment prior to discharge.
Previously not on oxygen therapy.
-
Dr. Warren updated daughter at the bedside.06/14/2025
-
Patient will need short-term follow-up in our office after discharge - with .
-
we'll continue to follow briefly
Data:
-
CT Chest 06/10/25
IMPRESSION:
Large pericardial effusion, increased.
Small bilateral pleural effusions, right greater than left, new.
No evidence of pneumonia. Emphysematous lung changes.
Chronic parenchymal scarring with traction bronchiectasis in the right middle lobe.
Stable mediastinal adenopathy.
Possible elevated right-sided heart pressure versus tricuspid insufficiency/regurgitation.
-
CXR 03/19/2025:
Small bilateral pleural effusions.
Significant cardiomegaly with cephalized vascular flow. No evidence for significant interstitial edema radiographically.
Transthoracic echocardiogram 03/21/2025:
1. Left ventricle: Normal size and function with an estimated ejection
fraction of 55-60% by visual estimation. Indeterminate diastolic function.
2. Right ventricle: Normal
3. Atria: Severe left atrial dilation and severe right atrial dilation
4. Mitral valve: Mildly thickened with mild mitral regurgitation
5. Aortic valve: Trileaflet. No aortic stenosis or aortic insufficiency
6. Tricuspid valve: Severe tricuspid regurgitation with estimated pulmonary
artery systolic pressures of 83 mmHg consistent with severe pulmonary
hypertension
7. When compared to the most recent echocardiogram from 03/31/2024, the
estimated pulmonary artery systolic pressures have increased from 51 to 83 mmHg
and the severity of tricuspid regurgitation is increased from moderate to
severe.
Subjective Data
-
Date of Service:
Date of Service: June 15, 2025
Chief Complaint: Pulmonary Follow Up (Exertional dyspnea/COPD)
Subjective:
no new complaints.
Tolerated inhalers
Review of Systems
Cardiopulmonary: Dyspnea (stable.), Cough (n) and Sputum Production (n)
Objective Data
Data Reviewed
Vital Signs / I&O / Oxygen:
Vital Signs
Temp Pulse Resp BP Pulse Ox
98.2 F 93 15 130/78 89
06/15/25 11:58 06/15/25 12:00 06/15/25 11:58 06/15/25 12:00 06/15/25 11:58
Intake and Output
06/14/25 06/15/25 06/16/25
06:59 06:59 06:59
Intake Total 348 / 348 236 / 236
Output Total 1650 / 1650 1050 / 1050
Balance -1302 / -1302 -814 / -814
SaO2 89
Nasal Cannula flow liters per 2
minute
Physical Exam
General: Comfortable
HEENT: Normocephalic
Cardiovascular: S1-S2
Respiratory: Clear and Non-Labored Respirations
GI: Soft and Non Distended
Neurology: Awake
Skin: Warm
Labs/Micro/Reports
Lab Data
06/15/25 05:06
06/15/25 05:06
Laboratory Results
06/15/25 06/15/25
05:07 12:27
APTT 52.3 H 93.8 H
[2025-06-15] MEDS: LASIX 60 MG IV (15:15)
[2025-06-15 18:35] LABS: APTT 72.6 Sec (23.4-35.0)
[2025-06-15] MEDS: CARDURA 4 MG PO (21:49)
[2025-06-15] MEDS: LIPITOR 40 MG PO (21:49)
--- NOTE | 2025-06-15 22:06 | PTCARENOTE ---
Received pt at change of shift resting in bed. Afib on the monitor, HR 70's-90's. pt denies any CP or SOB at this time. Heparin gtt infusing per protocol. Updated pt on plan of care. Encouraged pt to call RN for assistance ambulating or w/ any
questions/concerns. Call bullock within reach.
[2025-06-16] VITALS (7 sets, daily range): BP systolic 93–149; BP diastolic 46–84; BMI 25.6
[2025-06-16 02:32] LABS: Hematocrit 31.3 % (37.0-47.0); Hemoglobin 10.0 g/dL (12.0-16.0); Mean Corp Hgb Conc. 31.9 g/dL (33.0-37.0); Mean Corpuscular Volume 95.4 fL (81.0-99.0); Platelet Count 133 10^3/uL (130-400); Red Cell Dist. Width 15.0 % (11.5-14.5)
[2025-06-16 02:44] LABS: APTT 141.8 Sec (23.4-35.0)
[2025-06-16 03:12] LABS: Blood Urea Nitrogen 34 mg/dl (7-17); Calcium 9.6 mg/dl (8.4-10.2); Carbon Dioxide 38 mmol/L (22-30); Chloride 97 mmol/L (98-107); Estimated Creatinine Clearance 44 ml/min; Glucose 99 mg/dl (70-99); Potassium 3.8 mmol/L (3.5-5.1); Sodium 139 mmol/L (135-145); eGFR > 60.00
[2025-06-16] MEDS: HEPARIN 25000 UNITS/250 ML IV (04:21)
[2025-06-16] MEDS: SPIRIVA RESPIMAT 2.5 MCG 2 PUFF INH (08:12)
[2025-06-16] MEDS: STRIVERDI RESPIMAT 2 PUFF INH (08:12)
--- NOTE | 2025-06-16 08:20 | W.PN.HOSP.TC ---
Today's Communication/Plan
-
diuresis per cardiology; possible pericardiocentesis tomorrow
Assessment / Plan
Assessment / Plan
89 y/o female with hx HFpEF, CAD s/p PCI, pericardial effusion s/p pericardiocentesis 2019 presents to the ER with progressive shortness of breath, weight gain and swelling. Patient had an echo as outpatient a week ago which showed pericardial
effusion.
EKG-atrial fibrillation rate [address]-T changes anterolateral leads
ECHO-LV size and systolic function without regional wall motion abnormalities. EF 55 to 60%. RV mildly dilated. Severe biatrial enlargement. Severe TR with severe pulmonary hypertension. PA pressure of 63 mmHg. Moderate to large pericardial
effusion. No change compared to June 01, 2025
Chest [id number] consistent with CHF
CT Chest 06/10/25
IMPRESSION:
Large pericardial effusion, increased.
Small bilateral pleural effusions, right greater than left, new.
No evidence of pneumonia. Emphysematous lung changes.
Chronic parenchymal scarring with traction bronchiectasis in the right middle lobe.
Stable mediastinal adenopathy.
Possible elevated right-sided heart pressure versus tricuspid insufficiency/regurgitation.
Heart Failure Preserved EF, Acute exacerbation
Moderate to Large Pericardial Effusion
Acute hypoxic respiratory insufficiency
-patient presented with shortness of breath and weight gain
-No tamponade, effustion stable compared to echo 06/01/25 (moderate to large)
-appreciate Cardiology
-continue IV Lasix 40 BID --> increased to 60mg on 06/15 with better output
-new start Spironolactone
-repeat echo on 06/15/25 with increased effusion
-tentative plan for pericardiocentesis tomorrow
-Eliquis on hold, IV Heparin gtt started
# Hypertension-new start Spironolactone, continue Losartan, Doxazosin
-BRICK WASHER Atenolol on hold for bradycardia
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
# Mild thrombocytopenia
# Coronary disease with history of stents in 2003 and 2020
# Paroxysmal atrial fibrillation-continue atenolol, Hold Eliquis; IV Heparin gtt
# Valvular heart disease with severe TR
# Hyperlipidemia-atorvastatin
# Pulmonary hypertension
# COPD/centrilobular emphysema
-appreciate Pulmonary consult - will re-prescribe Anoro on DC
# Peripheral artery disease with history of right iliac stent 2004
Right carotid artery stenting 2004
# History of nephrolithiasis
# Diverticulosis
# DVT Prophylaxis- IV Heparin gtt
# CODE Status -Full
Discussed with nursing
Anticipated Discharge: 24 - 48 hours
Subjective/Interval History
-
Date of Service: June 16, 2025
feeling well
urinating a lot
Objective Data
-
Labs:
Laboratory Results
06/16/25 06/16/25
02:19 10:30
WBC 6.6
Hgb 10.0 L
Hct 31.3 L
Plt Count 133
APTT 141.8 H Pending
Sodium 139
Potassium 3.8
Chloride 97 L
Carbon Dioxide 38 H
BUN 34 H
Creatinine 0.7
Glucose 99
Calcium 9.6
Vital Signs:
Vital Signs
Temp Pulse Resp BP Pulse Ox
97.9 F 81 20 115/70 91
06/16/25 07:10 06/16/25 06:00 06/16/25 07:10 06/16/25 02:12 06/16/25 07:10
I&O
06/15/25 06/16/25 06/17/25
06:59 06:59 06:59
Intake Total 236 / 236
Output Total 1050 / 1050 1650 / 1650
Balance -814 / -814 -1650 / -1650
Review of Systems
-
History Source: Patient
All other systems: Reviewed and negative
Physical Exam
-
General: No Apparent Distress
HEENT: PERRLA
Respiratory: Clear to Auscultation; Negative Wheezes
Cardiac: Regular Rhythm and S1/S2
GI: Soft and Nontender
Musculoskeletal: No Edema
Skin: Warm and Dry; Negative Rash
Neuro: AO x 3
Psych: Calm
Data Reviewed
-
Diagnostic Radiology: Report Reviewed by me
Labs: Labs Reviewed by me
[2025-06-16] MEDS: ALDACTONE 25 MG PO (08:28)
[2025-06-16] MEDS: THERAGRAN 1 TABLET PO (08:28)
[2025-06-16] MEDS: COZAAR 50 MG PO (08:28)
[2025-06-16] MEDS: VITAMIN D3 (cholecalciferol) 25 MCG PO (08:28)
[2025-06-16] MEDS: FOLVITE 1 MG PO (08:28)
[2025-06-16] MEDS: VITAMIN B-12 1000 MCG PO (08:28)
[2025-06-16] MEDS: LASIX 60 MG IV ×2 (08:34→15:49)
[2025-06-16] MEDS: DESENEX/MITRAZOL/ZEASORB 1 APPLIC TOPICAL ×2 (08:36→20:58)
[2025-06-16 09:39] LABS: Magnesium 2.0 mg/dl (1.6-2.3)
[2025-06-16 11:25] LABS: APTT 87.8 Sec (23.4-35.0)
--- NOTE | 2025-06-16 11:35 | W.PN.CARDCBS ---
Addendum entered and electronically signed by Derik Porras MD 06/16/25 18:30:
I saw and examined the patient.
The Supervisor [employer]'s note was reviewed and I agree with the note.
Comment:
GEN: No distress, awake, Ox3
HEENT: supple, anicteric, mmm
LUNGS: CTA, no wheezes/rales
CV: Reg, S1/S2, 1/6 syst LSB, no gallop
ABD: soft, BS+, NT/ND
EXT: No edema
NEURO: Gross non-focal
SKIN: No rash
PLan:
She is improving clinically and weight is down. Case was discussed with [facility] regarding optimal management.
Continue 60mg IV Lasix overnight and plan for pericardiocentesis in AM.
CRP is mildly elevated but CT scan revealed no overt mass to suggest malignancy of her pericardial effusion.
Continue IV heparin.
Continue losartan, and spironolactone.
Continue medical therapy for coronary artery disease including atorvastatin and eventually resume Eliquis.
Original Note:
Today's Communication / Plan
-
Continue IV Lasix
Continue IV heparin
For pericardiocentesis in a.m.
Impression / Plan
-
PCP: Dr. Peterson
Sales Assistant Institutional Sales: Dr. Nandini Churchill
Impression:
Presented with SOB and recurrent pericardial effusion 06/08/2025
Recent admission for acute HF and AECOPD 03/19/2025 until 03/26/2025
Acute on chronic HFpEF
Recurrent moderate to large pericardial effusion
h/o pericardial effusion with pericardiocentesis 2018
s/p successful pericardiocentesis with 560 mL of blood-tinged fluid removed 11/27/2018
Managed as pericarditis with a regimen of ibuprofen
Pulmonary HTN, severe by echo 03/21/25
Permanent atrial fibrillation
Chronic Eliquis AC
CAD
LAD PCI in 2003
HTN
HLD
COPD
PAD w/ prior L iliac stent 2004
Carotid stenosis s/p MARGARITA BMS 2004
h/o tobacco abuse
Echo 03/19/2023: EF 59%, mild MR, moderate to severe TR, estimated PAP 84 mmHg
Echo 03/31/2024: EF 62%, moderate TR, estimated PAP 51 mmHg, small pericardial effusion
Echo 03/21/2025: EF 55-60%, mild MR, severe TR, estimated PAP 83 mmHg consistent with severe pulmonary HTN, small to moderate pericardial effusion
Echo 06/01/2025: Normal LV size and function, RV size and function within normal limits, severe TR with PAP 80 mmHg, moderate to large pericardial effusion without evidence of tamponade compared to echo 03/21/2025 the effusion then was small to
moderate and is now larger in size
Echo 06/08/2025: Normal LV size and function at 55 to 60%, RV mildly dilated with normal RV systolic function, severe TR with PAP 63 mmHg, moderate to large pericardial effusion without evidence of tamponade in the setting of PHTN, compared to echo
06/01/2025 there is no significant change
Plan:
- Remains without shortness of breath. Presently maintained on 1 L nasal cannula. She is tolerating increased IV Lasix 60 mg twice daily. Creatinine remains stable. Weight if accurate is down 2 pounds overnight
- Will need to follow CO2 levels, which have been slowly uptrending from admission
- Remains with large pericardial effusion without clear evidence of tamponade by echo 06/15. Plan for pericardiocentesis in a.m. May attempt to drain small amount of fluid rather than whole effusion in setting of severe pulmonary hypertension
- Complicating matters is her severe pulmonary hypertension felt to be who class II/III
- Continue IV heparin at present. On Eliquis as outpatient
- Remains in rate controlled A-fib (permanent) on review of telemetry. Outpatient atenolol on hold at present due to bradycardia
- Continue Cozaar, Aldactone, Cardura
- Consideration for SGLT2 antagonist, CM to assess cost to patient
HPI: Patient came to the emergency room today with increased SOB and an abnormal echocardiogram that showed recurrent pericardial effusion, cardiology is now consulted. Patient was just admitted with AECOPD and acute on chronic HFpEF from 03/19/2025
until 03/26/2025. Patient had echocardiogram on 03/21/2025 that showed a small to moderate pericardial effusion and then had a repeat echo on 06/01/2025 that showed the effusion to be larger in size compared to previous. When the cardiology office
called the patient she reported increased BERUMEN and was referred to the ER. Patient has chronic LE edema with a left worse than right and increased BERUMEN, but denies orthopnea or bloating. Patient was hypoxic upon arrival to the ER and was placed on
oxygen via NC and has symptomatically improved. Patient took her usual dose of Lasix 40 mg a.m. and 20 mg p.m. PO daily at home this morning. Patient also had a pulling sensation in her chest this morning that was worse when laying down and then
seem to be better when she stood up and has not recurred during the day.
Progress Note - Sales Assistant Institutional Sales
Subjective
Date of Service: June 16, 2025
Denies chest pain, shortness of breath
Objective
Labs:
06/16/25 02:19
06/16/25 02:19
Labs
Hgb 10.0 g/dL (12.0-16.0) L 06/16/25 02:19
Hct 31.3 % (37.0-47.0) L 06/16/25 02:19
Plt Count 133 10^3/uL (130-400) 06/16/25 02:19
PT 15.8 Sec (11.4-14.6) H 06/09/25 03:36
INR 1.20 06/09/25 03:36
APTT 87.8 Sec (23.4-35.0) H 06/16/25 10:33
Sodium 139 mmol/L (135-145) 06/16/25 02:19
Potassium 3.8 mmol/L (3.5-5.1) 06/16/25 02:19
BUN 34 mg/dl (7-17) H 06/16/25 02:19
Creatinine 0.7 mg/dL (0.6-1.0) 06/16/25 02:19
Glucose 99 mg/dl (70-99) 06/16/25 02:19
Vital Signs and I&O:
Vital Signs
Temp Pulse Resp BP Pulse Ox
97.9 F 84 12 149/74 94
06/16/25 07:10 06/16/25 08:15 06/16/25 08:15 06/16/25 07:04 06/16/25 08:00
Vital Signs
Temp Pulse Resp BP Pulse Ox
97.9 F 84 12 149/74 94
06/16/25 07:10 06/16/25 08:15 06/16/25 08:15 06/16/25 07:04 06/16/25 08:00
Intake & Output
06/14/25 06/15/25 06/16/25 06/17/25
07:59 07:59 07:59 07:59
Intake Total 348 / 348 236 / 236
Output Total 900 / 900 1050 / 1050 1650 / 1650
Balance -552 / -552 -814 / -814 -1650 / -1650
Physical Exam
Physical Exam
GEN: No distress, awake, alert, oriented x3. on supp O2
HEENT: supple, anicteric, mmm, eomi
LUNGS: Few crackles at B/L bases, no wheezes/rales
CV: Irreg, S1/S2, no murmur
ABD: soft, BS+, NT/ND
EXT: No cyanosis, clubbing, edema
NEURO: Gross non-focal
SKIN: Warm, pink, dry. No rash
--- NOTE | 2025-06-16 12:34 | W.PN.PUL3 ---
Today's Communication / Plan
-
Cont. Dual bronchodilator therapy
Diuresis
Pericardiocentesis Friday.
Will sign off.
Assessment
-
Assessment: 89-year-old female for tobacco smoker with a past medical history of pulmonary hypertension, severe TR, COPD, permanent A-fib on Eliquis, interstitial lung abnormalities, bronchiectasis, CAD s/p LEELEE to LAD + diagonal branch, carotid
artery stenosis s/p BMS to right ICA, PVD s/p iliac stent, hypertension, hyperlipidemia, history of pericardial effusion s/p pericardiocentesis requiring colchicine, kidney stones, diverticulitis, chronic HFpEF, history of sinusitis and history of
COVID-19 (07/2022) who presents with SOB. Patient found to be on heart failure, persistent moderate to large pericardial effusion. Severe pulmonary hypertension which is not new likely related to cardiac issues based on previous right heart
catheterization.
We were consulted 06/14/2025 comment on COPD management.
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
stenosis s/p bare-metal stent to right ICA, PAD s/p iliac stent, hyperlipidemia, hypertension, history of pericardial effusion s/p pericardiocentesis requiring colchicine 2018, history of kidney stones, history of diverticulitis (12/2019), left hip
OA s/p steroid injection, COPD, chronic HFpEF, history of COVID-19 (07/2022), history of sinusitis
Patient follows up In our office with Dr. Haines- Last time seen 04/2025 - COPD/Chronic bronchitis--back then without SOB.
Spirometry 04/20/2025: FEV1 1.14 L - 78%-FEV1/ FVC ratio 64%.
Quit smoking 40+ years ago. 11-qyeq-dazg history.
Impression:
# Exertional dyspnea
# Hypoxemic respiratory insufficiency-in the setting of acute on chronic heart failure with preserved ejection fraction/pulmonary hypertension/persistent pericardial effusion.
proBNP in the 1999[address] chest 06/10/2025: Moderate to large pericardial effusion. Bilateral pleural effusion.
Chronic right middle lobe traction bronchiectasis with likely postinflammatory scarring.
# COPD/mild emphysema-moderate airflow obstruction-nonacute exacerbation-not on maintenance inhalers.
-
#Pulmonary hypertension (prior RHC on 04/15/2023 showed PAP: 62/27 with PCWP 30 and TP with PVR 3.3 Dumont units, consistent with left-sided heart failure)
#Valvular heart disease with severe TR
#Interstitial lung abnormalities seen on imaging/bronchiectasis-postinflammatory scarring stable.
Plan/recommendations
-
Shortness of breath explained by pericardial effusion and acute on chronic heart failure with preserved ejection fraction based on clinical presentation, chemical biomarkers and imaging.
-
Cardiology correspondence reviewed.
persistent moderate to large pericardial effusion noted on imaging and repeating echocardiogram without evidence of tamponade.
Anticoagulation on hold
On heparin drip will continue
IV diuretics
Echocardiogram with persistent significant pericardial effusion 06/15/2025.
Plan is for possible pericardiocentesis on Friday.
-
From the COPD perspective: No evidence for acute exacerbation.
Her COPD is a contributor to her symptoms but not not the main skidder driver. Started on dual bronchodilator therapy 06/14/2025.
Latest pulmonary function testing demonstrated moderate airflow obstruction-up until recently she has not been on maintenance inhalers.
She was recommended during last admission in March where she was admitted for exacerbation to start dual bronchodilator therapy but they were too costly and never continued.
-
Continue Spiriva and Striverdi while in the hospital-upon discharge can be transition to ANORO. She has tolerated it well.
Will try to limit rapid acting beta agonist.
No indication for systemic corticosteroids
-
Continue oxygen supplementation at 2 L and at bedtime. Avoid hypoxemia in the setting of pulmonary hypertension.
Home oxygen assessment prior to discharge.
Previously not on oxygen therapy.
-
Dr. Warren updated daughter at the bedside-06/14/2025
-
Patient will need short-term follow-up in our office after discharge - with .
-
No additional Pulmonary recommendations. Will sign off.
Data:
-
CT Chest 06/10/25
IMPRESSION:
Large pericardial effusion, increased.
Small bilateral pleural effusions, right greater than left, new.
No evidence of pneumonia. Emphysematous lung changes.
Chronic parenchymal scarring with traction bronchiectasis in the right middle lobe.
Stable mediastinal adenopathy.
Possible elevated right-sided heart pressure versus tricuspid insufficiency/regurgitation.
-
CXR 03/19/2025:
Small bilateral pleural effusions.
Significant cardiomegaly with cephalized vascular flow. No evidence for significant interstitial edema radiographically.
Transthoracic echocardiogram 03/21/2025:
1. Left ventricle: Normal size and function with an estimated ejection
fraction of 55-60% by visual estimation. Indeterminate diastolic function.
2. Right ventricle: Normal
3. Atria: Severe left atrial dilation and severe right atrial dilation
4. Mitral valve: Mildly thickened with mild mitral regurgitation
5. Aortic valve: Trileaflet. No aortic stenosis or aortic insufficiency
6. Tricuspid valve: Severe tricuspid regurgitation with estimated pulmonary
artery systolic pressures of 83 mmHg consistent with severe pulmonary
hypertension
7. When compared to the most recent echocardiogram from 03/31/2024, the
estimated pulmonary artery systolic pressures have increased from 51 to 83 mmHg
and the severity of tricuspid regurgitation is increased from moderate to
severe.
Subjective Data
-
Date of Service:
Date of Service: June 16, 2025
Chief Complaint: Pulmonary Follow Up (Exertional dyspnea/COPD)
Subjective:
She offers no new complaint from the pulmonary perspective
Tolerating inhalers
Review of Systems
Cardiopulmonary: Dyspnea, Dyspnea on Exertion (Stable) and Cough (n)
Objective Data
Data Reviewed
Vital Signs / I&O / Oxygen:
Vital Signs
Temp Pulse Resp BP Pulse Ox
98.3 F 84 24 149/74 91
06/16/25 12:20 06/16/25 08:15 06/16/25 12:20 06/16/25 07:04 06/16/25 12:20
Intake and Output
06/15/25 06/16/25 06/17/25
06:59 06:59 06:59
Intake Total 236 / 236
Output Total 1050 / 1050 1650 / 1650 625 / 625
Balance -814 / -814 -1650 / -1650 -625 / -625
SaO2 91
Nasal Cannula flow liters per 1
minute
Physical Exam
General: Comfortable
HEENT: Normocephalic
Cardiovascular: S1-S2
Respiratory: Clear and Non-Labored Respirations
GI: Soft and Non Distended
Neurology: Awake
Skin: Warm
Labs/Micro/Reports
Lab Data
06/16/25 02:19
06/16/25 02:19
Laboratory Results
06/15/25 06/15/25 06/16/25
12:27 18:04 02:19
APTT 93.8 H 72.6 H 141.8 H
06/16/25
10:33
APTT 87.8 H
--- NOTE | 2025-06-16 12:38 | CM ---
Chart reviewed. Patient is independent of ADLS, lives alone in a [address], 3 FARTUN, 0 DME. Patient is not current with VN, but is agreeable. Referral placed to [facility]. [facility] CM to follow
[2025-06-16] MEDS: KCL 20 MEQ PO (15:49)
[2025-06-16 17:11] LABS: APTT 86.5 Sec (23.4-35.0)
--- NOTE | 2025-06-16 20:40 | W.PN.UPDATE ---
Update Note
Progress Note Update
Per consultant rn licensed massage practitioner, heparin to be hold at 4am as scheduled for pericardiocentesis in a.m. Order adjusted.
[2025-06-16] MEDS: LIPITOR 40 MG PO (21:00)
[2025-06-16] MEDS: CARDURA 4 MG PO (21:00)
[2025-06-17] VITALS (13 sets, daily range): BP systolic 97–175; BP diastolic 45–77; BMI 25.8
[2025-06-17 05:17] LABS: APTT 102.3 Sec (23.4-35.0)
[2025-06-17 05:31] LABS: Blood Urea Nitrogen 35 mg/dl (7-17); Calcium 9.5 mg/dl (8.4-10.2); Carbon Dioxide 37 mmol/L (22-30); Chloride 98 mmol/L (98-107); Estimated Creatinine Clearance 44 ml/min; Glucose 101 mg/dl (70-99); Potassium 3.9 mmol/L (3.5-5.1); Sodium 139 mmol/L (135-145); eGFR > 60.00
--- NOTE | 2025-06-17 06:08 | PTCARENOTE ---
Pt slept well overnight. POX on RA 88%, 95% on 2 LO2 NC. Heparin gtt placed on hold at 0400 per MD order. Pt kept NPO. Vital signs stable. HR in the 70's in Afib on the monitor. NO issues to report. Will continue to monitor.
[2025-06-17] MEDS: STRIVERDI RESPIMAT 2 PUFF INH (07:18)
[2025-06-17] MEDS: SPIRIVA RESPIMAT 2.5 MCG 2 PUFF INH (07:18)
--- NOTE | 2025-06-17 07:45 | PTCARENOTE ---
Assumed care of pt from prev nsg shift; Pt AAOx3, w/no c/o CP or SOB. Pt is anxious about upcoming procedure today. Emotional support provided & pt's daughters now at bedside. Pt's VSS stable w/HR in the 80's & BP 134/66 this AM. Pt is NPO for a
pericardiocentesis & is refusing to take her spironolactone or IV Lasix until the procedure is completed. Pt w/call bullock within reach & plan of care ongoing.
--- NOTE | 2025-06-17 08:09 | W.PN.HOSP.TC ---
Today's Communication/Plan
-
NPO for pericardiocentesis
Assessment / Plan
Assessment / Plan
89 y/o female with hx HFpEF, CAD s/p PCI, pericardial effusion s/p pericardiocentesis 2019 presents to the ER with progressive shortness of breath, weight gain and swelling. Patient had an echo as outpatient a week ago which showed pericardial
effusion.
EKG-atrial fibrillation rate [address]-T changes anterolateral leads
ECHO-LV size and systolic function without regional wall motion abnormalities. EF 55 to 60%. RV mildly dilated. Severe biatrial enlargement. Severe TR with severe pulmonary hypertension. PA pressure of 63 mmHg. Moderate to large pericardial
effusion. No change compared to June 01, 2025
Chest [id number] consistent with CHF
CT Chest 06/10/25
IMPRESSION:
Large pericardial effusion, increased.
Small bilateral pleural effusions, right greater than left, new.
No evidence of pneumonia. Emphysematous lung changes.
Chronic parenchymal scarring with traction bronchiectasis in the right middle lobe.
Stable mediastinal adenopathy.
Possible elevated right-sided heart pressure versus tricuspid insufficiency/regurgitation.
Heart Failure Preserved EF, Acute exacerbation
Moderate to Large Pericardial Effusion
Acute hypoxic respiratory insufficiency
-patient presented with shortness of breath and weight gain
-initial repeat echo stable; follow up on 06/15 with increasing effusion and mild resp variation
-appreciate Cardiology
-continue IV Lasix 40 BID --> increased to 60mg on 06/15 with better output
-NPO for Pericardiocentesis today
-IV heparin gtt on hold
# Hypertension-new start Spironolactone, continue Losartan, Doxazosin
-CABINET ASSEMBLER Atenolol on hold for bradycardia
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
# Mild thrombocytopenia
# Coronary disease with history of stents in 2003 and 2020
# Paroxysmal atrial fibrillation-continue atenolol, Hold Eliquis; IV Heparin gtt
# Valvular heart disease with severe TR
# Hyperlipidemia-atorvastatin
# Pulmonary hypertension
# COPD/centrilobular emphysema
-appreciate Pulmonary consult - will re-prescribe Anoro on DC
# Peripheral artery disease with history of right iliac stent 2004
Right carotid artery stenting 2004
# History of nephrolithiasis
# Diverticulosis
# DVT Prophylaxis- IV Heparin gtt
# CODE Status -Full
Discussed with nursing
Anticipated Discharge: > 48 hours
Subjective/Interval History
-
Date of Service: June 17, 2025
feeling well
awaiting procedure
Objective Data
-
Labs:
Laboratory Results
06/17/25
04:25
APTT 102.3 H
Sodium 139
Potassium 3.9
Chloride 98
Carbon Dioxide 37 H
BUN 35 H
Creatinine 0.7
Glucose 101 H
Calcium 9.5
Vital Signs:
Vital Signs
Temp Pulse Resp BP Pulse Ox
98.6 F 76 12 120/50 94
06/17/25 04:20 06/17/25 07:23 06/17/25 07:23 06/17/25 04:21 06/17/25 04:21
I&O
06/16/25 06/17/25 06/18/25
06:59 06:59 06:59
Output Total 1650 / 1650 1825 / 182
Balance -1650 / -1650 -182 / -182
Review of Systems
-
History Source: Patient
All other systems: Reviewed and negative
Physical Exam
-
General: No Apparent Distress
HEENT: PERRLA
Respiratory: Clear to Auscultation; Negative Wheezes
Cardiac: Regular Rhythm and S1/S2
GI: Soft and Nontender
Musculoskeletal: No Edema
Skin: Warm and Dry; Negative Rash
Neuro: AO x 3
Psych: Calm
Data Reviewed
-
Diagnostic Radiology: Report Reviewed by me
Labs: Labs Reviewed by me
--- NOTE | 2025-06-17 11:35 | PTCARENOTE ---
Report to Henrietta in the general production laborer; Dr White in to see pt. Pt to general production laborer.
[2025-06-17] MEDS: ALDACTONE 25 MG PO (13:54)
[2025-06-17] MEDS: FOLVITE 1 MG PO (13:54)
[2025-06-17] MEDS: VITAMIN B-12 1000 MCG PO (13:54)
[2025-06-17] MEDS: THERAGRAN 1 TABLET PO (13:55)
[2025-06-17] MEDS: COZAAR 50 MG PO (13:55)
[2025-06-17] MEDS: LASIX 60 MG IV ×2 (13:55→18:09)
[2025-06-17] MEDS: DESENEX/MITRAZOL/ZEASORB 1 APPLIC TOPICAL (13:55)
[2025-06-17] MEDS: VITAMIN D3 (cholecalciferol) 25 MCG PO (13:56)
--- NOTE | 2025-06-17 14:05 | PTCARENOTE ---
Rec'd report from Elin in the laboratory technical specialist; Rec'd pt back AAOX3 & w/no c/o CP or SOB. Pt reports 'mild, 3/10' mid-sternal pain where the pt has a puncture site from her pericardiocentesis. Dressing C/D/I w/no drainage noted. Pt w/R fem vein access
site w/dressing C/D/I w/no signs or symptoms of bleeding or hematoma. Discussed pt's activity restrictions; pt & family verbalized understanding. Pt's AM IV Lasix administered & purewick placed per pt request while on bedrest restrictions. Pt's VSS
w/HR in the 80's. Call bullock within reach.
--- NOTE | 2025-06-17 14:23 | CM ---
Chart reviewed. Patient is independent of ADLS, lives alone in a [address], 3 [address]ART[address], 0 DME. Patient had 750 ml of pericardiocentesis. Patient will need O2 trial to see if patient will need Home O2. Referral sent to [facility]. Plan is for the [facility]. CM to follow
[2025-06-17 14:54] LABS: Body Fluid Second Tech EF
[2025-06-17 16:02] LABS: Body Fluid Granulocytes 20 %; Body Fluid Mesothelials 0 %
--- NOTE | 2025-06-17 16:23 | ITS.CL.CATH ---
Seal Delivery Vehicle Officer - Catheterization
Cardiac Catheterization
Procedure Report:
PERICARDIOCENTESIS REPORT
DATE: June 17, 2025
REFERRING: Dr. Nandini Churchill
PROCEDURES PERFORMED
1. Right heart catheterization
2. Pericardiocentesis via subxiphoid approach using ultrasound guidance
INDICATIONS: Large pericardial effusion, pulmonary hypertension
Hemodynamics (mmHg): Pre-Pericardiocentesis
RA (m) : 8
RV (s/d,m) : 41/5, 9
PA (s/d, m) : 41/18, 26
PCWP (m) : 18
Cardiac Output : 4.7 L/min and Cardiac Index : 2.9 L/min/m-2
Pulmonary vascular resistance: 1.7 Wood units or 136 [id number](-5)
PROCEDURAL DETAILS: A subxiphoid approach was utilized to gain access to the pericardial space using a micropuncture needle. Agitated saline contrast was injected while 2D echocardiographic images were being recorded. Bubble contrast was noted
within the pericardial space. A 6 Hungarian sheath was then advanced over a J-tip wire into the pericardial space and a pigtail catheter was advanced into the pericardial space. Pericardial fluid was dark and bloody. A total of 750 to 800 mL of
pericardial fluid was removed. A small residual pericardiocentesis persisted.
Intrapericardial pressure pre pericardiocentesis: 12 mmHg
Intrapericardial pressure post pericardiocentesis: 1 mmHg.
RADIATION SUMMARY: Fluoro Time (min): 10.2, Dose (mGy): 76.1, DAP (Gy.cm2) : 11.3
CONCLUSIONS:
1. Successful echocardiographic guided pericardiocentesis with removal of 750 to 800 mL of bloody pericardial fluid
2. Mildly elevated left ventricular filling pressures
RECOMMENDATIONS:
1. Pericardial fluid has been sent for laboratory analysis
2. Will start colchicine 0.6 mg po q day +/- nonsteroidal.
3. Hold apixaban for now.
4. Further management based on serial echocardiogram
Copy to: Dr. Nandini Churchill
[2025-06-17] MEDS: TYLENOL 500 MG PO ×3 (16:56→22:55)
[2025-06-17] MEDS: FLUSH (NSS) 2 FLUSH IV (18:10)
[2025-06-17] MEDS: DESENEX/MITRAZOL/ZEASORB TOPICAL (20:01)
[2025-06-17] MEDS: LIPITOR 40 MG PO (22:27)
[2025-06-17] MEDS: CARDURA 4 MG PO (22:27)
--- NOTE | 2025-06-17 22:45 | PTCARENOTE ---
Assumed care of patient at change of shift. Purewick in place. Attempted to get rid of purewick and have patient void in bathroom. Patient refuses since she had received IV Lasix on day shift. Hx of [employer], wears own attends. Educated patient
about the risk of infection/ poss skin breakdown related to external urinary device. Despite education, patient prefers to use purewick. PCT completed hygiene care, new purewick placed at approx 21:00.
[2025-06-18] VITALS (13 sets, daily range): BP systolic 71–116; BP diastolic 41–62; PULSE 90; O2SAT 90; BMI 25.4
--- NOTE | 2025-06-18 00:27 | PTCARENOTE ---
Tele remains Afib w/ occasional PVCs. HR in the 80-100's. Patient c/o neck discomfort, PRN Tylenol administered--see NOV. Right groin dressing intact, and subxiphoid dressing intact. No swelling or drainage noted at this time. Patient w/ an oral
temp 100.8. This RN removed multiple layers of blankets off of patient. Skin warm to touch. PRN Tylenol administered for fever. Rechecked oral temp w/ a result of 100.3. Plan of care reviewed, call bullock in reach.
[2025-06-18 05:02] LABS: Hematocrit 33.0 % (37.0-47.0); Hemoglobin 10.8 g/dL (12.0-16.0); Mean Corp Hgb Conc. 32.7 g/dL (33.0-37.0); Mean Corpuscular Volume 93.8 fL (81.0-99.0); Platelet Count 141 10^3/uL (130-400); Red Cell Dist. Width 15.0 % (11.5-14.5)
[2025-06-18 05:24] LABS: Blood Urea Nitrogen 36 mg/dl (7-17); Calcium 9.4 mg/dl (8.4-10.2); Carbon Dioxide 35 mmol/L (22-30); Chloride 96 mmol/L (98-107); Estimated Creatinine Clearance 34 ml/min; Glucose 96 mg/dl (70-99); Potassium 4.0 mmol/L (3.5-5.1); Sodium 135 mmol/L (135-145); eGFR > 60.00
--- NOTE | 2025-06-18 07:18 | W.PN.CARDCBS ---
Addendum entered and electronically signed by Kevin Churchill MD 06/18/25 11:37:
Patient seen, interviewed and examined by me.
Well-appearing, no acute distress
Regular rate and rhythm with normal S1 and S2, no S3 no S4. There is a grade 1/6 apical holosystolic murmur and no rubs. PMI is normally placed.
Lungs are clear to auscultation bilaterally without wheezes rales or rhonchi.
Abdomen soft nontender nondistended with normoactive bowel sounds
Extremities show trace pretibial edema bilaterally no clubbing or cyanosis.
Neurologic exam is grossly nonfocal.
CT scan obtained June 10, 2025 with the expected finding of large pericardial effusion as well as small bilateral effusions no evidence of pneumonia. Stable mediastinal adenopathy. No obvious concerning findings to suggest malignancy.
She remained with large pericardial effusion despite attempts at diuresis.
She then underwent pericardiocentesis as well as right heart cath on June 17, 2025. Report is not in the chart as of yet.
Discussion yesterday that approximately three quarters of the pericardial effusion was removed and that right heart catheterization did not demonstrate significant pulmonary hypertension.
Fluid has been sent for analysis, results pending
Preliminary report finds bloody pericardial effusion, right atrial pressure 8, pulmonary capillary wedge pressure 18, pulmonary artery systolic pressure 40 mmHg
Echo 06/17/2025: Echo guided pericardiocentesis and at the beginning of the procedure a large pericardial effusion was noted and at the conclusion a small to medium sized pericardial effusion remained
Today, she is now acutely febrile and with leukocytosis. COVID-negative 06/18/25
Of note, in 2019 she presented with pericardiocentesis and was managed as pericarditis, was treated with ibuprofen at that time.
Will plan to treat for acute pericarditis:
Ibuprofen 600 mg 3 times daily
Colchicine 0.6 mg p.o. twice daily
Plan to taper nonsteroidal anti-inflammatory drugs with resolution of symptoms
Plan to maintain colchicine for up to 3 months
Echocardiogram on Friday
Currently heparin is on hold. Will need to eventually resume anticoagulation, eventually oral anticoagulation (check echo on Friday to assess for reaccumulation)
Also, continue with diuresis.
Original Note:
Today's Communication / Plan
-
COVID and flu swabs pending
Await report from pericardiocentesis yesterday
Impression / Plan
-
PCP: Dr. Peterson
Senior Attorney: Dr. Nandini Churchill
Impression:
Presented with SOB and recurrent pericardial effusion 06/08/2025
Recent admission for acute HF and AECOPD 03/19/2025 until 03/26/2025
Acute on chronic HFpEF
Recurrent moderate to large pericardial effusion
h/o pericardial effusion with pericardiocentesis 2018
s/p successful pericardiocentesis with 560 mL of blood-tinged fluid removed 11/27/2018
Managed as pericarditis with a regimen of ibuprofen
Pulmonary HTN, severe by echo 03/21/25
Permanent atrial fibrillation
Chronic Eliquis AC
CAD
LAD PCI in 2003
HTN
HLD
COPD
PAD w/ prior L iliac stent 2004
Carotid stenosis s/p MARGARITA BMS 2004
h/o tobacco abuse
Fever and leukocytosis 06/18/2025
Echo 03/19/2023: EF 59%, mild MR, moderate to severe TR, estimated PAP 84 mmHg
Echo 03/31/2024: EF 62%, moderate TR, estimated PAP 51 mmHg, small pericardial effusion
Echo 03/21/2025: EF 55-60%, mild MR, severe TR, estimated PAP 83 mmHg consistent with severe pulmonary HTN, small to moderate pericardial effusion
Echo 06/01/2025: Normal LV size and function, RV size and function within normal limits, severe TR with PAP 80 mmHg, moderate to large pericardial effusion without evidence of tamponade compared to echo 03/21/2025 the effusion then was small to
moderate and is now larger in size
Echo 06/08/2025: Normal LV size and function at 55 to 60%, RV mildly dilated with normal RV systolic function, severe TR with PAP 63 mmHg, moderate to large pericardial effusion without evidence of tamponade in the setting of PHTN, compared to echo
06/01/2025 there is no significant change
Echo 06/17/2025: Echo guided pericardiocentesis and at the beginning of the procedure a large pericardial effusion was noted and at the conclusion a small to medium sized pericardial effusion remained
Plan:
-Weight is down about 7 lbs since admission with Lasix 60 mg IV BID diuresis. Continues on supplemental oxygen at 2 L NC on 06/18/2025, VS reviewed by me
-Previous dry weight at last HF discharge on 03/26/2025 was 142 lbs and patient weighs 138 lbs 06/18/2025.
-Patient was taking Lasix 40 mg a.m. and 20 mg p.m. PO daily prior to admission.
-EF preserved to 55 to 60% by echo 06/08/2025
-Outpatient dose of atenolol 50 mg daily was stopped due to bradycardia on 06/14/2025
-Outpatient dose of losartan decreased to 50 mg daily
-New to spironolactone 25 mg daily this admission
-Outpatient dose of Cardura 4 mg daily has been continued
-Patient had pericardiocentesis performed on 06/17/2025, report not currently available to me
-Remains on heparin gtt and outpatient dose of Eliquis 5 mg BID (age 89, Cre 0.9, wt 68 kg) is on hold, last dose was 06/08/2025 AM.
-Patient with known permanent A-fib. Prior to admission HR controlled with atenolol 50 mg daily, but this was placed on hold for bradycardia back on 06/14/2025
-Patient was being treated with IV antibiotics for possible PNA on admission and then these were stopped. Patient then developed fever with temperature up to 100.8 �F overnight and increase in WBC up to 16.8 on the labs reviewed by me 06/18/2025.
Hospitalist attending note reviewed by me, COVID and influenza swabs are planned. CXR planned.
HPI: Patient came to the emergency room today with increased SOB and an abnormal echocardiogram that showed recurrent pericardial effusion, cardiology is now consulted. Patient was just admitted with AECOPD and acute on chronic HFpEF from 03/19/2025
until 03/26/2025. Patient had echocardiogram on 03/21/2025 that showed a small to moderate pericardial effusion and then had a repeat echo on 06/01/2025 that showed the effusion to be larger in size compared to previous. When the cardiology office
called the patient she reported increased BERUMEN and was referred to the ER. Patient has chronic LE edema with a left worse than right and increased BERUMEN, but denies orthopnea or bloating. Patient was hypoxic upon arrival to the ER and was placed on
oxygen via NC and has symptomatically improved. Patient took her usual dose of Lasix 40 mg a.m. and 20 mg p.m. PO daily at home this morning. Patient also had a pulling sensation in her chest this morning that was worse when laying down and then
seem to be better when she stood up and has not recurred during the day.
Progress Note - Senior Attorney
Subjective
Date of Service: June 18, 2025
Neck and shoulders are sore, no chills, but aware of fever
Objective
Labs:
06/18/25 04:25
06/18/25 04:25
Labs
Hgb 10.8 g/dL (12.0-16.0) L 06/18/25 04:25
Hct 33.0 % (37.0-47.0) L 06/18/25 04:25
Plt Count 141 10^3/uL (130-400) 06/18/25 04:25
PT 15.8 Sec (11.4-14.6) H 06/09/25 03:36
INR 1.20 06/09/25 03:36
APTT 102.3 Sec (23.4-35.0) H 06/17/25 04:25
Sodium 135 mmol/L (135-145) 06/18/25 04:25
Potassium 4.0 mmol/L (3.5-5.1) 06/18/25 04:25
BUN 36 mg/dl (7-17) H 06/18/25 04:25
Creatinine 0.9 mg/dL (0.6-1.0) 06/18/25 04:25
Glucose 96 mg/dl (70-99) 06/18/25 04:25
Vital Signs and I&O:
Vital Signs
Temp Pulse Resp BP Pulse Ox
100.1 F 92 26 97/53 87
06/18/25 07:01 06/18/25 04:18 06/18/25 07:01 06/18/25 04:18 06/18/25 07:01
Vital Signs
Temp Pulse Resp BP Pulse Ox
100.1 F 92 26 97/53 87
06/18/25 07:01 06/18/25 04:18 06/18/25 07:01 06/18/25 04:18 06/18/25 07:01
Intake & Output
06/16/25 06/17/25 06/18/25 06/19/25
06:59 06:59 06:59 06:59
Intake Total 1140 / 1140
Output Total 1650 / 1650 1825 / 1825 500 / 500 250 / 250
Balance -1650 / -1650 -1825 / -1825 640 / 640 -250 / -250
Physical Exam
Physical Exam
GEN: NAD. AAO x 3
LUNGS: 2 L NC. Decreased bibasilar rales without wheeze
CV: A-fib on telemetry. Irreg, 1/6 murmur
[2025-06-18] MEDS: SPIRIVA RESPIMAT 2.5 MCG 2 PUFF INH (07:25)
[2025-06-18] MEDS: STRIVERDI RESPIMAT 2 PUFF INH (07:25)
--- NOTE | 2025-06-18 08:20 | W.PN.HOSP.TC ---
Today's Communication/Plan
-
check flu, covid for low grade fever
CXR ordered
IV Lasix
follow up further cardiology recommendations
Assessment / Plan
Assessment / Plan
89 y/o female with hx HFpEF, CAD s/p PCI, pericardial effusion s/p pericardiocentesis 2018 presents to the ER with progressive shortness of breath, weight gain and swelling. Patient had an echo as outpatient a week ago which showed pericardial
effusion.
EKG-atrial fibrillation rate [address]-T changes anterolateral leads
ECHO-LV size and systolic function without regional wall motion abnormalities. EF 55 to 60%. RV mildly dilated. Severe biatrial enlargement. Severe TR with severe pulmonary hypertension. PA pressure of 63 mmHg. Moderate to large pericardial
effusion. No change compared to June 01, 2025
Chest [id number] consistent with CHF
CT Chest 06/10/25
IMPRESSION:
Large pericardial effusion, increased.
Small bilateral pleural effusions, right greater than left, new.
No evidence of pneumonia. Emphysematous lung changes.
Chronic parenchymal scarring with traction bronchiectasis in the right middle lobe.
Stable mediastinal adenopathy.
Possible elevated right-sided heart pressure versus tricuspid insufficiency/regurgitation.
Heart Failure Preserved EF, Acute exacerbation
Acute hypoxic respiratory insufficiency
-patient presented with shortness of breath and weight gain
-appreciate Cardiology
-continue IV Lasix 60 BID, daily BMP
-wean oxygen as ablve
Moderate to Large Pericardial Effusion
-initial repeat echo stable; follow up on 06/15 with increasing effusion and mild resp variation
-now s/p pericardiocentesis on 06/17
-IV heparin gtt on hold
Fever
-T 100.8 overnight, patient has some increased congestion; suspect viral
-check CXR
-check flu, covid
# Hypertension-new start Spironolactone, continue Losartan, Doxazosin
-SHUTTLE THREADER Atenolol on hold for bradycardia
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
# Mild thrombocytopenia
# Coronary disease with history of stents in 2003 and 2020
# Paroxysmal atrial fibrillation-continue atenolol, Hold Eliquis; IV Heparin gtt
# Valvular heart disease with severe TR
# Hyperlipidemia-atorvastatin
# Pulmonary hypertension
# COPD/centrilobular emphysema
-appreciate Pulmonary consult - will re-prescribe Anoro on DC
# Peripheral artery disease with history of right iliac stent 2004
Right carotid artery stenting 2004
# History of nephrolithiasis
# Diverticulosis
# DVT Prophylaxis- IV Heparin gtt
# CODE Status -Full
Discussed with nursing
Anticipated Discharge: 24 - 48 hours
Subjective/Interval History
-
Date of Service: June 18, 2025
low grade fever overnight
feels some congestion
no significant pain
drainage site c/d/i
Objective Data
-
Labs:
Laboratory Results
06/18/25
04:25
WBC 16.8 H
Hgb 10.8 L
Hct 33.0 L
Plt Count 141
Sodium 135
Potassium 4.0
Chloride 96 L
Carbon Dioxide 35 H
BUN 36 H
Creatinine 0.9
Glucose 96
Calcium 9.4
Vital Signs:
Vital Signs
Temp Pulse Resp BP Pulse Ox
100.1 F 77 18 97/53 92
06/18/25 07:01 06/18/25 07:33 06/18/25 07:33 06/18/25 04:18 06/18/25 07:33
I&O
06/17/25 06/18/25 06/19/25
06:59 06:59 06:59
Intake Total 1140 / 1140
Output Total 1825 / 1825 500 / 500 250 / 250
Balance -1825 / -1825 640 / 640 -250 / -250
Review of Systems
-
History Source: Patient
All other systems: Reviewed and negative
Physical Exam
-
General: No Apparent Distress
HEENT: PERRLA
Respiratory: Clear to Auscultation; Negative Wheezes
Cardiac: Regular Rhythm, S1/S2 and JVD
GI: Soft and Nontender
Musculoskeletal: No Edema
Skin: Warm and Dry; Negative Rash
Neuro: AO x 3
Psych: Calm
Data Reviewed
-
Diagnostic Radiology: Report Reviewed by me
Labs: Labs Reviewed by me
[2025-06-18] MEDS: VITAMIN B-12 1000 MCG PO (09:23)
[2025-06-18] MEDS: VITAMIN D3 (cholecalciferol) 25 MCG PO (09:24)
[2025-06-18] MEDS: THERAGRAN 1 TABLET PO (09:24)
[2025-06-18] MEDS: COZAAR 50 MG PO (09:24)
[2025-06-18] MEDS: FOLVITE 1 MG PO (09:24)
[2025-06-18] MEDS: DESENEX/MITRAZOL/ZEASORB 1 APPLIC TOPICAL ×2 (09:25→21:53)
[2025-06-18] MEDS: LASIX 60 MG IV ×2 (09:26→17:00)
[2025-06-18] MEDS: ROBITUSSIN 200 MG PO ×3 (09:29→21:54)
[2025-06-18] MEDS: ALDACTONE 25 MG PO (10:20)
[2025-06-18 12:48] LABS: COVID-19 Antigen Negative (Negative)
[2025-06-18] MEDS: LIDOCAINE 4% PATCH 1 PATCH TOPICAL (15:32)
[2025-06-18] MEDS: COLCHICINE 0.6 MG PO (15:32)
[2025-06-18 16:15] LABS: Urine Character Clear (Clear)
[2025-06-18 16:28] LABS: Urine Red Blood Cell 0-2 /HPF (0-2); Urine Squamous Cell 0-2 /LPF (Few); Urine White Cell 0-2 /HPF (0-5)
[2025-06-18] MEDS: MOTRIN 600 MG PO (17:00)
[2025-06-18] MEDS: PROTONIX 40 MG PO (17:00)
--- NOTE | 2025-06-18 18:10 | PTCARENOTE ---
Assumed care of the pt @ 0700. Pt is AAOx3 A fib on the monitor. vss denies cp. Covid, Flu, and UA sent. Pt is 1 person assist to bathroom. Pt requested to use Purewick with receiving diuretics. Spoke with Dr Hernandez ok to use purewick today. Pt c/o
left posterior neck pain. K Pad ordered. Dr Hernandez ordered Lidocaine patch and increased dose of Tylenol.
[2025-06-18] MEDS: ROBITUSSIN PO (19:09)
--- NOTE | 2025-06-18 19:37 | W.PN.UPDATE ---
Addendum entered and electronically signed by SADAF Ortega 06/19/25 06:52:
~ 6 am lab results show creatinine from 0.9 now 1.6. Per RN, patient has not had any urine output overnight and was bladder scanned for 98 mls.
BP improved 107/45, HR 79.
TT'd, biotech production specialist Signals Intelligence Superintendent, Dr. Kevin Churchill, to update. Agreed w/plan to provide gentle IV hydration, NSS @ 50 mls/hr x 1 bag. Also, discontinue any diuretic that is ordered.
Original Note:
Update Note
Progress Note Update
~ 19:00 Called to bedside for BP 78/42, HR 85, NSR on monitor. Patient is OX3, no complaints of dizziness, lightheadedness.
Ordered small bolus, NSS 250 mls. Will order Levophed gtt if BP does not respond to bolus.
TT to on-call Signals Intelligence Superintendent, Dr. Kevin Churchill, reviewed low BP and plan. He agrees to small NSS 250 ml bolus, then if asymptomatic nothing else tonight. If she does become symptomatic, will start Levophed and transfer to IMU.
~ 3 am Returned to check on patient. Patient BP 88/46, HR 82, remains asymptomatic. Patient denies any dizziness, lightheadedness. She is alert and oriented and answers questions appropriately. Continue care as per plan.
[2025-06-18] MEDS: NSS 250 IV (19:39)
[2025-06-18] MEDS: COLCHICINE PO (21:23)
[2025-06-18] MEDS: CARDURA PO (21:50)
[2025-06-18] MEDS: REMOVE LIDOCAINE PATCH 1 PATCH REMOVE (21:54)
[2025-06-18] MEDS: LIPITOR 40 MG PO (21:54)
--- NOTE | 2025-06-18 23:03 | PTCARENOTE ---
Pt.'s SBP 70's at beginning of shift. BP repeated multiple times with patient laying down, manual also checked with consistent results. Pt. denied any dizziness / lightheadedness/ chest discomfort or SOB. A-fib 80's-90's on the monitor.
Hospitalist PRINCESS Moreira notified and came to bedside, blood cultures drawn and sent & 250 ml NSS bolus administered over one hour, BP increased to 92/50 @ 2034. SBP since in the 's. Lillie & Dr. Julio C Churchill aware, monitor for now. 2200 dose
Cardjames held. Otherwise pt. very pleasant, remains asymptomatic. Right groin cath site CDI without oozing/hematoma, sternal base pericardiocentesis dressing CDI without drainage. Pt. resting quietly in bed.
[2025-06-19] VITALS (17 sets, daily range): BP systolic 73–125; BP diastolic 38–69; BMI 25.7
[2025-06-19] MEDS: MOTRIN 600 MG PO (00:19)
[2025-06-19] MEDS: COLCHICINE 0.6 MG PO ×3 (00:29→23:03)
--- NOTE | 2025-06-19 02:46 | PTCARENOTE ---
Addendum entered by Lucrecia Roche RN 06/19/25 03:16:
BP up to 86/46; rectal temp 99.3; Lillie at bedside, lactic acid drawn and sent.
Original Note:
Pt.'s SBP again in the 70's, pt. remains asymptomatic. SADAF Matthews, notified, coming to floor to assess.
[2025-06-19 03:23] LABS: Hematocrit 31.9 % (37.0-47.0); Hemoglobin 10.5 g/dL (12.0-16.0); Mean Corp Hgb Conc. 32.9 g/dL (33.0-37.0); Mean Corpuscular Volume 93.3 fL (81.0-99.0); Nucleated Red Blood Cells % 0 %; Platelet Count 125 10^3/uL (130-400); Red Cell Dist. Width 15.2 % (11.5-14.5)
[2025-06-19 03:45] LABS: Blood Urea Nitrogen 44 mg/dl (7-17); Calcium 9.1 mg/dl (8.4-10.2); Carbon Dioxide 33 mmol/L (22-30); Chloride 94 mmol/L (98-107); Estimated Creatinine Clearance 19 ml/min; Glucose 90 mg/dl (70-99); Magnesium 1.9 mg/dl (1.6-2.3); Potassium 3.9 mmol/L (3.5-5.1); Sodium 133 mmol/L (135-145); eGFR 30.83
--- NOTE | 2025-06-19 06:19 | PTCARENOTE ---
Pt. has not voided all night and has no urge to go, denies any bladder pain/discomfort. Bladder scan showing 98 ml; creat 1.6 on AM labs. Hospitalist PRINCESS Moreira notified. BP improved at 107/45. Pt. sleeping.
--- NOTE | 2025-06-19 07:08 | W.PN.HOSP.TC ---
Today's Communication/Plan
-
see plan
Assessment / Plan
Assessment / Plan
89 y/o female with hx HFpEF, CAD s/p PCI, pericardial effusion s/p pericardiocentesis 2018 presents to the ER with progressive shortness of breath, weight gain and swelling. Patient had an echo as outpatient a week ago which showed pericardial
effusion.
EKG-atrial fibrillation rate [address]-T changes anterolateral leads
ECHO-LV size and systolic function without regional wall motion abnormalities. EF 55 to 60%. RV mildly dilated. Severe biatrial enlargement. Severe TR with severe pulmonary hypertension. PA pressure of 63 mmHg. Moderate to large pericardial
effusion. No change compared to June 01, 2025
Chest [id number] consistent with CHF
CT Chest 06/10/25
IMPRESSION:
Large pericardial effusion, increased.
Small bilateral pleural effusions, right greater than left, new.
No evidence of pneumonia. Emphysematous lung changes.
Chronic parenchymal scarring with traction bronchiectasis in the right middle lobe.
Stable mediastinal adenopathy.
Possible elevated right-sided heart pressure versus tricuspid insufficiency/regurgitation.
Heart Failure Preserved EF, Acute exacerbation
Acute hypoxic respiratory insufficiency
-patient presented with shortness of breath and weight gain
-appreciate Cardiology
-s/p diuresis now hypotensive last night with NOEMY --> lasix on hold
-wean oxygen as able; patient remains on oxygen despite diuresis. Suspect she may need detention oxygen in setting of lung disease - will need home O2 testing prior to DC
NOEMY
-in setting of over-diuresis and Motrin
-hold Motrin, Lasix, Losartan, Aldactone this AM
-gentle IVF
-repeat BMP this afternoon
Moderate to Large Pericardial Effusion
-initial repeat echo stable; follow up on 06/15 with increasing effusion and mild resp variation
-now s/p pericardiocentesis on 06/17
-IV heparin gtt on hold
-appreciate cardiology, treating as pericarditis with initiation of colchicine and Motrin on 06/18/25; motrin now on hold for NOEMY
-repeat echo tomorrow mrwarren
Fever
-T 100.8 overnight 06/17-06/18, patient has some increased congestion; suspect viral versus post procedure fever
-CXR without pneumonia
-Flu and Covid negative
# Hypertension-new start Spironolactone, continue Losartan, Doxazosin
-COST RECOVERY TECHNICIAN Atenolol on hold for bradycardia
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
# Mild thrombocytopenia
# Coronary disease with history of stents in 2003 and 2020
# Paroxysmal atrial fibrillation-continue atenolol, Hold Eliquis; IV Heparin gtt
# Valvular heart disease with severe TR
# Hyperlipidemia-atorvastatin
# Pulmonary hypertension
# COPD/centrilobular emphysema
-appreciate Pulmonary consult - will re-prescribe Anoro on DC
# Peripheral artery disease with history of right iliac stent 2004
Right carotid artery stenting 2004
# History of nephrolithiasis
# Diverticulosis
# DVT Prophylaxis- IV Heparin gtt on hold, SCD
# CODE Status -Full
Discussed with nursing
Anticipated Discharge: > 48 hours
Subjective/Interval History
-
Date of Service: June 19, 2025
states she didn't eat and drink a lot yesterday
no light headedness
breathing OK, per RN she was 89% on 2L earlier
no cough or sore throat
Objective Data
-
Labs:
Laboratory Results
06/19/25
03:09
WBC 12.3 H
Hgb 10.5 L
Hct 31.9 L
Plt Count 125 L
Sodium 133 L
Potassium 3.9
Chloride 94 L
Carbon Dioxide 33 H
BUN 44 H
Creatinine 1.6 H
Glucose 90
Calcium 9.1
Vital Signs:
Vital Signs
Temp Pulse Resp BP Pulse Ox
99.3 F 79 20 107/45 91
06/19/25 02:59 06/19/25 06:18 06/19/25 02:52 06/19/25 06:18 06/19/25 02:53
I&O
06/18/25 06/19/25 06/20/25
06:59 06:59 06:59
Intake Total 1140 / 1140 490 / 490
Output Total 500 / 500 250 / 250
Balance 640 / 640 240 / 240
Review of Systems
-
History Source: Patient
All other systems: Reviewed and negative
Physical Exam
-
General: No Apparent Distress
HEENT: PERRLA
Respiratory: Clear to Auscultation; Negative Wheezes
Cardiac: Regular Rhythm and S1/S2
GI: Soft and Nontender
Musculoskeletal: No Edema
Skin: Warm and Dry; Negative Rash
Neuro: AO x 3
Psych: Calm
Data Reviewed
-
Diagnostic Radiology: Report Reviewed by me
Labs: Labs Reviewed by me
[2025-06-19] MEDS: NSS 1000 IV (08:05)
[2025-06-19] MEDS: STRIVERDI RESPIMAT 2 PUFF INH (08:11)
[2025-06-19] MEDS: SPIRIVA RESPIMAT 2.5 MCG 2 PUFF INH (08:11)
[2025-06-19] MEDS: ROBITUSSIN 200 MG PO (09:42)
[2025-06-19] MEDS: LIDOCAINE 4% PATCH 1 PATCH TOPICAL (09:42)
[2025-06-19] MEDS: PROTONIX 40 MG PO (09:42)
[2025-06-19] MEDS: FOLVITE 1 MG PO (09:42)
[2025-06-19] MEDS: VITAMIN D3 (cholecalciferol) 25 MCG PO (09:43)
[2025-06-19] MEDS: VITAMIN B-12 1000 MCG PO (09:43)
[2025-06-19] MEDS: THERAGRAN 1 TABLET PO (09:43)
[2025-06-19] MEDS: DESENEX/MITRAZOL/ZEASORB 1 APPLIC TOPICAL ×2 (09:43→20:30)
[2025-06-19] MEDS: TYLENOL 650 MG PO (09:53)
--- NOTE | 2025-06-19 09:57 | W.PN.CARDCBS ---
Today's Communication / Plan
-
IV fluids
Hold/minimize nephrotoxic drugs
Follow renal function closely
Maintain colchicine for likely pericarditis
Awaiting full analysis of pericardial fluid
Check echocardiogram on Friday then consider resumption of anticoagulation
Impression / Plan
-
PCP: Dr. Peterson
Data Control Clerk Supervisor: Dr. Nandini Churchill
Impression:
Presented with SOB and recurrent pericardial effusion 06/08/2025
Recent admission for acute HF and AECOPD 03/19/2025 until 03/26/2025
Acute on chronic HFpEF
Recurrent moderate to large pericardial effusion
h/o pericardial effusion with pericardiocentesis 2018
s/p successful pericardiocentesis with 560 mL of blood-tinged fluid removed 11/27/2018
Managed as pericarditis with a regimen of ibuprofen
Pulmonary HTN, severe by echo 03/21/25
Permanent atrial fibrillation
Chronic Eliquis AC
CAD
LAD PCI in 2003
HTN
HLD
COPD
PAD w/ prior L iliac stent 2004
Carotid stenosis s/p MARGARITA BMS 2004
h/o tobacco abuse
Fever and leukocytosis 06/18/2025
Echo 03/19/2023: EF 59%, mild MR, moderate to severe TR, estimated PAP 84 mmHg
Echo 03/31/2024: EF 62%, moderate TR, estimated PAP 51 mmHg, small pericardial effusion
Echo 03/21/2025: EF 55-60%, mild MR, severe TR, estimated PAP 83 mmHg consistent with severe pulmonary HTN, small to moderate pericardial effusion
Echo 06/01/2025: Normal LV size and function, RV size and function within normal limits, severe TR with PAP 80 mmHg, moderate to large pericardial effusion without evidence of tamponade compared to echo 03/21/2025 the effusion then was small to
moderate and is now larger in size
Echo 06/08/2025: Normal LV size and function at 55 to 60%, RV mildly dilated with normal RV systolic function, severe TR with PAP 63 mmHg, moderate to large pericardial effusion without evidence of tamponade in the setting of PHTN, compared to echo
06/01/2025 there is no significant change
Echo 06/17/2025: Echo guided pericardiocentesis and at the beginning of the procedure a large pericardial effusion was noted and at the conclusion a small to medium sized pericardial effusion remained
CT scan obtained June 10, 2025 with the expected finding of large pericardial effusion as well as small bilateral effusions no evidence of pneumonia. Stable mediastinal adenopathy. No obvious concerning findings to suggest malignancy.
Plan:
She remained with large pericardial effusion despite attempts at diuresis.
She then underwent pericardiocentesis as well as right heart cath on June 17, 2025. Report is not in the chart as of yet.
Prelim: approximately three quarters of the pericardial effusion was removed and that right heart catheterization did not demonstrate significant pulmonary hypertension.
Fluid has been sent for analysis, Cx neg and full analysis is pending
Preliminary report finds bloody pericardial effusion, right atrial pressure 8, pulmonary capillary wedge pressure 18, pulmonary artery systolic pressure 40 mmHg
Echo 06/17/2025: Echo guided pericardiocentesis and at the beginning of the procedure a large pericardial effusion was noted and at the conclusion a small to medium sized pericardial effusion remained
On 06/18 she became acutely febrile and with leukocytosis. COVID-negative 06/18/25,
Of note, in 2019 she presented with pericardiocentesis and was managed as pericarditis, was treated with ibuprofen at that time.
On 06/18/2025 initiated treatment for acute pericarditis:
Ibuprofen 600 mg 3 times daily
Colchicine 0.6 mg p.o. twice daily
Plan to taper nonsteroidal anti-inflammatory drugs with resolution of symptoms
Plan to maintain colchicine for up to 3 months
Echocardiogram on Friday
Exact etiology of recurrent pericardial effusion is not yet clear, pericardial fluid analysis is pending
She has developed NOEMY in the setting of hypotension likely related to overdiuresis
Likely multifactorial and related to overdiuresis as well as nonsteroidal anti-inflammatory drug therapy
Diuretics have been stopped
IV fluids administered, blood pressure improved
Holding ibuprofen losartan and Aldactone for now
Follow renal function closely
Currently heparin is on hold. Will need to eventually resume anticoagulation, eventually oral anticoagulation (check echo on Friday to assess for reaccumulation)
Discussed with nursing
Discussed with patient and all of her questions have been answered.
Total time spent today was 50 minutes in preparing to see the patient, seeing the patient and coordination of care. This included review of recent laboratory evaluations, cardiact testing, imaging studies, primary care rtecords, specialty
consultations, hospital records, as well as personally interviewing and examining the patient, which included discussion of their tests, review/ordering medications, and communicating with other healthcare professionals and also treatment planning
as well as counseling.
Total time does not include separately billed tests performed on this date of service.
HPI: Patient came to the emergency room today with increased SOB and an abnormal echocardiogram that showed recurrent pericardial effusion, cardiology is now consulted. Patient was just admitted with AECOPD and acute on chronic HFpEF from 03/19/2025
until 03/26/2025. Patient had echocardiogram on 03/21/2025 that showed a small to moderate pericardial effusion and then had a repeat echo on 06/01/2025 that showed the effusion to be larger in size compared to previous. When the cardiology office
called the patient she reported increased BERUMEN and was referred to the ER. Patient has chronic LE edema with a left worse than right and increased BERUMEN, but denies orthopnea or bloating. Patient was hypoxic upon arrival to the ER and was placed on
oxygen via NC and has symptomatically improved. Patient took her usual dose of Lasix 40 mg a.m. and 20 mg p.m. PO daily at home this morning. Patient also had a pulling sensation in her chest this morning that was worse when laying down and then
seem to be better when she stood up and has not recurred during the day.
Progress Note - Data Control Clerk Supervisor
Subjective
Date of Service: June 19, 2025
She tells me she feels ' great' with no chest pain shortness of breath palpitations or dizziness
Objective
Labs:
06/19/25 03:09
Labs
Hgb 10.5 g/dL (12.0-16.0) L 06/19/25 03:09
Hct 31.9 % (37.0-47.0) L 06/19/25 03:09
Plt Count 125 10^3/uL (130-400) L 06/19/25 03:09
PT 15.8 Sec (11.4-14.6) H 06/09/25 03:36
INR 1.20 06/09/25 03:36
APTT 102.3 Sec (23.4-35.0) H 06/17/25 04:25
Sodium 133 mmol/L (135-145) L 06/19/25 03:09
Potassium 3.9 mmol/L (3.5-5.1) 06/19/25 03:09
BUN 44 mg/dl (7-17) H 06/19/25 03:09
Creatinine 1.6 mg/dL (0.6-1.0) H 06/19/25 03:09
Glucose 90 mg/dl (70-99) 06/19/25 03:09
Vital Signs and I&O:
Vital Signs
Temp Pulse Resp BP Pulse Ox
97.9 F 76 18 107/45 89
06/19/25 07:13 06/19/25 08:17 06/19/25 08:17 06/19/25 06:18 06/19/25 08:21
Vital Signs
Temp Pulse Resp BP Pulse Ox
97.9 F 76 18 107/45 89
06/19/25 07:13 06/19/25 08:17 06/19/25 08:17 06/19/25 06:18 06/19/25 08:21
Intake & Output
06/17/25 06/18/25 06/19/25 06/20/25
06:59 06:59 06:59 06:59
Intake Total 1140 / 1140 690 / 690
Output Total 1825 / 1825 500 / 500 550 / 550 155 / 155
Balance -1824 640 / 640 140 / 140 -155 / -155
Physical Exam
Physical Exam
Comfortable appearing sitting up in bed no distress
Regular rate and rhythm normal S1 and S2, no S3 no S4 there is a grade 1/6 apical holosystolic murmur, there are no rubs
Lungs are clear to auscultation bilaterally without wheezes rales or rhonchi
Extremities no clubbing cyanosis or edema
Neurologic exam is grossly nonfocal
[2025-06-19] MEDS: NSS 250 IV ×2 (11:31→12:11)
--- NOTE | 2025-06-19 11:33 | PTCARENOTE ---
Assumed care of the pt @ 0700. Pt is AAOx3 A fib on the monitor bp 107/45 at change of shift. Pt ambulated with stand by assist to bathroom. Urine 175 ml cristhian. on 2 l NC sat 93% Call bullock within reach.
--- NOTE | 2025-06-19 11:37 | PTCARENOTE ---
Pt's BP @ 1125 91/[address] Hernandez ordered 250 ml/ bolus.
--- NOTE | 2025-06-19 12:18 | PTCARENOTE ---
Repeat bp after 250 ml bolus 83/50 and manual 98/50. Dr Hernandez aware and ordered a 2nd 250 ml/ bolus.
[2025-06-19] MEDS: ROBITUSSIN PO ×3 (12:26→23:03)
--- NOTE | 2025-06-19 12:49 | PTCARENOTE ---
BP after 2nd 250 ml bolus 99/62. Dr Hernandez aware no further orders at this time.
[2025-06-19 14:32] LABS: Blood Urea Nitrogen 47 mg/dl (7-17); Calcium 8.9 mg/dl (8.4-10.2); Carbon Dioxide 31 mmol/L (22-30); Chloride 95 mmol/L (98-107); Estimated Creatinine Clearance 19 ml/min; Glucose 121 mg/dl (70-99); Potassium 3.8 mmol/L (3.5-5.1); Sodium 131 mmol/L (135-145); eGFR 30.83
--- NOTE | 2025-06-19 16:09 | PTCARENOTE ---
Wean O2 to room air after 20 Pulse check was 83% Pt was placed back on 2 LPM NC
[2025-06-19] MEDS: MAALOX 30 ML PO ×2 (18:02→22:13)
[2025-06-19] MEDS: REMOVE LIDOCAINE PATCH 1 PATCH REMOVE (20:30)
[2025-06-19] MEDS: CARDURA PO (22:59)
[2025-06-19] MEDS: LIPITOR 40 MG PO (23:03)
--- NOTE | 2025-06-19 23:52 | PTCARENOTE ---
Pt.'s SBP ranging 110's-120's tonight, pt. awake and pleasant, more energy than last night. Ordered to hold HS doxazosin per hospitalist APPLICATION DEVELOPER Merle. Kierra on the monitor, voiding cristhian urine in hat (350 out so far this shift). IVF's infusing as per
order . Pt. resting quietly.
[2025-06-20] VITALS (8 sets, daily range): BP systolic 108–165; BP diastolic 62–87; PULSE 97; O2SAT 90; BMI 26.5
[2025-06-20] MEDS: TYLENOL 650 MG PO ×2 (04:44→22:32)
[2025-06-20 04:58] LABS: Hematocrit 29.1 % (37.0-47.0); Hemoglobin 9.4 g/dL (12.0-16.0); Mean Corp Hgb Conc. 32.3 g/dL (33.0-37.0); Mean Corpuscular Volume 92.4 fL (81.0-99.0); Platelet Count 143 10^3/uL (130-400); Red Cell Dist. Width 15.1 % (11.5-14.5)
[2025-06-20 05:07] LABS: Blood Urea Nitrogen 44 mg/dl (7-17); Calcium 8.5 mg/dl (8.4-10.2); Carbon Dioxide 30 mmol/L (22-30); Chloride 98 mmol/L (98-107); Estimated Creatinine Clearance 31 ml/min; Glucose 100 mg/dl (70-99); Potassium 3.8 mmol/L (3.5-5.1); Sodium 133 mmol/L (135-145); eGFR 48.33
--- NOTE | 2025-06-20 08:00 | PTCARENOTE ---
Assumed care of pt from prev nsg shift; Pt AAOx3 w/no c/o CP or SOB. Pt w/VSS w/HR in the 70's & BP 127/87 this AM. Pt's temp down to 98.6 after receiving PRN PO Tylenol from prev shift RN. Pt is Afib in a controlled rate on telemetry monitoring. Pt
assisted to BR & OOB to for breakfast. Pt w/bibasilar crackles present & weight increased this AM. IVF D/C'd. Pt w/call bullock within reach & no addtl needs at this time. Plan of care ongoing.
[2025-06-20] MEDS: STRIVERDI RESPIMAT 2 PUFF INH (08:13)
[2025-06-20] MEDS: SPIRIVA RESPIMAT 2.5 MCG 2 PUFF INH (08:13)
--- NOTE | 2025-06-20 09:00 | W.PN.HOSP.TC ---
Today's Communication/Plan
-
see bold
Assessment / Plan
Assessment / Plan
89 y/o female with hx HFpEF, CAD s/p PCI, pericardial effusion s/p pericardiocentesis 2018 presents to the ER with progressive shortness of breath, weight gain and swelling. Patient had an echo as outpatient a week ago which showed pericardial
effusion.
EKG-atrial fibrillation rate [address]-T changes anterolateral leads
ECHO-LV size and systolic function without regional wall motion abnormalities. EF 55 to 60%. RV mildly dilated. Severe biatrial enlargement. Severe TR with severe pulmonary hypertension. PA pressure of 63 mmHg. Moderate to large pericardial
effusion. No change compared to June 01, 2025
Chest p-brd-ipqqwear consistent with CHF
CT Chest 06/10/25
IMPRESSION:
Large pericardial effusion, increased.
Small bilateral pleural effusions, right greater than left, new.
No evidence of pneumonia. Emphysematous lung changes.
Chronic parenchymal scarring with traction bronchiectasis in the right middle lobe.
Stable mediastinal adenopathy.
Possible elevated right-sided heart pressure versus tricuspid insufficiency/regurgitation.
Heart Failure Preserved EF, Acute exacerbation
Acute hypoxic respiratory insufficiency
-patient presented with shortness of breath and weight gain
-appreciate Cardiology, s/p diuresis now hypotensive last night with NOEMY --> lasix on hold
-currently satting 92% on 1 L. Patient's daughter stated that her dials inspector recommends maintaining saturation greater than 88% due to COPD
-wean oxygen as able; patient remains on oxygen despite diuresis
NOEMY
-in setting of over-diuresis and Motrin
-hold Motrin, Lasix, Losartan, Aldactone
-Cr improving w/ IVFs, is 1.1 today, from 1.6
-Cards rec stopping IVFs 06/20
Moderate to Large Pericardial Effusion
-initial repeat echo stable; follow up on 06/15 with increasing effusion and mild resp variation
-s/p pericardiocentesis on 06/17. IV heparin gtt on hold
-appreciate cardiology, treating as pericarditis with initiation of colchicine and Motrin on 06/18/25; motrin now on hold for NOEMY
-repeat echo shows minimal improvement in pericardial effusion, which remains small to moderate
Fever
-T 100.8 overnight 06/17-06/18, patient has some increased congestion; suspect viral versus post procedure fever
-CXR without pneumonia
-Flu and Covid negative
# Hypertension-new start Spironolactone, continue Losartan, Doxazosin
-RESTAURANT ASSISTANT MANAGER Atenolol on hold for bradycardia
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
# Mild thrombocytopenia
# Coronary disease with history of stents in 2003 and 2020
# Paroxysmal atrial fibrillation-continue atenolol, Hold Eliquis; IV Heparin gtt also on hold
# Valvular heart disease with severe TR
# Hyperlipidemia-atorvastatin
# Pulmonary hypertension
# COPD/centrilobular emphysema
-appreciate Pulmonary consult - will re-prescribe Anoro on DC
# Peripheral artery disease with history of right iliac stent 2004
Right carotid artery stenting 2004
# History of nephrolithiasis
# Diverticulosis
# DVT Prophylaxis- IV Heparin gtt on hold, SCD
# CODE Status -Full
Discussed with nursing, updated dtr Jojo on 06/20
Total time spent to see the patient on the floor, examine the patient, review data and lab results, discuss treatment plan with patient, nursing staff around 50 minutes.
Physical Exam
General: No acute distress
HEENT: Normocephalic, Atraumatic, EOMI, MMM
Respiratory: Bibasilar crackles
Cardiac: Normal S1/S2, Regular Rate and Rhythm
GI: Soft, Nontender, Nondistended, Normal Bowel Sounds
Extremities: No Clubbing, Cyanosis, or Edema
Neuro: Nonfocal/Grossly Intact
Anticipated Discharge: > 48 hours
Subjective/Interval History
-
Date of Service: June 20, 2025
Patient complains of nausea after taking her colchicine. Denies chest pain, denies shortness of breath. She had a fever of 100.4 at 4 AM today.
Objective Data
-
Labs:
Laboratory Results
06/20/25
04:34
WBC 11.8 H
Hgb 9.4 L
Hct 29.1 L
Plt Count 143
Sodium 133 L
Potassium 3.8
Chloride 98
Carbon Dioxide 30
BUN 44 H
Creatinine 1.1 H
Glucose 100 H
Calcium 8.5
Vital Signs:
Vital Signs
Temp Pulse Resp BP Pulse Ox
100.4 F H 86 16 127/87 94
06/20/25 04:15 06/20/25 08:15 06/20/25 08:15 06/20/25 07:57 06/20/25 08:15
I&O
06/19/25 06/20/25 06/21/25
06:59 06:59 06:59
Intake Total 690 / 690 1480 / 1480
Output Total 550 / 550 980 / 980
Balance 140 / 140 500 / 500
[2025-06-20] MEDS: NSS IV (09:01)
[2025-06-20] MEDS: FOLVITE 1 MG PO (10:28)
[2025-06-20] MEDS: COLCHICINE 0.6 MG PO ×2 (10:28→20:32)
[2025-06-20] MEDS: VITAMIN D3 (cholecalciferol) 25 MCG PO (10:29)
[2025-06-20] MEDS: LIDOCAINE 4% PATCH TOPICAL ×2 (10:29→10:34)
[2025-06-20] MEDS: PROTONIX 40 MG PO (10:29)
[2025-06-20] MEDS: DESENEX/MITRAZOL/ZEASORB 1 APPLIC TOPICAL ×2 (10:29→19:56)
[2025-06-20] MEDS: VITAMIN B-12 1000 MCG PO (10:29)
[2025-06-20] MEDS: ROBITUSSIN PO ×4 (10:30→17:30)
[2025-06-20] MEDS: THERAGRAN 1 TABLET PO (10:30)
--- NOTE | 2025-06-20 10:51 | W.PN.CARDCBS ---
Addendum entered and electronically signed by Ingrid Garvin PA-C 06/20/25 16:18:
Correction to note, ibuprofen was stopped on 06/19/2025 due to NOEMY and patient is now on colchicine alone. Updated patient's daughter at the bedside today.
Addendum entered and electronically signed by Figueroa Gardner MD 06/20/25 11:38:
I saw and examined the patient.
The FINISHING PAN OPERATOR or PA's note was reviewed and I agree with the note.
Comment: General: Well developed, well nourished in NAD.
Neck: Supple, no JVD, HJR, carotids +2 B/L, no bruits bilaterally.
Heart: Non displaced PMI, Irreg, no murmurs, No S3, S4, no rubs.
Lungs: Crackles at the bases bilaterally
Extremities: No clubbing, cyanosis or edema bilaterally.
Neuro: Grossly nonfocal, awake, alert and oriented x3.
Will discontinue IV fluids with weight gain. Diuretics were stopped due to renal insufficiency which has improved. May need to consider diuresis if remains hypoxic but could benefit from home oxygen. Continue Motrin and ibuprofen. Continue to
follow fever curve but no obvious signs or symptoms of infection at present. Echocardiogram with perhaps minimal improvement in pericardial effusion which remains small to moderate and may be more chronic. Will discuss with interventional
cardiology whether we should consider IV heparin prior to starting Eliquis
Original Note:
Today's Communication / Plan
-
Await final pathology report from pericardial fluid, but cultures thus far without growth
Patient with fever again this morning, but blood cultures without growth and the COVID and influenza swabs were negative this weekend
Fever could be related to pericardial effusion process which could be viral, autoimmune or other
Continue colchicine and ibuprofen for now
Consider restarting heparin gtt and if stable changed back to Eliquis tomorrow
Impression / Plan
-
PCP: Dr. Peterson
Taper Printed Circuit Layout: Dr. Nandini Churchill
Impression:
Presented with SOB and recurrent pericardial effusion 06/08/2025
Recent admission for acute HF and AECOPD 03/19/2025 until 03/26/2025
Acute on chronic HFpEF
Recurrent moderate to large pericardial effusion
s/p pericardiocentesis for 750 to 800 mL bloody pericardial fluid 06/17/2025
h/o pericardial effusion with pericardiocentesis 2018
s/p successful pericardiocentesis with 560 mL of blood-tinged fluid removed 11/27/2018
Managed as pericarditis with a regimen of ibuprofen
Pulmonary HTN, severe by echo 03/21/25
Permanent atrial fibrillation
Chronic Eliquis AC
CAD
LAD PCI in 2003
HTN
HLD
COPD
PAD w/ prior L iliac stent 2004
Carotid stenosis s/p MARGARITA BMS 2004
h/o tobacco abuse
Fever and leukocytosis 06/18/2025
Echo 03/19/2023: EF 59%, mild MR, moderate to severe TR, estimated PAP 84 mmHg
Echo 03/31/2024: EF 62%, moderate TR, estimated PAP 51 mmHg, small pericardial effusion
Echo 03/21/2025: EF 55-60%, mild MR, severe TR, estimated PAP 83 mmHg consistent with severe pulmonary HTN, small to moderate pericardial effusion
Echo 06/01/2025: Normal LV size and function, RV size and function within normal limits, severe TR with PAP 80 mmHg, moderate to large pericardial effusion without evidence of tamponade compared to echo 03/21/2025 the effusion then was small to
moderate and is now larger in size
Echo 06/08/2025: Normal LV size and function at 55 to 60%, RV mildly dilated with normal RV systolic function, severe TR with PAP 63 mmHg, moderate to large pericardial effusion without evidence of tamponade in the setting of PHTN, compared to echo
06/01/2025 there is no significant change
Echo 06/17/2025: Echo guided pericardiocentesis and at the beginning of the procedure a large pericardial effusion was noted and at the conclusion a small to medium sized pericardial effusion remained
Echo 06/20/2025: EF 55 to 60%, pericardial effusion has improved slightly and is now small to moderate compared to moderate at last echo, no evidence of tamponade
CT scan 06/10/25: with the expected finding of large pericardial effusion as well as small bilateral effusions no evidence of pneumonia. Stable mediastinal adenopathy. No obvious concerning findings to suggest malignancy.
Plan:
-Echo repeated 06/20/2025 and the report was reviewed by me and the summarized above, pericardial effusion previously appeared to be moderate in size and now appears to be small to moderate in size. No evidence of tamponade and EF is preserved at 55
to 60%.
-Patient had pericardiocentesis on 06/17/2025 and about 3/4 of the pericardial effusion (for a total of 750 to 800 mL of bloody pericardial fluid) was removed and RHC showed significant PHTN with PCWP 18 mmHg. Pericardial fluid was cultured and
there was no bacterial growth at 48 hours, but acid-fast bacilli, fungal smears and pathology reports are pending.
-Patient was started on colchicine 0.6 mg BID and ibuprofen 600 mg every 8 hours on 06/18/2025
-Patient developed fever and leukocytosis on 06/18/2025, but blood cultures have been without growth, influenza and COVID swabs were also negative, UA showed only a few bacteria and it was negative for nitrites, CXR showed possible mild CHF
-CXR on admission had suggested a possible PNA and patient was initially started on IV antibiotics, but those were then stopped and patient was diuresed with Lasix 60 mg IV BID, but patient then developed NOEMY with Cre as high as 1.6 on 06/19/2025 and
hypotension at which point IV diuresis was held. Patient was started on IV fluids and Cre improved to 1.1 on my review of labs 06/20/2025 and patient now examining in acute HF with rales and 4 lb weight gain. IV fluids stopped on 06/20/2025, orders
placed by me.
-Clinically patient appears to be in acute HF, will resume attempts at diuresis 06/20/2025 with Lasix 60 mg IV x 1 now ordered by me
-Patient with fever again on 06/20/2025 AM, temperature up to 100.4 �F as reviewed by me, but WBC continues to trend down. Fever could possibly be viral and related to pericarditis, there is also the possibility of autoimmune disease that could
cause fever and pericardial effusion. Await pathology and continue with colchicine and ibuprofen
-Patient remains hypoxic on 2 L NC, patient did not use supplemental oxygen prior to admission
-Patient with known permanent A-fib and HR is generally controlled despite stopping outpatient dose of atenolol 50 mg daily due to bradycardia on 06/14/2025
-Outpatient dose of losartan is on hold due to hypotension
-Spironolactone was started and then stopped this admission due to hypotension and NOEMY
-Outpatient dose of Cardura 4 mg daily has been held since 06/18/2025
-Outpatient dose of Eliquis 5 mg BID (age 89, Cre 1.1, wt 65.7 kg) has been on hold since admission and the last dose was 06/08/2025 AM. Patient was briefly on heparin gtt, but this has been on hold since 06/16/25. Could consider restarting heparin
gtt on 06/20/2025 and follow for any clinical changes and then repeat echo on 06/21/2025 and if stable then resume Eliquis in light of permanent A-fib.
HPI: Patient came to the emergency room today with increased SOB and an abnormal echocardiogram that showed recurrent pericardial effusion, cardiology is now consulted. Patient was just admitted with AECOPD and acute on chronic HFpEF from 03/19/2025
until 03/26/2025. Patient had echocardiogram on 03/21/2025 that showed a small to moderate pericardial effusion and then had a repeat echo on 06/01/2025 that showed the effusion to be larger in size compared to previous. When the cardiology office
called the patient she reported increased BERUMEN and was referred to the ER. Patient has chronic LE edema with a left worse than right and increased BERUMEN, but denies orthopnea or bloating. Patient was hypoxic upon arrival to the ER and was placed on
oxygen via NC and has symptomatically improved. Patient took her usual dose of Lasix 40 mg a.m. and 20 mg p.m. PO daily at home this morning. Patient also had a pulling sensation in her chest this morning that was worse when laying down and then
seem to be better when she stood up and has not recurred during the day.
Progress Note - Taper Printed Circuit Layout
Subjective
Date of Service: June 20, 2025
Feeling a little more SOB this morning
Objective
Labs:
06/20/25 04:34
06/20/25 04:34
Labs
Hgb 9.4 g/dL (12.0-16.0) L 06/20/25 04:34
Hct 29.1 % (37.0-47.0) L 06/20/25 04:34
Plt Count 143 10^3/uL (130-400) 06/20/25 04:34
PT 15.8 Sec (11.4-14.6) H 06/09/25 03:36
INR 1.20 06/09/25 03:36
APTT 102.3 Sec (23.4-35.0) H 06/17/25 04:25
Sodium 133 mmol/L (135-145) L 06/20/25 04:34
Potassium 3.8 mmol/L (3.5-5.1) 06/20/25 04:34
BUN 44 mg/dl (7-17) H 06/20/25 04:34
Creatinine 1.1 mg/dL (0.6-1.0) H 06/20/25 04:34
Glucose 100 mg/dl (70-99) H 06/20/25 04:34
Vital Signs and I&O:
Vital Signs
Temp Pulse Resp BP Pulse Ox
98.6 F 86 16 127/87 94
06/20/25 07:57 06/20/25 08:15 06/20/25 08:15 06/20/25 07:57 06/20/25 08:15
Vital Signs
Temp Pulse Resp BP Pulse Ox
98.6 F 86 16 127/87 94
06/20/25 07:57 06/20/25 08:15 06/20/25 08:15 06/20/25 07:57 06/20/25 08:15
Intake & Output
06/18/25 06/19/25 06/20/25 06/21/25
06:59 06:59 06:59 06:59
Intake Total 1140 / 1140 690 / 690 1480 / 1480
Output Total 500 / 500 550 / 550 980 / 980
Balance 640 / 640 140 / 140 500 / 500
Physical Exam
Physical Exam
GEN: NAD. AAO x 3
LUNGS: 2 L NC. Decreased bibasilar rales without wheeze
CV: A-fib on telemetry. Irreg, 1/6 murmur
[2025-06-20] MEDS: MAALOX 30 ML PO ×2 (11:26→19:56)
[2025-06-20 16:48] LABS: APTT 35.4 Sec (23.4-35.0)
[2025-06-20] MEDS: LASIX 40 MG IV (17:02)
[2025-06-20] MEDS: FLUSH (NSS) 2 FLUSH IV (17:05)
[2025-06-20] MEDS: HEPARIN 25000 UNITS/250 ML IV (17:05)
[2025-06-20] MEDS: REMOVE LIDOCAINE PATCH 1 PATCH REMOVE (19:57)
[2025-06-20] MEDS: ROBITUSSIN 200 MG PO (22:32)
[2025-06-20] MEDS: LIPITOR 40 MG PO (22:32)
[2025-06-20] MEDS: CARDURA 4 MG PO (22:32)
[2025-06-20 23:55] LABS: APTT 60.2 Sec (23.4-35.0)
[2025-06-21] VITALS (7 sets, daily range): BP systolic 129–164; BP diastolic 67–79; BMI 26.4
--- NOTE | 2025-06-21 05:34 | PTCARENOTE ---
Assumed care on pt at 1900, aaox3, denies any discomfort. O2 @ 1L via NC, Pox 91-93%, lungs diminished and fine crackles bilaterally on auscultation. Afib on the monitor, HR 70-90's. BP stable. Call bullock within reach, POC ongoing.
[2025-06-21 06:00] LABS: Hematocrit 28.8 % (37.0-47.0); Hemoglobin 9.4 g/dL (12.0-16.0); Mean Corp Hgb Conc. 32.6 g/dL (33.0-37.0); Mean Corpuscular Volume 92.6 fL (81.0-99.0); Platelet Count 170 10^3/uL (130-400); Red Cell Dist. Width 14.9 % (11.5-14.5)
[2025-06-21 06:17] LABS: APTT 92.6 Sec (23.4-35.0)
[2025-06-21 06:59] LABS: Blood Urea Nitrogen 40 mg/dl (7-17); Calcium 8.7 mg/dl (8.4-10.2); Carbon Dioxide 31 mmol/L (22-30); Chloride 96 mmol/L (98-107); Estimated Creatinine Clearance 35 ml/min; Glucose 87 mg/dl (70-99); Potassium 3.6 mmol/L (3.5-5.1); Sodium 132 mmol/L (135-145); eGFR 54.19
[2025-06-21] MEDS: SPIRIVA RESPIMAT 2.5 MCG 2 PUFF INH (08:10)
[2025-06-21] MEDS: STRIVERDI RESPIMAT 2 PUFF INH (08:10)
[2025-06-21] MEDS: VITAMIN B-12 1000 MCG PO (08:22)
[2025-06-21] MEDS: THERAGRAN 1 TABLET PO (08:22)
[2025-06-21] MEDS: FOLVITE 1 MG PO (08:22)
[2025-06-21] MEDS: PROTONIX 40 MG PO (08:22)
[2025-06-21] MEDS: VITAMIN D3 (cholecalciferol) 25 MCG PO (08:23)
[2025-06-21] MEDS: MAALOX 30 ML PO (08:25)
[2025-06-21] MEDS: ROBITUSSIN PO ×2 (08:27→12:29)
[2025-06-21] MEDS: COLCHICINE 0.6 MG PO (08:31)
[2025-06-21] MEDS: DESENEX/MITRAZOL/ZEASORB TOPICAL (08:32)
[2025-06-21] MEDS: LIDOCAINE 4% PATCH TOPICAL (08:34)
--- NOTE | 2025-06-21 08:34 | W.PN.CARDCBS ---
Addendum entered and electronically signed by Figueroa Gardner MD 06/21/25 10:38:
Of note probable pericardial friction rub was heard today
Addendum entered and electronically signed by Figueroa Gardner MD 06/21/25 10:35:
I saw and examined the patient.
The SPEEDER WORKER or PA's note was reviewed and I agree with the note.
Comment: General: Well developed, well nourished in NAD.
Neck: Supple, no JVD, HJR, carotids +2 B/L, no bruits bilaterally.
Heart: Non displaced PMI, RRR, no murmurs, No S3, S4, no rubs.
Lungs: Scattered rhonchi at the bases
Extremities: No clubbing, cyanosis or edema bilaterally.
Neuro: Grossly nonfocal, awake, alert and oriented x3.
She continues to require oxygen. Will give a dose of IV Lasix this morning and consider repeat later today if blood pressure stable. Renal function is normalized. Check repeat echo on 108 AM and if stable discontinue heparin and start Eliquis.
Daughter has been updated. Continue to treat for pericarditis with colchicine
Original Note:
Today's Communication / Plan
-
Lasix 40 mg IV now and will repeat this afternoon is BP stable
Check echo f/u study in AM and if pericardial effusion is stable then start back Eliquis
Impression / Plan
-
PCP: Dr. Peterson
Structural Manager: Dr. Nandini Churchill
Impression:
Presented with SOB and recurrent pericardial effusion 06/08/2025
Recent admission for acute HF and AECOPD 03/19/2025 until 03/26/2025
Acute on chronic HFpEF
Recurrent moderate to large pericardial effusion
s/p pericardiocentesis for 750 to 800 mL bloody pericardial fluid 06/17/2025
h/o pericardial effusion with pericardiocentesis 2018
s/p successful pericardiocentesis with 560 mL of blood-tinged fluid removed 11/27/2018
Managed as pericarditis with a regimen of ibuprofen
Pulmonary HTN, severe by echo 03/21/25
Permanent atrial fibrillation
Chronic Eliquis AC
CAD
LAD PCI in 2003
HTN
HLD
COPD
PAD w/ prior L iliac stent 2004
Carotid stenosis s/p MARGARITA BMS 2004
h/o tobacco abuse
Fever and leukocytosis 06/18/2025
Echo 03/19/2023: EF 59%, mild MR, moderate to severe TR, estimated PAP 84 mmHg
Echo 03/31/2024: EF 62%, moderate TR, estimated PAP 51 mmHg, small pericardial effusion
Echo 03/21/2025: EF 55-60%, mild MR, severe TR, estimated PAP 83 mmHg consistent with severe pulmonary HTN, small to moderate pericardial effusion
Echo 06/01/2025: Normal LV size and function, RV size and function within normal limits, severe TR with PAP 80 mmHg, moderate to large pericardial effusion without evidence of tamponade compared to echo 03/21/2025 the effusion then was small to
moderate and is now larger in size
Echo 06/08/2025: Normal LV size and function at 55 to 60%, RV mildly dilated with normal RV systolic function, severe TR with PAP 63 mmHg, moderate to large pericardial effusion without evidence of tamponade in the setting of PHTN, compared to echo
06/01/2025 there is no significant change
Echo 06/17/2025: Echo guided pericardiocentesis and at the beginning of the procedure a large pericardial effusion was noted and at the conclusion a small to medium sized pericardial effusion remained
Echo 06/20/2025: EF 55 to 60%, pericardial effusion has improved slightly and is now small to moderate compared to moderate at last echo, no evidence of tamponade
CT scan 06/10/25: with the expected finding of large pericardial effusion as well as small bilateral effusions no evidence of pneumonia. Stable mediastinal adenopathy. No obvious concerning findings to suggest malignancy.
Plan:
-No symptomatic change with restart of heparin gtt on 06/20/2025 PM. Recheck echo limited study on 06/22/2025 AM and if stable restart outpatient dose of Eliquis 5 mg BID
-Echo from 06/20/2025 showed small to moderate-sized pericardial effusion without evidence of tamponade
-Patient had pericardiocentesis on 06/17/2025 and about 3/4 of the pericardial effusion (for a total of 750 to 800 mL of bloody pericardial fluid) was removed and RHC showed significant PHTN with PCWP 18 mmHg. Pericardial fluid was cultured and
there was no bacterial growth at 48 hours, but acid-fast bacilli, fungal smears and pathology reports are pending.
-Patient was started on colchicine 0.6 mg BID and ibuprofen 600 mg every 8 hours on 06/18/2025, but ibuprofen stopped due to NOEMY. Will reduce dose of colchicine to 0.6 mg daily due to GI upset starting on 06/21/2025, orders placed by me
-Patient developed fever and leukocytosis on 06/18/2025, but blood cultures have been without growth, influenza and COVID swabs were also negative, UA showed only a few bacteria and it was negative for nitrites, CXR showed possible mild CHF
-Tmax 100.3 �F in the last 24 hours as of 06/21/2025, VS reviewed by me. WBC continues to trend down
-CXR on admission had suggested a possible PNA and patient was initially started on IV antibiotics, but those were then stopped and patient was diuresed with Lasix 60 mg IV BID, but patient then developed NOEMY with Cre as high as 1.6 on 06/19/2025 and
hypotension at which point IV diuresis was held. Patient was started on IV fluids and Cre improved.
-Cre stable at 1.0 on 06/21/25 and weight unchanged at 144 lbs despite Lasix 40 mg IV x1 on 06/20/25.
-Additional Lasix 40 mg IV x1 now and if BP is stable then Lasix 40 mg IV again 06/21/25 afternoon
-Patient remains hypoxic on 2 L NC, patient did not use supplemental oxygen prior to admission
-Patient with known permanent A-fib and HR is generally controlled despite stopping outpatient dose of atenolol 50 mg daily due to bradycardia on 06/14/2025. Consider restarting atenolol 25 mg daily pending BP 06/22/25
-Outpatient dose of losartan is on hold due to hypotension
-Spironolactone was started and then stopped this admission due to hypotension and NOEMY
-Outpatient dose of Cardura 4 mg daily has been held since 06/18/2025
HPI: Patient came to the emergency room today with increased SOB and an abnormal echocardiogram that showed recurrent pericardial effusion, cardiology is now consulted. Patient was just admitted with AECOPD and acute on chronic HFpEF from 03/19/2025
until 03/26/2025. Patient had echocardiogram on 03/21/2025 that showed a small to moderate pericardial effusion and then had a repeat echo on 06/01/2025 that showed the effusion to be larger in size compared to previous. When the cardiology office
called the patient she reported increased BERUMEN and was referred to the ER. Patient has chronic LE edema with a left worse than right and increased BERUMEN, but denies orthopnea or bloating. Patient was hypoxic upon arrival to the ER and was placed on
oxygen via NC and has symptomatically improved. Patient took her usual dose of Lasix 40 mg a.m. and 20 mg p.m. PO daily at home this morning. Patient also had a pulling sensation in her chest this morning that was worse when laying down and then
seem to be better when she stood up and has not recurred during the day.
Progress Note - Structural Manager
Subjective
Date of Service: June 21, 2025
Remains on 2 L NC, no pain
Objective
Labs:
06/21/25 05:42
06/21/25 05:42
Labs
Hgb 9.4 g/dL (12.0-16.0) L 06/21/25 05:42
Hct 28.8 % (37.0-47.0) L 06/21/25 05:42
Plt Count 170 10^3/uL (130-400) 06/21/25 05:42
PT 15.8 Sec (11.4-14.6) H 06/09/25 03:36
INR 1.20 06/09/25 03:36
APTT 92.6 Sec (23.4-35.0) H 06/21/25 05:42
Sodium 132 mmol/L (135-145) L 06/21/25 05:42
Potassium 3.6 mmol/L (3.5-5.1) 06/21/25 05:42
BUN 40 mg/dl (7-17) H 06/21/25 05:42
Creatinine 1.0 mg/dL (0.6-1.0) 06/21/25 05:42
Glucose 87 mg/dl (70-99) 06/21/25 05:42
Vital Signs and I&O:
Vital Signs
Temp Pulse Resp BP Pulse Ox
97.8 F 89 16 129/78 97
06/21/25 08:05 06/21/25 08:12 06/21/25 08:12 06/21/25 05:35 06/21/25 08:12
Vital Signs
Temp Pulse Resp BP Pulse Ox
97.8 F 89 16 129/78 97
06/21/25 08:05 06/21/25 08:12 06/21/25 08:12 06/21/25 05:35 06/21/25 08:12
Intake & Output
06/19/25 06/20/25 06/21/25 06/22/25
06:59 06:59 06:59 06:59
Intake Total 690 / 690 1480 / 1480 960 / 960
Output Total 550 / 550 980 / 980 450 / 450
Balance 140 / 140 500 / 500 510 / 510
Physical Exam
Physical Exam
GEN: NAD. AAO x 3
LUNGS: 2 L NC.
CV: A-fib on telemetry. Irreg, 1 murmur
[2025-06-21] MEDS: LASIX 40 MG IV ×2 (08:56→16:36)
[2025-06-21] MEDS: COLCHICINE PO (09:00)
--- NOTE | 2025-06-21 09:51 | W.PN.HOSP.TC ---
Today's Communication/Plan
-
see bold
Assessment / Plan
Assessment / Plan
89 y/o female with hx HFpEF, CAD s/p PCI, pericardial effusion s/p pericardiocentesis 2018 presents to the ER with progressive shortness of breath, weight gain and swelling. Patient had an echo as outpatient a week ago which showed pericardial
effusion.
EKG-atrial fibrillation rate [address]-T changes anterolateral leads
ECHO-LV size and systolic function without regional wall motion abnormalities. EF 55 to 60%. RV mildly dilated. Severe biatrial enlargement. Severe TR with severe pulmonary hypertension. PA pressure of 63 mmHg. Moderate to large pericardial
effusion. No change compared to June 01, 2025
Chest [id number] consistent with CHF
CT Chest 06/10/25
IMPRESSION:
Large pericardial effusion, increased.
Small bilateral pleural effusions, right greater than left, new.
No evidence of pneumonia. Emphysematous lung changes.
Chronic parenchymal scarring with traction bronchiectasis in the right middle lobe.
Stable mediastinal adenopathy.
Possible elevated right-sided heart pressure versus tricuspid insufficiency/regurgitation.
Heart Failure Preserved EF, Acute exacerbation
Acute hypoxic respiratory insufficiency
-patient presented with shortness of breath and weight gain
-appreciate Cardiology, continue IV Lasix as per cardiology
-currently satting 92% on 1 L. Patient's daughter stated that her coach mechanic recommends maintaining saturation greater than 88% due to COPD
-wean oxygen as able; patient remains on oxygen despite diuresis
NOEMY
-in setting of over-diuresis and Motrin
-hold Motrin, Losartan, Aldactone
-Cr improving w/ IVFs, is 1.0 today, from 1.6
-Cards rec stopping IVFs 06/20
Moderate to Large Pericardial Effusion
-initial repeat echo stable; follow up on 06/15 with increasing effusion and mild resp variation
-s/p pericardiocentesis on 06/17, back on IV heparin gtt, for repeat echo tomorrow
-appreciate cardiology, treating as pericarditis with initiation of colchicine and Motrin on 06/18/25; motrin now on hold for NOEMY
Fever
-T 100.8 overnight 06/17-06/18, patient has some increased congestion; suspect viral versus post procedure fever
-CXR without pneumonia
-Flu and Covid negative
# Hypertension-new start Spironolactone, continue Losartan, Doxazosin
-PHOTO PRINTER Atenolol on hold for bradycardia
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
# Mild thrombocytopenia
# Coronary disease with history of stents in 2003 and 2020
# Paroxysmal atrial fibrillation-continue atenolol, Hold Eliquis; back on IV Heparin gtt
# Valvular heart disease with severe TR
# Hyperlipidemia-atorvastatin
# Pulmonary hypertension
# COPD/centrilobular emphysema
-appreciate Pulmonary consult - will re-prescribe Anoro on DC
# Peripheral artery disease with history of right iliac stent 2004
Right carotid artery stenting 2004
# History of nephrolithiasis
# Diverticulosis
# DVT Prophylaxis- IV Heparin gtt
# CODE Status -Full
Discussed with nursing, updated dtr Jojo on 06/20
Total time spent to see the patient on the floor, examine the patient, review data and lab results, discuss treatment plan with patient, nursing staff around 40 minutes.
Physical Exam
General: No acute distress
HEENT: Normocephalic, Atraumatic, EOMI, MMM
Respiratory: Bibasilar crackles
Cardiac: Normal S1/S2, Regular Rate and Rhythm
GI: Soft, Nontender, Nondistended, Normal Bowel Sounds
Extremities: No Clubbing, Cyanosis, or Edema
Neuro: Nonfocal/Grossly Intact
Anticipated Discharge: > 48 hours
Subjective/Interval History
-
Date of Service: June 21, 2025
Patient reports her nausea is controlled with Maalox. She denies chest pain, denies shortness of breath. She does report wheezing. No fever, no vomiting.
Objective Data
-
Labs:
Laboratory Results
06/20/25 06/21/25 06/21/25
23:31 05:42 12:30
WBC 6.3
Hgb 9.4 L
Hct 28.8 L
Plt Count 170
APTT 60.2 H 92.6 H Pending
Sodium 132 L
Potassium 3.6
Chloride 96 L
Carbon Dioxide 31 H
BUN 40 H
Creatinine 1.0
Glucose 87
Calcium 8.7
Vital Signs:
Vital Signs
Temp Pulse Resp BP Pulse Ox
97.8 F 89 16 149/71 97
06/21/25 08:05 06/21/25 08:12 06/21/25 08:12 06/21/25 07:47 06/21/25 08:12
I&O
06/20/25 06/21/25 06/22/25
06:59 06:59 06:59
Intake Total 1480 / 1480 960 / 960
Output Total 980 / 980 450 / 450
Balance 500 / 500 510 / 510
[2025-06-21 13:11] LABS: APTT 72.1 Sec (23.4-35.0)
--- NOTE | 2025-06-21 17:00 | PTCARENOTE ---
Pt received this am on 2LNC, sat 95%. 02 decreased to 1LNC, sat 92%. Denies any pain or sob. IV heparin infusing as ordered. Assisted oob to the bathroom, gait steady. Voided in the BR and uses the purewic when in bed.
[2025-06-21] MEDS: KCL 40 MEQ PO (17:22)
[2025-06-21] MEDS: ROBITUSSIN 200 MG PO ×2 (17:22→22:33)
[2025-06-21] MEDS: HEPARIN 25000 UNITS/250 ML IV (18:10)
[2025-06-21 19:54] LABS: APTT 72.2 Sec (23.4-35.0)
[2025-06-21] MEDS: LIPITOR 40 MG PO (22:33)
[2025-06-21] MEDS: CARDURA 4 MG PO (22:33)
[2025-06-21] MEDS: TYLENOL 650 MG PO (22:33)
[2025-06-21] MEDS: DESENEX/MITRAZOL/ZEASORB 1 APPLIC TOPICAL (22:34)
[2025-06-21] MEDS: REMOVE LIDOCAINE PATCH 1 PATCH REMOVE (22:34)
--- NOTE | 2025-06-21 23:44 | PTCARENOTE ---
Assumed care on pt at 1900, aaox3, Afib on the monitor, HR controlled 80-90's. 1L O2 via NC, Pox 91-92%, denies SOB. Requesting Tylenol at bedtime for general discomfort. Call bullock within reach, POC ongoing.
[2025-06-22] VITALS (13 sets, daily range): BP systolic 92–188; BP diastolic 40–100; O2SAT 95; BMI 25.8
[2025-06-22 03:12] LABS: Hematocrit 28.5 % (37.0-47.0); Hemoglobin 9.2 g/dL (12.0-16.0); Mean Corp Hgb Conc. 32.3 g/dL (33.0-37.0); Mean Corpuscular Volume 90.8 fL (81.0-99.0); Platelet Count 182 10^3/uL (130-400); Red Cell Dist. Width 15.0 % (11.5-14.5)
[2025-06-22 03:25] LABS: APTT 108.5 Sec (23.4-35.0)
[2025-06-22 03:40] LABS: Blood Urea Nitrogen 35 mg/dl (7-17); Calcium 8.6 mg/dl (8.4-10.2); Carbon Dioxide 32 mmol/L (22-30); Chloride 96 mmol/L (98-107); Estimated Creatinine Clearance 38 ml/min; Glucose 100 mg/dl (70-99); Potassium 3.9 mmol/L (3.5-5.1); Sodium 134 mmol/L (135-145); eGFR > 60.00
[2025-06-22] MEDS: STRIVERDI RESPIMAT 2 PUFF INH (07:55)
[2025-06-22] MEDS: SPIRIVA RESPIMAT 2.5 MCG 2 PUFF INH (07:55)
[2025-06-22] MEDS: LIDOCAINE 4% PATCH TOPICAL (08:18)
[2025-06-22] MEDS: VITAMIN B-12 PO (08:19)
[2025-06-22] MEDS: ROBITUSSIN PO ×3 (08:19→17:28)
[2025-06-22] MEDS: VITAMIN D3 (cholecalciferol) PO (08:19)
[2025-06-22] MEDS: THERAGRAN PO (08:19)
[2025-06-22] MEDS: DESENEX/MITRAZOL/ZEASORB 1 APPLIC TOPICAL (08:20)
[2025-06-22] MEDS: PROTONIX 40 MG PO (08:23)
[2025-06-22] MEDS: MAALOX 30 ML PO (08:23)
[2025-06-22] MEDS: FOLVITE 1 MG PO (08:23)
--- NOTE | 2025-06-22 08:33 | W.PN.HOSP.TC ---
Today's Communication/Plan
-
see bold
Assessment / Plan
Assessment / Plan
89 y/o female with hx HFpEF, CAD s/p PCI, pericardial effusion s/p pericardiocentesis 2018 presents to the ER with progressive shortness of breath, weight gain and swelling. Patient had an echo as outpatient a week ago which showed pericardial
effusion.
EKG-atrial fibrillation rate [address]-T changes anterolateral leads
ECHO-LV size and systolic function without regional wall motion abnormalities. EF 55 to 60%. RV mildly dilated. Severe biatrial enlargement. Severe TR with severe pulmonary hypertension. PA pressure of 63 mmHg. Moderate to large pericardial
effusion. No change compared to June 01, 2025
Chest [id number] consistent with CHF
CT Chest 06/10/25
IMPRESSION:
Large pericardial effusion, increased.
Small bilateral pleural effusions, right greater than left, new.
No evidence of pneumonia. Emphysematous lung changes.
Chronic parenchymal scarring with traction bronchiectasis in the right middle lobe.
Stable mediastinal adenopathy.
Possible elevated right-sided heart pressure versus tricuspid insufficiency/regurgitation.
Heart Failure Preserved EF, Acute exacerbation
Acute hypoxic respiratory insufficiency
-patient presented with shortness of breath and weight gain
-appreciate Cardiology, status post IV Lasix, now on oral Lasix
-currently satting 92% on 1 L. Patient's daughter stated that her leaflet distributor recommends maintaining saturation greater than 88% due to COPD
-wean oxygen as able; patient remains on oxygen despite diuresis
NOEMY
-in setting of over-diuresis and Motrin
-Resolved, creatinine now normal, was 1.6
-Cards rec stopping IVFs 06/20
Moderate to Large Pericardial Effusion
-s/p pericardiocentesis on 06/17, repeat echo 06/21 shows stable small to mod pericardial effusion
-appreciate cardiology, treating as pericarditis with initiation of colchicine and Motrin on 06/18/25; motrin resumed at lower dose
Fever
-T 100.8 overnight 06/17-06/18, patient has some increased congestion; suspect viral versus post procedure fever
-CXR without pneumonia
-Flu and Covid negative
# Hypertension
Resume losartan, atenolol 06/22
#Ingrown hair follicle on right thigh
Bacitracin ointment
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
# Mild thrombocytopenia
# Coronary disease with history of stents in 2003 and 2020
# Paroxysmal atrial fibrillation-continue atenolol, IV heparin drip changed back to Eliquis 06/22
# Valvular heart disease with severe TR
# Hyperlipidemia-atorvastatin
# Pulmonary hypertension
# COPD/centrilobular emphysema
-appreciate Pulmonary consult - will re-prescribe Anoro on DC
# Peripheral artery disease with history of right iliac stent 2004
Right carotid artery stenting 2004
# History of nephrolithiasis
# Diverticulosis
# DVT Prophylaxis- IV heparin drip changed back to Eliquis 06/22
# CODE Status -Full
Discussed with nursing, updated dtr Jojo on 06/22
Total time spent to see the patient on the floor, examine the patient, review data and lab results, discuss treatment plan with patient, nursing staff around 50 minutes.
Physical Exam
General: No acute distress
HEENT: Normocephalic, Atraumatic, EOMI, MMM
Respiratory: Bibasilar crackles
Cardiac: Normal S1/S2, Regular Rate and Rhythm
GI: Soft, Nontender, Nondistended, Normal Bowel Sounds
Extremities: No Clubbing, Cyanosis, or Edema
Neuro: Nonfocal/Grossly Intact
Derm: Inflamed ingrown hair follicle on right anterior thigh
Anticipated Discharge: 24 - 48 hours
Subjective/Interval History
-
Date of Service: June 22, 2025
Patient reports that her nausea is improved. She denies chest pain, denies shortness of breath. No fever, no vomiting.
Objective Data
-
Labs:
Laboratory Results
06/22/25 06/22/25
02:55 10:00
WBC 6.5
Hgb 9.2 L
Hct 28.5 L
Plt Count 182
APTT 108.5 H Pending
Sodium 134 L
Potassium 3.9
Chloride 96 L
Carbon Dioxide 32 H
BUN 35 H
Creatinine 0.9
Glucose 100 H
Calcium 8.6
Vital Signs:
Vital Signs
Temp Pulse Resp BP Pulse Ox
98.6 F 84 16 142/79 96
06/22/25 06:58 06/22/25 08:01 06/22/25 08:01 06/22/25 02:44 06/22/25 08:01
I&O
06/21/25 06/22/25 06/23/25
06:59 06:59 06:59
Intake Total 960 / 960 372 / 372
Output Total 1250 / 1250 1525 / 1525
Balance -290 / -290 -1153 / -1153
[2025-06-22] MEDS: ALDACTONE 25 MG PO (09:10)
[2025-06-22] MEDS: COZAAR 50 MG PO (09:10)
[2025-06-22] MEDS: COLCHICINE 0.6 MG PO (09:10)
--- NOTE | 2025-06-22 10:12 | W.PN.CARDCBS ---
Addendum entered and electronically signed by Jose Murray DO 06/22/25 17:19:
I saw and examined the patient at 9:15 AM
The Service Center Coordinator's note was reviewed and I agree with the note.
Comment:
Plan:
Echo reviewed and stable with regards to pericardial effusion and IV heparin stopped and Eliquis resumed this morning.
Repeat echo as an outpatient 2 to 3 weeks
Continue colchicine and resume ibuprofen at lower dose 400 mg twice daily for pericarditis. Patient continues with small friction rub.
Restart atenolol and losartan. Continue to hold spironolactone as patient was not taking prior to admission and with renal insufficiency this admission.
Discussed with nursing.
Original Note:
Today's Communication / Plan
-
Restart atenolol 25 mg daily
Restart losartan 50 mg daily
Stop spironolactone, patient was not taking prior to admission and had NOEMY this admission
Cont Cardura 4 mg daily
Lasix 40 mg PO x1 now and if BP, Cre and weight stable then will d/c to home on Lasix 40 mg AM and 20 mg PM daily
Eliquis restarted this morning
Will need repeat echo as outpatient in 2-3 weeks
Cont colchicine 0.6 mg daily
Restart ibuprofen 400 mg BID
Impression / Plan
-
PCP: Dr. Peterson
Cue Worker: Dr. Nandini Churchill
Impression:
Presented with SOB and recurrent pericardial effusion 06/08/2025
Recent admission for acute HF and AECOPD 03/19/2025 until 03/26/2025
Acute on chronic HFpEF
Recurrent moderate to large pericardial effusion
s/p pericardiocentesis for 750 to 800 mL bloody pericardial fluid 06/17/2025
h/o pericardial effusion with pericardiocentesis 2018
s/p successful pericardiocentesis with 560 mL of blood-tinged fluid removed 11/27/2018
Managed as pericarditis with a regimen of ibuprofen
Pulmonary HTN, severe by echo 03/21/25
Permanent atrial fibrillation
Chronic Eliquis AC
CAD
LAD PCI in 2003
HTN
HLD
COPD
PAD w/ prior L iliac stent 2004
Carotid stenosis s/p MARGARITA BMS 2004
h/o tobacco abuse
Fever and leukocytosis 06/18/2025
Echo 03/19/2023: EF 59%, mild MR, moderate to severe TR, estimated PAP 84 mmHg
Echo 03/31/2024: EF 62%, moderate TR, estimated PAP 51 mmHg, small pericardial effusion
Echo 03/21/2025: EF 55-60%, mild MR, severe TR, estimated PAP 83 mmHg consistent with severe pulmonary HTN, small to moderate pericardial effusion
Echo 06/01/2025: Normal LV size and function, RV size and function within normal limits, severe TR with PAP 80 mmHg, moderate to large pericardial effusion without evidence of tamponade compared to echo 03/21/2025 the effusion then was small to
moderate and is now larger in size
Echo 06/08/2025: Normal LV size and function at 55 to 60%, RV mildly dilated with normal RV systolic function, severe TR with PAP 63 mmHg, moderate to large pericardial effusion without evidence of tamponade in the setting of PHTN, compared to echo
06/01/2025 there is no significant change
Echo 06/17/2025: Echo guided pericardiocentesis and at the beginning of the procedure a large pericardial effusion was noted and at the conclusion a small to medium sized pericardial effusion remained
Echo 06/20/2025: EF 55 to 60%, pericardial effusion has improved slightly and is now small to moderate compared to moderate at last echo, no evidence of tamponade
Echo 06/21/2025: EF 55 to 60%, RV size and function normal, moderate to severe TR with PAP 48 mmHg, small to moderate pericardial effusion without evidence of tamponade, overall little significant change compared to echo 06/20/2025
CT scan 06/10/25: with the expected finding of large pericardial effusion as well as small bilateral effusions no evidence of pneumonia. Stable mediastinal adenopathy. No obvious concerning findings to suggest malignancy.
Plan:
-Patient tolerated heparin gtt and echo was stable, outpatient dose of Eliquis 5 mg BID restarted 06/22/2025
-Patient had pericardiocentesis on 06/17/2025 and about 3/4 of the pericardial effusion (for a total of 750 to 800 mL of bloody pericardial fluid) was removed and RHC showed significant PHTN with PCWP 18 mmHg. Pericardial fluid was cultured and
there was no bacterial growth at 48 hours, but acid-fast bacilli, fungal smears and pathology reports are pending.
-Patient was started on colchicine 0.6 mg BID and ibuprofen 600 mg every 8 hours on 06/18/2025, but ibuprofen stopped due to NOEMY. Colchicine dose reduced to 0.6 mg daily due to GI upset starting on 06/21/2025, but thinks it could be from apple juice
intake. If diarrhea persist will stop colchicine. Restart ibuprofen 400 mg BID for 2 weeks.
-Patient developed fever and leukocytosis on 06/18/2025, but blood cultures have been without growth, influenza and COVID swabs were also negative, UA showed only a few bacteria and it was negative for nitrites, CXR showed possible mild CHF
-Afebrile for the last 24 hours as of 06/22/2025, VS reviewed by me. WBC continues to trend down
-CXR on admission had suggested a possible PNA and patient was initially started on IV antibiotics, but those were then stopped and patient was diuresed with Lasix 60 mg IV BID, but patient then developed NOEMY with Cre as high as 1.6 on 06/19/2025 and
hypotension at which point IV diuresis was held. Patient was started on IV fluids and Cre improved.
-Cre stable at 0.9 on 06/22/25 and weight down to 140 lbs on 06/22/2025.
-Patient developed NOEMY and hypotension with possible overdiuresis earlier this admission, will restart Lasix at 40 mg PO daily now and follow daily weight.
-Oxygenation has improved and patient is now only requiring 1 L NC. Patient did not use supplemental oxygen prior to admission
-Patient with known permanent A-fib and HR is generally controlled despite stopping outpatient dose of atenolol 50 mg daily due to bradycardia on 06/14/2025, but will restart atenolol 25 mg daily now, orders placed by me.
-Outpatient dose of losartan is on hold due to hypotension, but single dose of 50 mg given 06/22/2025. Will restart losartan 50 mg daily 06/22/25.
-Spironolactone was started and then stopped this admission due to hypotension and NOEMY, but single dose of 25 mg given 06/22/2025. Will not start spironolactone as a daily med at this time due to NOEMY earlier this admission.
-Outpatient dose of Cardura 4 mg daily was held since 06/18/2025 and 06/19/25 then restarted 06/20/25 PM. Continue Cardura 4 mg nightly for now.
HPI: Patient came to the emergency room today with increased SOB and an abnormal echocardiogram that showed recurrent pericardial effusion, cardiology is now consulted. Patient was just admitted with AECOPD and acute on chronic HFpEF from 03/19/2025
until 03/26/2025. Patient had echocardiogram on 03/21/2025 that showed a small to moderate pericardial effusion and then had a repeat echo on 06/01/2025 that showed the effusion to be larger in size compared to previous. When the cardiology office
called the patient she reported increased BERUMEN and was referred to the ER. Patient has chronic LE edema with a left worse than right and increased BERUMEN, but denies orthopnea or bloating. Patient was hypoxic upon arrival to the ER and was placed on
oxygen via NC and has symptomatically improved. Patient took her usual dose of Lasix 40 mg a.m. and 20 mg p.m. PO daily at home this morning. Patient also had a pulling sensation in her chest this morning that was worse when laying down and then
seem to be better when she stood up and has not recurred during the day.
Progress Note - Cue Worker
Subjective
Date of Service: June 22, 2025
BERUMEN with PT, but no resting SOB
Objective
Labs:
06/22/25 02:55
06/22/25 02:55
Labs
Hgb 9.2 g/dL (12.0-16.0) L 06/22/25 02:55
Hct 28.5 % (37.0-47.0) L 06/22/25 02:55
Plt Count 182 10^3/uL (130-400) 06/22/25 02:55
PT 15.8 Sec (11.4-14.6) H 06/09/25 03:36
INR 1.20 06/09/25 03:36
APTT 108.5 Sec (23.4-35.0) H 06/22/25 02:55
Sodium 134 mmol/L (135-145) L 06/22/25 02:55
Potassium 3.9 mmol/L (3.5-5.1) 06/22/25 02:55
BUN 35 mg/dl (7-17) H 06/22/25 02:55
Creatinine 0.9 mg/dL (0.6-1.0) 06/22/25 02:55
Glucose 100 mg/dl (70-99) H 06/22/25 02:55
Vital Signs and I&O:
Vital Signs
Temp Pulse Resp BP Pulse Ox
98.6 F 94 16 172/81 96
06/22/25 06:58 06/22/25 09:10 06/22/25 08:01 06/22/25 09:10 06/22/25 08:01
Vital Signs
Temp Pulse Resp BP Pulse Ox
98.6 F 94 16 172/81 96
06/22/25 06:58 06/22/25 09:10 06/22/25 08:01 06/22/25 09:10 06/22/25 08:01
Intake & Output
06/20/25 06/21/25 06/22/25 06/23/25
06:59 06:59 06:59 06:59
Intake Total 1480 / 1480 960 / 960 372 / 372
Output Total 980 / 980 1250 / 1250 1525 / 1525
Balance 500 / 500 -290 / -290 -1153 / -1153
Physical Exam
Physical Exam
GEN: NAD. AAO x 3
LUNGS: RA
CV: A-fib on telemetry. Irreg, 09/20 murmur
[2025-06-22 10:54] LABS: APTT 120.7 Sec (23.4-35.0)
[2025-06-22] MEDS: BACITRACIN OINTMENT 1 APPLIC TOPICAL ×2 (12:29→19:55)
[2025-06-22] MEDS: ELIQUIS 5 MG PO ×2 (12:51→19:56)
[2025-06-22] MEDS: MOTRIN 400 MG PO ×2 (12:51→19:56)
[2025-06-22] MEDS: LASIX 40 MG PO (15:22)
--- NOTE | 2025-06-22 19:07 | PTCARENOTE ---
~3026-9579: Handoff report received from nightshift RN. Pt AOx4, Afib on tele 80s, SBP 160s-180s at this time. Informed hospitalist and cardiology who ordered losartan and aldactone. 1L NC satting 96%, patient weaned to RA. Pt denies pain at this
time, however states she feels 'queezy.' D/t this, patient refused scheduled vitamins. PRN maalox given prior to colchicine per pt request. Heparin gtt infusing @1200 units/hr at this time. Pt standby assist to bathroom, patient c/o loose stools.
Cardiology in to see patient at bedside. All needs met at this time, call bullock within reach.
~9679-8266: Patient ambulated with Pt in halls. Pt can be RA while at rest, but requires 2LNC while ambulating at this time.
~4294-7855: Pt transitioned to Eliquis at this time per order. Heparin gtt turned off.
~0900-4770: Ingrid Garvin Pa-C in to speak with patient and daughter to discuss plan of care.
~7103-7004: New orders placed by Ingrid. Pt Ax1 in room to bathroom. All needs met at this time, call bullock within reach.
~3659-7866: Pt relaxing in bed at this time. Denies pain. Afib 80s, RA satting >90%. All needs met at this time, call bullock within reach. handoff report given to ned RN.
[2025-06-22] MEDS: DESENEX/MITRAZOL/ZEASORB TOPICAL (19:56)
[2025-06-22] MEDS: REMOVE LIDOCAINE PATCH REMOVE (19:57)
--- NOTE | 2025-06-22 21:50 | PTCARENOTE ---
Received pt @ change of shift. AAOx3, VSS-- A-Fib on monitor, on room air while in bed. Sitting on bedside. Rt groin site clean, dry, and intact. No c/p of nausea or diarrhea @ this time. Discussed plan of care. Pt verbalizes understanding. Call
bullock within reach.
[2025-06-22] MEDS: CARDURA 4 MG PO (22:15)
[2025-06-22] MEDS: LIPITOR 40 MG PO (22:16)
[2025-06-22] MEDS: ROBITUSSIN 200 MG PO (22:16)
[2025-06-22] MEDS: TENORMIN 25 MG PO (22:16)
[2025-06-23] VITALS (9 sets, daily range): BP systolic 93–136; BP diastolic 49–77; PULSE 66–77; O2SAT 89; BMI 26.0
[2025-06-23 04:21] LABS: Hematocrit 28.1 % (37.0-47.0); Hemoglobin 8.9 g/dL (12.0-16.0); Mean Corp Hgb Conc. 31.7 g/dL (33.0-37.0); Mean Corpuscular Volume 92.1 fL (81.0-99.0); Platelet Count 208 10^3/uL (130-400); Red Cell Dist. Width 14.8 % (11.5-14.5)
[2025-06-23 04:42] LABS: Blood Urea Nitrogen 39 mg/dl (7-17); Calcium 9.0 mg/dl (8.4-10.2); Carbon Dioxide 31 mmol/L (22-30); Chloride 98 mmol/L (98-107); Estimated Creatinine Clearance 28 ml/min; Glucose 97 mg/dl (70-99); Potassium 4.3 mmol/L (3.5-5.1); Sodium 134 mmol/L (135-145); eGFR 48.33
[2025-06-23] MEDS: STRIVERDI RESPIMAT 2 PUFF INH (07:54)
[2025-06-23] MEDS: SPIRIVA RESPIMAT 2.5 MCG 2 PUFF INH (07:55)
[2025-06-23] MEDS: BACITRACIN OINTMENT 1 APPLIC TOPICAL (08:12)
[2025-06-23] MEDS: PROTONIX 40 MG PO (08:12)
[2025-06-23] MEDS: MOTRIN 400 MG PO ×2 (08:12→19:33)
[2025-06-23] MEDS: ELIQUIS 5 MG PO ×2 (08:12→19:33)
[2025-06-23] MEDS: MAALOX 30 ML PO (08:13)
[2025-06-23] MEDS: DESENEX/MITRAZOL/ZEASORB TOPICAL ×2 (08:14→19:33)
[2025-06-23] MEDS: ROBITUSSIN PO ×4 (08:15→22:12)
[2025-06-23] MEDS: LIDOCAINE 4% PATCH TOPICAL (08:15)
[2025-06-23] MEDS: FOLVITE PO (08:16)
[2025-06-23] MEDS: THERAGRAN PO (08:16)
[2025-06-23] MEDS: VITAMIN B-12 PO (08:16)
[2025-06-23] MEDS: VITAMIN D3 (cholecalciferol) PO (08:16)
[2025-06-23] MEDS: COLCHICINE 0.6 MG PO (08:17)
--- NOTE | 2025-06-23 09:21 | W.PN.CARDCBS ---
Addendum entered and electronically signed by Derik Porras MD 06/23/25 18:00:
I saw and examined the patient.
The Gas Cutter's note was reviewed and I agree with the note.
Comment:
GEN: No distress, awake, Ox3
HEENT: supple, anicteric, mmm
LUNGS: CTA, no wheezes/rales
CV: Reg, S1/S2, 1/6 syst LSB, no gallop
ABD: soft, BS+, NT/ND
EXT: No edema
NEURO: Gross non-focal
SKIN: No rash
PLan:
Creatinine at 1.1. Continue to follow. Lasix 40 mg daily today and then tomorrow would increase to 40 mg in a.m. and 20 mg in p.m.
Continue to hold losartan and remain off spironolactone.
Continue Cardura and atenolol.
Will need repeat echo in several weeks to follow-up pericardial effusion.
Hyponatremia is improved at 134.
Original Note:
Today's Communication / Plan
-
Lasix 40 mg p.o. daily for today and then resume outpatient regimen of 40 mg a.m. and 20 mg p.m. tomorrow
Hold losartan for now, can restart as an outpatient
No additional doses of spironolactone
Continue lower dose of atenolol
Continue outpatient dose of Cardura
Outpatient BMP in 1 week, lab slip created in [facility] by me and placed on patient's chart
Anticipate d/c to home tomorrow
Impression / Plan
-
PCP: Dr. Peterson
Radio Installer: Dr. Nandini Churchill
Impression:
Presented with SOB and recurrent pericardial effusion 06/08/2025
Recent admission for acute HF and AECOPD 03/19/2025 until 03/26/2025
Acute on chronic HFpEF
Recurrent moderate to large pericardial effusion
s/p pericardiocentesis for 750 to 800 mL bloody pericardial fluid 06/17/2025
h/o pericardial effusion with pericardiocentesis 2018
s/p successful pericardiocentesis with 560 mL of blood-tinged fluid removed 11/27/2018
Managed as pericarditis with a regimen of ibuprofen
Pulmonary HTN, severe by echo 03/21/25
Permanent atrial fibrillation
Chronic Eliquis AC
CAD
LAD PCI in 2003
HTN
HLD
COPD
PAD w/ prior L iliac stent 2004
Carotid stenosis s/p MARGARITA BMS 2004
h/o tobacco abuse
Fever and leukocytosis 06/18/2025
Echo 03/19/2023: EF 59%, mild MR, moderate to severe TR, estimated PAP 84 mmHg
Echo 03/31/2024: EF 62%, moderate TR, estimated PAP 51 mmHg, small pericardial effusion
Echo 03/21/2025: EF 55-60%, mild MR, severe TR, estimated PAP 83 mmHg consistent with severe pulmonary HTN, small to moderate pericardial effusion
Echo 06/01/2025: Normal LV size and function, RV size and function within normal limits, severe TR with PAP 80 mmHg, moderate to large pericardial effusion without evidence of tamponade compared to echo 03/21/2025 the effusion then was small to
moderate and is now larger in size
Echo 06/08/2025: Normal LV size and function at 55 to 60%, RV mildly dilated with normal RV systolic function, severe TR with PAP 63 mmHg, moderate to large pericardial effusion without evidence of tamponade in the setting of PHTN, compared to echo
06/01/2025 there is no significant change
Echo 06/17/2025: Echo guided pericardiocentesis and at the beginning of the procedure a large pericardial effusion was noted and at the conclusion a small to medium sized pericardial effusion remained
Echo 06/20/2025: EF 55 to 60%, pericardial effusion has improved slightly and is now small to moderate compared to moderate at last echo, no evidence of tamponade
Echo 06/21/2025: EF 55 to 60%, RV size and function normal, moderate to severe TR with PAP 48 mmHg, small to moderate pericardial effusion without evidence of tamponade, overall little significant change compared to echo 06/20/2025
CT scan 06/10/25: with the expected finding of large pericardial effusion as well as small bilateral effusions no evidence of pneumonia. Stable mediastinal adenopathy. No obvious concerning findings to suggest malignancy.
Plan:
-Patient tolerated heparin gtt and echo was stable, outpatient dose of Eliquis 5 mg BID restarted 06/22/2025
-Patient had pericardiocentesis on 06/17/2025 and about 3/4 of the pericardial effusion (for a total of 750 to 800 mL of bloody pericardial fluid) was removed and RHC showed significant PHTN with PCWP 18 mmHg. Pericardial fluid was cultured and
there was no bacterial growth at 48 hours. Pathology reports negative for malignancy
-Patient was started on colchicine 0.6 mg BID and ibuprofen 600 mg every 8 hours on 06/18/2025, but ibuprofen stopped due to NOEMY. Colchicine dose reduced to 0.6 mg daily due to GI upset starting on 06/21/2025, but thinks it could be from apple juice
intake. If diarrhea persist will stop colchicine.
-Attempted to restart ibuprofen at 400 mg BID on 06/22/2025, but Cre increased to 1.1 on 06/23/2025 and we will stop ibuprofen for possibly contributing to NOEMY. Continue with colchicine at 0.6 mg daily.
-Cre increased to 1.1 on 06/23/25, labs reviewed by me. Patient was given losartan 50 mg and spironolactone 25 mg on 06/22/2025. Spironolactone has been stopped and should not be restarted. Outpatient dose of losartan was 100 mg daily and dose was
then decreased to 50 mg daily this admission, but for now losartan has also been stopped and we can reassess as an outpatient.
-Lasix 40 mg PO now and then started regimen of Lasix 40 mg a.m. and 20 mg p.m. daily, this was her outpatient regimen as well
-Patient will need repeat BMP in 1 week as an outpatient, lab slip created in [facility] by me and placed on patient's chart 06/23/2025
-Patient weighs 141 lbs on 06/23/2025. Daughter thinks that previous dry weight of 138 lbs might be too low based on NOEMY with attempts at more aggressive diuresis this admission.
-Oxygenation has improved and no longer requiring supplemental oxygen. Patient did not use supplemental oxygen prior to admission. Will need to reassess just prior to discharge to be sure she does not need oxygen with activity.
-Patient with known permanent A-fib and was taking atenolol 50 mg daily prior to admission, but this was stopped due to bradycardia on 06/14/2025, but restarted atenolol 25 mg qHS 06/22/2025 and HR improved from 80-90 to 60-70.
-Spironolactone was started and then stopped this admission due to hypotension and NOEMY, but single dose of 25 mg given 06/22/2025. Will not start spironolactone as a daily med at this time due to NOEMY earlier this admission.
-Outpatient dose of Cardura 4 mg daily was held since 06/18/2025 and 06/19/25 then restarted 06/20/25 PM. Continue Cardura 4 mg nightly for now.
-Patient developed fever and leukocytosis on 06/18/2025, but blood cultures have been without growth, influenza and COVID swabs were also negative, UA showed only a few bacteria and it was negative for nitrites, CXR showed possible mild CHF
-Afebrile for the last 48 hours as of 06/23/2025, VS reviewed by me. WBC continues to trend down
-Updated patient's daughter by phone while in the room with patient on 06/23/2025, we talked for about 6 minutes. Anticipate discharge to home 06/24/2025.
HPI: Patient came to the emergency room today with increased SOB and an abnormal echocardiogram that showed recurrent pericardial effusion, cardiology is now consulted. Patient was just admitted with AECOPD and acute on chronic HFpEF from 03/19/2025
until 03/26/2025. Patient had echocardiogram on 03/21/2025 that showed a small to moderate pericardial effusion and then had a repeat echo on 06/01/2025 that showed the effusion to be larger in size compared to previous. When the cardiology office
called the patient she reported increased BERUMEN and was referred to the ER. Patient has chronic LE edema with a left worse than right and increased BERUMEN, but denies orthopnea or bloating. Patient was hypoxic upon arrival to the ER and was placed on
oxygen via NC and has symptomatically improved. Patient took her usual dose of Lasix 40 mg a.m. and 20 mg p.m. PO daily at home this morning. Patient also had a pulling sensation in her chest this morning that was worse when laying down and then
seem to be better when she stood up and has not recurred during the day.
Progress Note - Radio Installer
Subjective
Date of Service: June 23, 2025
Overall improved BERUMEN, no pain
Objective
Labs:
06/23/25 03:26
06/23/25 03:26
Labs
Hgb 8.9 g/dL (12.0-16.0) L 06/23/25 03:26
Hct 28.1 % (37.0-47.0) L 06/23/25 03:26
Plt Count 208 10^3/uL (130-400) 06/23/25 03:26
PT 15.8 Sec (11.4-14.6) H 06/09/25 03:36
INR 1.20 06/09/25 03:36
APTT Cancelled 06/22/25 22:19
Sodium 134 mmol/L (135-145) L 06/23/25 03:26
Potassium 4.3 mmol/L (3.5-5.1) 06/23/25 03:26
BUN 39 mg/dl (7-17) H 06/23/25 03:26
Creatinine 1.1 mg/dL (0.6-1.0) H 06/23/25 03:26
Glucose 97 mg/dl (70-99) 06/23/25 03:26
Vital Signs and I&O:
Vital Signs
Temp Pulse Resp BP Pulse Ox
97.8 F 65 20 124/72 94
06/23/25 07:10 06/23/25 07:11 06/23/25 07:10 06/23/25 07:11 06/23/25 07:11
Vital Signs
Temp Pulse Resp BP Pulse Ox
97.8 F 65 20 124/72 94
06/23/25 07:10 06/23/25 07:11 06/23/25 07:10 06/23/25 07:11 06/23/25 07:11
Intake & Output
06/21/25 06/22/25 06/23/25 06/24/25
06:59 06:59 06:59 06:59
Intake Total 960 / 960 372 / 372
Output Total 1250 / 1250 1525 / 1525 300 / 300
Balance -290 / -290 -1153 / -1153 -300 / -300
Physical Exam
Physical Exam
GEN: NAD. AAO x 3
LUNGS: RA
CV: A-fib on telemetry. Irreg, 1 murmur
--- NOTE | 2025-06-23 09:47 | W.PN.HOSP.TC ---
Today's Communication/Plan
-
see bold
Assessment / Plan
Assessment / Plan
89 y/o female with hx HFpEF, CAD s/p PCI, pericardial effusion s/p pericardiocentesis 2018 presents to the ER with progressive shortness of breath, weight gain and swelling. Patient had an echo as outpatient a week ago which showed pericardial
effusion.
EKG-atrial fibrillation rate [address]-T changes anterolateral leads
ECHO-LV size and systolic function without regional wall motion abnormalities. EF 55 to 60%. RV mildly dilated. Severe biatrial enlargement. Severe TR with severe pulmonary hypertension. PA pressure of 63 mmHg. Moderate to large pericardial
effusion. No change compared to June 01, 2025
Chest [id number] consistent with CHF
CT Chest 06/10/25
IMPRESSION:
Large pericardial effusion, increased.
Small bilateral pleural effusions, right greater than left, new.
No evidence of pneumonia. Emphysematous lung changes.
Chronic parenchymal scarring with traction bronchiectasis in the right middle lobe.
Stable mediastinal adenopathy.
Possible elevated right-sided heart pressure versus tricuspid insufficiency/regurgitation.
Heart Failure Preserved EF, Acute exacerbation
Acute hypoxic respiratory insufficiency
-patient presented with shortness of breath and weight gain
-appreciate Cardiology, status post IV Lasix, now on oral Lasix
-currently satting 90% on RA, she needs 2 L with activity. Patient's daughter stated that her director public recommends maintaining saturation greater than 88% due to COPD
-wean oxygen as able; patient remains on oxygen despite diuresis
-check home oxygen prescription eval
NOEMY
-in setting of over-diuresis and Motrin
-improved, creatinine now 1.1, was 1.6
-Cards rec stopping IVFs 06/20
Moderate to Large Pericardial Effusion
-s/p pericardiocentesis on 06/17, repeat echo 06/21 shows stable small to mod pericardial effusion
-appreciate cardiology, treating as pericarditis with initiation of colchicine and Motrin on 06/18/25; motrin resumed at lower dose
Fever
-T 100.8 overnight 06/17-06/18, patient has some increased congestion; suspect viral versus post procedure fever
-CXR without pneumonia
-Flu and Covid negative
# Hypertension
Cardiology recommends resuming atenolol at a lower dose of 25 mg at bedtime
Continue to hold losartan, plan to restart outpatient
Discontinue spironolactone
#Ingrown hair follicle on right thigh
Bacitracin ointment
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
# Mild thrombocytopenia
# Coronary disease with history of stents in 2003 and 2020
# Paroxysmal atrial fibrillation-continue atenolol, IV heparin drip changed back to Eliquis 06/22
# Valvular heart disease with severe TR
# Hyperlipidemia-atorvastatin
# Pulmonary hypertension
# COPD/centrilobular emphysema
-appreciate Pulmonary consult - will re-prescribe Anoro on DC
# Peripheral artery disease with history of right iliac stent 2004
Right carotid artery stenting 2004
# History of nephrolithiasis
# Diverticulosis
# DVT Prophylaxis- IV heparin drip changed back to Eliquis 06/22
# CODE Status -Full
Discussed with nursing, updated dtr Jojo on 06/22
Total time spent to see the patient on the floor, examine the patient, review data and lab results, discuss treatment plan with patient, nursing staff around 40 minutes.
Physical Exam
General: No acute distress
HEENT: Normocephalic, Atraumatic, EOMI, MMM
Respiratory: Bibasilar crackles
Cardiac: Normal S1/S2, Regular Rate and Rhythm
GI: Soft, Nontender, Nondistended, Normal Bowel Sounds
Extremities: No Clubbing, Cyanosis, or Edema
Neuro: Nonfocal/Grossly Intact
Derm: Inflamed ingrown hair follicle on right anterior thigh
Anticipated Discharge: Within 24 hours
Subjective/Interval History
-
Date of Service: June 23, 2025
Patient reports her nausea is controlled with Maalox. She denies shortness of breath, denies dizziness/lightheadedness. No chest pain. No fever, no vomiting.
Objective Data
-
Labs:
Laboratory Results
06/22/25 06/23/25
22:19 03:26
WBC 6.1
Hgb 8.9 L
Hct 28.1 L
Plt Count 208
APTT Cancelled
Sodium 134 L
Potassium 4.3
Chloride 98
Carbon Dioxide 31 H
BUN 39 H
Creatinine 1.1 H
Glucose 97
Calcium 9.0
Vital Signs:
Vital Signs
Temp Pulse Resp BP Pulse Ox
97.8 F 64 20 124/72 94
06/23/25 07:10 06/23/25 08:00 06/23/25 07:10 06/23/25 07:11 06/23/25 07:11
I&O
06/22/25 06/23/25 06/24/25
06:59 06:59 06:59
Intake Total 372 / 372
Output Total 1525 / 1525 300 / 300
Balance -1153 / -1153 -300 / -300
[2025-06-23] MEDS: LASIX 40 MG PO (15:21)
--- NOTE | 2025-06-23 19:01 | PTCARENOTE ---
~0187-3729: Handoff report received from nightshift RN. Pt Aox4, Afib 60s-70s on tele, SBP 120s, RA satting 94% fine crackles in BL lower lobes. Pt denies pain at this time. L elbow and Lower abdomen skin tear dressings CDI. Standby assist to
bathroom. Ingrid Garvin PA-C in to see patient. All needs met at this time, call bullock within reach.
~[id number]: Patient resting in bed. VSS. Daughter visited. Patient ambulated in salter with occupational health utilizing 2L NC, tolerated well. All needs met at this time, call bullock within reach.
~6075-4000: Patient resting in room. AOx4, Afib 70s, RA satting 90% at rest. Patient denies pain at this time. All needs met, call bullock within reach. Handoff report given to nightshift RN.
[2025-06-23] MEDS: BACITRACIN OINTMENT TOPICAL (19:32)
[2025-06-23] MEDS: REMOVE LIDOCAINE PATCH REMOVE (19:56)
[2025-06-23] MEDS: CARDURA 4 MG PO (22:11)
[2025-06-23] MEDS: TENORMIN 25 MG PO (22:11)
[2025-06-23] MEDS: LIPITOR 40 MG PO (22:11)
[2025-06-24] VITALS (7 sets, daily range): BP systolic 107–154; BP diastolic 54–123; BMI 26.4
[2025-06-24] MEDS: TYLENOL 650 MG PO ×2 (01:09→22:52)
[2025-06-24 04:20] LABS: Hematocrit 27.4 % (37.0-47.0); Hemoglobin 8.9 g/dL (12.0-16.0); Mean Corp Hgb Conc. 32.5 g/dL (33.0-37.0); Mean Corpuscular Volume 92.3 fL (81.0-99.0); Platelet Count 217 10^3/uL (130-400); Red Cell Dist. Width 14.6 % (11.5-14.5)
[2025-06-24 04:41] LABS: Blood Urea Nitrogen 49 mg/dl (7-17); Calcium 8.8 mg/dl (8.4-10.2); Carbon Dioxide 28 mmol/L (22-30); Chloride 98 mmol/L (98-107); Estimated Creatinine Clearance 21 ml/min; Glucose 100 mg/dl (70-99); Potassium 4.4 mmol/L (3.5-5.1); Sodium 132 mmol/L (135-145); eGFR 33.31
[2025-06-24] MEDS: SPIRIVA RESPIMAT 2.5 MCG 2 PUFF INH (08:08)
[2025-06-24] MEDS: STRIVERDI RESPIMAT 2 PUFF INH (08:08)
--- NOTE | 2025-06-24 08:24 | W.PN.HOSP.TC ---
Today's Communication/Plan
-
Trend Cr
Assessment / Plan
Assessment / Plan
89 y/o female with hx HFpEF, CAD s/p PCI, pericardial effusion s/p pericardiocentesis 2018 presents to the ER with progressive shortness of breath, weight gain and swelling. Patient had an echo as outpatient a week ago which showed pericardial
effusion.
EKG-atrial fibrillation rate [address]-T changes anterolateral leads
ECHO-LV size and systolic function without regional wall motion abnormalities. EF 55 to 60%. RV mildly dilated. Severe biatrial enlargement. Severe TR with severe pulmonary hypertension. PA pressure of 63 mmHg. Moderate to large pericardial
effusion. No change compared to June 01, 2025
Chest [id number] consistent with CHF
CT Chest 06/10/25
IMPRESSION:
Large pericardial effusion, increased.
Small bilateral pleural effusions, right greater than left, new.
No evidence of pneumonia. Emphysematous lung changes.
Chronic parenchymal scarring with traction bronchiectasis in the right middle lobe.
Stable mediastinal adenopathy.
Possible elevated right-sided heart pressure versus tricuspid insufficiency/regurgitation.
Heart Failure Preserved EF, Acute exacerbation
Acute hypoxic respiratory insufficiency
-patient presented with shortness of breath and weight gain
-appreciate Cardiology, status post IV Lasix, oral Lasix on hold secondary to NOEMY
-currently satting 88-90% on RA, she needs 2 L with activity. Patient's daughter stated that her ornamental painter recommends maintaining saturation greater than 88% due to COPD
-case management setting up home oxygen
NOEMY
-in setting of over-diuresis and Motrin
-creatinine now 1.5, was 1.1, was 1.6
-Cards rec stopping IVFs 06/20
Moderate to Large Pericardial Effusion
-s/p pericardiocentesis on 06/17, repeat echo 06/21 shows stable small to mod pericardial effusion
-appreciate cardiology, treating as pericarditis with initiation of colchicine and Motrin on 10/4/25; motrin back on hold due to NOEMY
Fever
-T 100.8 overnight 06/17-06/18, patient has some increased congestion; suspect viral versus post procedure fever
-CXR without pneumonia
-Flu and Covid negative
# Hypertension
Cardiology recommends resuming atenolol at a lower dose of 25 mg at bedtime
Continue to hold losartan, plan to restart outpatient
Discontinue spironolactone
#Ingrown hair follicle on right thigh
Bacitracin ointment
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
# Mild thrombocytopenia
# Coronary disease with history of stents in 2003 and 2020
# Paroxysmal atrial fibrillation-continue atenolol, IV heparin drip changed back to Eliquis 06/22
# Valvular heart disease with severe TR
# Hyperlipidemia-atorvastatin
# Pulmonary hypertension
# COPD/centrilobular emphysema
-appreciate Pulmonary consult - will re-prescribe Anoro on DC
# Peripheral artery disease with history of right iliac stent 2004
Right carotid artery stenting 2004
# History of nephrolithiasis
# Diverticulosis
# DVT Prophylaxis- IV heparin drip changed back to Eliquis 06/22
# CODE Status -Full
Discussed with nursing, updated dtr Jojo on 06/22
Total time spent to see the patient on the floor, examine the patient, review data and lab results, discuss treatment plan with patient, nursing staff around 42 minutes.
Physical Exam
General: No acute distress
HEENT: Normocephalic, Atraumatic, EOMI, MMM
Respiratory: Bibasilar crackles
Cardiac: Normal S1/S2, Regular Rate and Rhythm
GI: Soft, Nontender, Nondistended, Normal Bowel Sounds
Extremities: No Clubbing, Cyanosis, or Edema
Neuro: Nonfocal/Grossly Intact
Derm: Inflamed ingrown hair follicle on right anterior thigh
Anticipated Discharge: Within 24 hours
Subjective/Interval History
-
Date of Service: June 24, 2025
Patient reports that her nausea is controlled with the Maalox. She denies chest pain, denies shortness of breath. No fever, no vomiting.
Objective Data
-
Labs:
Laboratory Results
06/24/25
03:56
WBC 6.1
Hgb 8.9 L
Hct 27.4 L
Plt Count 217
Sodium 132 L
Potassium 4.4
Chloride 98
Carbon Dioxide 28
BUN 49 H
Creatinine 1.5 H
Glucose 100 H
Calcium 8.8
Vital Signs:
Vital Signs
Temp Pulse Resp BP Pulse Ox
97.2 F 82 18 118/71 88
06/24/25 07:59 06/24/25 08:16 06/24/25 08:16 06/23/25 22:11 06/24/25 08:16
I&O
06/23/25 06/24/25 06/25/25
06:59 06:59 06:59
Output Total 300 / 300
Balance -300 / -300
[2025-06-24] MEDS: BACITRACIN OINTMENT 1 APPLIC TOPICAL ×2 (08:28→19:49)
[2025-06-24] MEDS: DESENEX/MITRAZOL/ZEASORB 1 APPLIC TOPICAL (08:32)
[2025-06-24] MEDS: LIDOCAINE 4% PATCH TOPICAL (08:33)
--- NOTE | 2025-06-24 09:24 | PTCARENOTE ---
Assumed care. Patient in bed, AO x3. Denies pain or shortness of breath at rest. Decreased breath sounds. A-fib HR 66, BP 118/61. Walking in the bathroom overnight, urine is cristhian 550 cc. Daughter at bedside, eating breakfast
[2025-06-24] MEDS: THERAGRAN PO (09:54)
[2025-06-24] MEDS: VITAMIN B-12 PO (09:54)
[2025-06-24] MEDS: FOLVITE PO (09:55)
[2025-06-24] MEDS: VITAMIN D3 (cholecalciferol) PO (09:55)
[2025-06-24] MEDS: MAALOX 30 ML PO (10:34)
[2025-06-24] MEDS: ROBITUSSIN PO ×3 (10:53→22:56)
[2025-06-24] MEDS: COLCHICINE 0.6 MG PO (11:33)
[2025-06-24] MEDS: PROTONIX 40 MG PO (11:33)
[2025-06-24] MEDS: ELIQUIS 5 MG PO ×2 (11:33→19:48)
--- NOTE | 2025-06-24 12:16 | W.PN.CARDCBS ---
Addendum entered and electronically signed by Nehemais Harrison DO 06/24/25 13:05:
I saw and examined the patient.
The Air Grinder's note was reviewed and I agree with the note.
Comment:
Patient seen and examined. Patient resting comfortably in chair. Denies chest pain, shortness of breath, palpitations, weakness
GEN: No distress, awake, alert, oriented x3. Sitting in chair. On supplemental O2
HEENT: supple, anicteric, mmm, EOMI
LUNGS: Very faint few crackles at bases, no wheezes/rales
CV: Irreg, S1/S2, 1/6 murmur
ABD: soft, BS+, NT/ND
EXT: No cyanosis, clubbing, edema
NEURO: Gross non-focal
SKIN: Warm, pink, dry. No rash
Telemetry rate controlled AF
A/P as below
Hold nephrotoxic agents and repeat creatinine in the morning
Wean O2 as able
DC planning
Original Note:
Today's Communication / Plan
-
Holding nephrotoxic agents
Repeat creatinine in the a.m.
Wean O2 as able
Hopeful for DC in a.m.
Outpatient cardiac testing and follow-up arranged
Impression / Plan
-
PCP: Dr. Peterson
Biochemistry Teacher: Dr. Nandini Churchill
Impression:
Presented with SOB and recurrent pericardial effusion 06/08/2025
Recent admission for acute HF and AECOPD 03/19/2025 until 03/26/2025
Acute on chronic HFpEF
Recurrent moderate to large pericardial effusion
s/p pericardiocentesis for 750 to 800 mL bloody pericardial fluid 06/17/2025
h/o pericardial effusion with pericardiocentesis 2018
s/p successful pericardiocentesis with 560 mL of blood-tinged fluid removed 11/27/2018
Managed as pericarditis with a regimen of ibuprofen
Pulmonary HTN, severe by echo 03/21/25
Permanent atrial fibrillation
Chronic Eliquis AC
CAD
LAD PCI in 2003
HTN
HLD
COPD
PAD w/ prior L iliac stent 2004
Carotid stenosis s/p MARGARITA BMS 2004
h/o tobacco abuse
Fever and leukocytosis 06/18/2025
Echo 03/19/2023: EF 59%, mild MR, moderate to severe TR, estimated PAP 84 mmHg
Echo 03/31/2024: EF 62%, moderate TR, estimated PAP 51 mmHg, small pericardial effusion
Echo 03/21/2025: EF 55-60%, mild MR, severe TR, estimated PAP 83 mmHg consistent with severe pulmonary HTN, small to moderate pericardial effusion
Echo 06/01/2025: Normal LV size and function, RV size and function within normal limits, severe TR with PAP 80 mmHg, moderate to large pericardial effusion without evidence of tamponade compared to echo 03/21/2025 the effusion then was small to
moderate and is now larger in size
Echo 06/08/2025: Normal LV size and function at 55 to 60%, RV mildly dilated with normal RV systolic function, severe TR with PAP 63 mmHg, moderate to large pericardial effusion without evidence of tamponade in the setting of PHTN, compared to echo
06/01/2025 there is no significant change
Echo 06/17/2025: Echo guided pericardiocentesis and at the beginning of the procedure a large pericardial effusion was noted and at the conclusion a small to medium sized pericardial effusion remained
Echo 06/20/2025: EF 55 to 60%, pericardial effusion has improved slightly and is now small to moderate compared to moderate at last echo, no evidence of tamponade
Echo 06/21/2025: EF 55 to 60%, RV size and function normal, moderate to severe TR with PAP 48 mmHg, small to moderate pericardial effusion without evidence of tamponade, overall little significant change compared to echo 06/20/2025
CT scan 06/10/25: with the expected finding of large pericardial effusion as well as small bilateral effusions no evidence of pneumonia. Stable mediastinal adenopathy. No obvious concerning findings to suggest malignancy.
Plan:
- Patient presented due to enlarging pericardial effusion as outpatient and underwent pericardiocentesis on 06/17/2025 with about three fourths of pericardial effusion removed (700-800cc). There is not noted to be bacterial growth thus far and
pathology is negative for malignancy. Awaiting fungal culture and bacterial culture data
- Repeat echocardiogram scheduled for 07/12/2025
- Right heart cath at time of pericardiocentesis showed significant pulmonary hypertension with PCWP 18 mmHg. Patient was diuresed to this admission. Weights not suspected to be fully accurate as have been up-and-down since admission. Dry weight
felt to be approximately 140 pounds
- Creatinine bumped to 1.5 today. Lasix 40mg QAM and 20mg QPM placed on hold. Patient was given losartan (which she had been on as OP at higher dose) and spironolactone 06/22 which have both subsequently been stopped
- She completed several days of ibuprofen 3 times daily (06/18-06/23), however also stopped this morning due to bump in creatinine. Continue colchicine 0.6 mg daily due to GI upset on twice daily dosing
- Continue assessment of ambulatory pulse ox. Will assess for home O2 prior to discharge
- BMP in 1 week upon discharge
- Continue atenolol 25 mg nightly, Cardura 4 mg nightly
- Patient developed fever and leukocytosis on 06/18/2025, but blood cultures have been without growth, influenza and COVID swabs were also negative, UA showed only a few bacteria and it was negative for nitrites, CXR showed possible mild CHF.
Daughter concerned about discoloration of patient's urine. Reports she has history of asymptomatic UTI. Check UA
- Hopeful for discharge to home tomorrow
- OP cardiac follow-up arranged
- Discussed with patient's daughter. Discussed with nursing
HPI: Patient came to the emergency room today with increased SOB and an abnormal echocardiogram that showed recurrent pericardial effusion, cardiology is now consulted. Patient was just admitted with AECOPD and acute on chronic HFpEF from 03/19/2025
until 03/26/2025. Patient had echocardiogram on 03/21/2025 that showed a small to moderate pericardial effusion and then had a repeat echo on 06/01/2025 that showed the effusion to be larger in size compared to previous. When the cardiology office
called the patient she reported increased BERUMEN and was referred to the ER. Patient has chronic LE edema with a left worse than right and increased BERUMEN, but denies orthopnea or bloating. Patient was hypoxic upon arrival to the ER and was placed on
oxygen via NC and has symptomatically improved. Patient took her usual dose of Lasix 40 mg a.m. and 20 mg p.m. PO daily at home this morning. Patient also had a pulling sensation in her chest this morning that was worse when laying down and then
seem to be better when she stood up and has not recurred during the day.
Progress Note - Biochemistry Teacher
Subjective
Date of Service: June 24, 2025
Patient reports feeling some weakness with exerting herself. Reports breathing has been relatively stable even with ambulation.
Objective
Labs:
06/24/25 03:56
06/24/25 03:56
Labs
Hgb 8.9 g/dL (12.0-16.0) L 06/24/25 03:56
Hct 27.4 % (37.0-47.0) L 06/24/25 03:56
Plt Count 217 10^3/uL (130-400) 06/24/25 03:56
PT 15.8 Sec (11.4-14.6) H 06/09/25 03:36
INR 1.20 06/09/25 03:36
APTT Cancelled 06/22/25 22:19
Sodium 132 mmol/L (135-145) L 06/24/25 03:56
Potassium 4.4 mmol/L (3.5-5.1) 06/24/25 03:56
BUN 49 mg/dl (7-17) H 06/24/25 03:56
Creatinine 1.5 mg/dL (0.6-1.0) H 06/24/25 03:56
Glucose 100 mg/dl (70-99) H 06/24/25 03:56
Vital Signs and I&O:
Vital Signs
Temp Pulse Resp BP Pulse Ox
97.7 F 62 24 107/54 97
06/24/25 11:30 06/24/25 12:00 06/24/25 11:30 06/24/25 11:58 06/24/25 11:30
Vital Signs
Temp Pulse Resp BP Pulse Ox
97.7 F 62 24 107/54 97
06/24/25 11:30 06/24/25 12:00 06/24/25 11:30 06/24/25 11:58 06/24/25 11:30
Intake & Output
06/22/25 06/23/25 06/24/25 06/25/25
07:59 07:59 07:59 07:59
Intake Total 372 / 372 240 / 240
Output Total 1525 / 1525 300 / 300 625 / 625
Balance -1153 / -1153 -300 / -300 -385 / -385
Physical Exam
Physical Exam
GEN: No distress, awake, alert, oriented x3. Sitting in chair. On supplemental O2
HEENT: supple, anicteric, mmm, EOMI
LUNGS: Few crackles at bases, no wheezes/rales
CV: Irreg, S1/S2, 1/6 murmur
ABD: soft, BS+, NT/ND
EXT: No cyanosis, clubbing, edema
NEURO: Gross non-focal
SKIN: Warm, pink, dry. No rash
--- NOTE | 2025-06-24 13:14 | W.PN.UPDATE ---
Update Note
Progress Note Update
Patient is in need of oxygen on exertion due to pulse oximetry of 88% on room air at rest; 83% on room air with exertion.
Patient was placed on 2L O2 via nasal cannula with saturation of 94%. Oxygen will help to improve hypoxemia.
Patient is mobile within the home. Albuterol therapy has been discussed and is ineffective in treating hypoxemia-related symptoms.
Oxygen will improve the patient's symptoms.
--- NOTE | 2025-06-24 15:30 | CM ---
Chart reviewed. Patient is independent of ADLS, lives alone in a 2 STH, 3 FARTUN, 0 DME. Patient with a supportive family to assist at discharge. [facility]. Referral sent to [employer] for Home O2. Rep in to see
patient, deliver portable oxygen to get patient home and explained to patient when she gets home to give the oxygen company a call and they will deliver the rest of her oxygen equipment. Plan is for the patient to return home with [facility] and Home O2
through [employer]. CM to follow
[2025-06-24] MEDS: ROBITUSSIN 200 MG PO (15:45)
[2025-06-24] MEDS: DESENEX/MITRAZOL/ZEASORB TOPICAL (19:49)
[2025-06-24] MEDS: REMOVE LIDOCAINE PATCH REMOVE (19:53)
[2025-06-24 20:49] LABS: Urine Character Slightly Cloudy (Clear)
[2025-06-24 21:10] LABS: Urine Squamous Cell >30 /LPF (Few)
[2025-06-24 21:11] LABS: Urine Red Blood Cell 0-2 /HPF (0-2)
[2025-06-24] MEDS: LIPITOR 40 MG PO (22:53)
[2025-06-24] MEDS: TENORMIN 25 MG PO (22:53)
[2025-06-24] MEDS: CARDURA 4 MG PO (22:53)
--- NOTE | 2025-06-24 23:57 | PTCARENOTE ---
Received pt at change of shift resting in bed. Afib on tele, HR 60's-70's. pt denies any CP or SOB at this time. on 1L O2 sating 94-97%. Right groin site intact and DENTAL SECRETARY. PRN Tylenol administered per pt request for 8/10 Right shoulder pain. U/A
obtained and sent. Encouraged pt to call RN with any questions/concerns. Call bullock within reach.
[2025-06-25 02:58] VITALS: BP 95/63
[2025-06-25 03:00] VITALS: BMI 26.5
[2025-06-25 03:22] LABS: Hematocrit 30.1 % (37.0-47.0); Hemoglobin 9.5 g/dL (12.0-16.0); Mean Corp Hgb Conc. 31.6 g/dL (33.0-37.0); Mean Corpuscular Volume 92.3 fL (81.0-99.0); Platelet Count 248 10^3/uL (130-400); Red Cell Dist. Width 14.9 % (11.5-14.5)
[2025-06-25 07:05] LABS: Blood Urea Nitrogen 52 mg/dl (7-17); Calcium 8.9 mg/dl (8.4-10.2); Carbon Dioxide 33 mmol/L (22-30); Chloride 97 mmol/L (98-107); Estimated Creatinine Clearance 23 ml/min; Glucose 94 mg/dl (70-99); Potassium 4.5 mmol/L (3.5-5.1); Sodium 133 mmol/L (135-145); eGFR 33.31
[2025-06-25] MEDS: SPIRIVA RESPIMAT 2.5 MCG 2 PUFF INH (07:25)
[2025-06-25] MEDS: STRIVERDI RESPIMAT 2 PUFF INH (07:25)
[2025-06-25 07:33] VITALS: BP 111/59
--- NOTE | 2025-06-25 08:19 | W.PN.CARDCBS ---
Addendum entered and electronically signed by Nehemias Harrison DO 06/25/25 09:53:
I saw and examined the patient.
The Mechanism Assembler's note was reviewed and I agree with the note.
Comment:
Patient resting comfortably in chair however noting mild increasing shortness of breath. Now on nasal cannula, will likely need oxygen to go home with.
Renal function remains stable, will resume Lasix 40 mg oral daily reassess renal function tomorrow
Tentative plan for echocardiogram on Friday if remaining inpatient
Beta-meghann on hold for now due to bradycardia and stable blood pressures
Original Note:
Today's Communication / Plan
-
Restart p.o. Lasix 40 mg daily
Follow creatinine
Hold atenolol
Impression / Plan
-
PCP: Dr. Peterson
House Registry Rn: Dr. Nandini Churchill
Impression:
Presented with SOB and recurrent pericardial effusion 06/08/2025
Recent admission for acute HF and AECOPD 03/19/2025 until 03/26/2025
Acute on chronic HFpEF
Recurrent moderate to large pericardial effusion
s/p pericardiocentesis for 750 to 800 mL bloody pericardial fluid 06/17/2025
h/o pericardial effusion with pericardiocentesis 2018
s/p successful pericardiocentesis with 560 mL of blood-tinged fluid removed 11/27/2018
Managed as pericarditis with a regimen of ibuprofen
Pulmonary HTN, severe by echo 03/21/25
Permanent atrial fibrillation
Chronic Eliquis AC
CAD
LAD PCI in 2003
HTN
HLD
COPD
PAD w/ prior L iliac stent 2004
Carotid stenosis s/p MARGARITA BMS 2004
h/o tobacco abuse
Fever and leukocytosis 06/18/2025
Echo 03/19/2023: EF 59%, mild MR, moderate to severe TR, estimated PAP 84 mmHg
Echo 03/31/2024: EF 62%, moderate TR, estimated PAP 51 mmHg, small pericardial effusion
Echo 03/21/2025: EF 55-60%, mild MR, severe TR, estimated PAP 83 mmHg consistent with severe pulmonary HTN, small to moderate pericardial effusion
Echo 06/01/2025: Normal LV size and function, RV size and function within normal limits, severe TR with PAP 80 mmHg, moderate to large pericardial effusion without evidence of tamponade compared to echo 03/21/2025 the effusion then was small to
moderate and is now larger in size
Echo 06/08/2025: Normal LV size and function at 55 to 60%, RV mildly dilated with normal RV systolic function, severe TR with PAP 63 mmHg, moderate to large pericardial effusion without evidence of tamponade in the setting of PHTN, compared to echo
06/01/2025 there is no significant change
Echo 06/17/2025: Echo guided pericardiocentesis and at the beginning of the procedure a large pericardial effusion was noted and at the conclusion a small to medium sized pericardial effusion remained
Echo 06/20/2025: EF 55 to 60%, pericardial effusion has improved slightly and is now small to moderate compared to moderate at last echo, no evidence of tamponade
Echo 06/21/2025: EF 55 to 60%, RV size and function normal, moderate to severe TR with PAP 48 mmHg, small to moderate pericardial effusion without evidence of tamponade, overall little significant change compared to echo 06/20/2025
CT scan 06/10/25: with the expected finding of large pericardial effusion as well as small bilateral effusions no evidence of pneumonia. Stable mediastinal adenopathy. No obvious concerning findings to suggest malignancy.
Plan:
- Patient presented due to enlarging pericardial effusion as outpatient and underwent pericardiocentesis on 06/17/2025 with about three fourths of pericardial effusion removed (700-800cc). There is not noted to be bacterial growth thus far and
pathology is negative for malignancy. Awaiting fungal culture and bacterial culture data
- Right heart cath at time of pericardiocentesis showed significant pulmonary hypertension with PCWP 18 mmHg. Patient was diuresed to this admission. Weights not suspected to be fully accurate as have been up-and-down since admission. Dry weight
felt to be approximately 140 pounds
- Creatinine bumped to 1.5 06/24. Lasix 40mg QAM and 20mg QPM placed on hold. Patient was given losartan (which she had been on as OP at higher dose) and spironolactone 06/22 which have both subsequently been stopped. Weight uptrending over the
last 48 hours, and this morning patient feels short of breath. Creatinine stable at 1.5. Will resume p.o. Lasix 40 mg daily and assess response. NOEMY suspected secondary to combination of ibuprofen, dose of losartan/spironolactone and diuresis.
- She completed several days of ibuprofen 3 times daily (06/18-06/23), however stopped 06/24. Continue colchicine 0.6 mg daily due to GI upset on twice daily dosing
- Continue assessment of ambulatory pulse ox. Will assess for home O2 prior to discharge
- BMP in 1 week upon discharge
- Continue Cardura 4 mg nightly. Atenolol placed on hold due to bradycardia and relative hypotension
- Patient developed fever and leukocytosis on 06/18/2025, but blood cultures have been without growth, influenza and COVID swabs were also negative, UA showed only a few bacteria and it was negative for nitrites, CXR showed possible mild CHF.
Daughter concerned about discoloration of patient's urine. Reports she has history of asymptomatic UTI. UA negative 06/24
- Repeat echocardiogram scheduled for 07/12/2025. If still inpatient on Wednesday 06/27, could consider checking follow-up echo prior to DC
- OP cardiac follow-up arranged
- Discussed with patient's daughter via TT. Discussed with nursing
HPI: Patient came to the emergency room today with increased SOB and an abnormal echocardiogram that showed recurrent pericardial effusion, cardiology is now consulted. Patient was just admitted with AECOPD and acute on chronic HFpEF from 03/19/2025
until 03/26/2025. Patient had echocardiogram on 03/21/2025 that showed a small to moderate pericardial effusion and then had a repeat echo on 06/01/2025 that showed the effusion to be larger in size compared to previous. When the cardiology office
called the patient she reported increased BERUMEN and was referred to the ER. Patient has chronic LE edema with a left worse than right and increased BERUMEN, but denies orthopnea or bloating. Patient was hypoxic upon arrival to the ER and was placed on
oxygen via NC and has symptomatically improved. Patient took her usual dose of Lasix 40 mg a.m. and 20 mg p.m. PO daily at home this morning. Patient also had a pulling sensation in her chest this morning that was worse when laying down and then
seem to be better when she stood up and has not recurred during the day.
Progress Note - House Registry Rn
Subjective
Date of Service: June 25, 2025
Patient reports feeling some shortness of breath
Objective
Labs:
06/25/25 03:05
06/25/25 06:26
Labs
Hgb 9.5 g/dL (12.0-16.0) L 06/25/25 03:05
Hct 30.1 % (37.0-47.0) L 06/25/25 03:05
Plt Count 248 10^3/uL (130-400) 06/25/25 03:05
PT 15.8 Sec (11.4-14.6) H 06/09/25 03:36
INR 1.20 06/09/25 03:36
APTT Cancelled 06/22/25 22:19
Sodium 133 mmol/L (135-145) L 06/25/25 06:26
Potassium 4.5 mmol/L (3.5-5.1) 06/25/25 06:26
BUN 52 mg/dl (7-17) H 06/25/25 06:26
Creatinine 1.5 mg/dL (0.6-1.0) H 06/25/25 06:26
Glucose 94 mg/dl (70-99) 06/25/25 06:26
Vital Signs and I&O:
Vital Signs
Temp Pulse Resp BP Pulse Ox
98.3 F 57 18 111/59 96
06/25/25 07:35 06/25/25 07:35 06/25/25 07:31 06/25/25 07:33 06/25/25 07:35
Vital Signs
Temp Pulse Resp BP Pulse Ox
98.3 F 57 18 111/59 96
06/25/25 07:35 06/25/25 07:35 06/25/25 07:31 06/25/25 07:33 06/25/25 07:35
Intake & Output
06/23/25 06/24/25 06/25/25 06/26/25
07:59 07:59 07:59 07:59
Intake Total 480 / 480
Output Total 300 / 300 850 / 850
Balance -300 / -300 -370 / -370
Physical Exam
Physical Exam
GEN: No distress, awake, alert, oriented x3. On supplemental O2
HEENT: supple, anicteric, mmm, EOMI
LUNGS: Few crackles at bases, no wheezes/rales
CV: Irreg, S1/S2, 1/6 murmur
ABD: soft, BS+, NT/ND
EXT: No cyanosis, clubbing, edema
NEURO: Gross non-focal
SKIN: Warm, pink, dry. No rash
[2025-06-25] MEDS: MAALOX 30 ML PO (08:55)
--- NOTE | 2025-06-25 09:16 | W.PN.HOSP.TC ---
Today's Communication/Plan
-
see bold
Assessment / Plan
Assessment / Plan
89 y/o female with hx HFpEF, CAD s/p PCI, pericardial effusion s/p pericardiocentesis 2018 presents to the ER with progressive shortness of breath, weight gain and swelling. Patient had an echo as outpatient a week ago which showed pericardial
effusion.
EKG-atrial fibrillation rate [address]-T changes anterolateral leads
ECHO-LV size and systolic function without regional wall motion abnormalities. EF 55 to 60%. RV mildly dilated. Severe biatrial enlargement. Severe TR with severe pulmonary hypertension. PA pressure of 63 mmHg. Moderate to large pericardial
effusion. No change compared to June 01, 2025
Chest [id number] consistent with CHF
CT Chest 06/10/25
IMPRESSION:
Large pericardial effusion, increased.
Small bilateral pleural effusions, right greater than left, new.
No evidence of pneumonia. Emphysematous lung changes.
Chronic parenchymal scarring with traction bronchiectasis in the right middle lobe.
Stable mediastinal adenopathy.
Possible elevated right-sided heart pressure versus tricuspid insufficiency/regurgitation.
Heart Failure Preserved EF, Acute exacerbation
Acute hypoxic respiratory insufficiency
-patient presented with shortness of breath and weight gain
-appreciate Cardiology, status post IV Lasix, oral Lasix resumed 06/25
-currently satting 88-90% on RA, she needs 2 L with activity. Patient's daughter stated that her ventilation equipment tender recommends maintaining saturation greater than 88% due to COPD
-case management setting up home oxygen
NOEMY
-in setting of over-diuresis and Motrin
-creatinine now 1.5, was 1.1, was 1.6
-Cards rec stopping IVFs 06/20
Moderate to Large Pericardial Effusion
-s/p pericardiocentesis on 06/17, repeat echo 06/21 shows stable small to mod pericardial effusion
-appreciate cardiology, treating as pericarditis with initiation of colchicine and Motrin on 10/4/25; motrin back on hold due to NOEMY
Fever
-T 100.8 overnight 06/17-06/18, patient has some increased congestion; suspect viral versus post procedure fever
-CXR without pneumonia
-Flu and Covid negative
# Hypertension
Atenolol back on hold, continue Cardura
Continue to hold losartan, plan to restart outpatient
Discontinue spironolactone
#Ingrown hair follicle on right thigh
Last day of bacitracin ointment
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
# Mild thrombocytopenia
# Coronary disease with history of stents in 2003 and 2020
# Paroxysmal atrial fibrillation-continue atenolol, IV heparin drip changed back to Eliquis 06/22
# Valvular heart disease with severe TR
# Hyperlipidemia-atorvastatin
# Pulmonary hypertension
# COPD/centrilobular emphysema
-appreciate Pulmonary consult - will re-prescribe Anoro on DC
# Peripheral artery disease with history of right iliac stent 2004
Right carotid artery stenting 2004
# History of nephrolithiasis
# Diverticulosis
# DVT Prophylaxis- Eliquis
# CODE Status -Full
Discussed with nursing, updated dtr Jojo on 06/22
Total time spent to see the patient on the floor, examine the patient, review data and lab results, discuss treatment plan with patient, nursing staff around 40 minutes.
Physical Exam
General: No acute distress
HEENT: Normocephalic, Atraumatic, EOMI, MMM
Respiratory: Bibasilar crackles
Cardiac: Normal S1/S2, Regular Rate and Rhythm
GI: Soft, Nontender, Nondistended, Normal Bowel Sounds
Extremities: No Clubbing, Cyanosis, or Edema
Neuro: Nonfocal/Grossly Intact
Derm: Inflamed ingrown hair follicle on right anterior thigh
Anticipated Discharge: Within 24 hours
Subjective/Interval History
-
Date of Service: June 25, 2025
Patient reports intermittent coughing. She denies chest pain, denies shortness of breath. No nausea. No fever, no vomiting.
Objective Data
-
Labs:
Laboratory Results
06/25/25 06/25/25
03:05 06:26
WBC 6.4
Hgb 9.5 L
Hct 30.1 L
Plt Count 248
Sodium 133 L
Potassium 4.5
Chloride 97 L
Carbon Dioxide 33 H
BUN 52 H
Creatinine 1.5 H
Glucose 94
Calcium 8.9
Vital Signs:
Vital Signs
Temp Pulse Resp BP Pulse Ox
98.3 F 57 18 111/59 96
06/25/25 07:35 06/25/25 07:35 06/25/25 07:31 06/25/25 07:33 06/25/25 07:35
I&O
06/24/25 06/25/25 06/26/25
06:59 06:59 06:59
Intake Total 480 / 480
Output Total 850 / 850
Balance -370 / -370
[2025-06-25] MEDS: COLCHICINE 0.6 MG PO (09:32)
[2025-06-25] MEDS: ELIQUIS 5 MG PO ×2 (09:32→20:20)
[2025-06-25] MEDS: LASIX 40 MG PO (09:32)
[2025-06-25] MEDS: BACITRACIN OINTMENT 1 APPLIC TOPICAL (09:32)
[2025-06-25] MEDS: PROTONIX 40 MG PO (09:33)
[2025-06-25] MEDS: FOLVITE PO (09:44)
[2025-06-25] MEDS: LIDOCAINE 4% PATCH TOPICAL (09:44)
[2025-06-25] MEDS: THERAGRAN PO (09:45)
[2025-06-25] MEDS: VITAMIN B-12 PO (09:45)
[2025-06-25] MEDS: VITAMIN D3 (cholecalciferol) PO (09:45)
[2025-06-25] MEDS: ROBITUSSIN PO ×3 (09:45→22:27)
--- NOTE | 2025-06-25 09:49 | PTCARENOTE ---
Assumed care at 0700. Patient comfortable at rest, mild shortness of breath at times, oxygen NC as needed, decreased breath sounds, fine crackles at bases, PO Lasix restarted. A-fib HR 50-60's. Using the bathroom independently, call bullock in reach
[2025-06-25] MEDS: ROBITUSSIN 200 MG PO (12:00)
[2025-06-25] MEDS: DESENEX/MITRAZOL/ZEASORB TOPICAL ×2 (12:57→20:20)
[2025-06-25 13:15] VITALS: BP 136/75
[2025-06-25 16:15] VITALS: BP 120/63
[2025-06-25 20:15] VITALS: BP 119/73
[2025-06-25] MEDS: BACITRACIN OINTMENT TOPICAL (20:20)
[2025-06-25] MEDS: REMOVE LIDOCAINE PATCH REMOVE (20:21)
[2025-06-25] MEDS: CARDURA 4 MG PO (22:21)
[2025-06-25] MEDS: LIPITOR 40 MG PO (22:21)
[2025-06-25 22:22] VITALS: BP 144/60
[2025-06-25] MEDS: TYLENOL 650 MG PO (22:38)
--- NOTE | 2025-06-25 23:13 | PTCARENOTE ---
Received pt at change of shift resting in bed. Afib with PVC's on tele, HR 60's. pt denies any CP or SOB at this time. Right groin site intact and DANELLE. PRN Tylenol administered per pt request for 6/10 right shoulder/back pain, verbalizes relief.
Encouraged pt to call RN with any questions/concerns. Call bullock within reach.
[2025-06-26 03:14] VITALS: BP 112/67
[2025-06-26 04:17] LABS: Blood Urea Nitrogen 50 mg/dl (7-17); Calcium 8.8 mg/dl (8.4-10.2); Carbon Dioxide 32 mmol/L (22-30); Chloride 97 mmol/L (98-107); Estimated Creatinine Clearance 27 ml/min; Glucose 91 mg/dl (70-99); Potassium 4.1 mmol/L (3.5-5.1); Sodium 133 mmol/L (135-145); eGFR 39.55
[2025-06-26 06:00] VITALS: BMI 26.4
[2025-06-26 06:51] VITALS: BP 129/65
[2025-06-26] MEDS: SPIRIVA RESPIMAT 2.5 MCG 2 PUFF INH (08:03)
[2025-06-26] MEDS: STRIVERDI RESPIMAT 2 PUFF INH (08:03)
[2025-06-26] MEDS: PROTONIX 40 MG PO (08:14)
[2025-06-26] MEDS: ELIQUIS 5 MG PO ×2 (08:14→20:10)
[2025-06-26] MEDS: FOLVITE 1 MG PO (08:14)
[2025-06-26] MEDS: LASIX 40 MG PO (08:15)
[2025-06-26] MEDS: DESENEX/MITRAZOL/ZEASORB 1 APPLIC TOPICAL (08:16)
[2025-06-26] MEDS: COLCHICINE 0.6 MG PO (08:16)
[2025-06-26] MEDS: LIDOCAINE 4% PATCH TOPICAL (08:17)
[2025-06-26] MEDS: ROBITUSSIN PO ×3 (08:17→17:37)
[2025-06-26] MEDS: BACITRACIN OINTMENT TOPICAL (08:18)
[2025-06-26] MEDS: VITAMIN D3 (cholecalciferol) PO (08:25)
[2025-06-26] MEDS: VITAMIN B-12 PO (08:25)
[2025-06-26] MEDS: THERAGRAN PO (08:25)
--- NOTE | 2025-06-26 09:19 | W.PN.CARDCBS ---
Today's Communication / Plan
-
Continue oral diuretic
Monitor renal function
Echocardiogram in a.m.
Impression / Plan
-
PCP: Dr. Peterson
Injection Specialist: Dr. Nandini Churchill
Impression:
Presented with SOB and recurrent pericardial effusion 06/08/2025
Recent admission for acute HF and AECOPD 03/19/2025 until 03/26/2025
Acute on chronic HFpEF
Recurrent moderate to large pericardial effusion
s/p pericardiocentesis for 750 to 800 mL bloody pericardial fluid 06/17/2025
h/o pericardial effusion with pericardiocentesis 2018
s/p successful pericardiocentesis with 560 mL of blood-tinged fluid removed 11/27/2018
Managed as pericarditis with a regimen of ibuprofen
Pulmonary HTN, severe by echo 03/21/25
Permanent atrial fibrillation
Chronic Eliquis AC
CAD
LAD PCI in 2003
HTN
HLD
COPD
PAD w/ prior L iliac stent 2004
Carotid stenosis s/p MARGARITA BMS 2004
h/o tobacco abuse
Fever and leukocytosis 06/18/2025
Echo 03/19/2023: EF 59%, mild MR, moderate to severe TR, estimated PAP 84 mmHg
Echo 03/31/2024: EF 62%, moderate TR, estimated PAP 51 mmHg, small pericardial effusion
Echo 03/21/2025: EF 55-60%, mild MR, severe TR, estimated PAP 83 mmHg consistent with severe pulmonary HTN, small to moderate pericardial effusion
Echo 06/01/2025: Normal LV size and function, RV size and function within normal limits, severe TR with PAP 80 mmHg, moderate to large pericardial effusion without evidence of tamponade compared to echo 03/21/2025 the effusion then was small to
moderate and is now larger in size
Echo 06/08/2025: Normal LV size and function at 55 to 60%, RV mildly dilated with normal RV systolic function, severe TR with PAP 63 mmHg, moderate to large pericardial effusion without evidence of tamponade in the setting of PHTN, compared to echo
06/01/2025 there is no significant change
Echo 06/17/2025: Echo guided pericardiocentesis and at the beginning of the procedure a large pericardial effusion was noted and at the conclusion a small to medium sized pericardial effusion remained
Echo 06/20/2025: EF 55 to 60%, pericardial effusion has improved slightly and is now small to moderate compared to moderate at last echo, no evidence of tamponade
Echo 06/21/2025: EF 55 to 60%, RV size and function normal, moderate to severe TR with PAP 48 mmHg, small to moderate pericardial effusion without evidence of tamponade, overall little significant change compared to echo 06/20/2025
CT scan 06/10/25: with the expected finding of large pericardial effusion as well as small bilateral effusions no evidence of pneumonia. Stable mediastinal adenopathy. No obvious concerning findings to suggest malignancy.
Plan:
- Patient presented due to enlarging pericardial effusion as outpatient and underwent pericardiocentesis on 06/17/2025 with about three fourths of pericardial effusion removed (700-800cc). There is not noted to be bacterial growth thus far and
pathology is negative for malignancy. Awaiting fungal culture and bacterial culture data
- Right heart cath at time of pericardiocentesis showed significant pulmonary hypertension with PCWP 18 mmHg. Patient was diuresed to this admission. Weights not suspected to be fully accurate as have been up-and-down since admission. Dry weight
felt to be approximately 140 pounds
- Creatinine bumped to 1.5 06/24. Lasix 40mg QAM and 20mg QPM placed on hold. Patient was given losartan (which she had been on as OP at higher dose) and spironolactone 06/22 which have both subsequently been stopped. Weight uptrending over the
last 48 hours, and this morning patient feels short of breath. Creatinine stable at 1.5. Will resume p.o. Lasix 40 mg daily and assess response. NOEMY suspected secondary to combination of ibuprofen, dose of losartan/spironolactone and diuresis.
Lasix resumed with improving renal function (creatinine now 1.3 from 1.5. Plan for echocardiogram tomorrow AM 06/27/2025
- She completed several days of ibuprofen 3 times daily (06/18-06/23), however stopped 06/24. Continue colchicine 0.6 mg daily due to GI upset on twice daily dosing
- Continue assessment of ambulatory pulse ox. Will assess for home O2 prior to discharge
- BMP in 1 week upon discharge
- Continue Cardura 4 mg nightly. Atenolol placed on hold due to bradycardia and relative hypotension
- Patient developed fever and leukocytosis on 06/18/2025, but blood cultures have been without growth, influenza and COVID swabs were also negative, UA showed only a few bacteria and it was negative for nitrites, CXR showed possible mild CHF.
Daughter concerned about discoloration of patient's urine. Reports she has history of asymptomatic UTI. UA negative 06/24
- Repeat echocardiogram scheduled for 07/12/2025. If still inpatient on Wednesday 06/27, could consider checking follow-up echo prior to DC
- OP cardiac follow-up arranged
- Discussed nursing
HPI: Patient came to the emergency room today with increased SOB and an abnormal echocardiogram that showed recurrent pericardial effusion, cardiology is now consulted. Patient was just admitted with AECOPD and acute on chronic HFpEF from 03/19/2025
until 03/26/2025. Patient had echocardiogram on 03/21/2025 that showed a small to moderate pericardial effusion and then had a repeat echo on 06/01/2025 that showed the effusion to be larger in size compared to previous. When the cardiology office
called the patient she reported increased BERUMEN and was referred to the ER. Patient has chronic LE edema with a left worse than right and increased BERUMEN, but denies orthopnea or bloating. Patient was hypoxic upon arrival to the ER and was placed on
oxygen via NC and has symptomatically improved. Patient took her usual dose of Lasix 40 mg a.m. and 20 mg p.m. PO daily at home this morning. Patient also had a pulling sensation in her chest this morning that was worse when laying down and then
seem to be better when she stood up and has not recurred during the day.
Progress Note - Injection Specialist
Subjective
Date of Service: June 26, 2025
Patient seen and examined. No acute events overnight. Patient resting comfortably in bed. Patient denies any chest pain, palpitations, weakness. Patient notes mild shortness of breath but improved from yesterday. Telemetry shows atrial
fibrillation with occasional PVC.
Objective
Labs:
06/25/25 03:05
06/26/25 03:42
Labs
Hgb 9.5 g/dL (12.0-16.0) L 06/25/25 03:05
Hct 30.1 % (37.0-47.0) L 06/25/25 03:05
Plt Count 248 10^3/uL (130-400) 06/25/25 03:05
PT 15.8 Sec (11.4-14.6) H 06/09/25 03:36
INR 1.20 06/09/25 03:36
APTT Cancelled 06/22/25 22:19
Sodium 133 mmol/L (135-145) L 06/26/25 03:42
Potassium 4.1 mmol/L (3.5-5.1) 06/26/25 03:42
BUN 50 mg/dl (7-17) H 06/26/25 03:42
Creatinine 1.3 mg/dL (0.6-1.0) H 06/26/25 03:42
Glucose 91 mg/dl (70-99) 06/26/25 03:42
Vital Signs and I&O:
Vital Signs
Temp Pulse Resp BP Pulse Ox
97.9 F 70 16 112/67 96
06/26/25 06:53 06/26/25 08:08 06/26/25 08:08 06/26/25 03:14 06/26/25 08:08
Vital Signs
Temp Pulse Resp BP Pulse Ox
97.9 F 70 16 112/67 96
06/26/25 06:53 06/26/25 08:08 06/26/25 08:08 06/26/25 03:14 06/26/25 08:08
Intake & Output
06/24/25 06/25/25 06/26/25 06/27/25
06:59 06:59 06:59 06:59
Intake Total 480 / 480 1020 / 1020
Output Total 850 / 850 850 / 850
Balance -370 / -370 170 / 170
Physical Exam
Physical Exam
GEN: No distress, awake, alert, oriented x3. On supplemental O2
HEENT: supple, anicteric, mmm, EOMI
LUNGS: Faint few crackles at bases, no wheezes/rales
CV: Irreg, S1/S2, 1/6 murmur
ABD: soft, BS+, NT/ND
EXT: No cyanosis, clubbing, edema
NEURO: Gross non-focal
SKIN: Warm, pink, dry. No rash
--- NOTE | 2025-06-26 10:56 | W.PN.HOSP.TC ---
Today's Communication/Plan
-
see bold
Assessment / Plan
Assessment / Plan
89 y/o female with hx HFpEF, CAD s/p PCI, pericardial effusion s/p pericardiocentesis 2018 presents to the ER with progressive shortness of breath, weight gain and swelling. Patient had an echo as outpatient a week ago which showed pericardial
effusion.
EKG-atrial fibrillation rate [address]-T changes anterolateral leads
ECHO-LV size and systolic function without regional wall motion abnormalities. EF 55 to 60%. RV mildly dilated. Severe biatrial enlargement. Severe TR with severe pulmonary hypertension. PA pressure of 63 mmHg. Moderate to large pericardial
effusion. No change compared to June 01, 2025
Chest [id number] consistent with CHF
CT Chest 06/10/25
IMPRESSION:
Large pericardial effusion, increased.
Small bilateral pleural effusions, right greater than left, new.
No evidence of pneumonia. Emphysematous lung changes.
Chronic parenchymal scarring with traction bronchiectasis in the right middle lobe.
Stable mediastinal adenopathy.
Possible elevated right-sided heart pressure versus tricuspid insufficiency/regurgitation.
Heart Failure Preserved EF, Acute exacerbation
Acute hypoxic respiratory insufficiency
-patient presented with shortness of breath and weight gain
-appreciate Cardiology, status post IV Lasix, oral Lasix resumed 06/25
-currently satting 88-90% on RA, she needs 2 L with activity. Patient's daughter stated that her car audio installer recommends maintaining saturation greater than 88% due to COPD
-case management setting up home oxygen
NOEMY
-in setting of over-diuresis and Motrin
-creatinine now 1.3, was 1.5, was 1.1, was 1.6
-Cards rec stopping IVFs 06/20
Moderate to Large Pericardial Effusion
-s/p pericardiocentesis on 06/17, repeat echo 06/21 shows stable small to mod pericardial effusion
-appreciate cardiology, treating as pericarditis with initiation of colchicine and Motrin on 06/18/25; motrin back on hold due to NOEMY
-for repeat echocardiogram tomorrow, 06/27
Fever
-T 100.8 overnight 06/17-06/18, patient has some increased congestion; suspect viral versus post procedure fever
-CXR without pneumonia
-Flu and Covid negative
# Hypertension
Atenolol back on hold, continue Cardura
Continue to hold losartan, plan to restart outpatient
Discontinue spironolactone
#Ingrown hair follicle on right thigh
S/p bacitracin ointment
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
# Mild thrombocytopenia
# Coronary disease with history of stents in 2003 and 2020
# Paroxysmal atrial fibrillation-continue atenolol, IV heparin drip changed back to Eliquis 06/22
# Valvular heart disease with severe TR
# Hyperlipidemia-atorvastatin
# Pulmonary hypertension
# COPD/centrilobular emphysema
-appreciate Pulmonary consult - will re-prescribe Anoro on DC
# Peripheral artery disease with history of right iliac stent 2004
Right carotid artery stenting 2004
# History of nephrolithiasis
# Diverticulosis
# DVT Prophylaxis- Eliquis
# CODE Status -Full
Discussed with nursing, updated dtr Jojo on 06/22
Total time spent to see the patient on the floor, examine the patient, review data and lab results, discuss treatment plan with patient, nursing staff around 38 minutes.
Physical Exam
General: No acute distress
HEENT: Normocephalic, Atraumatic, EOMI, MMM
Respiratory: Bibasilar crackles
Cardiac: Normal S1/S2, Regular Rate and Rhythm
GI: Soft, Nontender, Nondistended, Normal Bowel Sounds
Extremities: No Clubbing, Cyanosis, or Edema
Neuro: Nonfocal/Grossly Intact
Derm: Inflamed ingrown hair follicle on right anterior thigh
Anticipated Discharge: 24 - 48 hours
Subjective/Interval History
-
Date of Service: June 26, 2025
Patient denies chest pain, denies shortness of breath. She continues to have some phlegm in the morning, and reports a loose bowel movement. No nausea, no vomiting. No fever.
Objective Data
-
Labs:
Laboratory Results
06/26/25
03:42
Sodium 133 L
Potassium 4.1
Chloride 97 L
Carbon Dioxide 32 H
BUN 50 H
Creatinine 1.3 H
Glucose 91
Calcium 8.8
Vital Signs:
Vital Signs
Temp Pulse Resp BP Pulse Ox
97.9 F 70 16 112/67 96
06/26/25 06:53 06/26/25 08:08 06/26/25 08:08 06/26/25 03:14 06/26/25 08:08
I&O
06/25/25 06/26/25 06/27/25
06:59 06:59 06:59
Intake Total 480 / 480 1020 / 1020 480 / 480
Output Total 850 / 850 850 / 850
Balance -370 / -370 170 / 170 480 / 480
[2025-06-26 12:32] VITALS: BP 125/80
[2025-06-26] MEDS: TYLENOL 650 MG PO ×2 (14:16→22:29)
--- NOTE | 2025-06-26 14:23 | PTCARENOTE ---
pt c/o pain between shoulder blades, Tylenol given as ordered, see MAR. PT continues to be afib on the monitor, hr in the 70s, vss. pt offers no other complaints at this time. pt educated on plan of care and pt verbalized understanding. call bullock
within reach.
[2025-06-26 14:48] VITALS: BP 136/60
[2025-06-26 20:07] VITALS: BP 138/66
[2025-06-26] MEDS: DESENEX/MITRAZOL/ZEASORB TOPICAL (20:09)
[2025-06-26] MEDS: REMOVE LIDOCAINE PATCH REMOVE (20:11)
[2025-06-26 22:28] VITALS: BP 157/65
[2025-06-26] MEDS: LIPITOR 40 MG PO (22:29)
[2025-06-26] MEDS: ROBITUSSIN 200 MG PO (22:30)
[2025-06-26] MEDS: CARDURA 4 MG PO (22:30)
[2025-06-27] VITALS (8 sets, daily range): BP systolic 135–153; BP diastolic 64–82; PULSE 76; O2SAT 2–96; BMI 26.2
[2025-06-27 03:47] LABS: Blood Urea Nitrogen 42 mg/dl (7-17); Calcium 9.1 mg/dl (8.4-10.2); Carbon Dioxide 33 mmol/L (22-30); Chloride 99 mmol/L (98-107); Estimated Creatinine Clearance 35 ml/min; Glucose 90 mg/dl (70-99); Potassium 4.3 mmol/L (3.5-5.1); Sodium 135 mmol/L (135-145); eGFR 54.19
--- NOTE | 2025-06-27 05:31 | PTCARENOTE ---
Rec'd pt at change of shift. Pt AAO*3, VSS, and Afib on TELE monitor with HR in the 60's. Pt denies any pain or discomfort at this time. Pt given information/instruction on upcoming test on 06/27 before possible discharge. PT verbalized
understanding of plan. Pt now resting with call bullock in reach. Plan of care ongoing. See MAR and flowchart for full pt care and assessment.
[2025-06-27] MEDS: PROTONIX 40 MG PO (08:20)
[2025-06-27] MEDS: VITAMIN B-12 1000 MCG PO (08:20)
[2025-06-27] MEDS: THERAGRAN 1 TABLET PO (08:20)
[2025-06-27] MEDS: LASIX 40 MG PO (08:21)
[2025-06-27] MEDS: FOLVITE 1 MG PO (08:22)
[2025-06-27] MEDS: COLCHICINE 0.6 MG PO (08:22)
[2025-06-27] MEDS: LIDOCAINE 4% PATCH TOPICAL (08:22)
[2025-06-27] MEDS: ELIQUIS 5 MG PO (08:23)
[2025-06-27] MEDS: DESENEX/MITRAZOL/ZEASORB TOPICAL (08:31)
[2025-06-27] MEDS: ROBITUSSIN PO ×2 (08:33→13:35)
[2025-06-27] MEDS: VITAMIN D3 (cholecalciferol) 25 MCG PO (08:37)
[2025-06-27] MEDS: STRIVERDI RESPIMAT 2 PUFF INH (08:43)
[2025-06-27] MEDS: SPIRIVA RESPIMAT 2.5 MCG 2 PUFF INH (08:43)
--- NOTE | 2025-06-27 11:05 | PTCARENOTE ---
Pt received this am with c/o of any pain or sob. Afib, rate in the 60's to 80's. Remains on 1LNC, sat 96%. Room air sat at rest 86%. Room air with ambulatio 81%. On 2LNC with ambulation in the hallway sat 89 - 90%.
--- NOTE | 2025-06-27 11:18 | W.PN.CARDCBS ---
Addendum entered and electronically signed by Jose Murray DO 06/27/25 15:32:
I saw and examined the patient.
The Veneer Sheet Repairer's note was reviewed and I agree with the note.
Comment:
Plan:
Cont colchicine for pericarditis/pericardial effusion. Avoid ibuprofen due to recurrent NOEMY.
Echo today was stable. Check echo as outpt to reeval pericardial effusion
Tolerating Eliquis
Atenolol was stopped for bradycardia
Losartan dose reduced due to renal insufficiency
Reviewed with daughter as well as primary service.
Stable for discharge from a cardiac standpoint.
Original Note:
Today's Communication / Plan
-
Discharge to home today with cardiology follow-up arranged including echo
Outpatient labs later this week, lab slip in the red discharge folder on patient's chart
Continue with colchicine, will not try to add ibuprofen again due to recurrent NOEMY
Atenolol has been stopped due to recurrent bradycardia
Losartan dose decreased to 25 mg daily, but if recurrent NOEMY on labs later this week we may need to stop losartan completely
Continue with usual dose of doxazosin 4 mg HS
Pericardial effusion stable by echo, continue with Eliquis
Impression / Plan
-
PCP: Dr. Peterson
Explosive Expert: Dr. Nandini Churchill
Impression:
Presented with SOB and recurrent pericardial effusion 06/08/2025
Recent admission for acute HF and AECOPD 03/19/2025 until 03/26/2025
Acute on chronic HFpEF
Recurrent moderate to large pericardial effusion
s/p pericardiocentesis for 750 to 800 mL bloody pericardial fluid 06/17/2025
h/o pericardial effusion with pericardiocentesis 2018
s/p successful pericardiocentesis with 560 mL of blood-tinged fluid removed 11/27/2018
Managed as pericarditis with a regimen of ibuprofen
Pulmonary HTN, severe by echo 03/21/25
Permanent atrial fibrillation
Chronic Eliquis AC
CAD
LAD PCI in 2003
HTN
HLD
COPD
PAD w/ prior L iliac stent 2004
Carotid stenosis s/p MRAGARITA BMS 2004
h/o tobacco abuse
Fever and leukocytosis 06/18/2025
Echo 03/19/2023: EF 59%, mild MR, moderate to severe TR, estimated PAP 84 mmHg
Echo 03/31/2024: EF 62%, moderate TR, estimated PAP 51 mmHg, small pericardial effusion
Echo 03/21/2025: EF 55-60%, mild MR, severe TR, estimated PAP 83 mmHg consistent with severe pulmonary HTN, small to moderate pericardial effusion
Echo 06/01/2025: Normal LV size and function, RV size and function within normal limits, severe TR with PAP 80 mmHg, moderate to large pericardial effusion without evidence of tamponade compared to echo 03/21/2025 the effusion then was small to
moderate and is now larger in size
Echo 06/08/2025: Normal LV size and function at 55 to 60%, RV mildly dilated with normal RV systolic function, severe TR with PAP 63 mmHg, moderate to large pericardial effusion without evidence of tamponade in the setting of PHTN, compared to echo
06/01/2025 there is no significant change
Echo 06/17/2025: Echo guided pericardiocentesis and at the beginning of the procedure a large pericardial effusion was noted and at the conclusion a small to medium sized pericardial effusion remained
Echo 06/20/2025: EF 55 to 60%, pericardial effusion has improved slightly and is now small to moderate compared to moderate at last echo, no evidence of tamponade
Echo 06/21/2025: EF 55 to 60%, RV size and function normal, moderate to severe TR with PAP 48 mmHg, small to moderate pericardial effusion without evidence of tamponade, overall little significant change compared to echo 06/20/2025
Echo 06/27/2025: Limited study, moderate-sized pericardial effusion without evidence of tamponade, overall similar to echo from 06/21/[address]25
CT scan 06/10/25: with the expected finding of large pericardial effusion as well as small bilateral effusions no evidence of pneumonia. Stable mediastinal adenopathy. No obvious concerning findings to suggest malignancy.
Plan:
-Patient admitted with recurrent pericardial effusion and had pericardiocentesis on 06/17/2025 and about 3/4 of the pericardial effusion (for a total of 750 to 800 mL of bloody pericardial fluid) was removed and RHC showed significant PHTN with PCWP
18 mmHg. Pericardial fluid was cultured and there was no bacterial growth at 48 hours. Pathology reports negative for malignancy. Pericardial fluid was cultured and there was no bacterial growth.
-Patient tolerated heparin gtt and residual pericardial effusion was stable by repeat echo so outpatient dose of Eliquis 5 mg BID restarted 06/22/2025
-Patient was managed as pericarditis and was started on colchicine 0.6 mg BID and ibuprofen 600 mg every 8 hours on 06/18/2025, but ibuprofen stopped due to NOEMY. Colchicine dose reduced to 0.6 mg daily due to GI upset starting on 06/21/2025, but
thinks it could be from apple juice intake. If diarrhea persist will stop colchicine.
-Attempted to restart ibuprofen at 400 mg BID on 06/22/2025, but Cre increased to 1.1 on 06/23/2025 and ibuprofen stopped again for possibly contributing to NOEMY. Continue with colchicine at 0.6 mg daily.
-NOEMY this admission was likely multifactorial including use of ibuprofen, but there was also an attempt to start spironolactone and this was attempted twice and each time coincided with NOEMY
-Outpatient dose of losartan 100 mg daily was decreased to 50 mg daily. Losartan was briefly held for NOEMY and then restarted, but when patient developed NOEMY again it was held again. BP is now 153/80 by my review of VS on 06/27/2025 and we made a
plan to restart losartan 25 mg daily and check BMP on Friday, lab slip created in [facility] by me and placed on patient's chart for discharge. Previous NOEMY this admission felt to be more related to ibuprofen and spironolactone. Patient was tolerating
losartan prior to admission. If outpatient labs show recurrent NOEMY then we will have to decide about stopping losartan.
-Patient will resume her usual outpatient regimen of Lasix 40 mg a.m. and 20 mg p.m. daily.
-Patient weighs 142 lbs on 06/27/2025. Daughter thinks that previous dry weight of 138 lbs might be too low based on NOEMY with attempts at more aggressive diuresis this admission.
-Oxygenation has been up and down this admission and it appears the patient will likely need to go home with supplemental oxygen. Patient did not use supplemental oxygen prior to admission.
-Patient with known permanent A-fib and was taking atenolol 50 mg daily prior to admission, but this was stopped due to bradycardia on 06/14/2025. We attempted to restart a lower dose of atenolol 25 mg daily on 06/22/2025, the patient was noted to be
bradycardic with a heart rate in the 40s on 06/25/2025 and atenolol was stopped again. Patient should not be discharged to home on atenolol.
-Outpatient dose of Cardura 4 mg daily was held since 06/18/2025 and 06/19/25 then restarted 06/20/25 PM. Continue Cardura 4 mg nightly for now.
-Patient developed fever and leukocytosis on 06/18/2025, but blood cultures have been without growth, influenza and COVID swabs were also negative, UA showed only a few bacteria and it was negative for nitrites, CXR showed possible mild CHF
-Afebrile for several days prior to discharge. WBC trended back down to normal.
-Updated patient's daughter in the room on 06/27/2025
-Patient is stable for discharge to home with [facility]. Outpatient echo and office visit scheduled
HPI: Patient came to the emergency room today with increased SOB and an abnormal echocardiogram that showed recurrent pericardial effusion, cardiology is now consulted. Patient was just admitted with AECOPD and acute on chronic HFpEF from 03/19/2025
until 03/26/2025. Patient had echocardiogram on 03/21/2025 that showed a small to moderate pericardial effusion and then had a repeat echo on 06/01/2025 that showed the effusion to be larger in size compared to previous. When the cardiology office
called the patient she reported increased BERUMEN and was referred to the ER. Patient has chronic LE edema with a left worse than right and increased BERUMEN, but denies orthopnea or bloating. Patient was hypoxic upon arrival to the ER and was placed on
oxygen via NC and has symptomatically improved. Patient took her usual dose of Lasix 40 mg a.m. and 20 mg p.m. PO daily at home this morning. Patient also had a pulling sensation in her chest this morning that was worse when laying down and then
seem to be better when she stood up and has not recurred during the day.
Progress Note - Explosive Expert
Subjective
Date of Service: June 27, 2025
She feels well and she wants to go home
Objective
Labs:
06/25/25 03:05
06/27/25 02:41
Labs
Hgb 9.5 g/dL (12.0-16.0) L 06/25/25 03:05
Hct 30.1 % (37.0-47.0) L 06/25/25 03:05
Plt Count 248 10^3/uL (130-400) 06/25/25 03:05
PT 15.8 Sec (11.4-14.6) H 06/09/25 03:36
INR 1.20 06/09/25 03:36
APTT Cancelled 06/22/25 22:19
Sodium 135 mmol/L (135-145) 06/27/25 02:41
Potassium 4.3 mmol/L (3.5-5.1) 06/27/25 02:41
BUN 42 mg/dl (7-17) H 06/27/25 02:41
Creatinine 1.0 mg/dL (0.6-1.0) 06/27/25 02:41
Glucose 90 mg/dl (70-99) 06/27/25 02:41
Vital Signs and I&O:
Vital Signs
Temp Pulse Resp BP Pulse Ox
98.1 F 79 16 135/82 96
10/13/25 07:27 06/27/25 08:44 06/27/25 08:44 06/27/25 07:20 06/27/25 10:53
Vital Signs
Temp Pulse Resp BP Pulse Ox
98.1 F 79 16 135/82 96
06/27/25 07:27 06/27/25 08:44 06/27/25 08:44 06/27/25 07:20 06/27/25 10:53
Intake & Output
06/25/25 06/26/25 06/27/25 06/28/25
06:59 06:59 06:59 06:59
Intake Total 480 / 480 1020 / 1020 960 / 960
Output Total 850 / 850 850 / 850 450 / 450
Balance -370 / -370 170 / 170 510 / 510
Physical Exam
Physical Exam
GEN: NAD. AAO x 3
LUNGS: 2 L NC
CV: A-fib on telemetry. Irreg, 09/20 murmur
--- NOTE | 2025-06-27 12:37 | CM ---
Reviewed chart. Met with Mrs. Farr. She states she is feeling better and maybe able to go home soon. Sent updated 02 sats to [facility] for her home 02. We also reviewed [facility] with Kofi OSBORN. She is agreeable to the
[facility]. Prior to admission she resides alone in a two story home with three steps to enter. She has a full flight of step to get to the second floor. She has been ambulating here with supervision. Prior to admission she did not
have any DME in the home. She has a prescription plan with [facility]. Medical work-up in progress. The discharge plan is to return home with [facility] and Home 02 with [facility] when medically stable.
--- NOTE | 2025-06-27 15:02 | W.DCSUMMARY ---
Discharge Summary
Discharge Data
Date of Admission: 06/08/25
Date of Discharge: 06/27/25
-
Pending Results: No
Hospital Course
89-year-old female with significant past medical problems including hypertension, hyperlipidemia, COPD, peripheral artery disease with prior left iliac stent in 2004, carotid stenosis status post R ICA with bare-metal stent in 2004, prior tobacco
abuse, permanent atrial fibrillation on chronic Eliquis, last dose this morning on June 08, 2025, coronary artery disease status post LAD PCI in 2003, severe pulmonary hypertension noted since echocardiograms in March 2025, prior history of
pericardial effusion with pericardiocentesis in 2018
Presented with shortness of breath weight gain swelling with a outpatient echocardiogram that showed a pericardial effusion. Admitted for enlarging pericardial effusion and underwent pericardiocentesis with 7 to 800 cc/h. There was no noted
bacterial growth and pathology was negative for malignancy. Fungal bacterial culture data pending. Right caudal heart cath showed significant pulmonary hypertension and was started on IV diuresis for acute on chronic HFpEF exacerbation. Creat
peaked at 1.6 and Lasix was adjusted. Creatinine continued to improve thereafter. Additionally there was concern for pericarditis therefore started on colchicine ibuprofen. Due to the bump in renal function ibuprofen was held and colchicine was
continued. Repeat echocardiogram on 06/27 completed and was recommended by cardiology for discharge.
Will be discharged home with home oxygen. On discharge will need continued cardiology follow-up. Follow-up with PCP. Repeat BMP in 5 days with PCP
CXR
IMPRESSION:
Stable exam. Possible mild CHF. Cannot rule out component of underlying chronic interstitial lung disease.
Echo
SUMMARY
1. Normal left ventricle size and function.
2. Ejection fraction is 55-60% by visual assessment.
3. Right ventricular size and systolic function are within normal limits.
4. Severely dilated left atrium left atrium.
5. Severely dilated right atrium.
6. Moderate to severe tricuspid regurgitation. Estimated pulmonary artery pressure of 57 mmHg assuming a right atrial pressure of 8 mmHg.
7. A large circumferential pericardial effusion is present. There is some significant respiratory variation across the tricuspid valve to suggest mild hemodynamic significance.
8. Compared to a prior transthoracic echocardiogram study from 06/10/25 The pericardial effusion is slightly larger.
RHC
CONCLUSIONS:
1. Successful echocardiographic guided pericardiocentesis with removal of 750 to 800 mL of bloody pericardial fluid
2. Mildly elevated left ventricular filling pressures
2d echo
SUMMARY
1. Ejection fraction is 55-60% by visual assessment.
2. Compared to a prior transthoracic echocardiogram study from 06/17/2025 which was reviewed, pericardial effusion has improved slightly from moderate to small–moderate.
3. Small to moderate pericardial effusion ( 2.3cm around lateral wall) No evidence of tamponade.
2d echo
SUMMARY
1. Ejection fraction is 55-60% by visual assessment.
2. Right ventricular size and systolic function are within normal limits.
3. Moderate to severe tricuspid regurgitation. Estimated pulmonary artery pressure of 48 mmHg assuming a right atrial pressure of 15 mmHg.
4. Small to moderate pericardial effusion, without evidence of cardiac tamponade.
5. Compared to study dated 06/20/25 which was directly reviewed, there is little significant change.
2d echo
SUMMARY
1. Limited 2D echo study.
2. Moderate sized pericardial effusion without evidence of tamponade.
3. Compared to prior limited echo from Jun 21 2025 findings overall similar.
She was seen and examined the day of discharge which was June 27, 2025.
No new complaints. No acute overnight events presented bedside chair oxygen. Awaiting delivery of home O2. Excited that she will be going home.
I discussed case personally with allergy who agrees with discharge and has assisted in setting up discharge medications.
NAD
Scleral Anicteric
MMM
No JVD
CTABL
IRR, S1/S2, systolic ejection murmur
Soft, NT, ND, BS+
Warm, Dry
AAOx3
Calm
More than 30 minutes spent in discharge including
Final examination of the patient
Summarizing hospital stay
Instructions for continuing care to all relevant caregivers
Preparation of discharge records, prescriptions, and referral forms
Total time spent (in minutes): 33mins
Discharge Plan
-
Patient Disposition: Home with Home Care
Discharge Diagnosis/Procedures: Acute heart failure preserved ejection fraction, pericardial effusion, successful pericardiocentesis 06/17/2025, pulmonary hypertension, permanent atrial fibrillation, chronic Eliquis oral anticoagulation, acute renal
insufficiency
Diet: 2 Gram Sodium and Restrict fluids to 64 oz
Activity: As tolerated
Driving Restrictions: As prior to admission
Bathing Restrictions: OK to Shower
Blood Work: Check non-fasting blood work (BMP) in 1 week
Others Tests: repeat echo scheduled for 07/12/25 @2:00PM at [facility]
Other Services: [facility]
Specialty Instructions: Weigh Daily- Call MD for wt gain/loss 3 lbs overnight/5 lbs in 1 week
Activity Restrictions/Additional Instructions:
Presented with shortness of breath weight gain swelling with a outpatient echocardiogram that showed a pericardial effusion. Admitted for enlarging pericardial effusion and underwent pericardiocentesis with 7 to 800 cc/h. There was no noted
bacterial growth and pathology was negative for malignancy. Fungal bacterial culture data pending. Right caudal heart cath showed significant pulmonary hypertension and was started on IV diuresis for acute on chronic HFpEF exacerbation. Creat
peaked at 1.6 and Lasix was adjusted. Creatinine continued to improve thereafter. Additionally there was concern for pericarditis therefore started on colchicine ibuprofen. Due to the bump in renal function ibuprofen was held and colchicine was
continued. Repeat echocardiogram on 06/27 completed and was recommended by cardiology for discharge.
Will be discharged home with home oxygen. On discharge will need continued cardiology follow-up. Follow-up with PCP. Repeat BMP in 5 days with PCP
CXR
IMPRESSION:
Stable exam. Possible mild CHF. Cannot rule out component of underlying chronic interstitial lung disease.
Echo
SUMMARY
1. Normal left ventricle size and function.
2. Ejection fraction is 55-60% by visual assessment.
3. Right ventricular size and systolic function are within normal limits.
4. Severely dilated left atrium left atrium.
5. Severely dilated right atrium.
6. Moderate to severe tricuspid regurgitation. Estimated pulmonary artery pressure of 57 mmHg assuming a right atrial pressure of 8 mmHg.
7. A large circumferential pericardial effusion is present. There is some significant respiratory variation across the tricuspid valve to suggest mild hemodynamic significance.
8. Compared to a prior transthoracic echocardiogram study from 06/10/25 The pericardial effusion is slightly larger.
RHC
CONCLUSIONS:
1. Successful echocardiographic guided pericardiocentesis with removal of 750 to 800 mL of bloody pericardial fluid
2. Mildly elevated left ventricular filling pressures
2d echo
SUMMARY
1. Ejection fraction is 55-60% by visual assessment.
2. Compared to a prior transthoracic echocardiogram study from 06/17/2025 which was reviewed, pericardial effusion has improved slightly from moderate to small–moderate.
3. Small to moderate pericardial effusion ( 2.3cm around lateral wall) No evidence of tamponade.
2d echo
SUMMARY
1. Ejection fraction is 55-60% by visual assessment.
2. Right ventricular size and systolic function are within normal limits.
3. Moderate to severe tricuspid regurgitation. Estimated pulmonary artery pressure of 48 mmHg assuming a right atrial pressure of 15 mmHg.
4. Small to moderate pericardial effusion, without evidence of cardiac tamponade.
5. Compared to study dated 06/20/25 which was directly reviewed, there is little significant change.
2d echo
SUMMARY
1. Limited 2D echo study.
2. Moderate sized pericardial effusion without evidence of tamponade.
3. Compared to prior limited echo from Jun 21 2025 findings overall similar.
Stand Alone Forms: DC Instructions- Cath/EP Lab
Referrals:
[facility] [Outside]
[facility] [Outside]
Gwen Luna PA-C [Specified Professional Personl, Cardiology] - 07/15/25 11:00 am
Referral Note: You have a cardiology follow up appointment at the [place] office with Dr. Delatorre's physician per diem physical therapist assistant, Gwen. Please call with questions.
Ze Bhardwaj Jr., DO [Family Provider, Internal Medicine]
Additional Discharge Medication Instructions: - Continue your usual dose of Lasix 40 mg in the morning and 20 mg in the afternoon/evening daily
- Stop taking losartan for now, it might be restarted in the future
- Continue your usual dose of Eliquis 5 mg twice daily
- Take a lower dose of atenolol at 25 mg (1/2 of a 50 mg tablet or one 25 mg tablet) once a day
- Take colchicine 0.6 mg once a day for the next 3 months to help with inflammation related to pericardial effusion
- Start taking Protonix (pantoprazole) 40 mg once a day for the next 3 months
Prescriptions:
New
atenolol 25 mg Tablet
25 mg PO HS Qty: 30 11RF
pantoprazole 40 mg Tablet,Delayed Release (Dr/Ec)
40 mg PO DAILY Qty: 30 11RF
colchicine 0.6 mg Tablet
0.6 mg PO DAILY Qty: 30 2RF
Continued
atorvastatin 40 MG tablet
40 mg PO HS
folic acid 1 MG tablet
1 mg PO DAILY
Unisom (doxylamine) 25 MG tablet
12.5 mg PO HS PRN (Reason: Sleep)
Patient Comments:
Pt states 'half tablet' unknown dose
Eliquis 5 MG tablet
5 mg PO BID
cyanocobalamin (vitamin B-12) 1,000 mcg Tablet
1,000 mcg PO DAILY
therapeutic multivitamin Tablet
1 tab PO DAILY
acetaminophen [Tylenol Extra Strength] 500 mg Tablet
1,000 mg PO HS
doxazosin 4 mg Tablet
4 mg PO HS
cholecalciferol (vitamin D3) [Vitamin D3] 25 mcg (1,000 unit) Tablet
25 mcg PO DAILY
furosemide 20 mg tablet
40 mg PO DAILY
Rx Instructions:
Please note increased dose
Saline Nasal 0.65 % aerosol,spray
2 spray intranasal QIDPRN
albuterol sulfate 90 mcg/actuation Hfa Aerosol Inhaler
2 puff INHALATION Q6H PRN (Reason: shortness of breath)
potassium chloride 10 mEq tablet,ER particles/crystals
10 meq PO BID@0800,1600
furosemide 20 mg tablet
20 mg PO DAILY@1600
Discontinued
aspirin 81 mg Tablet,Delayed Release (Dr/Ec)
81 mg PO DAILY
losartan [Cozaar] 100 MG tablet
100 mg PO DAILY
atenolol 50 MG tablet
50 mg PO HS
Discharge Orders:
Discharge Patient (As Directed); Ordered 06/27/25
Ordered By: Sonu Álvarez
Care Plan Goals
Care Plan Goals:
Problem: Readiness for enhanced knowledge related to diagnosis and treatment plan
Goal: Understand your diagnosis and treatment plan needs, including medications if applicable.
Instructions: Know your diagnosis, underlying causes and treatment plan options, including medications if applicable. Consult with your health care team to learn about your diagnosis and treatment plan, including medications if applicable.
Discharge Date and Time
Print Language: DANISH
--- NOTE | 2025-06-27 15:23 | W.DCSUMMARY ---
Discharge Summary
Discharge Data
Date of Admission: 06/08/25
Date of Discharge: 06/27/25
Total time spent discharging patient (in min): 33
-
Pending Results: No
Hospital Course
89-year-old female with significant past medical problems including hypertension, hyperlipidemia, COPD, peripheral artery disease with prior left iliac stent in 2004, carotid stenosis status post R ICA with bare-metal stent in 2004, prior tobacco
abuse, permanent atrial fibrillation on chronic Eliquis, last dose this morning on June 08, 2025, coronary artery disease status post LAD PCI in 2003, severe pulmonary hypertension noted since echocardiograms in March 2025, prior history of
pericardial effusion with pericardiocentesis in 2018
Presented with shortness of breath weight gain swelling with a outpatient echocardiogram that showed a pericardial effusion. Admitted for enlarging pericardial effusion and underwent pericardiocentesis with 7 to 800 cc/h. There was no noted
bacterial growth and pathology was negative for malignancy. Fungal bacterial culture data pending. Right caudal heart cath showed significant pulmonary hypertension and was started on IV diuresis for acute on chronic HFpEF exacerbation. Creat
peaked at 1.6 and Lasix was adjusted. Creatinine continued to improve thereafter. Additionally there was concern for pericarditis therefore started on colchicine ibuprofen. Due to the bump in renal function ibuprofen was held and colchicine was
continued. Repeat echocardiogram on 06/27 completed and was recommended by cardiology for discharge.
Will be discharged home with home oxygen. On discharge will need continued cardiology follow-up. Follow-up with PCP. Repeat BMP in 5 days with PCP
CXR
IMPRESSION:
Stable exam. Possible mild CHF. Cannot rule out component of underlying chronic interstitial lung disease.
Echo
SUMMARY
1. Normal left ventricle size and function.
2. Ejection fraction is 55-60% by visual assessment.
3. Right ventricular size and systolic function are within normal limits.
4. Severely dilated left atrium left atrium.
5. Severely dilated right atrium.
6. Moderate to severe tricuspid regurgitation. Estimated pulmonary artery pressure of 57 mmHg assuming a right atrial pressure of 8 mmHg.
7. A large circumferential pericardial effusion is present. There is some significant respiratory variation across the tricuspid valve to suggest mild hemodynamic significance.
8. Compared to a prior transthoracic echocardiogram study from 06/10/25 The pericardial effusion is slightly larger.
RHC
CONCLUSIONS:
1. Successful echocardiographic guided pericardiocentesis with removal of 750 to 800 mL of bloody pericardial fluid
2. Mildly elevated left ventricular filling pressures
2d echo
SUMMARY
1. Ejection fraction is 55-60% by visual assessment.
2. Compared to a prior transthoracic echocardiogram study from 06/17/2025 which was reviewed, pericardial effusion has improved slightly from moderate to small�moderate.
3. Small to moderate pericardial effusion ( 2.3cm around lateral wall) No evidence of tamponade.
2d echo
SUMMARY
1. Ejection fraction is 55-60% by visual assessment.
2. Right ventricular size and systolic function are within normal limits.
3. Moderate to severe tricuspid regurgitation. Estimated pulmonary artery pressure of 48 mmHg assuming a right atrial pressure of 15 mmHg.
4. Small to moderate pericardial effusion, without evidence of cardiac tamponade.
5. Compared to study dated 06/20/25 which was directly reviewed, there is little significant change.
2d echo
SUMMARY
1. Limited 2D echo study.
2. Moderate sized pericardial effusion without evidence of tamponade.
3. Compared to prior limited echo from Jun 21 2025 findings overall similar.
She was seen and examined the day of discharge which was June 27, 2025.
No new complaints. No acute overnight events presented bedside chair oxygen. Awaiting delivery of home O2. Excited that she will be going home.
I discussed case personally with allergy who agrees with discharge and has assisted in setting up discharge medications.
NAD
Scleral Anicteric
MMM
No JVD
CTABL
IRR, S1/S2, systolic ejection murmur
Soft, NT, ND, BS+
Warm, Dry
AAOx3
Calm
More than 30 minutes spent in discharge including
Final examination of the patient
Summarizing hospital stay
Instructions for continuing care to all relevant caregivers
Preparation of discharge records, prescriptions, and referral forms
Total time spent (in minutes): 33mins
Discharge Plan
-
Patient Disposition: Home with Home Care
Discharge Diagnosis/Procedures: Acute heart failure preserved ejection fraction, pericardial effusion, successful pericardiocentesis 06/17/2025, pulmonary hypertension, permanent atrial fibrillation, chronic Eliquis oral anticoagulation, acute renal
insufficiency
Diet: 2 Gram Sodium and Restrict fluids to 64 oz
Activity: As tolerated
Driving Restrictions: As prior to admission
Bathing Restrictions: OK to Shower
Blood Work: Check non-fasting blood work (BMP) in 1 week
Others Tests: repeat echo scheduled for 07/12/25 @2:00PM at [facility]
Other Services: VN
Specialty Instructions: Weigh Daily- Call MD for wt gain/loss 3 lbs overnight/5 lbs in 1 week
Activity Restrictions/Additional Instructions:
Presented with shortness of breath weight gain swelling with a outpatient echocardiogram that showed a pericardial effusion. Admitted for enlarging pericardial effusion and underwent pericardiocentesis with 7 to 800 cc/h. There was no noted
bacterial growth and pathology was negative for malignancy. Fungal bacterial culture data pending. Right caudal heart cath showed significant pulmonary hypertension and was started on IV diuresis for acute on chronic HFpEF exacerbation. Creat
peaked at 1.6 and Lasix was adjusted. Creatinine continued to improve thereafter. Additionally there was concern for pericarditis therefore started on colchicine ibuprofen. Due to the bump in renal function ibuprofen was held and colchicine was
continued. Repeat echocardiogram on 06/27 completed and was recommended by cardiology for discharge.
Will be discharged home with home oxygen. On discharge will need continued cardiology follow-up. Follow-up with PCP. Repeat BMP in 5 days with PCP
CXR
IMPRESSION:
Stable exam. Possible mild CHF. Cannot rule out component of underlying chronic interstitial lung disease.
Echo
SUMMARY
1. Normal left ventricle size and function.
2. Ejection fraction is 55-60% by visual assessment.
3. Right ventricular size and systolic function are within normal limits.
4. Severely dilated left atrium left atrium.
5. Severely dilated right atrium.
6. Moderate to severe tricuspid regurgitation. Estimated pulmonary artery pressure of 57 mmHg assuming a right atrial pressure of 8 mmHg.
7. A large circumferential pericardial effusion is present. There is some significant respiratory variation across the tricuspid valve to suggest mild hemodynamic significance.
8. Compared to a prior transthoracic echocardiogram study from 06/10/25 The pericardial effusion is slightly larger.
RHC
CONCLUSIONS:
1. Successful echocardiographic guided pericardiocentesis with removal of 750 to 800 mL of bloody pericardial fluid
2. Mildly elevated left ventricular filling pressures
2d echo
SUMMARY
1. Ejection fraction is 55-60% by visual assessment.
2. Compared to a prior transthoracic echocardiogram study from 06/17/2025 which was reviewed, pericardial effusion has improved slightly from moderate to small–moderate.
3. Small to moderate pericardial effusion ( 2.3cm around lateral wall) No evidence of tamponade.
2d echo
SUMMARY
1. Ejection fraction is 55-60% by visual assessment.
2. Right ventricular size and systolic function are within normal limits.
3. Moderate to severe tricuspid regurgitation. Estimated pulmonary artery pressure of 48 mmHg assuming a right atrial pressure of 15 mmHg.
4. Small to moderate pericardial effusion, without evidence of cardiac tamponade.
5. Compared to study dated 06/20/25 which was directly reviewed, there is little significant change.
2d echo
SUMMARY
1. Limited 2D echo study.
2. Moderate sized pericardial effusion without evidence of tamponade.
3. Compared to prior limited echo from Jun 21 2025 findings overall similar.
Stand Alone Forms: DC Instructions- Cath/EP Lab
Referrals:
[facility] [Outside]
[facility] [Outside]
Gwen Luna PA-C [Specified Professional Personl, Cardiology] - 07/15/25 11:00 am
Referral Note: You have a cardiology follow up appointment at the [place] office with Dr. Delatorre's physician records management assistant, Gwen. Please call with questions.
Ze Bhardwaj Jr., DO [Family Provider, Internal Medicine]
Additional Discharge Medication Instructions: - Continue your usual dose of Lasix 40 mg in the morning and 20 mg in the afternoon/evening daily
- Decrease losartan to 25 mg (1/2 of a 50 mg tablet) once a day, the dose may be increased in the future
- Continue your usual dose of Eliquis 5 mg twice daily
- STOP taking atenolol
- Take colchicine 0.6 mg once a day for the next 3 months to help with inflammation related to pericardial effusion
- Start taking Protonix (pantoprazole) 40 mg once a day for the next 3 months
- Stop taking potassium supplement for now, pending the results of your blood work we may restart potassium, but levels have been normal during this admission.
Prescriptions:
New
pantoprazole 40 mg Tablet,Delayed Release (Dr/Ec)
40 mg PO DAILY Qty: 30 11RF
colchicine 0.6 mg Tablet
0.6 mg PO DAILY Qty: 30 2RF
losartan 50 mg tablet
25 mg PO DAILY Qty: 30 0RF
Rx Instructions:
Patient wants to split a 50 mg tablet for a 25 mg daily dose instead of 25 mg tablet.
Continued
atorvastatin 40 MG tablet
40 mg PO HS
folic acid 1 MG tablet
1 mg PO DAILY
Unisom (doxylamine) 25 MG tablet
12.5 mg PO HS PRN (Reason: Sleep)
Patient Comments:
Pt states 'half tablet' unknown dose
Eliquis 5 MG tablet
5 mg PO BID
cyanocobalamin (vitamin B-12) 1,000 mcg Tablet
1,000 mcg PO DAILY
therapeutic multivitamin Tablet
1 tab PO DAILY
acetaminophen [Tylenol Extra Strength] 500 mg Tablet
1,000 mg PO HS
doxazosin 4 mg Tablet
4 mg PO HS
cholecalciferol (vitamin D3) [Vitamin D3] 25 mcg (1,000 unit) Tablet
25 mcg PO DAILY
furosemide 20 mg tablet
40 mg PO DAILY
Rx Instructions:
Please note increased dose
Saline Nasal 0.65 % aerosol,spray
2 spray intranasal QIDPRN
albuterol sulfate 90 mcg/actuation Hfa Aerosol Inhaler
2 puff INHALATION Q6H PRN (Reason: shortness of breath)
furosemide 20 mg tablet
20 mg PO DAILY@1600
Discontinued
aspirin 81 mg Tablet,Delayed Release (Dr/Ec)
81 mg PO DAILY
potassium chloride 10 mEq tablet,ER particles/crystals
10 meq PO BID@0800,1600
losartan [Cozaar] 100 MG tablet
100 mg PO DAILY
atenolol 50 MG tablet
50 mg PO HS
Discharge Orders:
Discharge Patient (As Directed); Ordered 06/27/25
Ordered By: Sonu Álvarez
Care Plan Goals
Care Plan Goals:
Problem: Readiness for enhanced knowledge related to diagnosis and treatment plan
Goal: Understand your diagnosis and treatment plan needs, including medications if applicable.
Instructions: Know your diagnosis, underlying causes and treatment plan options, including medications if applicable. Consult with your health care team to learn about your diagnosis and treatment plan, including medications if applicable.
Discharge Date and Time
Print Language: CROATIAN
--- NOTE | 2025-06-27 16:55 | PTCARENOTE ---
Pt discharged to home with home O2 at [facility]. Discharge instructions given and reviewed with pt and her daughter. Pt and daughter verbalize complete understanding of instructions and all questions answered.
== END 2025-06-27 16:57 | disposition home health service (06) | DRG 286 ==
LOC: IVU 14:58
PROVIDERS: Internal Medicine Cardiovascular Disease; Internal Medicine Interventional Cardiology; Nuclear Medicine Nuclear Cardiology; Nurse Practitioner Family; Physician Assistant; Physician Assistant Medical; Registered Nurse; Student in an Organized Health Care Education/Training Program; ADMITTING PHYSICIAN Hospitalist; ATTENDING PHYSICIAN Hospitalist; CONSULT PHYSICIAN Internal Medicine Critical Care Medicine; EMERGENCY PHYSICIAN Emergency Medicine; FAMILY PHYSICIAN Family Medicine; OTHER PHYSICIAN Internal Medicine Interventional Cardiology
PROC: 0W9D3ZZ Drainage of Pericardial Cavity, Percutaneous Approach (ICD-10-PCS; 2025-06-17)
PROC: 4A023N6 Measurement of Cardiac Sampling and Pressure, Right Heart, Percutaneous Approach (ICD-10-PCS; 2025-06-17)
DX: I31.39 Other pericardial effusion (noninflammatory) (principal); I50.33 Acute on chronic diastolic (congestive) heart failure; I48.21 Permanent atrial fibrillation; N17.9 Acute kidney failure, unspecified; E87.1 Hypo-osmolality and hyponatremia; I11.0 Hypertensive heart disease with heart failure; I31.9 Disease of pericardium, unspecified; I25.10 Atherosclerotic heart disease of native coronary artery without angina pectoris; I27.20 Pulmonary hypertension, unspecified; I07.1 Rheumatic tricuspid insufficiency; R09.02 Hypoxemia; R06.89 Other abnormalities of breathing; J43.2 Centrilobular emphysema; I73.9 Peripheral vascular disease, unspecified; D63.8 Anemia in other chronic diseases classified elsewhere; E78.5 Hyperlipidemia, unspecified; L73.1 Pseudofolliculitis barbae; D69.6 Thrombocytopenia, unspecified; Z96.653 Presence of artificial knee joint, bilateral; Z96.611 Presence of right artificial shoulder joint; Z79.82 Long term (current) use of aspirin; Z79.899 Other long term (current) drug therapy; Z79.51 Long term (current) use of inhaled steroids; Z79.01 Long term (current) use of anticoagulants; Z95.5 Presence of coronary angioplasty implant and graft; Z95.820 Peripheral vascular angioplasty status with implants and grafts; Z87.442 Personal history of urinary calculi; Z87.19 Personal history of other diseases of the digestive system; Z90.710 Acquired absence of both cervix and uterus; Z87.891 Personal history of nicotine dependence; Z86.16 Personal history of COVID-19; Z82.49 Family history of ischemic heart disease and other diseases of the circulatory system; Z80.1 Family history of malignant neoplasm of trachea, bronchus and lung; Z82.3 Family history of stroke; Z11.52 Encounter for screening for COVID-19
CPT/HCPCS: 33016; 71045; 71046; 71250; 80048; 80053; 81003; 81015; 82607; 82728; 82945; 83540; 83550; 83605; 83615; 83735; 83880; 84157; 84443; 84484; 85014; 85025; 85027; 85610; 85730; 86038; 86140; 86430; 87015; 87040; 87070; 87086; 87102; 87116; 87205; 87206; 87502; 87811; 88112; 88305; 89051; 93005; 93306; 93308; 93321; 93325; 93451; 94640; 97116; 97163; 97166; 97530; 97535; 99285; C1769; C1894

== ENCOUNTER → 2025-07-01 11:29 | Outpatient (REF) | payer MEDICARE, SELFPAY ==
[2025-07-01 14:06] LABS: Blood Urea Nitrogen 22 mg/dl (7-17); Calcium 9.2 mg/dl (8.4-10.2); Carbon Dioxide 33 mmol/L (22-30); Chloride 97 mmol/L (98-107); Glucose 97 mg/dl (70-99); Magnesium 2.1 mg/dl (1.6-2.3); Potassium 4.4 mmol/L (3.5-5.1); Sodium 136 mmol/L (135-145); eGFR > 60.00
== END ==
LOC: REG 11:29
PROVIDERS: ATTENDING PHYSICIAN Internal Medicine Cardiovascular Disease
DX: N17.9 Acute kidney failure, unspecified (principal); I50.33 Acute on chronic diastolic (congestive) heart failure
CPT/HCPCS: 36415; 80048; 83735; 83880

== ENCOUNTER → 2025-07-09 10:38 | Outpatient (REF) | payer MEDICARE, SELFPAY ==
[2025-07-09 13:03] LABS: Blood Urea Nitrogen 24 mg/dl (7-17); Calcium 9.2 mg/dl (8.4-10.2); Carbon Dioxide 36 mmol/L (22-30); Chloride 93 mmol/L (98-107); Glucose 125 mg/dl (70-99); Potassium 3.8 mmol/L (3.5-5.1); Sodium 132 mmol/L (135-145); eGFR > 60.00
== END ==
LOC: REG 10:38
PROVIDERS: ATTENDING PHYSICIAN Physician Assistant Medical; FAMILY PHYSICIAN Family Medicine
DX: I50.30 Unspecified diastolic (congestive) heart failure (principal)
CPT/HCPCS: 36415; 80048

== ENCOUNTER → 2025-07-12 14:02 | Outpatient (REF) | payer MEDICARE, SELFPAY | LOC: RCS 14:02 | PROVIDERS: ATTENDING PHYSICIAN Internal Medicine Cardiovascular Disease; FAMILY PHYSICIAN Family Medicine | DX: I31.39 Other pericardial effusion (noninflammatory) (principal) | CPT/HCPCS: 93308 ==

== ENCOUNTER → 2025-07-23 11:38 | Outpatient (REF) | payer MEDICARE, SELFPAY ==
[2025-07-23 12:11] LABS: Hematocrit 26.4 % (37.0-47.0); Hemoglobin 8.4 g/dL (12.0-16.0); Mean Corp Hgb Conc. 31.8 g/dL (33.0-37.0); Mean Corpuscular Volume 88.9 fL (81.0-99.0); Nucleated Red Blood Cells % 0 %; Platelet Count 227 10^3/uL (130-400); Red Cell Dist. Width 14.7 % (11.5-14.5)
[2025-07-23 13:52] LABS: Calcium 8.8 mg/dl (8.4-10.2); Carbon Dioxide 31 mmol/L (22-30); Chloride 93 mmol/L (98-107); Potassium 4.2 mmol/L (3.5-5.1); Sodium 132 mmol/L (135-145)
[2025-07-23 14:37] LABS: Blood Urea Nitrogen 33 mg/dl (7-17); Glucose 125 mg/dl (70-99); eGFR 54.19
== END ==
LOC: REG 11:38
PROVIDERS: ATTENDING PHYSICIAN Internal Medicine Cardiovascular Disease; FAMILY PHYSICIAN Family Medicine
DX: I50.32 Chronic diastolic (congestive) heart failure (principal); D64.9 Anemia, unspecified
CPT/HCPCS: 36415; 80048; 85025

== ENCOUNTER → 2025-07-30 11:15 | Outpatient (REF) | payer MEDICARE, SELFPAY ==
[2025-07-30 12:07] LABS: Hematocrit 25.6 % (37.0-47.0); Hemoglobin 7.9 g/dL (12.0-16.0); Mean Corp Hgb Conc. 30.9 g/dL (33.0-37.0); Mean Corpuscular Volume 89.2 fL (81.0-99.0); Nucleated Red Blood Cells % 0 %; Platelet Count 197 10^3/uL (130-400); Red Cell Dist. Width 15.2 % (11.5-14.5)
[2025-07-30 12:40] LABS: Total Iron Binding Capacity 246 ug/dl (265-497)
[2025-07-30 12:44] LABS: Iron < 20 ug/dl (37-170)
[2025-07-30 13:35] LABS: Ferritin 504.0 ng/ml (11.1-264.0)
[2025-07-30 13:49] LABS: Vitamin B12 950 pg/ml (239-931)
== END ==
LOC: REG 11:15
PROVIDERS: ATTENDING PHYSICIAN Nurse Practitioner Adult Health; REFERRING PHYSICIAN Internal Medicine Hematology & Oncology
DX: D64.9 Anemia, unspecified (principal); E61.1 Iron deficiency
CPT/HCPCS: 36415; 82607; 82728; 83540; 83550; 85025

== ENCOUNTER 2025-08-01 12:18 | Emergency (ER) | payer MEDICARE, SELFPAY ==
[2025-08-01 12:32] VITALS: BP 132/64
[2025-08-01 12:47] VITALS: BP 115/68
[2025-08-01 12:56] VITALS: BMI 26.6
--- NOTE | 2025-08-01 12:58 | EDRN ---
VAT RN MIn in room attempting IV access. This RN atempted x2 w/out success.
[2025-08-01 13:00] VITALS: BP 122/75
[2025-08-01 13:20] LABS: Hematocrit 27.8 % (37.0-47.0); Hemoglobin 8.2 g/dL (12.0-16.0); Mean Corp Hgb Conc. 29.5 g/dL (33.0-37.0); Mean Corpuscular Volume 93.3 fL (81.0-99.0); Nucleated Red Blood Cells % 0 %; Platelet Count 197 10^3/uL (130-400); Red Cell Dist. Width 15.5 % (11.5-14.5)
--- NOTE | 2025-08-01 13:31 | ED.GENMED ---
History of Present Illness
General
Chief Complaint: Abnormal Lab Value
Time Seen by Provider: 08/01/25 13:31
History of Present Illness
History of Present Illness:
FOCUSED PAST MEDICAL HISTORY
- Hypertension, hyperlipidemia, COPD, permanent A-fib on Eliquis, CAD, pulmonary hypertension
REVIEW OF OLD RECORDS
- I reviewed records, in June 2025, the patient had a pericardiocentesis after an outpatient echo showed a pericardial effusion which drained 750 to 800 mL of bloody pericardial fluid. She was diuresed at that time as well. In 2023, the
patient's hemoglobins have ranged in the 9-11 range. Earlier this year, the hemoglobins have been in the 8-10 range. It was 7.9 on 07/30/2025 and on 07 23 it was 8.4 and on 1010 it was 9.5. Iron was less than 20, TIBC was 246 and ferritin was 504
as of 2 days ago. 2 days ago, vitamin B12 was 950.
Note:
CHIEF COMPLAINT(S)
Hemoglobin 7.9 2d ago.
HISTORY OF PRESENT ILLNESS
The patient is an 89-year-old female with a history of pulmonary hypertension, who presented with increasing shortness of breath and fatigue. She reported that about two weeks ago, she began eating less and experienced heightened shortness of breath
and fatigue. Her primary care physician ordered blood work which revealed an iron level below 20 and a hemoglobin of 7.9, which later increased to 8.2. She is on Eliquis but was advised to check for gastrointestinal bleeding, which she reported
having evaluated in the past with no significant findings. She has a history of diverticulosis. The patient mentioned a past hospitalization on June 08 due to procedures including pericardiocentesis. She reported a previous history of smoking
40 to 45 years ago. The patient also takes oral iron, which she recently resumed.
PAST MEDICAL AND SURIGICAL HISTORY
History of pulmonary hypertension and diverticulosis. Previous hospitalization included a pericardiocentesis.
CHRONIC MEDICAL CONDITIONS SIGNIFICANTLY AFFECTING CARE
Pulmonary hypertension.
SOCIAL HISTORY
The patient reported a history of smoking 40 to 45 years ago.
MEDICATIONS
Currently taking Eliquis and recently resumed oral iron supplementation.
PHYSICAL EXAM
General: Alert, no acute distress.
Skin: Warm, dry. Somewhat pale.
Head: Normocephalic, atraumatic.
Neck: Supple, trachea midline.
Eye Ears, nose, mouth and throat: Oral mucosa moist.
Cardiovascular: Normal peripheral perfusion, no edema. Normal rate, irregular rhythm. Easily heard heart sounds�low suspicion for recurrence of pericardial effusion
Respiratory: Respirations are non-labored. Breath sounds are clear. She is in no respiratory distress.
Gastrointestinal: Abdomen nondistended.
Back: Normal range of motion, normal alignment.
Musculoskeletal: Normal range of motion, normal strength.
Neurological: Alert and oriented to person, place, time, and situation, no focal neurological deficit observed.
Psychiatric: Cooperative, appropriate mood & affect.
PROBLEM LIST
Acute:
- Shortness of breath
- Fatigue
Chronic:
- Pulmonary hypertension, as above
PLAN
The plan discussed includes sending a message to the patients medical team at the [facility], possibly arranging for evaluation of intravenous iron supplementation, and discussing further care with the patients daughter.
DIFFERENTIAL DIAGNOSIS
The Differential Diagnosis includes, in no particular order and is not limited to:
1. Anemia
2. Congestive heart failure
3. Chronic obstructive pulmonary disease exacerbation
4. Pulmonary embolism
5. Gastrointestinal bleeding
6. Deconditioning
7. Restrictive lung disease
8. Pneumonia
9. Cardiac arrhythmia
10. Hypothyroidism
SUMMARY OF ENCOUNTER
The patient, an 89-year-old female with a history of pulmonary hypertension, was brought to the emergency department due to concerns about her hemoglobin levels and increasing shortness of breath. Her hemoglobin was noted to be 8.2, which had
improved slightly from a previous level of 7.9. This prompted a discussion on whether to administer an iron infusion. Despite the hemoglobin not normally requiring a transfusion until levels are below 7, it was considered to see if an iron infusion
could be provided. The emergency department physician planned to consult with the pharmacy and, if possible, administer the iron infusion before discharging the patient with instructions to follow up with a chief of planning.
ASSESSMENT
Anemia with low iron levels contributing to the patients symptoms of fatigue and shortness of breath.
PLAN
The patient is to receive an iron infusion if pharmacy approval can be obtained. Afterward, she will be discharged with a recommendation to continue oral iron supplementation at home and follow-up with her chief of planning.
INDEPENDENT REVIEW OF LABS AND INTERPRETATION OF TESTS
My independent review of CBC shows an improved hemoglobin from 7.9 to 8.2.
PATIENT EDUCATION AND COUNSELING
The patient and her family were informed about the importance of continuing iron supplementation at home and the necessity of following up with a chief of planning for further evaluation and treatment.
FOLLOW-UP INSTRUCTIONS
The patient is advised to follow up with her chief of planning as an outpatient for further management and monitoring of her iron levels and anemia.
MEDICATION RECONCILIATION
1. Current medications include oral iron supplementation and apixaban (Eliquis).
2. If pharmacy approval is obtained, an iron infusion will be administered during this visit.
MEDICAL DECISION MAKING
-Complexity of Data Reviewed: Chronic conditions affecting care include pulmonary hypertension. Differential diagnosis includes anemia, congestive heart failure, chronic obstructive pulmonary disease exacerbation, pulmonary embolism,
gastrointestinal bleeding, deconditioning, restrictive lung disease, pneumonia, cardiac arrhythmia, and hypothyroidism.
-Data:
Category 1
- The patients outpatient pharmacy records and iron levels reviewed show that oral iron supplementation was resumed.
Category 3
- Discussion of management with the chief of planning to determine the feasibility of administering an iron infusion in the emergency department.
DIAGNOSIS
1. Anemia - ICD-10 D64.9
2. Fatigue - ICD-10 R53.83
EKG
- A-fib 68, normal axis, nonspecific ST abnormality
LABS
- Hemoglobin 8.2, normal white count and platelets
UPDATE
- Saw Divya in past and according to the patient, you recommended a bone marrow biopsy, but she refused and never saw you again. Was here last month w/ pericardiocentesis and hgb that admission was 8.9-10.8. Had been in the 8's and 9's in
2022. Over past 1-2wks, some increased SOB and fatigue; PMD ordered labs which showed hgb 7.9 2d ago. It is 8.2 today. She denies rectal bleeding and reports extensive GI w/u a few years ago. Empty rectal vault today. On Eliquis for permanent
AFib. Her daughter is an RN here. 2d ago iron <20, TIBC 246, 12% sat, ferritin 504. She was on IV iron in past and then stopped after improved. She resumed oral iron after the abnormal labs 2d ago. She has minimal symptoms now, and I don't
think she needs admission. <- sent this message to [facility] jennifer (Divya).
- Dr. Stokes recommends outpatient management however the patient is very interested in receiving IV iron today. I discussed with pharmacist and I have ordered for listed 125 mg IV and she is to follow-up with [facility] as an outpatient. The
patient has easily heard heart sounds and daughter confirms relatively unremarkable postprocedural echo that showed no significant reaccumulation of pericardial fluid.
- On 2 L/min of oxygen, she is 100% at rest in the emergency department.
- Patient feels strongly that she received IV iron in the ED�I have spoke to pharmacy and I did order IV iron prior to discharge
Past History
Past History
ED Past Medical History: Arrthythmia, CAD, CHF, Other (Pulmonary hypertension) and Other
ED Past Surgical History: Appendectomy, Cardiac, Orthopedic, Tonsilectomy and Other
Social History
Tobacco: Former smoker
Alcohol: None
Drug: None
Personal:
Living: alone
Employment: Retired
Family History
Family History: Other (Noncontributory)
Phy Exam
Physical Exam
Physical Exam:
See HPI
Course
Orders/Labs/Results
Orders:
Orders
08/01/25 12:33
Electrocardiogram (*1) Urgent
Reason for Study: Chest Pain
Cardiac Monitoring- Treatment ONCE
EKG- Treatment ONCE
IV Insert/Care/Rem.- Treatment PRN
08/01/25 13:05
Type And Crossmatch [Type+Screen] Urgent
Complete Blood Count/With Diff Urgent
Comprehensive Metabolic Panel Urgent
Troponin I Urgent
08/01/25 14:21
Ferric Gluconate [Ferrlecit] 125 mg 0.9% Sodium Chloride 100 ml [Nss] 100 ml IV NOW
08/01/25 14:30
Ferric Gluconate [Ferrlecit] 125 mg 0.9% Sodium Chloride 100 ml [Nss] 100 ml IV NOW
Abnormal Lab Results
08/01/25
13:05
RBC 2.98 L 10^6/uL
(4.20-5.40)
Hgb 8.2 L g/dL
(12.0-16.0)
Hct 27.8 L %
(37.0-47.0)
MCHC 29.5 L g/dL
(33.0-37.0)
RDW 15.5 H %
(11.5-14.5)
MPV 10.9 H fL
(7.4-10.4)
Absolute Lymphs (auto) 0.5 L 10^3/uL
(1.2-3.4)
Absolute Monos (auto) 0.7 H 10^3/uL
(0.1-0.6)
Neutrophils % 78.5 H %
(42.2-75.2)
Lymphocytes % 8.0 L %
(20.5-51.1)
Monocytes % 12.0 H %
(1.7-9.3)
Sodium 131 L mmol/L
(135-145)
Chloride 93 L mmol/L
(98-107)
Carbon Dioxide 35 H mmol/L
(22-30)
BUN 36 H mg/dl
(7-17)
Glucose 109 H mg/dl
(70-99)
Alkaline Phosphatase 385 H U/L
(38-126)
Total Protein 6.1 L g/dl
(6.3-8.2)
Albumin 3.3 L g/dl
(3.5-5.0)
08/01/25 13:05
08/01/25 13:05
Vital Signs
Initial and Last Documented VS:
Initial Vital Signs
Temp Pulse Resp BP Pulse Ox
36.6 C 77 22 132/64 97
08/01/25 12:32 08/01/25 12:32 08/01/25 12:32 08/01/25 12:32 08/01/25 12:32
Last Documented Vital Signs
Temp Pulse Resp BP Pulse Ox
36.6 C 75 24 130/53 100
08/01/25 12:32 08/01/25 14:15 08/01/25 14:15 08/01/25 14:00 08/01/25 14:15
*Pulse Oximetry
SaO2: 89
Nasal Cannula flow liters per minute: 2
Oxygen Mode of Delivery: Room air
Patient hypoxic: no
*Critical Care Note
Total Time (30-74mins, 75-104mins- exclusive of procedures): Not Applicable
ED Attending Note
-
Portions of this chart may have been created with voice recognition software.� Occasional wrong word or��sound alike� substitutions may have occurred due to the inherent limitations of voice recognition software.
Discharge Plan
Departure
Patient Disposition: Home (Routine Discharge)
Date of Disposition: 08/01/25
Time of Disposition: 14:51
Patient with high blood pressure during this ER visit?: Yes
Discharge Problem:
Anemia
Instructions: Anemia overview, BLOOD PRESSURE
Prescriptions:
No Action
atorvastatin 40 MG tablet
40 mg PO HS
folic acid 1 MG tablet
1 mg PO DAILY
Eliquis 5 MG tablet
5 mg PO BID
cyanocobalamin (vitamin B-12) 1,000 mcg Tablet
1,000 mcg PO DAILY
therapeutic multivitamin Tablet
1 tab PO DAILY
acetaminophen [Tylenol Extra Strength] 500 mg Tablet
1,000 mg PO HS
doxazosin 4 mg Tablet
4 mg PO HS
furosemide 20 mg tablet
40 mg PO DAILY
Saline Nasal 0.65 % aerosol,spray
2 spray intranasal QIDPRN
furosemide 20 mg tablet
20 mg PO DAILY@1600
pantoprazole 40 mg Tablet,Delayed Release (Dr/Ec)
40 mg PO DAILY Qty: 30 11RF
colchicine 0.6 mg Tablet
0.6 mg PO DAILY Qty: 30 2RF
atenolol 25 mg Tablet
12.5 mg PO QPM
losartan 25 mg Tablet
12.5 mg PO DAILY
levalbuterol tartrate [Xopenex HFA] 45 mcg/actuation Hfa Aerosol Inhaler
2 inh INHALATION R Q6HPRN PRN (Reason: sob)
cholecalciferol (vitamin D3) [Vitamin D3] 125 mcg (5,000 unit) Tablet
125 mcg PO DAILY
Referrals:
Jamia Stark MD [Active, Oncology]
Activity Restrictions/Additional Instructions:
Hemoglobin today is 8.2. The iron studies yesterday suggested anemia of chronic disease as opposed to only iron deficiency. I reached out to Dr. Stokes who recommends outpatient management. I did order a dose of IV iron (Ferrlecit 125 mg IV).
Call their office for follow-up. Return if worse or other concerns.
Interventions
Interventions:
*Risk Screen - Suicide Last Done: 08/01/25 12:31
*General Assessment Last Done: 08/01/25 12:57
*Neglect/Abuse Screening Last Done: 08/01/25 12:31
*ED- Fall Risk Assessment Last Done: 08/01/25 12:57
*ED COVID-19 Vaccine History Last Done: 08/01/25 12:57
*ED Influenza Vaccine History Last Done: 08/01/25 12:57
Discharge Date and Time
Print Language: TOGOLESE
[2025-08-01 13:36] LABS: ALT (SGPT) 26 U/L (0-35); AST (SGOT) 35 U/L (14-36); Albumin 3.3 g/dl (3.5-5.0); Alkaline Phosphatase 385 U/L (38-126); Blood Urea Nitrogen 36 mg/dl (7-17); Calcium 8.8 mg/dl (8.4-10.2); Carbon Dioxide 35 mmol/L (22-30); Chloride 93 mmol/L (98-107); Estimated Creatinine Clearance 49 ml/min; Glucose 109 mg/dl (70-99); Potassium 4.4 mmol/L (3.5-5.1); Sodium 131 mmol/L (135-145); Total Protein 6.1 g/dl (6.3-8.2); eGFR > 60.00
[2025-08-01 13:47] LABS: Troponin I 0.017 ng/ml
[2025-08-01 14:00] VITALS: BP 130/53
--- NOTE | 2025-08-01 14:25 | EDRN ---
Pharmacy called for ordered iron infusion at this time.
[2025-08-01] MEDS: FERRLECIT 110 MG IV (14:47)
[2025-08-01 15:00] VITALS: BP 115/59
== END 2025-08-01 15:55 | disposition home or self-care (01) ==
LOC: EMR 12:18
PROVIDERS: Emergency Medicine; EMERGENCY PHYSICIAN Emergency Medicine; FAMILY PHYSICIAN Family Medicine
DX: D50.9 Iron deficiency anemia, unspecified (principal); I11.0 Hypertensive heart disease with heart failure; I50.9 Heart failure, unspecified; E78.00 Pure hypercholesterolemia, unspecified; J44.9 Chronic obstructive pulmonary disease, unspecified; I25.10 Atherosclerotic heart disease of native coronary artery without angina pectoris; I48.21 Permanent atrial fibrillation; I27.20 Pulmonary hypertension, unspecified; I31.39 Other pericardial effusion (noninflammatory); Z79.01 Long term (current) use of anticoagulants; Z87.891 Personal history of nicotine dependence; Z90.49 Acquired absence of other specified parts of digestive tract
CPT/HCPCS: 99283; 96374; 80053; 84484; 85025; 86850; 86900; 86901; 93005; J2916

== ENCOUNTER → 2025-08-13 11:14 | Outpatient (REF) | payer MEDICARE, SELFPAY ==
[2025-08-13 12:40] LABS: Hematocrit 26.8 % (37.0-47.0); Hemoglobin 7.9 g/dL (12.0-16.0); Mean Corp Hgb Conc. 29.5 g/dL (33.0-37.0); Mean Corpuscular Volume 93.7 fL (81.0-99.0); Nucleated Red Blood Cells % 0 %; Platelet Count 130 10^3/uL (130-400); Red Cell Dist. Width 16.8 % (11.5-14.5)
[2025-08-13 12:43] LABS: ALT (SGPT) 17 U/L (0-35); AST (SGOT) 22 U/L (14-36); Albumin 3.2 g/dl (3.5-5.0); Alkaline Phosphatase 320 U/L (38-126); Alkaline Phosphatase, Total 320 U/L (38-126); Blood Urea Nitrogen 32 mg/dl (7-17); Calcium 8.7 mg/dl (8.4-10.2); Chloride 91 mmol/L (98-107); GGTP 171 U/L (12-43); Glucose 93 mg/dl (70-99); Iron 30 ug/dl (37-170); LDH 153 U/L (120-246); Potassium 4.2 mmol/L (3.5-5.1); Sodium 133 mmol/L (135-145); Total Protein 6.0 g/dl (6.3-8.2); eGFR > 60.00
[2025-08-13 12:52] LABS: Total Iron Binding Capacity 259 ug/dl (265-497)
[2025-08-13 13:15] LABS: Reticulocyte Count 2.7 % (0.4-2.8)
[2025-08-13 13:16] LABS: Ferritin 384.0 ng/ml (11.1-264.0)
[2025-08-13 13:40] LABS: Carbon Dioxide 37 mmol/L (22-30)
[2025-08-13 14:45] LABS: Alk Phos After Heat < 20
[2025-08-15 17:07] LABS: ANA, IgG Reflex to HEp-2 None Detected (None Detected)
== END ==
LOC: REG 11:14
PROVIDERS: ATTENDING PHYSICIAN Internal Medicine Hematology & Oncology; FAMILY PHYSICIAN Family Medicine
DX: D50.8 Other iron deficiency anemias (principal); D64.9 Anemia, unspecified
CPT/HCPCS: 36415; 80053; 82668; 82728; 82784; 82977; 83010; 83521; 83540; 83550; 83615; 84078; 84155; 84165; 85025; 85045; 86038; 86334

== ENCOUNTER 2025-08-19 10:51 | Outpatient (RCR) | payer MEDICARE, SELFPAY ==
[2025-08-19 12:03] VITALS: BP 128/52
[2025-08-19 12:21] VITALS: BP 109/50
[2025-08-19 14:55] VITALS: BP 114/56
[2025-08-19] MEDS: LASIX 20 MG IV (14:55)
[2025-08-19 15:57] VITALS: BP 148/66
== END 2025-09-14 23:59 | disposition home or self-care (01) ==
LOC: OID 10:51
PROVIDERS: ATTENDING PHYSICIAN Internal Medicine Hematology & Oncology; FAMILY PHYSICIAN Family Medicine
DX: D50.8 Other iron deficiency anemias (principal); D64.9 Anemia, unspecified; I31.39 Other pericardial effusion (noninflammatory); I50.32 Chronic diastolic (congestive) heart failure; I13.0 Hypertensive heart and chronic kidney disease with heart failure and stage 1 through stage 4 chronic kidney disease, or unspecified chronic kidney disease; N18.2 Chronic kidney disease, stage 2 (mild)
CPT/HCPCS: 36415; 36430; 86850; 86900; 86901; 86920; 96374; P9016

== ENCOUNTER 2025-08-31 05:10 | Inpatient (IN) | payer MEDICARE, SELFPAY ==
[2025-08-30 16:34] VITALS: BP 153/73
[2025-08-30 17:17] LABS: Hematocrit 30.6 % (37.0-47.0); Hemoglobin 9.4 g/dL (12.0-16.0); Mean Corp Hgb Conc. 30.7 g/dL (33.0-37.0); Mean Corpuscular Volume 90.5 fL (81.0-99.0); Nucleated Red Blood Cells % 0 %; Platelet Count 100 10^3/uL (130-400); Red Cell Dist. Width 17.4 % (11.5-14.5)
[2025-08-30 17:25] LABS: INR 1.90; PT 22.0 Sec (11.4-14.6)
[2025-08-30 17:38] LABS: ALT (SGPT) 18 U/L (0-35); AST (SGOT) 31 U/L (14-36); Albumin 3.5 g/dl (3.5-5.0); Alkaline Phosphatase 452 U/L (38-126); Blood Urea Nitrogen 29 mg/dl (7-17); Calcium 8.9 mg/dl (8.4-10.2); Carbon Dioxide 35 mmol/L (22-30); Chloride 90 mmol/L (98-107); Glucose 95 mg/dl (70-99); Potassium 4.0 mmol/L (3.5-5.1); Sodium 133 mmol/L (135-145); Total Protein 6.2 g/dl (6.3-8.2); eGFR > 60.00
[2025-08-30 17:39] LABS: Troponin I 0.026 ng/ml
--- NOTE | 2025-08-30 23:20 | ED.GENMED ---
History of Present Illness
General
Chief Complaint: Breathing Problem
Source: patient
Exam Limitations: none
Time Seen by Provider: 08/30/25 22:59
Nursing documentation reviewed up to this point in time: agreed with
History of Present Illness
History of Present Illness:
This a pleasant 89-year-old female presents the emergency department with shortness of breath. Patient was sent in from Dr. Nandini Churchill's office for exacerbation of heart failure with preserved ejection. Their office has been working on
titrating her diuretics, but she has been worsening. According to daughter, nurse here in the hospital, patient has now progressed to 4 pillow orthopnea. Patient states she is having difficulty walking up the steps. She is typically on 1 L of
oxygen and now she needs to just to maintain her oxygenation. Denies recent fever or chills. Patient was admitted to the hospital approximately 1 month ago. She was also been admitted 2 months ago. At that time, she had a pericardiocentesis, and
anemia. After reviewing the records, her pericardiocentesis showed approximately 800 mL of bloody pericardial effusion.
Patient presents to the Emergency Department with
Number and Complexity of Problems Addressed at the Encounter
� Chronic conditions affecting care: History of heart failure with preserved ejection fraction, anemia
� Acute Exacerbation and/or Progression of Chronic Illness: Progression of HFpEF
� Differential Diagnosis includes: Progressive HFpEF
Amount and/or Complexity of Data to be Reviewed and Analyzed
� I performed an independent evaluation of and my interpretation is:
EKG: EKG shows atrial fibrillation rate of 71 with otherwise normal doubles, normal axis. No evidence of acute ischemia. When compared with previous EKG dated 2024, no obvious interval change noted
CT:
Xrays:
Laboratory Studies: Hemoglobin is 9.4 which is up from 7.9 at last admission.
Other:
� Review of other/old records reveals: Pericardial effusion and pericardiocentesis
� Clinical information was obtained by an independent historian:
� Prescriptions/Medications Considered but not given:
� Further testing considered but not performed:
Risk of Complications and/or Morbidity or Mortality of Patient Management
�
Social determinants of health affecting care: Lives alone but has good social support. Daughter at the bedside
Discussion with other providers (PCP, Hospitalists, Consultants, etc): Hospitalist for admission
Escalation of care including admission/observation vs risk of discharge considered: Given patient's failed outpatient therapy, patient to be admitted to the hospitalist service.
Past History
Past History
ED Past Medical History: Arrthythmia, CAD, CHF, Other (Pulmonary hypertension) and Other
ED Past Surgical History: Appendectomy, Cardiac, Orthopedic, Tonsilectomy and Other
Social History
Tobacco: Former smoker
Alcohol: None
Drug: None
Personal:
Living: alone
Employment: Retired
Family History
Family History: Other (Noncontributory)
Phy Exam
Physical Exam
Physical Exam:
.
Scores
Heart Failure Risk
Heart Failure Risk Score: Yes
History of Stroke or TIA: No
History of intubation for respiratory distress: No
Heart rate on ED arrival >/= 110: Yes
SaO2 <90% on arrival on room air: Yes
HR >/=110 during 3min walk test (or too ill to perform test): Yes
ECG has acute ischemic changes: No
Urea >/=12mmol/L (BUN 33.6mg/dL): No
Serum CO2>/=35mmol/L: Yes
Troponin I or T elevated to NE Level (0.4mg/dL): No
NT-proBNP >/=5,000ng/L (5,000pg/ml): Yes
HF Risk Score: 6
Admission Status: VERY HIGH RISK 55.3% Consider admission to hospital
Course
Orders/Labs/Results
Orders:
Orders
08/30/25 16:37
Electrocardiogram (*1) Urgent
Reason for Study: Shortness of Breath
EKG- Treatment ONCE
Chest [CR Chest - 2 Views ] Urgent
Comment:
Reason For Exam: SOB
08/30/25 16:57
Complete Blood Count/With Diff Urgent
Comprehensive Metabolic Panel Urgent
NT-proBNP Urgent
Prothrombin Time Urgent
Troponin I Urgent
08/30/25 23:31
Furosemide [Lasix] 40 mg IV ONCE ONE
08/31/25 05:03
Admit/Transfer Patient As Directed
Co-Sign Provider:
Level of Care: Inpatient admission
Assign to:: Telemetry
Physician / Group: Jose
Diagnosis: R Pleural Effusion
Reason for Telemetry: Acute Heart Failure
Date to Stop Telemetry: 09/03/25
Time to Stop Telemetry: 11:00
Reason for Hospitalization: R Pleural Effusion, CHF
Expected length of stay greater than two midnights?: Yes
ELOS- Estimated Length of Stay in days: 3
I certify the patient meets the requirements for IP care: Yes
PRN Pain Medication Management As Directed
May give lesser potent ordered pain med per pt: Yes
preference::
Protocol:: Medication orders for pain may be administered in a
manner that supports deferring to patient preference
when the pt is:
- Requesting an ordered lesser potent pain medication.
Least to most potent pain medications are defined
as: acetaminophen < NSAID < tramadol < opioids
(morphine, oxycodone, hydromorphone).
- Requesting a lesser dose of the same medication IF
ORDERED.
- Requesting a less intrusive route of administration
if both routes are prescribed by the provider (PO <
IV).
08/31/25 05:04
Code Status As Directed
Resuscitation Status: Full Code
08/31/25 05:23
Acetaminophen [Tylenol] 650 mg PO Q4HPRN PRN
Albuterol Nebs [Ventolin Nebules] 2.5 mg INH R Q4HPRN PRN
08/31/25 05:23
CARDIOLOGY CONSULT Routine
Consulting Provider: Jose Murray
Was physician already notified: No
Reason for consult: CHF
Consult Notification Routine
Specialty to Notify: Cardiology
Date consulting provider notified: 08/31/25
Time consulting provider notified: 08:20
Notified:: Provider
Comment: Dr. Lincoln
Consult Notification Routine
Specialty to Notify: Pulmonary
Date consulting provider notified: 08/31/25
Time consulting provider notified: 08:28
Notified:: Provider
Comment: Dr. Basilio
PULMONARY CONSULT Routine
Consulting Provider: Ventura Wong
Was physician already notified: No
Reason for consult: R Pleural Effusion
Activity As Directed
Activity Level: Ambulate
With Assistance
EKG with chest pain [ECG as needed] As Directed
ECG as needed for:: Chest Pain
I/O [Intake/ Output] As Directed
Frequency: Per unit guidelines
Pneumatic Compression Sleeves As Directed
Type: Knee high
Vital Signs As Directed
Frequency: Per unit guidelines
Weight As Directed
Frequency: Daily
Oxygen Therapy [O2 Therapy] [RESP] Routine
Titrate/Wean O2 to maintain O2 sat greater than (%): 94
DX Deep Vein Thrombosis Video Routine
08/31/25 05:44
Complete Blood Count/No Diff IN AM
Troponin I Q6H
08/31/25 05:45
Basic Metabolic Panel IN AM
TSH Reflex To Free T4 Routine
08/31/25 06:00
EKG [Electrocardiogram (*1)] IN AM
Reason for Study: Chest Pain
NPO
Allow oral meds: Yes
Allow clear liquids: Sips of Clears
08/31/25 08:00
Colchicine 0.6 mg PO DAILY
FOLic ACID [Folvite] 1 mg PO DAILY
Furosemide [Lasix] 40 mg IV BID AT 0800,1600
08/31/25 11:30
Troponin I Q6H
08/31/25 18:00
Atenolol [Tenormin] 12.5 mg PO QPM
08/31/25 18:02
Troponin I Q6H
08/31/25 22:00
Acetaminophen [Tylenol] 1,000 mg PO HS
Atorvastatin [Lipitor] 40 mg PO HS
Doxazosin Mesylate [Cardura] 4 mg PO HS
09/03/25 11:00
DC Protocol for Telemetry ONCE
Abnormal Lab Results
08/30/25
16:57
RBC 3.38 L 10^6/uL
(4.20-5.40)
Hgb 9.4 L g/dL
(12.0-16.0)
Hct 30.6 L %
(37.0-47.0)
MCHC 30.7 L g/dL
(33.0-37.0)
RDW 17.4 H %
(11.5-14.5)
Plt Count 100 L 10^3/uL
(130-400)
MPV 12.2 H fL
(7.4-10.4)
Absolute Lymphs (auto) 0.4 L 10^3/uL
(1.2-3.4)
Absolute Monos (auto) 0.7 H 10^3/uL
(0.1-0.6)
Neutrophils % 80.7 H %
(42.2-75.2)
Lymphocytes % 6.7 L %
(20.5-51.1)
Monocytes % 11.0 H %
(1.7-9.3)
PT 22.0 H Sec
(11.4-14.6)
Sodium 133 L mmol/L
(135-145)
Chloride 90 L mmol/L
(98-107)
Carbon Dioxide 35 H mmol/L
(22-30)
BUN 29 H mg/dl
(7-17)
Total Bilirubin 1.5 H mg/dl
(0.2-1.3)
Alkaline Phosphatase 452 H U/L
(38-126)
Total Protein 6.2 L g/dl
(6.3-8.2)
08/30/25 16:57
08/30/25 16:57
Vital Signs
Initial and Last Documented VS:
Initial Vital Signs
Temp Pulse Resp BP Pulse Ox
97.7 F 73 18 153/73 91
08/30/25 16:34 08/30/25 16:34 08/30/25 16:34 08/30/25 16:34 08/30/25 16:34
Last Documented Vital Signs
Temp Pulse Resp BP Pulse Ox
97.9 F 63 18 124/54 97
09/01/25 19:00 09/01/25 21:04 09/01/25 19:00 09/01/25 21:04 09/01/25 19:00
*Pulse Oximetry
SaO2: 91
Oxygen Mode of Delivery: Room air
Patient hypoxic: no
*Critical Care Note
Total Time (30-74mins, 75-104mins- exclusive of procedures): Not Applicable
ED Attending Note
-
Portions of this chart may have been created with voice recognition software.� Occasional wrong word or��sound alike� substitutions may have occurred due to the inherent limitations of voice recognition software.
Discharge Plan
Departure
Patient Disposition: Admit
Date of Disposition: 08/30/25
Time of Disposition: 23:34
Admit to: Telemetry
Presentation/result/management discussed w/ accepting MD/DO: Hospitalist
Discharge Problem:
Acute heart failure with preserved ejection fraction (HFpEF), Pericardial effusion, Acute respiratory insufficiency
Interventions
Interventions:
*General Assessment Last Done: 08/30/25 16:36
*Neglect/Abuse Screening Last Done: 08/30/25 16:36
*ED COVID-19 Vaccine History Last Done: 08/30/25 16:36
*ED Influenza Vaccine History Last Done: 08/30/25 16:36
[facility] Fall Risk Assessment Tool Last Done: 08/31/25 15:10
*Risk Screen - Suicide (C-SSRS) Last Done: 08/30/25 16:36
*Nursing Disposition Last Done: 08/31/25 20:21
ED- Cardiac Assessment Last Done: 08/30/25 23:35
ED- Pulmonary Assessment Last Done: 08/30/25 23:35
Discharge Date and Time
Discharge Date/Time: 08/31/25 20:21
[2025-08-30 23:33] VITALS: BP 128/58
[2025-08-31] VITALS (19 sets, daily range): BP systolic 76–166; BP diastolic 50–104
[2025-08-31] MEDS: LASIX 40 MG IV ×3 (00:46→18:06)
--- NOTE | 2025-08-31 05:07 | HPS.HSE ---
Family Physician
-
Family Physician: Ze Bhardwaj Jr.
Chief Complaint
-
SOB
History of Present Illness
Patient is an 89y F with PMH significant for HFpEF, pericardial effusion, A-Fib and ASCVD who presents to ED complaining of SOB. Patient was last admitted to ED 06/08 - 06/27 secondary to CHF and pericardial effusion. She underwent
pericardiocentesis on 06/17 for 750 - 800 mL of bloody fluid. She was diuresed and her symptoms improved. Patient states that she has noted gradual increased in SOB and othorpnea since that hospitalization. She has some L sided chest discomfort
that started following pericardiocentesis and has not really improved / changed. She denies any cough, fevers / chills, etc.
She complains of inability to take a deep breath. She cannot lie down flat. Pos SOB with exertion / activity.
Patient was seen by Cardiology and sent to the ED for further evaluation.
Medical History
Past Medical History
Past Medical History: Reports Other
Additional Past Medical History:
HFpEF, pulmonary hypertension, A-fib, LAD stent s/p, PAD/iliac stents, carotid stent on right side, hyperlipidemia.
Past Surgical History: Reports Other
Additional Past Surgical History:
Pericardiocentesis (06/17/25)
PTCA with PCI (LAD / Diagonal)
PAD/iliac stents
Carotid stents
Bilateral TKA
Right TSA
Nasal Polypectomy
Hysterectomy
Social History
Tobacco: Former Smoker
Alcohol: None
Drug: None
Personal:
Living: Alone
Employment: Retired
Family History
Family History: Other
Allergies / Home Medications
Allergies reflects when Allergies were last updated in [employer].
Home Medications with original date entered in [employer]
Allergy/Medication List:
Allergies
Allergy/AdvReac Type Severity Reaction Status Date / Time
No Known Allergies Allergy Verified 08/31/25 00:50
Home Medications
atorvastatin 40 mg tablet 40 mg PO HS High cholesterol 11/27/18
folic acid 1 mg tablet 1 mg PO DAILY Supplement 11/27/18
apixaban 5 mg tablet (Eliquis) 5 mg PO BID Blood clot prevention/tx 03/12/21
acetaminophen 500 mg tablet (Tylenol Extra Strength) 1,000 mg PO HS mild Pain 11/27/22
cyanocobalamin (vitamin B-12) 1,000 mcg tablet 1,000 mcg PO DAILY Supplement 11/27/22
doxazosin 4 mg tablet 4 mg PO HS Urinary issue 11/27/22
therapeutic multivitamin 1 tab PO DAILY Supplement 11/27/22
furosemide 20 mg tablet 40 mg PO DAILY Heart Failure 03/19/25
sodium chloride 0.65 % nasal spray aerosol (Saline Nasal) 2 spray intranasal QIDPRN Congestion 03/20/25
furosemide 20 mg tablet 20 mg PO DAILY@1600 Heart Failure 06/09/25
colchicine 0.6 mg tablet 0.6 mg PO DAILY Anti-inflammatory #30 tabs 06/23/25
atenolol 25 mg tablet 12.5 mg PO QPM Heart Disease/Condition 08/01/25
cholecalciferol (vitamin D3) 125 mcg (5,000 unit) tablet (Vitamin D3) 125 mcg PO DAILY Supplement 08/01/25
levalbuterol tartrate 45 mcg/actuation aerosol inhaler (Xopenex HFA) 2 inh inhalation R Q6HPRN PRN sob 08/01/25
losartan 25 mg tablet 12.5 mg PO DAILY Heart Disease/Condition 08/01/25
Review of Systems
-
History Source: Patient
A 12 point ROS was completed and negative except as noted: Yes
Constitutional: Reports Fatigue; Denies Fever, Weight Gain, Weight Loss or Chills
Respiratory: Reports Trouble Breathing; Denies Cough
Cardiac: Reports Chest Pain; Denies Diaphoresis, Palpitations or Syncope
Abdomen/GI: Denies Abdominal Pain, Nausea, Vomiting or Diarrhea
: Denies Dysuria or Frequency
Musculoskeletal: Reports Edema; Denies Joint Pain
Neurological: Denies Dizzy or Headache
Psych: Denies Depression or Anxiety
Physical Exam
Vital Signs
Vital Signs
Temp Pulse Resp BP Pulse Ox
97.7 F 72 21 122/51 96
08/30/25 16:34 08/31/25 04:00 08/31/25 04:00 08/31/25 04:00 08/31/25 03:45
Physical Exam
General: Other (89y F in no acute distress.)
HEENT: Moist mucous membranes and PERRLA
Respiratory: Other (Decreased / absent breath sounds at the R base about 1/2 up. No wheezes / rales / rhonchi.)
Cardiac: S1/S2, Irregular Rhythm and Murmur (II/ SABRINA)
GI: Soft, Non Tender, Non Distended and Normal Bowel Sounds
Musculoskeletal: No Clubbing, No Cyanosis and Other (1-2+ pedal edema bilaterally.)
Neuro: AO x 3
Laboratory Results
-
08/30/25 16:57
08/30/25 16:57
Laboratory Results
PT 22.0 Sec (11.4-14.6) H 08/30/25 16:57
INR 1.90 08/30/25 16:57
Total Bilirubin 1.5 mg/dl (0.2-1.3) H 08/30/25 16:57
AST 31 U/L (14-36) 08/30/25 16:57
ALT 18 U/L (0-35) 08/30/25 16:57
Alkaline Phosphatase 452 U/L (38-126) H 08/30/25 16:57
Troponin I 0.026 ng/ml 08/30/25 16:57
Impression/Plan
-
A/P: Patient is an 89y F with PMH significant for A-Fib, ASCVD, CHFpEF and COPD who presents to ED for evaluation of worsening SOB.
Right Pleural Effusion - New
Acute Hypoxemic Respiratory Insufficiency secondary to the above
- Admit for further evaluation and treatment.
- CXR in the ED shows new moderate R pleural effusion. Minimal vascular congestion.
- Cardiology / Pulmonary evaluations for additional recommendations.
- Suspect patient will benefit from diagnostic / therapeutic thoracentesis.
- Hold Eliquis in preparation for possible procedure.
- Supportive care, supplemental O2, etc for now.
- ? related to recent / recurrent pericardial effusion
Chronic HFpEF
Pericardial Effusion
Pulmonary Hypertension
Severe TR
- Pedal edema which is also new per patient - though her weight has remained stable.
- Check Echo for evidence of recurrent pericardial effusion, etc.
- IV Lasix for now and follow I/Os, daily weights, etc.
- Continue colchicine.
- Cardiology evaluation as noted above.
ASCVD
Paroxysmal Atrial Fibrillation
Benign Hypertension
- Continue antihypertensive medications with holding parameters.
- Hold Eliquis acutely as noted above.
COPD without Acute Exacerbation
- Stable. Nebs PRN.
Anemia of Chronic Disease
- Stable. Follow for changes in H&H.
- New / mild thrombocytopenia - monitor.
DVT Prophylaxis: SCDs while Eliquis on hold
Code Status: Full
[2025-08-31 06:25] LABS: Hematocrit 29.2 % (37.0-47.0); Hemoglobin 8.8 g/dL (12.0-16.0); Mean Corp Hgb Conc. 30.1 g/dL (33.0-37.0); Mean Corpuscular Volume 93.6 fL (81.0-99.0); Red Cell Dist. Width 17.5 % (11.5-14.5)
[2025-08-31 06:43] LABS: Blood Urea Nitrogen 29 mg/dl (7-17); Calcium 8.6 mg/dl (8.4-10.2); Carbon Dioxide 40 mmol/L (22-30); Chloride 90 mmol/L (98-107); Glucose 81 mg/dl (70-99); Potassium 3.7 mmol/L (3.5-5.1); Sodium 136 mmol/L (135-145); eGFR > 60.00
[2025-08-31 06:43] LABS: Troponin I 0.028 ng/ml
--- NOTE | 2025-08-31 07:32 | W.PN.HOSP.TC ---
Addendum entered and electronically signed by Shantel Matthews MD 08/31/25 19:07:
I saw and evaluated the patient independently. I reviewed and discussed the resident�s note and agree with findings and plan as documented by Dr. Narvaez.
GENERAL: well developed, well nourished, female in no apparent distress
HEENT: NC/AT--O2 NC
HEART: regular rate and rhythm, +S1, +S2 with ectopy
LUNGS : decreased BS on right lung field
ABDOM: soft, nontender, nondistended, + bowel sounds
EXT: no cyanosis, clubbing-- trace edema bilaterally
NEUROLOGIC: grossly intact
Acute hypoxemic resp insufficiency due to R-sided pleural effusion from acute on chronic HFpEF exacerbation -- consult cards and pulm--apprec input--cont diuresis--agree with thoracentesis--had for 1250 mls--transudative c/w CHF--ECHO without
pericardial effusion--cont IV lasix, daily weights, I/Os--wean O2 as able
Hx bloody pericardial effusion vs. recurrence--Admitted 2mo ago with pericardial effusion in the setting of HFpEF exacerbation; pericardiocentesis drained approximately 800 mL of bloody pericardial effusion. Bleeding thought to be secondary to
patient's anticoagulation on Eliquis. Pt was discharged on colchicine for suspected pericarditis management. CXR 08/30 demonstrated enlarged cardiomediastinal silhouette--- Continue home colchicine 0.6 mg daily
Permanent a fib - confirmed on EKG on presentation; continue Eliquis--rate controlled
Essential Hypertension -continue home losartan and atenolol
COPD w/o acute exacerbation - duonebs PRN --apprec pulm
CAD/HLD - continue home atorvastatin
Anemia of chronic disease - continue to trend CBC
DVT Proph-- Eliquis
Code status --Full
Original Note:
Today's Communication/Plan
-
- TTE
- Continue IV Lasix 40 mg twice daily
- Plan for thoracentesis today of right-sided pleural effusion
- Continue home colchicine, losartan, eliquis, atenolol
- Trend I's and O's and daily weights
- Cardiology following, appreciate recs
Assessment / Plan
Assessment / Plan
89yo F with a hx of permanent afib (on eliquis), ASCVD, HFpEF, COPD, and recent admission w pericardial effusion & c/f prior pericarditis who presented from imaging nurse with worsening dyspnea, found to have new R pleural effusion, HFpEF
exacerbation, and acute hypoxemic respiratory insufficiency.
#R-sided pleural effusion
#Acute on chronic HFpEF
#Acute hypoxemic respiratory insufficiency
Follows w Dr. Churchill cardiology, who has been titrating her diuretics due to volume overload. Currently on home regimen of 60 mg p.o. Lasix. Has been admitted twice in the last 2 months for HF exacerbation, c/b pericardial effusion. Pt has had
worsening orthopnea & BERUMEN over last few weeks, also worsening LAZARA. Started requiring 1 L O2 at home about 2 weeks ago. Came in due to worsening oxygen requirement and dyspnea. CXR 08/30 with moderate/large right-sided pleural effusion and
adjacent airspace opacities. AVSS. Dry weight as fo 06/27/25 143lb (current weight).
- TTE today
- Plan for thoracentesis today
- Continue IV Lasix 40mg bid
- Follow I/Os, daily weights
- Supplemental O2 NC as needed to maintain O2 sat >95%
#Hx bloody pericardial effusion vs. recurrence
#C/f prior pericarditis
Admitted 2mo ago with pericardial effusion in the setting of HFpEF exacerbation; pericardiocentesis drained approximately 800 mL of bloody pericardial effusion. Bleeding thought to be secondary to patient's anticoagulation on Eliquis. Pt was
discharged on colchicine for suspected pericarditis management. CXR 08/30 demonstrated enlarged cardiomediastinal silhouette.
- TTE today
- Continue home colchicine 0.6 mg daily
#Chronic
#Permanent a fib - confirmed on EKG on presentation; continue Eliquis
#Benign Hypertension -continue home losartan and atenolol
#COPD w/o acute exacerbation - duonebs PRN
#ASCVD - continue home atorvastatin
#Anemia of chronic dz - continue to trend CBC
#Global
- DVT PPx: Eliquis
- Code: Full
- Diet: Regular
- Dispo: Home, pending stabilization of respiratory/fluid status
Anticipated Discharge: 24 - 48 hours
Subjective/Interval History
-
Date of Service: August 31, 2025
Pt awake, alert, calm, conversant. En route to echocardiogram, no complaints.
Full history obtained at bedside later in afternoon. Patient without any complaints acutely. Denies any chest pain. Endorses worsening shortness of breath and lower extremity edema over the past few days. Endorses improved lower extremity edema
today.
Objective Data
-
Labs:
Laboratory Results
08/31/25 08/31/25
05:44 05:45
WBC 5.4
Hgb 8.8 L
Hct 29.2 L
Plt Count Pending
Sodium 136
Potassium 3.7
Chloride 90 L
Carbon Dioxide 40 H
BUN 29 H
Creatinine 0.6
Glucose 81
Calcium 8.6
Vital Signs:
Vital Signs
Temp Pulse Resp BP Pulse Ox
97.7 F 83 23 153/68 95
08/30/25 16:34 08/31/25 06:00 08/31/25 06:00 08/31/25 06:00 08/31/25 06:00
Review of Systems
-
History Source: Patient
EENT: Reports No Symptoms Reported
Respiratory: Reports Trouble Breathing
Cardiac: Reports No Symptoms
Abdomen/GI: Reports No Symptoms
Genitourinary: Reports No Symptoms
Musculoskeletal: Reports Edema
Skin: Reports No Symptoms
Neuro: Reports No Symptoms
Physical Exam
-
General: Well Developed, Well Nourished and No Apparent Distress
HEENT: Normocephalic, Atraumatic and Moist Mucous Membranes
Respiratory: Non Labored Respirations and Decreased Breath Sounds (Right side)
Cardiac: Regular Rhythm
GI: Nondistended
Musculoskeletal: Edema, Right Lower Extrem and Edema, Left Lower Extrem
Skin: Warm and Dry
Neuro: Awake and Alert
Psych: Calm
Data Reviewed
-
Total Time Spent with Patient (in minutes): 10
Critical Care Time (in minutes): 45
Diagnostic Radiology: Image personally visualized and interpreted and Report Reviewed by me
Labs: Labs Reviewed by me
--- NOTE | 2025-08-31 07:40 | CON.CAR ---
Addendum entered and electronically signed by Jose Murray DO 08/31/25 14:24:
I saw and examined the patient.
The Check Viewer's note was reviewed and I agree with the note.
Comment:
Plan:
HPI:Patient came to the emergency room yesterday after concern for acute HF at cardiology office visit, cardiology is now consulted to follow as an inpatient. Patient was admitted from 06/08/2025 until 06/27/2025 with acute HF and pericardial
effusion. Patient had pericardiocentesis during that admission for approximately 750 mL of bloody pericardial effusion on 06/17/2025, some residual fluid was left due to the patient's PHTN. Due to bloody pericardial fluid the Eliquis was briefly
held and later restarted without significant recurrence of pericardial effusion. Additionally patient was diuresed for acute HF and patient developed NOEMY which in hindsight was felt to be more related to ibuprofen than diuresis. Patient was seen
in the office on 08/30/2025 and complained of 4 pillow orthopnea, increased LE edema and weight gain. Patient reported that she was taking her usual dose of Lasix 40 mg a.m. and 20 mg p.m. daily. In the ER overnight patient was started on Lasix 40
mg IV BID and reports increased urine output and some improvement in orthopnea, but remains hypoxic on 2 L NC.
Remains in perm AFib, resume anticoagulation
Large right pleural effusion, plan for thoracentesis
Echo shows preserved LV function with only mild pericardial effusion.-ECG reviewed by me is rate controlled A-fib without acute ST changes
Continue IV diuresis.
Monitor creatinine, daily weights and I's and O's.
Creatinine currently stable
�
Original Note:
Consultation
Consultation Request
Date/Time Consultation Requested: 08/31/2025 at 0523
Date/Time Consultation Performed: 08/31/2025 at 0742
Requesting Provider: Dr. Matthews
Performing Provider: Dr. Porras
Reason for Consultation: CHF, h/o pericardial effusion
Medical History
-
History of Present Illness:
Patient came to the emergency room yesterday after concern for acute HF at cardiology office visit, cardiology is now consulted to follow as an inpatient. Patient was admitted from 06/08/2025 until 06/27/2025 with acute HF and pericardial effusion.
Patient had pericardiocentesis during that admission for approximately 750 mL of bloody pericardial effusion on 06/17/2025, some residual fluid was left due to the patient's PHTN. Due to bloody pericardial fluid the Eliquis was briefly held and
later restarted without significant recurrence of pericardial effusion. Additionally patient was diuresed for acute HF and patient developed NOEMY which in hindsight was felt to be more related to ibuprofen than diuresis. Patient was seen in the
office on 08/30/2025 and complained of 4 pillow orthopnea, increased LE edema and weight gain. Patient reported that she was taking her usual dose of Lasix 40 mg a.m. and 20 mg p.m. daily. In the ER overnight patient was started on Lasix 40 mg IV
BID and reports increased urine output and some improvement in orthopnea, but remains hypoxic on 2 L NC.
PMH:
Recent admission for acute HF and pericardial effusion 06/08/2025 until 06/27/2025
Recent admission for acute HF and AECOPD 03/19/2025 until 03/26/2025
Chronic HFpEF
h/o pericardial effusion
s/p pericardiocentesis with 560 mL of blood-tinged fluid removed, manage has pericarditis with a regimen of ibuprofen 11/27/2018
s/p pericardiocentesis for 750 to 800 mL bloody pericardial fluid 06/17/2025
Pulmonary HTN, severe by echo 03/21/25, severe with PAP 79 mmHg by preliminary echo report 08/31/2025
Permanent atrial fibrillation
Chronic Eliquis AC
CAD
LAD PCI in 2003
HTN
HLD
COPD
PAD w/ prior L iliac stent 2004
Carotid stenosis s/p MARGARITA BMS 2004
h/o tobacco abuse
Past Medical History
Past Medical History: Other
Past Surgical History: Cardiac (LAD and diagonal PCI 2003) and Other (MARGARITA stent, Iliac stenting, hysterectomy, cataract surgery, ureter stenting, R TKA, R shoulder replacement)
Social History
Tobacco: Former Smoker
Alcohol: None
Drug: None
Personal:
Living: Alone
Employment: Retired
Family History
Family History: CAD and Hypertension
Allergies / Home Medications
Allergy/AdvReac Type Severity Reaction Status Date / Time
No Known Allergies Allergy Verified 08/31/25 00:50
�Medication �Instructions �Recorded �Confirmed �Type
atorvastatin 40 mg tablet 40 mg PO HS High cholesterol 11/27/18 08/31/25 History
folic acid 1 mg tablet 1 mg PO DAILY Supplement 11/27/18 08/31/25 History
apixaban 5 mg tablet (Eliquis) 5 mg PO BID Blood clot 03/12/21 08/31/25 History
prevention/tx
acetaminophen 500 mg tablet 1,000 mg PO HS mild Pain 11/27/22 08/31/25 History
(Tylenol Extra Strength)
cyanocobalamin (vitamin B-12) 1,000 mcg PO DAILY Supplement 11/27/22 08/31/25 History
1,000 mcg tablet
doxazosin 4 mg tablet 4 mg PO HS Urinary issue 11/27/22 08/31/25 History
therapeutic multivitamin 1 tab PO DAILY Supplement 11/27/22 08/31/25 History
furosemide 20 mg tablet 40 mg PO DAILY Heart Failure 03/19/25 08/31/25 History
sodium chloride 0.65 % nasal spray 2 spray intranasal QIDPRN 03/20/25 08/31/25 History
aerosol (Saline Nasal) Congestion
furosemide 20 mg tablet 20 mg PO DAILY@1600 Heart Failure 06/09/25 08/31/25 History
colchicine 0.6 mg tablet 0.6 mg PO DAILY Anti-inflammatory 06/23/25 08/31/25 Rx
#30 tabs
atenolol 25 mg tablet 12.5 mg PO QPM Heart 08/01/25 08/31/25 History
Disease/Condition
cholecalciferol (vitamin D3) 125 125 mcg PO DAILY Supplement 08/01/25 08/31/25 History
mcg (5,000 unit) tablet (Vitamin
D3)
levalbuterol tartrate 45 2 inh inhalation R Q6HPRN PRN sob 08/01/25 08/31/25 History
mcg/actuation aerosol inhaler
(Xopenex HFA)
losartan 25 mg tablet 12.5 mg PO DAILY Heart 08/01/25 08/31/25 History
Disease/Condition
Review of Systems
-
History Source: Patient
All other systems: Negative unless noted
Physical Exam
Vital Signs
Temp Pulse Resp BP Pulse Ox
97.7 F 83 23 153/68 95
08/30/25 16:34 08/31/25 06:00 08/31/25 06:00 08/31/25 06:00 08/31/25 06:00
GEN: NAD. AAO x 3
HEENT: EOMI, MMM
LUNGS: 2 L NC. Decreased breath sounds right worse than left base, no wheeze
CV: A-fib on telemetry. Irreg, S1/S2, 1/6 murmur
ABD: ND
EXT: +1 B/L LE edema
NEURO: Gross non-focal
SKIN: Warm, pink, dry. No rash
Lab Results
08/31/25 05:44
08/31/25 05:45
Troponin I 0.028 ng/ml 08/31/25 05:44
Zqj-O-Mjynxoxyzwl Pept 6980 pg/ml 08/30/25 16:57
Impression / Plan
-
PCP: Dr. Peterson
Sports Nutritionist: Dr. Nandini Churchill
Impression:
Presented with SOB and recurrent pericardial effusion 06/08/2025
Recent admission for acute HF and pericardial effusion 06/08/2025 until 06/27/2025
Recent admission for acute HF and AECOPD 03/19/2025 until 03/26/2025
Acute on chronic HFpEF
h/o pericardial effusion
s/p pericardiocentesis with 560 mL of blood-tinged fluid removed, manage has pericarditis with a regimen of ibuprofen 11/27/2018
s/p pericardiocentesis for 750 to 800 mL bloody pericardial fluid 06/17/2025
Pulmonary HTN, severe by echo 03/21/25, severe with PAP 79 mmHg by preliminary echo report 08/31/2025
Permanent atrial fibrillation
Chronic Eliquis AC
CAD
LAD PCI in 2003
HTN
HLD
COPD
PAD w/ prior L iliac stent 2004
Carotid stenosis s/p MRAGARITA BMS 2004
h/o tobacco abuse
Echo 03/19/2023: EF 59%, mild MR, moderate to severe TR, estimated PAP 84 mmHg
Echo 03/31/2024: EF 62%, moderate TR, estimated PAP 51 mmHg, small pericardial effusion
Echo 03/21/2025: EF 55-60%, mild MR, severe TR, estimated PAP 83 mmHg consistent with severe pulmonary HTN, small to moderate pericardial effusion
Echo 06/01/2025: Normal LV size and function, RV size and function within normal limits, severe TR with PAP 80 mmHg, moderate to large pericardial effusion without evidence of tamponade compared to echo 03/21/2025 the effusion then was small to
moderate and is now larger in size
Echo 06/08/2025: Normal LV size and function at 55 to 60%, RV mildly dilated with normal RV systolic function, severe TR with PAP 63 mmHg, moderate to large pericardial effusion without evidence of tamponade in the setting of PHTN, compared to echo
06/01/2025 there is no significant change
Echo 06/17/2025: Echo guided pericardiocentesis and at the beginning of the procedure a large pericardial effusion was noted and at the conclusion a small to medium sized pericardial effusion remained
Echo 06/20/2025: EF 55 to 60%, pericardial effusion has improved slightly and is now small to moderate compared to moderate at last echo, no evidence of tamponade
Echo 06/21/2025: EF 55 to 60%, RV size and function normal, moderate to severe TR with PAP 48 mmHg, small to moderate pericardial effusion without evidence of tamponade, overall little significant change compared to echo 06/20/2025
Echo 06/27/2025: Limited study, moderate-sized pericardial effusion without evidence of tamponade, overall similar to echo from 06/21/2025
Echo 08/31/2025: Preliminary report looks like a small pericardial effusion, RV dilatation and decreased systolic function with severe TR and PAP 79 mmHg, there is a large right pleural effusion
Plan:
-Patient came to the emergency room yesterday after concern for acute HF at cardiology office visit, cardiology is now consulted to follow as an inpatient. Patient was admitted from 06/08/2025 until 06/27/2025 with acute HF and pericardial effusion.
Patient had pericardiocentesis during that admission for approximately 750 mL of bloody pericardial effusion on 06/17/2025, some residual fluid was left due to the patient's PHTN. Due to bloody pericardial fluid the Eliquis was briefly held and
later restarted without significant recurrence of pericardial effusion. Additionally patient was diuresed for acute HF and patient developed NOEMY which in hindsight was felt to be more related to ibuprofen than diuresis. Patient was seen in the
office on 08/30/2025 and complained of 4 pillow orthopnea, increased LE edema and weight gain. Patient reported that she was taking her usual dose of Lasix 40 mg a.m. and 20 mg p.m. daily. In the ER overnight patient was started on Lasix 40 mg IV
BID and reports increased urine output and some improvement in orthopnea, but remains hypoxic on 2 L NC.
-ECG reviewed by me is rate controlled A-fib without acute ST changes
-CXR is concerning for a large right-sided pleural effusion and plan is for thoracentesis for diagnostic and therapeutic purposes. Of note pericardial fluid at time of pericardiocentesis on 06/17/2025 was bloody, the pathology was negative for
malignancy.
-Preliminary echo report obtained by me and outlined above, it appears that the pericardial effusion is small and stable
-Patient had pericardial effusion and successful pericardiocentesis in 2019 that was managed as pericarditis. Patient then had recurrent symptomatic pericardial effusion that was again managed with pericardiocentesis 06/17/2025. No plans for
pericardiocentesis this admission
-Outpatient dose of colchicine 0.6 mg daily has been continued
-Patient was diuresed to a discharge weight of 143 lbs on 06/27/2025. Patient was taking Lasix 40 mg AM and 20 mg p.m. PO daily prior to admission. Patient is now being diuresed with Lasix 40 mg IV BID.
-Labs reviewed by me and Cre is 0.6 on 08/31/2025. Patient had NOEMY last admission with attempts at more aggressive diuresis and also during brief attempted therapy with ibuprofen in the setting of pericarditis.
-Outpatient dose of losartan 25 mg daily is on hold for unclear reasons, will resume with orders placed by me.
-Outpatient dose of atenolol 12.5 mg daily has been continued
-Patient is not chronically on an aldosterone antagonist due to NOEMY when spironolactone was added during her admission in June
-Outpatient dose of Cardura 4 mg HS has been continued
-Patient with known permanent A-fib and was taking atenolol 12.5 mg daily prior to admission.
-Outpatient dose of Eliquis 5 mg BID (age 89, Cre 0.6, wt 64.9 kg) is on hold in anticipation of thoracentesis, but should be restarted
[2025-08-31 07:43] LABS: Platelet Count 87 10^3/uL (130-400)
[2025-08-31] MEDS: FOLVITE 1 MG PO (08:38)
[2025-08-31] MEDS: COLCHICINE 0.6 MG PO (08:38)
--- NOTE | 2025-08-31 09:21 | CON.PUL ---
Consultation
Consultation Request
Date/Time Consultation Requested: 08/31/25
Date/Time Consultation Performed: 08/31/25
Performing Provider: Chetna
Reason for Consultation: Effusion
Medical History
-
History of Present Illness:
Patient is an 89-year-old female with history of tobacco use, COPD, pulmonary hypertension w/ severe TR, permanent A-fib on Eliquis, ILD/bronchiectasis, CAD s/p LEELEE to LAD + diagonal branch, carotid artery stenosis s/p BMS to right ICA, PVD s/p
iliac stent, hypertension, hyperlipidemia, history of pericardial effusion s/p pericardiocentesis 06/17 requiring colchicine, chronic HFpEF, who presents with SOB and orthopnea. Chest x-ray demonstrating moderate right-sided pleural effusion,
chronic cardiomegaly. She underwent thoracentesis today by IR 08/31/2025.
Allergies / Home Medications
Allergies
Allergy/AdvReac Type Severity Reaction Status Date / Time
No Known Allergies Allergy Verified 08/31/25 00:50
Home Medications
�Medication �Instructions �Recorded �Confirmed �Last Taken �Type
atorvastatin 40 mg tablet 40 mg PO HS High cholesterol 11/27/18 08/31/25 08/18/25 History
folic acid 1 mg tablet 1 mg PO DAILY Supplement 11/27/18 08/31/25 08/19/25 History
apixaban 5 mg tablet (Eliquis) 5 mg PO BID Blood clot 03/12/21 08/31/25 08/19/25 History
prevention/tx
acetaminophen 500 mg tablet 1,000 mg PO HS mild Pain 11/27/22 08/31/25 08/18/25 History
(Tylenol Extra Strength)
cyanocobalamin (vitamin B-12) 1,000 mcg PO DAILY Supplement 11/27/22 08/31/25 08/19/25 History
1,000 mcg tablet
doxazosin 4 mg tablet 4 mg PO HS Urinary issue 11/27/22 08/31/25 08/18/25 History
therapeutic multivitamin 1 tab PO DAILY Supplement 03/08/31/25 08/19/25 History
furosemide 20 mg tablet 40 mg PO DAILY Heart Failure 03/19/25 08/31/25 08/19/25 History
sodium chloride 0.65 % nasal spray 2 spray intranasal QIDPRN 03/20/25 08/31/25 Unknown History
aerosol (Saline Nasal) Congestion
furosemide 20 mg tablet 20 mg PO DAILY@1600 Heart Failure 06/09/25 08/31/25 08/18/25 History
colchicine 0.6 mg tablet 0.6 mg PO DAILY Anti-inflammatory 06/23/25 08/31/25 08/19/25 Rx
#30 tabs
atenolol 25 mg tablet 12.5 mg PO QPM Heart 08/01/25 08/31/25 08/18/25 History
Disease/Condition
cholecalciferol (vitamin D3) 125 125 mcg PO DAILY Supplement 08/01/25 08/31/25 08/19/25 History
mcg (5,000 unit) tablet (Vitamin
D3)
levalbuterol tartrate 45 2 inh inhalation R Q6HPRN PRN sob 08/01/25 08/31/25 08/19/25 History
mcg/actuation aerosol inhaler
(Xopenex HFA)
losartan 25 mg tablet 12.5 mg PO DAILY Heart 08/01/25 08/31/25 08/19/25 History
Disease/Condition
Review of Systems
Vitals / Labs / Diagnostic Testing
Vital Signs
Temp Pulse Resp BP Pulse Ox
97.7 F 73 16 166/73 94
08/30/25 16:34 08/31/25 08:47 08/31/25 08:47 08/31/25 08:47 08/31/25 08:47
Lab Data
08/31/25 05:44
08/31/25 05:45
Laboratory Results
08/30/25
16:57
PT 22.0 H
INR 1.90
Diagnostic Testing:
Assessment
-
Patient is an 89-year-old female with history of tobacco use, COPD, pulmonary hypertension w/ severe TR, permanent A-fib on Eliquis, ILD/bronchiectasis, CAD s/p LEELEE to LAD + diagonal branch, carotid artery stenosis s/p BMS to right ICA, PVD s/p
iliac stent, hypertension, hyperlipidemia, history of pericardial effusion s/p pericardiocentesis 06/17 requiring colchicine, chronic HFpEF, who presents with SOB and orthopnea. Chest x-ray demonstrating moderate right-sided pleural effusion,
chronic cardiomegaly. She underwent thoracentesis today by IR 08/31/2025. We are consulted for evaluation
Acute on chronic shortness of breath
Orthopnea
Moderate right-sided pleural effusion status post thoracentesis 08/31/2025
Suspect acute on chronic heart failure exacerbation, preserved EF
Suspect CO2 retention
Hyponatremia, mild
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
Pulmonary hypertension (prior RHC on 04/15/2023 showed PAP: 62/27 with PCWP 30 and TP with PVR 3.3 Dumont units, consistent with left-sided heart failure)
Valvular heart disease with severe TR
Bronchiectasis/ILD
History of pericardial effusion s/p pericardiocentesis requiring colchicine 2018, again 06/17/25
COPD w/ moderate obstruction
Patient follows up In our office with Dr. Haines- Last time seen 04/2025 - COPD/Chronic bronchitis--back then without SOB.
Spirometry 04/20/2025: FEV1 1.14 L - 78%-FEV1/ FVC ratio 64%.
Quit smoking 40+ years ago. [id number] history.
Hypertension
Permanent AF -rate controlled/Eliquis
Dyslipidemia
Chronic HFpEF
[id number]
PAD - s/p STEFANY and L Iliac PCI/stent (2004)
R ICA stenosis s/p stent 2014
O/A s/p L TKA Dr. Espitia 10/11/[address] Espitia 10/13/19
History of kidney stones
[id number] 6.4
Venous varicosities/
Osteopenia/eft hip OA s/p steroid injection
Diverticulosis/history of diverticulitis (12/2019)
Colon polyps
Plan
Currently 96% on 1 L nasal cannula, wean as tolerated
She is not known to have oxygen at baseline
Eventual home O2 evaluation
Shortness of breath explained by pleural effusion and acute on chronic heart failure with preserved ejection fraction based on clinical presentation, chemical biomarkers and imaging.
She underwent thoracentesis-- fluid chemistry, culture, cytology sent--will review to confirm etiology
Cardiology correspondence reviewed.
She is placed on IV diuresis, agree with this
A-fib history resumed on Eliquis
Echocardiogram with significant pericardial effusion 06/15/2025.
Underwent pericardiocentesis recently 06/17/2025
Repeat echo today demonstrating severe PAH, preserved function, small pericardial effusion
From the COPD perspective: No evidence for acute exacerbation.
Her COPD is a contributor to her symptoms but not not the main driver medic.
Latest pulmonary function testing demonstrated moderate airflow obstruction-up until recently she has not been on maintenance inhalers.
Only using albuterol as needed, can be resumed
No indication for systemic corticosteroids
Patient will need short-term follow-up in our office after discharge - with .
We will follow
Data:
-
CT Chest 06/10/25 IMPRESSION: Large pericardial effusion, increased. Small bilateral pleural effusions, right greater than left, new. No evidence of pneumonia. Emphysematous lung changes.
Chronic parenchymal scarring with traction bronchiectasis in the right middle lobe. Stable mediastinal adenopathy. Possible elevated right-sided heart pressure versus tricuspid insufficiency/regurgitation.
-
CXR 08/30/25-Moderate/large right-sided pleural effusion and adjacent airspace opacities which likely represents atelectasis, however pneumonia cannot be excluded. Enlarged cardiomediastinal silhouette which may related to previously seen
pericardial effusion.
CXR 03/19/2025: Small bilateral pleural effusions. Significant cardiomegaly with cephalized vascular flow. No evidence for significant interstitial edema radiographically.
Transthoracic echocardiogram 03/21/2025:
1. Left ventricle: Normal size and function with an estimated ejection fraction of 55-60% by visual estimation. Indeterminate diastolic function.
2. Right ventricle: Normal
3. Atria: Severe left atrial dilation and severe right atrial dilation
4. Mitral valve: Mildly thickened with mild mitral regurgitation
5. Aortic valve: Trileaflet. No aortic stenosis or aortic insufficiency
6. Tricuspid valve: Severe tricuspid regurgitation with estimated pulmonary artery systolic pressures of 83 mmHg consistent with severe pulmonary hypertension
7. When compared to the most recent echocardiogram from 03/31/2024, the estimated pulmonary artery systolic pressures have increased from 51 to 83 mmHg and the severity of tricuspid regurgitation is increased from moderate to severe.
ECHO 08/31/25: 1. Normal left ventricular chamber size, myocardial thickness and systolic function. Ejection fraction 55 to 60%.
2. Mild mitral regurgitation.
3. Severe tricuspid regurgitation with severe pulmonary hypertension with pulmonary artery pressure 78 mmHg.
4. Mild pulmonic regurgitation.
5. Small pericardial effusion. Evidence of pleural effusion
6. Biatrial enlargement
7. Compared to a prior echo from June 2025, pulmonary artery systolic pressure was 57 mmHg and there was a mild to moderate pericardial effusion at that time.
Total time spent on this consultation/encounter __55__ minutes which includes review of history, physical exam, medications, laboratory data, personal review of imaging, extensive review of outpatient records, discussion with care team and
respiratory therapy.
[2025-08-31 12:13] LABS: Troponin I 0.027 ng/ml
[2025-08-31 15:21] LABS: Body Fluid Second Tech ASW
--- NOTE | 2025-08-31 17:02 | CM ---
Patient seen at bedside in ED. Patient stated that she lives in a 2 story home alone. Patient uses [facility] on [address] and her pcp is Dr. Bhardwaj. Patient has home O2 at home but is not sure of the agency providing it. Patient for IR per physician.
Patient plan is for discharge home with family supports. CM will continue to follow for discharge planning needs.
Plan; home with VN vs SNF pending medical treatment plan
[2025-08-31 17:17] LABS: LDH 207 U/L (120-246); Total Protein 6.1 g/dl (6.3-8.2)
[2025-08-31] MEDS: VENTOLIN NEBULES 2.5 MG INH (17:28)
--- NOTE | 2025-08-31 17:31 | RESPNOTE ---
Respiratory: ABG done on Room Air SpO2 at time of ABG was 67% with good pleth/waveform.
[2025-08-31 17:34] LABS: B.E. 16.8 mmol/L; O2 Saturation % 74.1 % (94-98); PCO2 54 mmHg (32-35)
[2025-08-31 17:36] LABS: HCO3 42.1 mmol/L (21-28); PO2 40 mmHg (83-108)
[2025-08-31] MEDS: TENORMIN 12.5 MG PO (18:05)
[2025-08-31 18:38] LABS: Troponin I 0.031 ng/ml
--- NOTE | 2025-08-31 21:00 | PTCARENOTE ---
Pt received from ED via stretcher at 2015. Pt pleasant, AAOx3, VSS, and pulled over into bed from stretcher. Pt receptive to room and call bullock. Pt bed in lowest position and call bullock within reach. Pt educated on importance of call bullock usage, pt
relays understanding and cooperation. Will continue with current plan of care.
[2025-08-31] MEDS: LIPITOR 40 MG PO (22:27)
[2025-08-31] MEDS: ELIQUIS 5 MG PO (22:27)
[2025-08-31] MEDS: TYLENOL 1000 MG PO (22:27)
[2025-08-31] MEDS: CARDURA 4 MG PO (23:10)
[2025-09-01 03:00] VITALS: BP 110/43
--- NOTE | 2025-09-01 07:14 | W.PN.HOSP.TC ---
Addendum entered and electronically signed by Shantel Matthews MD 09/01/25 18:13:
I saw and evaluated the patient independently. I reviewed and discussed the resident�s note and agree with findings and plan as documented by Dr. Narvaez.
GENERAL: well developed, well nourished, female in no apparent distress
HEENT: NC/AT--O2 NC
HEART: regular rate and rhythm, +S1, +S2 with ectopy
LUNGS : improved BS on right lung field
ABDOM: soft, nontender, nondistended, + bowel sounds
EXT: no cyanosis, clubbing-- trace edema bilaterally
NEUROLOGIC: grossly intact
Acute hypoxemic resp insufficiency due to R-sided pleural effusion from acute on chronic HFpEF exacerbation -- apprec cards and pulm--cont diuresis--s/p thoracentesis--had for 1250 mls--transudative c/w CHF--ECHO without pericardial effusion--cont
IV lasix, daily weights, I/Os--wean O2 as able
Hx bloody pericardial effusion vs. recurrence--Admitted 2mo ago with pericardial effusion in the setting of HFpEF exacerbation; pericardiocentesis drained approximately 800 mL of bloody pericardial effusion. Bleeding thought to be secondary to
patient's anticoagulation on Eliquis. Pt was discharged on colchicine for suspected pericarditis management. CXR 08/30 demonstrated enlarged cardiomediastinal silhouette--- Continue home colchicine 0.6 mg daily
Permanent a fib - confirmed on EKG on presentation; continue Eliquis--rate controlled
Essential Hypertension -continue home losartan and atenolol
COPD w/o acute exacerbation - duonebs PRN --apprec pulm
CAD/HLD - continue home atorvastatin
Anemia of chronic disease - continue to trend CBC
DVT Proph-- Eliquis
Code status --Full
dispo--PT/OT pending
Original Note:
Today's Communication/Plan
-
- Home O2 test
- Replete K
- Discuss increasing home lasix dose to 80 total vs 60mg total - pending cards signoff
- Likely discharge to home today
Assessment / Plan
Assessment / Plan
89yo F with a hx of permanent afib (on eliquis), ASCVD, HFpEF, COPD, and recent admission w pericardial effusion & c/f prior pericarditis who presented from [employer] with worsening dyspnea, found to have new R pleural effusion, HFpEF
exacerbation, and acute hypoxemic respiratory insufficiency, now improved s/p diuresis & thoracentesis.
#R-sided pleural effusion
#Acute on chronic HFpEF
#Worsening pulmonary HTN (PAP 78mmHg)
#Acute hypoxemic respiratory insufficiency
Follows w Dr. Churchill cardiology, who has been titrating her diuretics due to volume overload. Currently on home regimen of 60 mg p.o. Lasix. Has been admitted twice in the last 2 months for HF exacerbation, c/b pericardial effusion. Pt has had
worsening orthopnea & BERUMEN over last few weeks, also worsening LAZARA. Started requiring 1 L O2 at home about 2 weeks ago. Came in due to worsening oxygen requirement and dyspnea. CXR 08/30 with moderate/large right-sided pleural effusion and
adjacent airspace opacities. TTE 08/31 with EF 55-60%, mild MR, severe TR w severe pulm HTN w PAP 78mmHg (worse aeft52nmTc in June), small pericardial effusion, biatrial enlargement. Thoracentesis 08/31 - transudative, yielded 1250cc clear cristhian
pleural fluid.
Today - AVSS. Fluid -320mL. Current weight 137.2 (dry weight reported at 143lb as of 06/27/25 discharge). Cr has remained <1.0.
- Continue IV Lasix 40mg bid
- Follow I/Os, daily weights
- Wean O2 NC as tolerated
- Home O2 eval prior to discharge
- Pulm & cards following, appreciate recs
#Hypokalemia
K decreased to 3.4. Likely 2/2 increased IV diuresis with lasix.
- Replete today 20meq KCl
#Small pericardial effusion w hx large pericardial effusion
#C/f prior pericarditis
Admitted 2mo ago with pericardial effusion in the setting of HFpEF exacerbation; pericardiocentesis drained approximately 800 mL of bloody pericardial effusion. Bleeding thought to be secondary to patient's anticoagulation on Eliquis. Pt was
discharged on colchicine for suspected pericarditis management. CXR 08/30 demonstrated enlarged cardiomediastinal silhouette.
- Continue home colchicine 0.6 mg daily
#Chronic
#Permanent a fib - confirmed on EKG on presentation; continue Eliquis
#Benign Hypertension - continue home losartan and atenolol
#COPD w/o acute exacerbation - PRN albuterol
#ASCVD - continue home atorvastatin
#Anemia of chronic dz - continue to trend CBC
#Global
- DVT PPx: Eliquis
- Code: Full
- Diet: Regular
- Dispo: Home, likely today pending cards & home O2 requirement test
Anticipated Discharge: Within 24 hours
Subjective/Interval History
-
Date of Service: September 01, 2025
Pt feeling well this am. States that she feels more comfortable breathing after the thora. Her legs are less swollen. Denies any SOB at rest or CP.
Objective Data
-
Labs:
Laboratory Results
09/01/25
06:00
WBC Pending
Hgb Pending
Hct Pending
Plt Count Pending
Sodium Pending
Potassium Pending
Chloride Pending
Carbon Dioxide Pending
BUN Pending
Creatinine Pending
Glucose Pending
Calcium Pending
Total Bilirubin Pending
AST Pending
ALT Pending
Alkaline Phosphatase Pending
Vital Signs:
Vital Signs
Temp Pulse Resp BP Pulse Ox
97.7 F 63 16 110/43 98
09/01/25 03:00 09/01/25 03:00 09/01/25 03:00 09/01/25 03:00 09/01/25 03:00
I&O
08/30/25 08/31/25 09/01/25
06:59 06:59 06:59
Intake Total 480 / 480
Output Total 800 / 800
Balance -320 / -320
Review of Systems
-
History Source: Patient
Constitutional: Reports No Symptoms
EENT: Reports No Symptoms Reported
Respiratory: Reports Trouble Breathing
Cardiac: Reports No Symptoms
Abdomen/GI: Reports No Symptoms
Musculoskeletal: Reports No Symptoms
Skin: Reports No Symptoms
Neuro: Reports No Symptoms
Physical Exam
-
General: Well Developed, Well Nourished and No Apparent Distress
HEENT: Normocephalic and Atraumatic
Respiratory: Clear to Auscultation (slight decreased breath sounds low R lower lung base but improved from prior ) and Non Labored Respirations
Cardiac: Irregular Rhythm
GI: Soft, Nontender and Nondistended
Musculoskeletal: No Edema
Skin: Warm and Dry
Neuro: Awake, Alert and Oriented
Psych: Calm
Data Reviewed
-
Total Time Spent with Patient (in minutes): 15
Critical Care Time (in minutes): 35
Diagnostic Radiology: Image personally visualized and interpreted and Report Reviewed by me
Medical Tests (Nuc Med, Echo etc): Report Reviewed by me
Labs: Labs Reviewed by me
[2025-09-01 07:25] VITALS: BP 130/56
[2025-09-01] MEDS: COLCHICINE 0.6 MG PO (07:44)
[2025-09-01] MEDS: FOLVITE 1 MG PO (07:45)
[2025-09-01] MEDS: LASIX 40 MG IV (07:45)
[2025-09-01] MEDS: ELIQUIS 5 MG PO ×2 (07:45→19:38)
[2025-09-01 08:58] LABS: Hematocrit 28.6 % (37.0-47.0); Hemoglobin 8.9 g/dL (12.0-16.0); Mean Corp Hgb Conc. 31.1 g/dL (33.0-37.0); Mean Corpuscular Volume 92.3 fL (81.0-99.0); Nucleated Red Blood Cells % 0 %; Platelet Count 95 10^3/uL (130-400); Red Cell Dist. Width 17.2 % (11.5-14.5)
[2025-09-01 09:13] LABS: ALT (SGPT) 15 U/L (0-35); AST (SGOT) 24 U/L (14-36); Albumin 2.8 g/dl (3.5-5.0); Alkaline Phosphatase 382 U/L (38-126); Blood Urea Nitrogen 24 mg/dl (7-17); Calcium 8.6 mg/dl (8.4-10.2); Chloride 90 mmol/L (98-107); Glucose 86 mg/dl (70-99); Potassium 3.4 mmol/L (3.5-5.1); Sodium 136 mmol/L (135-145); Total Protein 5.4 g/dl (6.3-8.2); eGFR > 60.00
[2025-09-01 09:31] LABS: Carbon Dioxide 39 mmol/L (22-30)
--- NOTE | 2025-09-01 09:39 | W.PN.PUL3 ---
Today's Communication / Plan
-
ABG reviewed with patient indicating chronic CO2 retention, will trial BiPAP tonight
If tolerating well, will arrange for home set up
Doing well post thoracentesis, will change diuresis to Diamox to help with alkalosis
O2 weaning with ambulation testing today
Updated daughter regarding plan of care
Assessment
-
Patient is an 89-year-old female with history of tobacco use, COPD, pulmonary hypertension w/ severe TR, permanent A-fib on Eliquis, ILD/bronchiectasis, CAD s/p LEELEE to LAD + diagonal branch, carotid artery stenosis s/p BMS to right ICA, PVD s/p
iliac stent, hypertension, hyperlipidemia, history of pericardial effusion s/p pericardiocentesis 06/17 requiring colchicine, chronic HFpEF, who presents with SOB and orthopnea. Chest x-ray demonstrating moderate right-sided pleural effusion,
chronic cardiomegaly. She underwent thoracentesis today by IR 08/31/2025. We are consulted for evaluation
Acute on chronic shortness of breath
Orthopnea
Moderate right-sided pleural effusion status post thoracentesis 08/31/2025
Suspect acute on chronic heart failure exacerbation, preserved EF
Suspect CO2 retention
Hyponatremia, mild
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
Pulmonary hypertension (prior RHC on 04/15/2023 showed PAP: 62/27 with PCWP 30 and TP with PVR 3.3 Dumont units, consistent with left-sided heart failure)
Valvular heart disease with severe TR
Bronchiectasis/ILD
History of pericardial effusion s/p pericardiocentesis requiring colchicine 2018, again 06/17/25
COPD w/ moderate obstruction
Patient follows up In our office with Dr. Haines- Last time seen 04/2025 - COPD/Chronic bronchitis--back then without SOB.
Spirometry 04/20/2025: FEV1 1.14 L - 78%-FEV1/ FVC ratio 64%.
Quit smoking 40+ years ago. [id number] history.
Hypertension
Permanent AF -rate controlled/Eliquis
Dyslipidemia
Chronic HFpEF
LLO-SIA-DZI-2004-ASA
PAD - s/p STEFANY and L Iliac PCI/stent (2004)
R ICA stenosis s/p stent 2014
O/A s/p L TKA Dr. Espitia 10/11/[address] Espitia 10/13/19
History of kidney stones
[id number] 6.4
Venous varicosities/
Osteopenia/eft hip OA s/p steroid injection
Diverticulosis/history of diverticulitis (12/2019)
Colon polyps
Plan
Currently 96% on 1 L nasal cannula, wean as tolerated
She has baseline oxygen at home, using 2 to 4 L depending on her level of activity
Eventual home O2 evaluation
Shortness of breath explained by pleural effusion and acute on chronic heart failure with preserved ejection fraction based on clinical presentation, chemical biomarkers and imaging.
She underwent thoracentesis-- fluid chemistry, culture, cytology sent--will review to confirm etiology
Chemistry reviewed, pH 7.46 glucose 89 total protein 3.1 LDH 91--could represent pseudo-exudate given her chronic diuretic use at home
Culture negative, cytology not sent
Cardiology correspondence reviewed.
She is placed on IV diuresis, agree with this
A-fib history resumed on Eliquis
ABG obtained indicating chronic CO2 retention
pH 7.5/54/40/42, prior ABG in 2020 7.39/55
She has contraction alkalosis, suggesting her CO2 baseline may be higher than 54
She is on IV Lasix but will change this to Diamox to help with her alkalosis
Will trial BiPAP tonight, if tolerating, we will set up with home device
Echocardiogram with significant pericardial effusion 06/15/2025.
Underwent pericardiocentesis recently 06/17/2025
Repeat echo today demonstrating severe PAH, preserved function, small pericardial effusion
From the COPD perspective: No evidence for acute exacerbation.
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
Latest pulmonary function testing demonstrated moderate airflow obstruction-up until recently she has not been on maintenance inhalers.
Only using albuterol as needed, can be resumed
No indication for systemic corticosteroids
Patient will need short-term follow-up in our office after discharge - with .
I updated her daughter today
Will follow
Data:
-
CT Chest 06/10/25 IMPRESSION: Large pericardial effusion, increased. Small bilateral pleural effusions, right greater than left, new. No evidence of pneumonia. Emphysematous lung changes.
Chronic parenchymal scarring with traction bronchiectasis in the right middle lobe. Stable mediastinal adenopathy. Possible elevated right-sided heart pressure versus tricuspid insufficiency/regurgitation.
-
CXR 08/30/25-Moderate/large right-sided pleural effusion and adjacent airspace opacities which likely represents atelectasis, however pneumonia cannot be excluded. Enlarged cardiomediastinal silhouette which may related to previously seen
pericardial effusion.
CXR 03/19/2025: Small bilateral pleural effusions. Significant cardiomegaly with cephalized vascular flow. No evidence for significant interstitial edema radiographically.
Transthoracic echocardiogram 03/21/2025:
1. Left ventricle: Normal size and function with an estimated ejection fraction of 55-60% by visual estimation. Indeterminate diastolic function.
2. Right ventricle: Normal
3. Atria: Severe left atrial dilation and severe right atrial dilation
4. Mitral valve: Mildly thickened with mild mitral regurgitation
5. Aortic valve: Trileaflet. No aortic stenosis or aortic insufficiency
6. Tricuspid valve: Severe tricuspid regurgitation with estimated pulmonary artery systolic pressures of 83 mmHg consistent with severe pulmonary hypertension
7. When compared to the most recent echocardiogram from 03/31/2024, the estimated pulmonary artery systolic pressures have increased from 51 to 83 mmHg and the severity of tricuspid regurgitation is increased from moderate to severe.
ECHO 08/31/25: 1. Normal left ventricular chamber size, myocardial thickness and systolic function. Ejection fraction 55 to 60%.
2. Mild mitral regurgitation.
3. Severe tricuspid regurgitation with severe pulmonary hypertension with pulmonary artery pressure 78 mmHg.
4. Mild pulmonic regurgitation.
5. Small pericardial effusion. Evidence of pleural effusion
6. Biatrial enlargement
7. Compared to a prior echo from June 2025, pulmonary artery systolic pressure was 57 mmHg and there was a mild to moderate pericardial effusion at that time.
Total time spent on this consultation/encounter __55__ minutes which includes review of history, physical exam, medications, laboratory data, personal review of imaging, extensive review of outpatient records, discussion with care team and
respiratory therapy.
Subjective Data
-
Date of Service:
Date of Service: September 01, 2025
Chief Complaint: Pulmonary Follow Up
Subjective:
Feeling improved since thoracentesis
Remains on low supplemental O2
Objective Data
Data Reviewed
Vital Signs / I&O / Oxygen:
Vital Signs
Temp Pulse Resp BP Pulse Ox
97.9 F 62 16 130/56 96
09/01/25 07:25 09/01/25 07:45 09/01/25 07:25 09/01/25 07:45 09/01/25 07:25
Intake and Output
08/31/25 09/01/25 09/02/25
06:59 06:59 06:59
Intake Total 480 / 480
Output Total 800 / 800
Balance -320 / -320
SaO2 96
Nasal Cannula flow liters per 2
minute
Physical Exam
General: Comfortable and Other (NAD)
HEENT: Normocephalic, Anicteric and Moist Mucous Membranes
Cardiovascular: S1-S2 and Regular Rhythm
Respiratory: Crackles and Non-Labored Respirations
GI: Soft, Non Distended and Non Tender
Neurology: Awake, Alert, Oriented and No Motor Deficits
Skin: Warm, Dry and Good Color
Labs/Micro/Reports
Lab Data
09/01/25 07:44
09/01/25 07:44
Laboratory Results
08/31/25
17:25
pH 7.50 H
pCO2 54 H
pO2 40 L*
HCO3 42.1 H*
O2 Delivery Level
Microbiology
08/31/25 14:08 Pleural Fluid Body Fluid Culture - Preliminary
No Growth After 18-24 Hours
08/31/25 14:08 Pleural Fluid Gram Stain - Preliminary
08/31/25 14:08 Pleural Fluid Fungal Culture - Preliminary
Culture in progress.
Positive cultures are reported as soon as detected.
Final report to follow in four to five weeks.
[2025-09-01] MEDS: COZAAR 12.5 MG PO (09:46)
[2025-09-01] MEDS: KCL 20 MEQ PO (09:58)
--- NOTE | 2025-09-01 10:06 | W.PN.CARDCBS ---
Addendum entered and electronically signed by Chapin Ellington MD 09/01/25 15:53:
I saw and examined the patient.
The Core Analyst's note was reviewed and I agree with the note.
Comment: Fully, 89-year-old woman past medical history of heart failure with preserved ejection fraction, recurrent pericardial effusion, COPD, permanent atrial fibrillation on Eliquis, CAD with prior PCI and severe range pulmonary hypertension who
presents in acute decompensated heart failure
Volume status appears improved with IV Lasix
Weight is down to 137 pounds which is lowest on record
Creatinine remains stable
Still on 2 L supplemental O2 via nasal cannula. Given COPD would consider titrating oxygen sat to goal 90%.
Appreciate pulmonology input. They have recommended transition to Diamox from Lasix as well as trial of BiPAP.
Rest per Ingrid Garvin
Original Note:
Today's Communication / Plan
-
Changing Lasix to Diamox for elevated bicarb
Patient is below previous dry weight
53 minutes in [id number] and fgf-palx-jq-face time today
Impression / Plan
-
PCP: Dr. Peterson
Ship Engines Operating Engineer: Dr. Nandini Churchill
Impression:
Presented with SOB and recurrent pericardial effusion 06/08/2025
Recent admission for acute HF and pericardial effusion 06/08/2025 until 06/27/2025
Recent admission for acute HF and AECOPD 03/19/2025 until 03/26/2025
Acute on chronic HFpEF
Right-sided pleural effusion
s/p successful right-sided thoracentesis for 1.25 L of cristhian-colored fluid 08/31/2025
h/o pericardial effusion
s/p pericardiocentesis with 560 mL of blood-tinged fluid removed, manage has pericarditis with a regimen of ibuprofen 11/27/2018
s/p pericardiocentesis for 750 to 800 mL bloody pericardial fluid 06/17/2025
Pulmonary HTN, severe by echo 03/21/25, severe with PAP 79 mmHg by preliminary echo report 08/31/2025
Permanent atrial fibrillation
Chronic Eliquis AC
CAD
LAD PCI in 2003
HTN
HLD
COPD
PAD w/ prior L iliac stent 2004
Carotid stenosis s/p MRAGARITA BMS 2004
h/o tobacco abuse
Echo 03/19/2023: EF 59%, mild MR, moderate to severe TR, estimated PAP 84 mmHg
Echo 03/31/2024: EF 62%, moderate TR, estimated PAP 51 mmHg, small pericardial effusion
Echo 03/21/2025: EF 55-60%, mild MR, severe TR, estimated PAP 83 mmHg consistent with severe pulmonary HTN, small to moderate pericardial effusion
Echo 06/01/2025: Normal LV size and function, RV size and function within normal limits, severe TR with PAP 80 mmHg, moderate to large pericardial effusion without evidence of tamponade compared to echo 03/21/2025 the effusion then was small to
moderate and is now larger in size
Echo 06/08/2025: Normal LV size and function at 55 to 60%, RV mildly dilated with normal RV systolic function, severe TR with PAP 63 mmHg, moderate to large pericardial effusion without evidence of tamponade in the setting of PHTN, compared to echo
06/01/2025 there is no significant change
Echo 06/17/2025: Echo guided pericardiocentesis and at the beginning of the procedure a large pericardial effusion was noted and at the conclusion a small to medium sized pericardial effusion remained
Echo 06/20/2025: EF 55 to 60%, pericardial effusion has improved slightly and is now small to moderate compared to moderate at last echo, no evidence of tamponade
Echo 06/21/2025: EF 55 to 60%, RV size and function normal, moderate to severe TR with PAP 48 mmHg, small to moderate pericardial effusion without evidence of tamponade, overall little significant change compared to echo 06/20/2025
Echo 06/27/2025: Limited study, moderate-sized pericardial effusion without evidence of tamponade, overall similar to echo from 06/21/2025
Echo 08/31/2025: EF 55 to 60%, mild MR, severe PHTN with PAP 70 mmHg, small pericardial effusion
Plan:
-Patient had a successful right-sided thoracentesis for 1.25 L of cristhian-colored fluid on 08/31/2025 and reports symptomatic improvement in SOB. Lights criteria suggest exudative effusion, but pulmonology suspects pseudo exudative and the patient is
chronically on diuretics as an outpatient.
-Patient previously had pericardial effusion and underwent pericardiocentesis on 06/17/2025 with serosanguineous fluid removed at that time, but no malignancy on pathology. Pending results of pathology of pleural fluid recommend outpatient
rheumatologic evaluation for recurrent effusions.
-Weight on admission was 143 lbs using a stretcher scale in the ER. Patient was diuresed with Lasix 40 mg IV BID 08/31/2025 and 09/01/2025 AM. Weight is down to 137 lbs on my review of VS 09/01/2025. Pulmonology following along as well and
patient is transitioning to Diamox in place of Lasix for few days due to elevated bicarb
-Patient was taking Lasix 40 mg AM and 20 mg p.m. PO daily prior to admission. Cardiology recommends Lasix 40 mg PO BID upon discharge to home.
-Echo performed 08/31/2025 showed preserved EF, mild MR and a small pericardial effusion
-Patient had pericardial effusion and successful pericardiocentesis in 2019 that was managed as pericarditis. Patient then had recurrent symptomatic pericardial effusion that was again managed with pericardiocentesis 06/17/2025. No plans for
pericardiocentesis this admission
-Outpatient dose of colchicine 0.6 mg daily has been continued
-Labs reviewed by me and Cre is 0.6 on 09/01/2025. Patient had NOEMY last admission with attempts at more aggressive diuresis and also during brief attempted therapy with ibuprofen in the setting of pericarditis.
-Outpatient dose of losartan was decreased to 12.5 mg daily
-Outpatient dose of atenolol 12.5 mg daily has been continued
-Patient is not chronically on an aldosterone antagonist due to NOEMY when spironolactone was added during her admission in June
-Outpatient dose of Cardura 4 mg HS has been continued
-Patient with known permanent A-fib and was taking atenolol 12.5 mg daily prior to admission.
-Outpatient dose of Eliquis 5 mg BID (age 89, Cre 0.6, wt 64.9 kg) is on hold in anticipation of thoracentesis, but should be restarted
-Admission thus far reviewed with the patient's daughter in the room on 09/01/2025. TT communication with hospitalist attending, case management and pulmonology to help coordinate care and for discharge planning.
HPI: Patient came to the emergency room yesterday after concern for acute HF at cardiology office visit, cardiology is now consulted to follow as an inpatient. Patient was admitted from 06/08/2025 until 06/27/2025 with acute HF and pericardial
effusion. Patient had pericardiocentesis during that admission for approximately 750 mL of bloody pericardial effusion on 06/17/2025, some residual fluid was left due to the patient's PHTN. Due to bloody pericardial fluid the Eliquis was briefly
held and later restarted without significant recurrence of pericardial effusion. Additionally patient was diuresed for acute HF and patient developed NOEMY which in hindsight was felt to be more related to ibuprofen than diuresis. Patient was seen
in the office on 08/30/2025 and complained of 4 pillow orthopnea, increased LE edema and weight gain. Patient reported that she was taking her usual dose of Lasix 40 mg a.m. and 20 mg p.m. daily. In the ER overnight patient was started on Lasix 40
mg IV BID and reports increased urine output and some improvement in orthopnea, but remains hypoxic on 2 L NC.
Progress Note - Ship Engines Operating Engineer
Subjective
Date of Service: September 01, 2025
Patient reports symptomatic improvement in breathing
Objective
Labs:
09/01/25 07:44
09/01/25 07:44
Labs
Hgb 8.9 g/dL (12.0-16.0) L 09/01/25 07:44
Hct 28.6 % (37.0-47.0) L 09/01/25 07:44
Plt Count 95 10^3/uL (130-400) L 09/01/25 07:44
PT 22.0 Sec (11.4-14.6) H 08/30/25 16:57
INR 1.90 08/30/25 16:57
Sodium 136 mmol/L (135-145) 09/01/25 07:44
Potassium 3.4 mmol/L (3.5-5.1) L 09/01/25 07:44
BUN 24 mg/dl (7-17) H 09/01/25 07:44
Creatinine 0.6 mg/dL (0.6-1.0) 09/01/25 07:44
Glucose 86 mg/dl (70-99) 09/01/25 07:44
Troponins
08/30/25 08/31/25 08/31/25
16:57 05:44 11:30
Troponin I 0.026 0.028 0.027
08/31/25
18:02
Troponin I 0.031
Vital Signs and I&O:
Vital Signs
Temp Pulse Resp BP Pulse Ox
97.9 F 62 16 130/56 96
09/01/25 07:25 09/01/25 07:45 09/01/25 07:25 09/01/25 07:45 09/01/25 07:25
Vital Signs
Temp Pulse Resp BP Pulse Ox
97.9 F 62 16 130/56 96
09/01/25 07:25 09/01/25 07:45 09/01/25 07:25 09/01/25 07:45 09/01/25 07:25
Intake & Output
08/30/25 08/31/25 09/01/25 09/02/25
06:59 06:59 06:59 06:59
Intake Total 480 / 480
Output Total 800 / 800
Balance -320 / -320
Physical Exam
Physical Exam
GEN: NAD. AAO x 3
LUNGS: 2 L NC
CV: A-fib on telemetry. Irreg, 09/20 murmur
[2025-09-01 11:30] VITALS: BP 133/51
--- NOTE | 2025-09-01 11:30 | RESPNOTE ---
Respiratory: SpO2 on Room Air 81%, patient still requires home oxygen.
[2025-09-01] MEDS: DIAMOX 250 MG PO ×2 (12:42→19:37)
--- NOTE | 2025-09-01 14:10 | CM ---
Patient seen on with physician. Patient daughter spoke with physician and CM, requesting SNF placement. Patient also is currently qualifying for home O2 but requested local referrals. CM reviewed options with Patient daughter and will send
out local referrals at her request. CM will continue to follow for discharge planning needs.
Plan: SNF referrals to be sent
[2025-09-01 15:16] VITALS: BP 134/58
[2025-09-01] MEDS: TENORMIN 12.5 MG PO (17:32)
[2025-09-01 19:00] VITALS: BP 108/52
[2025-09-01] MEDS: TYLENOL 1000 MG PO (21:04)
[2025-09-01] MEDS: LIPITOR 40 MG PO (21:04)
[2025-09-01] MEDS: CARDURA 4 MG PO (21:04)
[2025-09-01 23:00] VITALS: BP 108/44
[2025-09-02] VITALS (7 sets, daily range): BP systolic 105–160; BP diastolic 44–73; PULSE 65–67; O2SAT 99; BMI 25.3; BMI 24.7
--- NOTE | 2025-09-02 07:08 | W.PN.HOSP.TC ---
Addendum entered and electronically signed by Shantel Matthews MD 09/02/25 15:03:
I saw and evaluated the patient independently. I reviewed and discussed the resident�s note and agree with findings and plan as documented by Dr. Narvaez.
GENERAL: well developed, well nourished, female in no apparent distress
HEENT: NC/AT--O2 NC
HEART: regular rate and rhythm, +S1, +S2 with ectopy
LUNGS : improved BS on right lung field
ABDOM: soft, nontender, nondistended, + bowel sounds
EXT: no cyanosis, clubbing-- trace edema bilaterally
NEUROLOGIC: grossly intact
Acute hypoxemic resp insufficiency due to R-sided pleural effusion from acute on chronic HFpEF exacerbation -- apprec cards and pulm--cont diuresis with potassium repleted--s/p thoracentesis--had for 1250 mls--transudative consistent with CHF--ECHO
without pericardial effusion--cont PO lasix, daily weights, I/Os--wean O2 as able
Hx bloody pericardial effusion vs. recurrence--Admitted 2mo ago with pericardial effusion in the setting of HFpEF exacerbation; pericardiocentesis drained approximately 800 mL of bloody pericardial effusion. Bleeding thought to be secondary to
patient's anticoagulation on Eliquis. Pt was discharged on colchicine for suspected pericarditis management. CXR 08/30 demonstrated enlarged cardiomediastinal silhouette--- Continue home colchicine 0.6 mg daily
Permanent a fib - confirmed on EKG on presentation; continue Eliquis--rate controlled
Essential Hypertension -continue home losartan and atenolol
COPD w/o acute exacerbation - duonebs PRN --apprec pulm
CAD/HLD - continue home atorvastatin
Anemia of chronic disease - continue to trend CBC
DVT Proph-- Eliquis
Code status --Full
dispo--apprec PT/OT --pt does not qualify for [facility] or SNF--home with VN
Original Note:
Today's Communication/Plan
-
- 50 meq KCl today
- Continue diamox today
- Discharge with O2 and BiPAP
- Plan to discharge on 80mg lasix, pending cards sign-off
- Consider flu shot prior to d/c, per daughter discussion
- Pending case mgmt discussion re: OT eval for dispo planning, likely today
Assessment / Plan
Assessment / Plan
89yo F with a hx of permanent afib (on eliquis), ASCVD, HFpEF, COPD, and recent admission w pericardial effusion & c/f prior pericarditis who presented from [facility] with worsening dyspnea, found to have new R pleural effusion, HFpEF
exacerbation, and acute hypoxemic respiratory insufficiency, now improved s/p diuresis & thoracentesis.
#R-sided pleural effusion
#Acute on chronic HFpEF
#Progressed pulmonary HTN (PAP 78mmHg)
#Acute hypoxemic respiratory insufficiency
Follows w Dr. Churchill cardiology, who has been titrating her diuretics due to volume overload. Currently on home regimen of 60 mg p.o. Lasix. Has been admitted twice in the last 2 months for HF exacerbation, c/b pericardial effusion. Pt has had
worsening orthopnea & BERUMEN over last few weeks, also worsening LAZARA. Started requiring 1 L O2 at home about 2 weeks ago. Came in due to worsening oxygen requirement and dyspnea. CXR 08/30 with moderate/large right-sided pleural effusion and
adjacent airspace opacities. TTE 08/31 with EF 55-60%, mild MR, severe TR w severe pulm HTN w PAP 78mmHg (worse [id number] in June), small pericardial effusion, biatrial enlargement. Thoracentesis 08/31 - transudative, yielded 1250cc clear cristhian
pleural fluid. Ambulatory O2 testing 09/01 w desatting 81% on RA.
Today - AVSS. BiPAP ordered but not given overnight. Fluid -120mL. Current weight 135 (dry weight reported at 143lb as of 06/27/25 discharge). Cr has remained <1.0.
- Continue diamox (s/p lasix through 09/01)
- Follow I/Os, daily weights
- Wean O2 NC as tolerated
- Discharge with home O2 & BiPAP at night
- Pulm & cards following, appreciate recs
#Hypokalemia
K decreased to 3.4. Likely 2/2 increased IV diuresis with lasix & acetazolamide. S/p 20meq KCl.
Today - K 3.2
- Give 50meq KCl
#Small pericardial effusion w hx large pericardial effusion
#C/f prior pericarditis
Admitted 2mo ago with pericardial effusion in the setting of HFpEF exacerbation; pericardiocentesis drained approximately 800 mL of bloody pericardial effusion. Bleeding thought to be secondary to patient's anticoagulation on Eliquis. Pt was
discharged on colchicine for suspected pericarditis management. CXR 08/30 demonstrated enlarged cardiomediastinal silhouette.
- Continue home colchicine 0.6 mg daily
#Chronic
#Permanent a fib - confirmed on EKG on presentation; continue Eliquis
#Benign Hypertension - continue home losartan and atenolol
#COPD w/o acute exacerbation - PRN albuterol
#ASCVD - continue home atorvastatin
#Anemia of chronic dz - continue to trend CBC
#Global
- DVT PPx: Eliquis
- Code: Full
- Diet: Regular
- Dispo: per PT/OT not qualified for acute rehab; plan for dc home today pending OT signoff & case mgmt discussion (& flu vaccine)
Anticipated Discharge: Today
Subjective/Interval History
-
Date of Service: September 02, 2025
Patient calm, alert, interactive this morning. States that she did not wear the BiPAP overnight, it was never given. States that she would not like to wear it because it would be suffocating with the O2 in. However, after discussing that BiPAP
may help her come off of O2, she said that she is willing to do anything and would like to try it tonight. Clarifies that when her O2 desatted to 81% yesterday she was just sitting in bed for 7 minutes without oxygen; had not been ambulating.
Denies any shortness of breath during that episode. Denies any shortness of breath currently on 2 L O2 nasal cannula. Denies any chest pain, or other distress. Understands a plan for PT OT eval today.
Objective Data
-
Vital Signs:
Vital Signs
Temp Pulse Resp BP Pulse Ox
97.1 F 59 18 107/44 99
09/02/25 03:00 09/02/25 03:00 09/02/25 03:00 09/02/25 03:00 09/02/25 03:00
I&O
09/01/25 09/02/25 09/03/25
06:59 06:59 06:59
Intake Total 480 / 480 1080 / 1080
Output Total 800 / 800 1200 / 1200
Balance -320 / -320 -120 / -120
Review of Systems
-
History Source: Patient
Constitutional: Reports No Symptoms
Respiratory: Reports No Symptoms
Cardiac: Reports No Symptoms
Abdomen/GI: Reports No Symptoms
Musculoskeletal: Reports No Symptoms
Skin: Reports No Symptoms
Neuro: Reports No Symptoms
Physical Exam
-
General: Well Developed, Well Nourished and No Apparent Distress
HEENT: Normocephalic and Atraumatic
Respiratory: Clear to Auscultation (slight decreased breath sounds low R lower lung base but improved from prior ) and Non Labored Respirations
Cardiac: Irregular Rhythm
GI: Soft, Nontender and Nondistended
Musculoskeletal: No Edema
Skin: Warm and Dry
Neuro: Awake, Alert and Oriented
Psych: Calm
Data Reviewed
-
Total Time Spent with Patient (in minutes): 15
Critical Care Time (in minutes): 35
Labs: Labs Reviewed by me
[2025-09-02 07:49] LABS: Hematocrit 30.1 % (37.0-47.0); Hemoglobin 9.1 g/dL (12.0-16.0); Mean Corp Hgb Conc. 30.2 g/dL (33.0-37.0); Mean Corpuscular Volume 91.8 fL (81.0-99.0); Nucleated Red Blood Cells % 0 %; Platelet Count 111 10^3/uL (130-400); Red Cell Dist. Width 17.2 % (11.5-14.5)
[2025-09-02 08:27] LABS: ALT (SGPT) 15 U/L (0-35); AST (SGOT) 25 U/L (14-36); Albumin 2.9 g/dl (3.5-5.0); Alkaline Phosphatase 377 U/L (38-126); Blood Urea Nitrogen 17 mg/dl (7-17); Calcium 8.8 mg/dl (8.4-10.2); Chloride 93 mmol/L (98-107); Estimated Creatinine Clearance 51 ml/min; Glucose 81 mg/dl (70-99); Potassium 3.2 mmol/L (3.5-5.1); Sodium 136 mmol/L (135-145); Total Protein 5.3 g/dl (6.3-8.2); eGFR > 60.00
[2025-09-02 08:37] LABS: Carbon Dioxide 40 mmol/L (22-30)
--- NOTE | 2025-09-02 09:23 | W.PN.PUL3 ---
Today's Communication / Plan
-
Refused BiPAP overnight, was willing to retry today
I discussed home set up with daughter, she was agreeable
Will need further outpatient follow-up to set up for pulmonary rehab etc. they have appointment in September
PT OT akshat
Assessment
-
Patient is an 89-year-old female with history of tobacco use, COPD, pulmonary hypertension w/ severe TR, permanent A-fib on Eliquis, ILD/bronchiectasis, CAD s/p LEELEE to LAD + diagonal branch, carotid artery stenosis s/p BMS to right ICA, PVD s/p
iliac stent, hypertension, hyperlipidemia, history of pericardial effusion s/p pericardiocentesis 06/17 requiring colchicine, chronic HFpEF, who presents with SOB and orthopnea. Chest x-ray demonstrating moderate right-sided pleural effusion,
chronic cardiomegaly. She underwent thoracentesis today by IR 08/31/2025. We are consulted for evaluation
Acute on chronic shortness of breath
Orthopnea
Moderate right-sided pleural effusion status post thoracentesis 08/31/2025
Suspect acute on chronic heart failure exacerbation, preserved EF
Suspect CO2 retention
Hyponatremia, mild
Chronic conditions [employer]CH[employer]:
Pulmonary hypertension (prior RHC on 04/15/2023 showed PAP: 62/27 with PCWP 30 and TP with PVR 3.3 Dumont units, consistent with left-sided heart failure)
Valvular heart disease with severe TR
Bronchiectasis/ILD
History of pericardial effusion s/p pericardiocentesis requiring colchicine 2018, again 06/17/25
COPD w/ moderate obstruction
Patient follows up In our office with Dr. Haines- Last time seen 04/2025 - COPD/Chronic bronchitis--back then without SOB.
Spirometry 04/20/2025: FEV1 1.14 L - 78%-FEV1/ FVC ratio 64%.
Quit smoking 40+ years ago. [id number] history.
Hypertension
Permanent AF -rate controlled/Eliquis
Dyslipidemia
Chronic HFpEF
[id number]
PAD - s/p STEFANY and L Iliac PCI/stent (2004)
R ICA stenosis s/p stent 2014
O/A s/p L TKA Dr. Espitia 10/11/[address] Espitia 10/13/19
History of kidney stones
[id number] 6.4
Venous varicosities/
Osteopenia/eft hip OA s/p steroid injection
Diverticulosis/history of diverticulitis (12/2019)
Colon polyps
Plan
Currently 99% on 2L--likely can wean futher down
She has baseline oxygen at home, using 2 to 4 L depending on her level of activity
Eventual home O2 evaluation
Shortness of breath explained by pleural effusion and acute on chronic heart failure with preserved ejection fraction based on clinical presentation, chemical biomarkers and imaging.
She underwent thoracentesis-- fluid chemistry, culture, cytology sent--will review to confirm etiology
Chemistry reviewed, pH 7.46 glucose 89 total protein 3.1 LDH 91--could represent pseudo-exudate given her chronic diuretic use at home
Culture negative, cytology not sent
Cardiology correspondence reviewed.
She is placed on IV diuresis, agree with this
A-fib history resumed on Eliquis
ABG obtained indicating chronic CO2 retention
pH 7.5/54/40/42, prior ABG in 2020 7.39/55
She has contraction alkalosis, suggesting her CO2 baseline may be higher than 54
She is on IV Lasix but will change this to Diamox to help with her alkalosis
Will trial BiPAP tonight, if tolerating, we will set up with home device
Echocardiogram with significant pericardial effusion 06/15/2025.
Underwent pericardiocentesis recently 06/17/2025
Repeat echo today demonstrating severe PAH, preserved function, small pericardial effusion
From the COPD perspective: No evidence for acute exacerbation.
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
Latest pulmonary function testing demonstrated moderate airflow obstruction-up until recently she has not been on maintenance inhalers.
Only using albuterol as needed, can be resumed
No indication for systemic corticosteroids
Patient will need short-term follow-up in our office after discharge - with .
I updated her daughter today
Data:
-
CT Chest 06/10/25 IMPRESSION: Large pericardial effusion, increased. Small bilateral pleural effusions, right greater than left, new. No evidence of pneumonia. Emphysematous lung changes.
Chronic parenchymal scarring with traction bronchiectasis in the right middle lobe. Stable mediastinal adenopathy. Possible elevated right-sided heart pressure versus tricuspid insufficiency/regurgitation.
-
CXR 08/30/25-Moderate/large right-sided pleural effusion and adjacent airspace opacities which likely represents atelectasis, however pneumonia cannot be excluded. Enlarged cardiomediastinal silhouette which may related to previously seen
pericardial effusion.
CXR 03/19/2025: Small bilateral pleural effusions. Significant cardiomegaly with cephalized vascular flow. No evidence for significant interstitial edema radiographically.
Transthoracic echocardiogram 03/21/2025:
1. Left ventricle: Normal size and function with an estimated ejection fraction of 55-60% by visual estimation. Indeterminate diastolic function.
2. Right ventricle: Normal
3. Atria: Severe left atrial dilation and severe right atrial dilation
4. Mitral valve: Mildly thickened with mild mitral regurgitation
5. Aortic valve: Trileaflet. No aortic stenosis or aortic insufficiency
6. Tricuspid valve: Severe tricuspid regurgitation with estimated pulmonary artery systolic pressures of 83 mmHg consistent with severe pulmonary hypertension
7. When compared to the most recent echocardiogram from 03/31/2024, the estimated pulmonary artery systolic pressures have increased from 51 to 83 mmHg and the severity of tricuspid regurgitation is increased from moderate to severe.
ECHO 08/31/25: 1. Normal left ventricular chamber size, myocardial thickness and systolic function. Ejection fraction 55 to 60%.
2. Mild mitral regurgitation.
3. Severe tricuspid regurgitation with severe pulmonary hypertension with pulmonary artery pressure 78 mmHg.
4. Mild pulmonic regurgitation.
5. Small pericardial effusion. Evidence of pleural effusion
6. Biatrial enlargement
7. Compared to a prior echo from June 2025, pulmonary artery systolic pressure was 57 mmHg and there was a mild to moderate pericardial effusion at that time.
Total time spent on this consultation/encounter __51__ minutes which includes review of history, physical exam, medications, laboratory data, personal review of imaging, extensive review of outpatient records, discussion with care team and
respiratory therapy.
Subjective Data
-
Date of Service:
Date of Service: September 02, 2025
Chief Complaint: Pulmonary Follow Up
Subjective:
Refused BiPAP overnight, she is willing to try again during the daytime
I reviewed case with daughter extensively
Objective Data
Data Reviewed
Vital Signs / I&O / Oxygen:
Vital Signs
Temp Pulse Resp BP Pulse Ox
97.6 F 88 18 155/68 97
09/02/25 07:15 09/02/25 07:15 09/02/25 07:15 09/02/25 07:15 09/02/25 07:15
Intake and Output
09/01/25 09/02/25 09/03/25
06:59 06:59 06:59
Intake Total 480 / 480 1080 / 1080
Output Total 800 / 800 1200 / 1200
Balance -320 / -320 -120 / -120
SaO2 97
Nasal Cannula flow liters per 2
minute
Physical Exam
General: Comfortable and Other (NAD)
HEENT: Normocephalic, Anicteric and Moist Mucous Membranes
Cardiovascular: S1-S2 and Regular Rhythm
Respiratory: Crackles and Non-Labored Respirations
GI: Soft, Non Distended and Non Tender
Neurology: Awake, Alert, Oriented and No Motor Deficits
Skin: Warm, Dry and Good Color
Labs/Micro/Reports
Lab Data
09/02/25 07:19
09/02/25 07:19
Microbiology
08/31/25 14:08 Pleural Fluid Body Fluid Culture - Preliminary
No Growth After 18-24 Hours
08/31/25 14:08 Pleural Fluid Gram Stain - Preliminary
08/31/25 14:08 Pleural Fluid Fungal Culture - Preliminary
Culture in progress.
Positive cultures are reported as soon as detected.
Final report to follow in four to five weeks.
[2025-09-02] MEDS: DIAMOX 250 MG PO ×2 (10:00→20:23)
[2025-09-02] MEDS: COZAAR 12.5 MG PO (10:01)
[2025-09-02] MEDS: ELIQUIS 5 MG PO ×2 (10:01→20:24)
[2025-09-02] MEDS: COLCHICINE 0.6 MG PO (10:03)
[2025-09-02] MEDS: FOLVITE 1 MG PO (10:03)
[2025-09-02] MEDS: KCL 40 MEQ PO (10:57)
[2025-09-02] MEDS: KCL 10 MEQ PO (11:01)
--- NOTE | 2025-09-02 11:41 | W.HF.CON ---
Heart Failure
- LV Function
Left ventricular function study result: LV Ejection fraction >/= 50%
Ejection Fraction Percentage: 55-60
- ARNI
Patient already on ARNI: No
Heart Failure ARNI Not Indicated: LV Ejection Fraction >/= 40%
- ACEI/ARB
Patient already on ACEI/ARB: Yes
- Beta Shelby
Patient already on Evidence Based Beta Shelby: No
Heart Failure Evidence Based Beta Shelby Not Indicated: LV Ejection Fraction > 40%
- Mineralocorticord Receptor Antagonist
Patient already on MRA: No
Heart Failure MRA Not Indicated: LV Ejection Fraction > 40%
- SGLT-2 Inhibitor
Patient already on SGLT-2 Inhibitor: No
Heart Failure SGLT-2 Inhibitor Contraindication: Patient Refusal
- Afib Anticoagulation
Patient already on Anticoagulation for Afib: Yes
- NYHA CHF Classification
NYHA CHF Classification Level: Class III - Symptoms w/ min exertion, interferes w/ nml daily activity (severe pulmonary HTN)
- ACC/AHA Stage
ACC/AHA Stage: Stage C: Symptomatic Heart Failure
--- NOTE | 2025-09-02 11:57 | PTCARENOTE ---
Assumed care of pt from previous nurse. Pt feeling pressure to void, no urine noted in purewick. Bladder scanned for 350, pt assisted to commode by PT, stress incontinent with ambulation, voided 375. Pt sat oob for meal, tolerated well. Pt requested
to go back to bed and does not want to use purewick at this time, wants to wait and see how she does and ring for the commode when needed. Pt call bullock is within reach, pt instructed to ring for assistance, verbalized understanding. Pt is on tele
running afib. Pt is on 2L's 02 via nc, lungs diminished, no noted dyspnea. will cont to monitor.
--- NOTE | 2025-09-02 12:28 | RESPNOTE ---
Respiratory: trialed patient on Bilevel pressure of 8/4 cmH2O with 3 LPM, for a few minutes. Will attempt another trial this afternoon.
--- NOTE | 2025-09-02 14:57 | CM ---
Patient seen at bedside with physicians and patient daughter. Patient for possible discharge tomorrow with [facility] referral sent to liaison. Patient has home O2. Patient completed IMM and signed form placed on chart. Patient family to transport home
and are aware of recommendation for supervision at home. CM will continue to follow for discharge planning needs.
Plan; home with [facility] to follow pending acceptance
--- NOTE | 2025-09-02 16:08 | VNURNOTE ---
Multiple calls attempted to daughter Jojo. Called work number as well as cell phone. Left messages. Met with patient at bedside. She is familiar with [facility] services. Last had services last month. Reviewed nurse/therapy, visits, schedule and
homebound status. Reviewed that visits at home will be 2 x per week to assess and teach medical management. Reviewed that [facility] will contact them for start of care beginning of next week- around .
[facility] referral completed in [facility].
--- NOTE | 2025-09-02 16:26 | W.PN.CARDCBS ---
Addendum entered and electronically signed by Chapin Ellington MD 09/02/25 17:46:
I saw and examined the patient.
The Review Manager's note was reviewed and I agree with the note.
Comment: 89-year-old woman past medical history of heart failure with preserved ejection fraction, recurrent pericardial effusion, COPD, permanent atrial fibrillation on Eliquis, CAD with prior PCI and severe range pulmonary hypertension who
presents in acute decompensated heart failure
Volume status significantly improved with IV Lasix
Weight is down to 135 lbs which is lowest on record
Creatinine remains stable
Still on 2 L supplemental O2 via nasal cannula-appreciate pulmonology input regarding underlying COPD and treatment with Diamox
Will resume oral Lasix 40 mg twice daily tomorrow and continue on discharge
We will sign off, please recall as needed
Original Note:
Today's Communication / Plan
-
Transition lasix to 40mg BID at discharge
Continue colchicine 0.6mg daily
Continue Eliquis, atenolol.
Continue losartan, doxazosin
Follow up arranged.
Impression / Plan
-
PCP: Dr. Peterson
Gaming Worker: Dr. Nandini Churchill
Impression:
Presented with SOB and recurrent pericardial effusion 06/08/2025
Recent admission for acute HF and pericardial effusion 06/08/2025 until 06/27/2025
Recent admission for acute HF and AECOPD 03/19/2025 until 03/26/2025
Acute on chronic HFpEF
Right-sided pleural effusion
s/p successful right-sided thoracentesis for 1.25 L of cristhian-colored fluid 08/31/2025
h/o pericardial effusion
s/p pericardiocentesis with 560 mL of blood-tinged fluid removed, manage has pericarditis with a regimen of ibuprofen 11/27/2018
s/p pericardiocentesis for 750 to 800 mL bloody pericardial fluid 06/17/2025
Pulmonary HTN, severe by echo 03/21/25, severe with PAP 79 mmHg by preliminary echo report 08/31/2025
Permanent atrial fibrillation
Chronic Eliquis AC
CAD
LAD PCI in 2003
HTN
HLD
COPD
PAD w/ prior L iliac stent 2004
Carotid stenosis s/p MARGARITA BMS 2004
h/o tobacco abuse
Echo 03/19/2023: EF 59%, mild MR, moderate to severe TR, estimated PAP 84 mmHg
Echo 03/31/2024: EF 62%, moderate TR, estimated PAP 51 mmHg, small pericardial effusion
Echo 03/21/2025: EF 55-60%, mild MR, severe TR, estimated PAP 83 mmHg consistent with severe pulmonary HTN, small to moderate pericardial effusion
Echo 06/01/2025: Normal LV size and function, RV size and function within normal limits, severe TR with PAP 80 mmHg, moderate to large pericardial effusion without evidence of tamponade compared to echo 03/21/2025 the effusion then was small to
moderate and is now larger in size
Echo 06/08/2025: Normal LV size and function at 55 to 60%, RV mildly dilated with normal RV systolic function, severe TR with PAP 63 mmHg, moderate to large pericardial effusion without evidence of tamponade in the setting of PHTN, compared to echo
06/01/2025 there is no significant change
Echo 06/17/2025: Echo guided pericardiocentesis and at the beginning of the procedure a large pericardial effusion was noted and at the conclusion a small to medium sized pericardial effusion remained
Echo 06/20/2025: EF 55 to 60%, pericardial effusion has improved slightly and is now small to moderate compared to moderate at last echo, no evidence of tamponade
Echo 06/21/2025: EF 55 to 60%, RV size and function normal, moderate to severe TR with PAP 48 mmHg, small to moderate pericardial effusion without evidence of tamponade, overall little significant change compared to echo 06/20/2025
Echo 06/27/2025: Limited study, moderate-sized pericardial effusion without evidence of tamponade, overall similar to echo from 06/21/2025
Echo 08/31/2025: EF 55 to 60%, mild MR, severe PHTN with PAP 70 mmHg, small pericardial effusion
Plan:
-Presented with SOB. Admitted with acute HF exacerbation.
-Underwent R thoracentesis on 08/31 with 1.25 L removed. Previously had pericardiocentesis 06/17/2025 w/ no malignancy on pathology. Could consider rheumatology evaluation as OP given recurrent effusions.
-Diuresed earlier in admission with IV lasix and transitioned to Diamox on 09/01.
-Weight down to 135 lbs on 09/02. Weight on admission was 143 lbs. Continue to follow daily weights.
-Creat stable at 0.6
-Plan is to transition to lasix 40mg BID at time of discharge. Had been taking lasix 40mg in AM, 20mg in PM prior to admission.
-Echo 08/31/2025 showed preserved EF, mild MR and a small pericardial effusion as noted above.
-Continue colchicine 0.6mg daily
-Continue losartan at lower dose 12.5mg daily, atenolol 12.5mg daily.
-Previously had NOEMY when spironolactone was added during admission in June, so will avoid.
-Continue doxazosin 4mg HS.
-Remains in permanent atrial fibrillation. HR stable. Continue Eliquis 5mg BID
-Follow up arranged.
HPI: Patient came to the emergency room yesterday after concern for acute HF at cardiology office visit, cardiology is now consulted to follow as an inpatient. Patient was admitted from 06/08/2025 until 06/27/2025 with acute HF and pericardial
effusion. Patient had pericardiocentesis during that admission for approximately 750 mL of bloody pericardial effusion on 06/17/2025, some residual fluid was left due to the patient's PHTN. Due to bloody pericardial fluid the Eliquis was briefly
held and later restarted without significant recurrence of pericardial effusion. Additionally patient was diuresed for acute HF and patient developed NOEMY which in hindsight was felt to be more related to ibuprofen than diuresis. Patient was seen
in the office on 08/30/2025 and complained of 4 pillow orthopnea, increased LE edema and weight gain. Patient reported that she was taking her usual dose of Lasix 40 mg a.m. and 20 mg p.m. daily. In the ER overnight patient was started on Lasix 40
mg IV BID and reports increased urine output and some improvement in orthopnea, but remains hypoxic on 2 L NC.
Progress Note - Gaming Worker
Subjective
Date of Service: September 02, 2025
Feels well. Breathing improved.
Objective
Labs:
09/02/25 07:19
09/02/25 07:19
Labs
Hgb 9.1 g/dL (12.0-16.0) L 09/02/25 07:19
Hct 30.1 % (37.0-47.0) L 09/02/25 07:19
Plt Count 111 10^3/uL (130-400) L 09/02/25 07:19
PT 22.0 Sec (11.4-14.6) H 08/30/25 16:57
INR 1.90 08/30/25 16:57
Sodium 136 mmol/L (135-145) 09/02/25 07:19
Potassium 3.2 mmol/L (3.5-5.1) L 09/02/25 07:19
BUN 17 mg/dl (7-17) 09/02/25 07:19
Creatinine 0.6 mg/dL (0.6-1.0) 09/02/25 07:19
Glucose 81 mg/dl (70-99) 09/02/25 07:19
Troponins
08/30/25 08/31/25 08/31/25
16:57 05:44 11:30
Troponin I 0.026 0.028 0.027
08/31/25
18:02
Troponin I 0.031
Vital Signs and I&O:
Vital Signs
Temp Pulse Resp BP Pulse Ox
97.7 F 70 20 116/57 94
09/02/25 15:53 09/02/25 15:53 09/02/25 15:53 09/02/25 15:53 09/02/25 15:53
Vital Signs
Temp Pulse Resp BP Pulse Ox
97.7 F 70 20 116/57 94
09/02/25 15:53 09/02/25 15:53 09/02/25 15:53 09/02/25 15:53 09/02/25 15:53
Intake & Output
08/31/25 09/01/25 09/02/25 09/03/25
06:59 06:59 06:59 06:59
Intake Total 480 / 480 1080 / 1080
Output Total 800 / 800 1200 / 1200
Balance -320 / -320 -120 / -120
Physical Exam
Physical Exam
GEN: No distress, awake, alert, oriented x3
HEENT: mmm
LUNGS: CTA b/l, no wheezes/rales
CV: irreg, S1/S2, 1/6 murmur
EXT: No clubbing, cyanosis, or edema
NEURO: Gross non-focal
SKIN: Warm, dry, no rash
--- NOTE | 2025-09-02 17:18 | RESPNOTE ---
Respiratory: patient practiced wearing Bilevel 10/5 cmH2O and O2 @ 3 LPM for 15 minutes. Agreed to at least try wearing again tonight.
[2025-09-02] MEDS: KCL 20 MEQ PO (17:26)
[2025-09-02] MEDS: TENORMIN 12.5 MG PO (17:26)
[2025-09-02] MEDS: LIPITOR 40 MG PO (21:07)
[2025-09-02] MEDS: TYLENOL 1000 MG PO (21:07)
[2025-09-02] MEDS: CARDURA 4 MG PO (21:11)
[2025-09-03 03:11] VITALS: BP 102/61
[2025-09-03 05:35] VITALS: BMI 24.9
[2025-09-03 06:07] LABS: Hematocrit 28.4 % (37.0-47.0); Hemoglobin 8.7 g/dL (12.0-16.0); Mean Corp Hgb Conc. 30.6 g/dL (33.0-37.0); Mean Corpuscular Volume 93.4 fL (81.0-99.0); Nucleated Red Blood Cells % 0 %; Platelet Count 120 10^3/uL (130-400); Red Cell Dist. Width 17.2 % (11.5-14.5)
[2025-09-03 06:34] LABS: ALT (SGPT) 15 U/L (0-35); AST (SGOT) 26 U/L (14-36); Albumin 2.7 g/dl (3.5-5.0); Alkaline Phosphatase 353 U/L (38-126); Blood Urea Nitrogen 19 mg/dl (7-17); Calcium 8.9 mg/dl (8.4-10.2); Carbon Dioxide 32 mmol/L (22-30); Chloride 100 mmol/L (98-107); Estimated Creatinine Clearance 44 ml/min; Glucose 103 mg/dl (70-99); Potassium 3.7 mmol/L (3.5-5.1); Sodium 137 mmol/L (135-145); Total Protein 5.2 g/dl (6.3-8.2); eGFR > 60.00
[2025-09-03 07:05] VITALS: BP 121/50
--- NOTE | 2025-09-03 07:17 | W.PN.HOSP.TC ---
Addendum entered and electronically signed by Shantel Matthews MD 09/03/25 14:39:
I saw and evaluated the patient independently. I reviewed and discussed the resident�s note and agree with findings and plan as documented by Dr. Narvaez.
GENERAL: well developed, well nourished, female in no apparent distress
HEENT: NC/AT--O2 NC
HEART: regular rate and rhythm, +S1, +S2 with ectopy
LUNGS : improved BS on right lung field
ABDOM: soft, nontender, nondistended, + bowel sounds
EXT: no cyanosis, clubbing-- trace edema bilaterally
NEUROLOGIC: grossly intact
Acute hypoxemic resp insufficiency due to R-sided pleural effusion from acute on chronic HFpEF exacerbation -- apprec cards and pulm--transition to oral diuretics--s/p thoracentesis--had for 1250 mls--transudative consistent with CHF--ECHO without
pericardial effusion--cont PO lasix, daily weights, I/Os--wean O2 as able
Hx bloody pericardial effusion vs. recurrence--Admitted 2mo ago with pericardial effusion in the setting of HFpEF exacerbation; pericardiocentesis drained approximately 800 mL of bloody pericardial effusion. Bleeding thought to be secondary to
patient's anticoagulation on Eliquis. Pt was discharged on colchicine for suspected pericarditis management. CXR 08/30 demonstrated enlarged cardiomediastinal silhouette--- Continue home colchicine 0.6 mg daily
Permanent a fib - confirmed on EKG on presentation; continue Eliquis--rate controlled
Essential Hypertension -continue home losartan and atenolol
COPD w/o acute exacerbation - duonebs PRN --apprec pulm
CAD/HLD - continue home atorvastatin
Anemia of chronic disease - continue to trend CBC
DVT Proph-- Eliquis
Code status --Full
dispo--apprec PT/OT --pt does not qualify for [facility] or SNF--home with VN
Original Note:
Today's Communication/Plan
-
- Plan for dc home today w flu vaccine & outpatient pulm appt in Sep
- Will dc on 80mg PO lasix
- K normalized today
Assessment / Plan
Assessment / Plan
89yo F with a hx of permanent afib (on eliquis), ASCVD, HFpEF, COPD, and recent admission w pericardial effusion & c/f prior pericarditis who presented from [employer] with worsening dyspnea, found to have new R pleural effusion, HFpEF
exacerbation, and acute hypoxemic respiratory insufficiency, now improved s/p diuresis & thoracentesis.
#R-sided pleural effusion
#Acute on chronic HFpEF
#Progressed pulmonary HTN (PAP 78mmHg)
#Acute hypoxemic respiratory insufficiency
Follows w Dr. Churchill cardiology, who has been titrating her diuretics due to volume overload. Currently on home regimen of 60 mg p.o. Lasix. Has been admitted twice in the last 2 months for HF exacerbation, c/b pericardial effusion. Pt has had
worsening orthopnea & BERUMEN over last few weeks, also worsening LAZARA. Started requiring 1 L O2 at home about 2 weeks ago. Came in due to worsening oxygen requirement and dyspnea. CXR 08/30 with moderate/large right-sided pleural effusion and
adjacent airspace opacities. TTE 08/31 with EF 55-60%, mild MR, severe TR w severe pulm HTN w PAP 78mmHg (worse [id number] in June), small pericardial effusion, biatrial enlargement. Thoracentesis 08/31 - transudative, yielded 1250cc clear cristhian
pleural fluid. RA O2 testing 09/01 w desatting 81% on RA.
Today - AVSS. BiPAP not used overnight. Fluid +420mL. Current weight 135.8 (dry weight reported at 143lb as of 06/27/25 discharge). Cr has remained <1.0.
- Continue 40mg lasix PO bid per cards (starting today) & PO acetazolamide (since 09/02) > discharge today on 80mg PO lasix daily
- Follow I/Os, daily weights
- Wean O2 NC as tolerated
- Discharge with home O2 & plan to f/u with pulm re: potential for BiPAP at night (although pt likely not amenable)
- Bipap: 'discussed home set up with daughter, she was agreeable. Will need further outpatient follow-up to set up for pulmonary rehab etc. they have appointment in September' per pulm note 09/02
- Pulm & cards following, appreciate recs
#Hypokalemia, resolved
K decreased to 3.4. Likely 2/2 increased IV diuresis with lasix & acetazolamide. S/p KCl replete.
Today - K 3.7
- Monitor BMP
#Small pericardial effusion w hx large pericardial effusion
#C/f prior pericarditis
Admitted 2mo ago with pericardial effusion in the setting of HFpEF exacerbation; pericardiocentesis drained approximately 800 mL of bloody pericardial effusion. Bleeding thought to be secondary to patient's anticoagulation on Eliquis. Pt was
discharged on colchicine for suspected pericarditis management. CXR 08/30 demonstrated enlarged cardiomediastinal silhouette.
- Continue home colchicine 0.6 mg daily
#Chronic
#Permanent a fib - confirmed on EKG on presentation; continue Eliquis
#Benign Hypertension - continue home losartan and atenolol
#COPD w/o acute exacerbation - PRN albuterol
#ASCVD - continue home atorvastatin
#Anemia of chronic dz - continue to trend CBC
#Global
- DVT PPx: Eliquis
- Code: Full
- Diet: Regular
- Dispo: per PT/OT not qualified for acute rehab; plan for dc home today w flu vaccine & outpatient pulm appt in Sep
Anticipated Discharge: Today
Subjective/Interval History
-
Date of Service: September 03, 2025
Pt feeling well this am, no complaints. States that she was not able to use the bipap overnight - put it on and immediately felt like she was suffocating. She said senior technical support engineer said okay to take off. Denies any CP, LAZARA, or dyspnea. States that
she got up to walk and did not feel SOB at all.
Objective Data
-
Labs:
Laboratory Results
09/03/25
05:39
WBC 4.7 L
Hgb 8.7 L
Hct 28.4 L
Plt Count 120 L
Sodium 137
Potassium 3.7
Chloride 100
Carbon Dioxide 32 H
BUN 19 H
Creatinine 0.7
Glucose 103 H
Calcium 8.9
Total Bilirubin 0.6
AST 26
ALT 15
Alkaline Phosphatase 353 H
Vital Signs:
Vital Signs
Temp Pulse Resp BP Pulse Ox
98.1 F 66 20 102/61 98
09/03/25 03:11 09/03/25 03:11 09/03/25 03:11 09/03/25 03:11 09/03/25 03:11
I&O
09/02/25 09/03/25 09/04/25
06:59 06:59 06:59
Intake Total 1080 / 1080 1320 / 1320
Output Total 1200 / 1200 900 / 900
Balance -120 / -120 420 / 420
Review of Systems
-
History Source: Patient
Constitutional: Reports No Symptoms
Respiratory: Reports No Symptoms
Cardiac: Reports No Symptoms
Abdomen/GI: Reports No Symptoms
Musculoskeletal: Reports No Symptoms
Skin: Reports No Symptoms
Neuro: Reports No Symptoms
Physical Exam
-
General: Well Developed, Well Nourished and Comfortable
HEENT: Normocephalic and Atraumatic
Respiratory: Clear to Auscultation and Non Labored Respirations
Cardiac: Irregular Rhythm
GI: Soft, Nontender and Nondistended
Musculoskeletal: No Edema
Skin: Warm and Dry
Neuro: Awake and Alert
Psych: Calm
Data Reviewed
-
Total Time Spent with Patient (in minutes): 10
Critical Care Time (in minutes): 35
Labs: Labs Reviewed by me
[2025-09-03] MEDS: ELIQUIS 5 MG PO (08:01)
[2025-09-03] MEDS: FOLVITE 1 MG PO (08:01)
[2025-09-03] MEDS: COLCHICINE 0.6 MG PO (08:01)
[2025-09-03] MEDS: LASIX 40 MG PO (08:03)
[2025-09-03] MEDS: DIAMOX 250 MG PO (08:03)
[2025-09-03] MEDS: COZAAR 12.5 MG PO (08:03)
--- NOTE | 2025-09-03 10:48 | W.DCSUMMARY ---
Addendum entered and electronically signed by Shantel Matthews MD 09/03/25 14:44:
Read, reviewed, and agree. See same day progress note for additional details. Time spent coordinating care, DC planning, review of DC plan of care with resident, transition of care, review of records in EMR, med rec, consults, notes, d/w
consultants, nursing, family, and CM = 38 minutes
Original Note:
Discharge Summary
Discharge Data
Date of Admission: 08/31/25
Date of Discharge: 09/03/25
-
Pending Results: No
Hospital Course
Discharging Physician : Shantel Matthews MD ; Marilynn Narvaez MD
Disposition : to home with VN
Primary care physician : Dr. Peterson
Principal Discharge diagnosis :
- Acute on chronic HFpEF
- R-sided pleural effusion
- Worsening pulmonary HTN (PAP 78mmHg)
- Acute hypoxemic respiratory insufficiency
Chronic Discharge diagnosis : permanent afib (on eliquis), ASCVD, HFpEF, COPD
Hospital Course :
89yo F with a hx of permanent afib (on eliquis), ASCVD, HFpEF, COPD, and recent admission w pericardial effusion & c/f prior pericarditis who presented from [facility] with worsening dyspnea, found to have new R pleural effusion, HFpEF
exacerbation, and acute hypoxemic respiratory insufficiency.
Patient presented on 08/31 with worsening dyspnea on exertion, orthopnea, and lower extremity edema. Had been on home O2 (1L NC) for about 1 week at that point. Had been working with commercial intern, Dr. Churchill, on titrating home diuresis to
optimize volume status. (Of note, was recently admitted at [facility] in June for HFpEF exacerbation complicated by pericardial effusion and suspected pericarditis. Patient had been on 0.5 colchicine since for treatment of presumed
pericarditis.) On presentation, patient was satting 91% on room air. BP was elevated 153/73. Other vitals were within normal limits. CXR demonstrated large right-sided pleural effusion and enlarged cardiomediastinal silhouette. Patient was
admitted for further management.
Patient was started on 40 mg IV furosemide twice daily. She also underwent thoracentesis, which drained 1250 cc of clear cristhian pleural fluid, thought to be transudative. Patient endorsed improved breathing following thoracentesis. TTE demonstrated
small pericardial effusion, not significant enough for intervention, with preserved LVEF.
By time of discharge on 09/03, patient's weight decreased to 135 pounds, below her dry weight of 143 pounds. Creatinine remained less than 1. Extremity edema resolved. Home O2 requirement measurement demonstrated desat to 81% on RA with 7min off
O2 while seated - patient requires ongoing home O2. However, pt was denying dyspnea with ambulation with 2L O2. Plan was discussed with cardiology for patient to be discharged on an increased home dose of furosemide. Plan to increase from 60 mg
total daily to 80 mg total daily, divided into 40 mg in the morning and 40 mg in the evening, with option to divide to have higher dose in the am if patient prefers. Patient should follow-up in 1 week with her outpatient commercial intern,
Kerline, regarding updated Lasix dose and potential need for KCl supplementation. Plan for BiPAP at home was discussed, but pt unable to tolerate BiPAP overnight inpatient. She has an appt with vaccines solutions specialist in September - should follow up with
them for further discussion.
Patient's other chronic diagnoses, as listed above, were managed without incident using her home medications inpatient unless otherwise noted.
Important imaging findings :
CXR (08/30):
Moderate/large right-sided pleural effusion and adjacent airspace opacities which likely represents atelectasis, however pneumonia cannot be excluded.
Enlarged cardiomediastinal silhouette which may related to previously seen pericardial effusion.
TTE (08/31):
1. Normal left ventricular chamber size, myocardial thickness and systolic function. Ejection fraction 55 to 60%.
2. Mild mitral regurgitation.
3. Severe tricuspid regurgitation with severe pulmonary hypertension with pulmonary artery pressure 78 mmHg.
4. Mild pulmonic regurgitation.
5. Small pericardial effusion. Evidence of pleural effusion
6. Biatrial enlargement
7. Compared to a prior echo from June 2025, pulmonary artery systolic pressure was 57 mmHg and there was a mild to moderate pericardial effusion at that time.
CXR (08/31):
Decreased right pleural fluid status post thoracentesis. No appreciable pneumothorax.
Procedure findings :
Thoracentesis 08/31: Successful ultrasound-guided R-sided thoracentesis, yielding 1250 cc of clear cristhian pleural fluid.
Discharge Plan
-
Patient Disposition: Home with Home Care
Discharge Diagnosis/Procedures: - R-sided pleural effusion
- Acute on chronic HFpEF
- Worsening pulmonary HTN (PAP 78mmHg)
- Acute hypoxemic respiratory insufficiency
Condition: Good
Diet: Low Sodium
Activity: No restrictions
Driving Restrictions: As prior to admission
Bathing Restrictions: None
Specialty Instructions: Weigh Daily- Call MD for wt gain/loss 3 lbs overnight/5 lbs in 1 week
Instructions: *[facility] Heart Failure Instructions
Referrals:
Solomon Haines MD [Active, Pulmonary Medicine]
Referral Note: has appt in Sep
Mirta Peterson MD [Active, Family Practice] - in one week
Macrina France CRNP [Specified Professional Personl, Cardiology] - 09/16/25 7:40 am
Referral Note: You have a follow up visit with Dr. Delatorre's EXCHANGE SPECIALIST, Macrina France, at the [place] office. Please call with questions.
Additional Discharge Medication Instructions: INCREASE your home furosemide (lasix) dose from 60mg total daily to 80mg total daily - 40mg in the morning, 40mg in the evening (if you prefer to take more than half in the morning, you can also do that)
CONTINUE to use your home oxygen (goal O2 saturation 88-92%)
Keep the rest of your home medications the same
Keep your September appointment with Dr. Haines (pulmonology) to discuss options for your home O2 and to revisit BiPAP
Be sure to follow up with your commercial intern in 1-2 weeks as well
Prescriptions:
Continued
atorvastatin 40 MG tablet
40 mg PO HS
folic acid 1 MG tablet
1 mg PO DAILY
Eliquis 5 MG tablet
5 mg PO BID
cyanocobalamin (vitamin B-12) 1,000 mcg Tablet
1,000 mcg PO DAILY
therapeutic multivitamin Tablet
1 tab PO DAILY
acetaminophen [Tylenol Extra Strength] 500 mg Tablet
1,000 mg PO HS
doxazosin 4 mg Tablet
4 mg PO HS
furosemide 20 mg tablet
40 mg PO DAILY
Saline Nasal 0.65 % aerosol,spray
2 spray intranasal QIDPRN
colchicine 0.6 mg Tablet
0.6 mg PO DAILY Qty: 30 2RF
atenolol 25 mg Tablet
12.5 mg PO QPM
losartan 25 mg Tablet
12.5 mg PO DAILY
levalbuterol tartrate [Xopenex HFA] 45 mcg/actuation Hfa Aerosol Inhaler
2 inh INHALATION R Q6HPRN PRN (Reason: sob)
cholecalciferol (vitamin D3) [Vitamin D3] 125 mcg (5,000 unit) Tablet
125 mcg PO DAILY
Changed
furosemide 20 mg tablet
40 mg PO DAILY@1600 Qty: 0 0RF
Discharge Orders:
Discharge Patient (As Directed); Ordered 09/03/25
Ordered By: Marilynn Narvaez
Discharge Date and Time
Print Language: MALTESE
[2025-09-03 11:00] VITALS: BP 107/49
--- NOTE | 2025-09-03 11:21 | CM ---
Addendum entered by Roro Sky 09/03/25 11:52:
VN will have patient followed by aids social worker.
Original Note:
Patient is for discharge to home today, per previous director case notes patient has home oxygen, and patient has been set up to home with [facility]. Message left for patient's daughter to bring in home oxygen.
Plan; Home with [facility].
== END 2025-09-03 14:02 | disposition home health service (06) | DRG 291 ==
LOC: 4 WEST ACU 05:10
PROVIDERS: Emergency Medicine; Radiology Vascular & Interventional Radiology; ADMITTING PHYSICIAN Hospitalist; ATTENDING PHYSICIAN Internal Medicine; CONSULT PHYSICIAN Nuclear Medicine Nuclear Cardiology; EMERGENCY PHYSICIAN Student in an Organized Health Care Education/Training Program; FAMILY PHYSICIAN Family Medicine; OTHER PHYSICIAN Internal Medicine
PROC: 0W993ZX Drainage of Right Pleural Cavity, Percutaneous Approach, Diagnostic (ICD-10-PCS; 2025-08-31)
DX: I11.0 Hypertensive heart disease with heart failure (principal); I50.33 Acute on chronic diastolic (congestive) heart failure; I48.21 Permanent atrial fibrillation; J91.8 Pleural effusion in other conditions classified elsewhere; E87.1 Hypo-osmolality and hyponatremia; I31.39 Other pericardial effusion (noninflammatory); N17.9 Acute kidney failure, unspecified; J84.9 Interstitial pulmonary disease, unspecified; E78.5 Hyperlipidemia, unspecified; R09.02 Hypoxemia; I25.10 Atherosclerotic heart disease of native coronary artery without angina pectoris; D63.8 Anemia in other chronic diseases classified elsewhere; D69.6 Thrombocytopenia, unspecified; I07.1 Rheumatic tricuspid insufficiency; I27.20 Pulmonary hypertension, unspecified; J47.9 Bronchiectasis, uncomplicated; J44.89 Other specified chronic obstructive pulmonary disease; R73.03 Prediabetes; Z79.01 Long term (current) use of anticoagulants; Z79.899 Other long term (current) drug therapy; Z87.891 Personal history of nicotine dependence; Z87.442 Personal history of urinary calculi
CPT/HCPCS: 32555; 71045; 71046; 80048; 80053; 82150; 82805; 82945; 83615; 83880; 83986; 84155; 84157; 84443; 84478; 84484; 85025; 85027; 85610; 87015; 87070; 87102; 87116; 87205; 88112; 88305; 89051; 93005; 93308; 93321; 93325; 94761; 96374; 97116; 97129; 97162; 97166; 97530; 97535; 99285

== ENCOUNTER → 2025-09-14 10:57 | Outpatient (REF) | payer MEDICARE, SELFPAY ==
[2025-09-14 12:41] LABS: Blood Urea Nitrogen 19 mg/dl (7-17); Calcium 8.9 mg/dl (8.4-10.2); Carbon Dioxide 37 mmol/L (22-30); Chloride 93 mmol/L (98-107); Glucose 85 mg/dl (70-99); Magnesium 2.1 mg/dl (1.6-2.3); Potassium 4.4 mmol/L (3.5-5.1); Sodium 135 mmol/L (135-145); eGFR > 60.00
== END ==
LOC: REG 10:57
PROVIDERS: FAMILY PHYSICIAN Family Medicine
DX: I11.0 Hypertensive heart disease with heart failure (principal)
CPT/HCPCS: 36415; 80048; 83735